=== PATIENT | female | born 1940 | race Caucasian/White ===

== ENCOUNTER 2022-09-10 04:18 | Day surgery (SDC) | payer MEDICARE, SELFPAY ==
[2022-09-02 14:08] VITALS: BMI 30.2
--- NOTE | 2022-09-09 16:16 | PM.HPGS ---
History of Present Illness History of Present Illness Consent: Risks, benefits, and alternatives have been discussed and questions answered. Patient agrees to proceed with procedure. Chief complaint: change in bowel habits Narrative: Cathryn Harris is a 82 year old female was referred for investigation of chronic diarrhea. She had seen her primary care physician who did check her for inflammatory bowel disease serology. Review of Systems Review of Systems: All systems reviewed & are unremarkable except as noted in HPI and below PMFSH Social History Social History Smoking status: Never smoker Substance use type: does not use Living arrangements: other Additional living arrangements comments: With Meds Home Medications and Allergies Home Medications Medication Instructions Recorded Confirmed Type carvedilol 3.125 mg tablet 3.125 mg PO BID 09/02/22 09/10/22 History clopidogrel 75 mg tablet 75 mg PO DAILY 09/02/22 09/10/22 History furosemide 40 mg tablet 40 mg PO DAILY 09/02/22 09/10/22 History insulin glargine 100 unit/mL (3 35 unit subcut HS 09/02/22 09/10/22 History mL) subcutaneous pen (Lantus Solostar U-100 Insulin) levothyroxine 75 mcg tablet 75 mcg PO DAILY 09/02/22 09/10/22 History (Synthroid) rosuvastatin 5 mg tablet 5 mg PO DAILY 09/02/22 09/10/22 History venlafaxine 150 mg 150 mg PO DAILY 09/02/22 09/10/22 History capsule,extended release 24 hr Allergies Allergy/AdvReac Type Severity Reaction Status Date / Time acetaminophen Allergy Other Verified 09/10/22 09:03 Exam Const: General: alert Orientation/consciousness: patient oriented x3 Resp: Auscultation: clear to auscultation bilaterally Cardio: Rhythm: regular rhythm GI: GI Palp: Yes Soft to palpation and No Tenderness to palpation present (GI) Neuro: General: patient oriented x3 Assessment and Plan Assessment and plan (1) Chronic diarrhea: Code(s): K52.9 - Noninfective gastroenteritis and colitis, unspecified Status: Acute Assessment and Plan: Colonoscopy with possible biopsy or polypectomy or cautery or injection of substances.
[2022-09-10 09:05] VITALS: BP 145/87; PULSE 113; RESP 17; TEMP 36.2; O2SAT 95; BMI 29.6
[2022-09-10 09:19] LABS: Glucose Point of Care 265 mg/dl (65-105)
[2022-09-10] MEDS: LACTATED RINGERS 1,000 ML 150 ML IV CONT (09:32)
--- NOTE | 2022-09-10 09:43 | WPDANESEPPF ---
Anes - Initial Pre Proc Eval Procedure: Operation Date: 09/10/22 10:30 Proposed Procedures p Colonoscopy - John Warren MD Date/Time: 09/10/22 09:43 Surgeon: John Warren MD Pre Op Diagnosis: change in bowel habits Patient Data Age: 82 Gender: F Height: 1.68 m Weight: 83.3 kg Last Vital Signs Temp 97.1 F L 09/10/22 09:05 Pulse 113 H 09/10/22 09:05 Resp 17 09/10/22 09:05 BP 145/87 H 09/10/22 09:05 Pulse Ox 95 09/10/22 09:05 O2 Del Method Room Air 09/10/22 09:05 Allergies Allergy/AdvReac Type Severity Reaction Status Date / Time acetaminophen Allergy Other Verified 09/10/22 09:03 Home Medications Medication Instructions Recorded Confirmed Type carvedilol 3.125 mg tablet 3.125 mg PO BID 09/02/22 09/10/22 History clopidogrel 75 mg tablet 75 mg PO DAILY 09/02/22 09/10/22 History furosemide 40 mg tablet 40 mg PO DAILY 09/02/22 09/10/22 History insulin glargine 100 unit/mL (3 35 unit subcut HS 09/02/22 09/10/22 History mL) subcutaneous pen (Lantus Solostar U-100 Insulin) levothyroxine 75 mcg tablet 75 mcg PO DAILY 09/02/22 09/10/22 History (Synthroid) rosuvastatin 5 mg tablet 5 mg PO DAILY 09/02/22 09/10/22 History venlafaxine 150 mg 150 mg PO DAILY 09/02/22 09/10/22 History capsule,extended release 24 hr Laboratory Tests 09/10/22 09:17 POC Capillary Glucose 265 H mg/dl (65-105) Patient hx anesthesia problems: none Family hx anesthesia problems: none Results Review: All pre-operative results and documents have been reviewed as part of the pre-operative evaluation. [facility] Social History Social History Smoking status: Never smoker Substance use type: does not use Living arrangements: other Additional living arrangements comments: With Anes - Eval Final PreProcedure Day of Procedure 09/10/22 09:43 Patient weight: normal Heart: regular rate and rhythm Lungs: clear to auscultation Airway: Mallampati scale Neurological: alert and oriented Last oral intake: >/= 8 hours ASA classification: III Emergent: no Anesthetic plan: proceed Anesthesia type and monitoring: general GIVS and standard monitoring Results Review: All pre-operative results and documents have been reviewed as part of the pre-operative evaluation. Informed Consent: The patient's anesthetic plan and its attendant risks and benefits were discussed with the patient/family/POA. Questions were solicited and answers provided to the satisfaction of the patient/family/POA.
[2022-09-10 10:26] VITALS: BP 135/75; PULSE 98; RESP 18; O2SAT 98
[2022-09-10 10:36] VITALS: BP 134/84; PULSE 99; RESP 20; O2SAT 97
[2022-09-10 10:46] VITALS: BP 147/84; PULSE 94; RESP 20; O2SAT 100
== END 2022-09-10 11:03 | disposition home or self-care (01) ==
PROVIDERS: PCP Internal Medicine; Visit Provider Internal Medicine Gastroenterology
PROC: 0DJD8ZZ Inspection of Lower Intestinal Tract, Via Natural or Artificial Opening Endoscopic (ICD-10-PCS; CPT 45378; principal; 2022-09-10 10:30)
DX: R19.7 Diarrhea, unspecified (principal); K62.1 Rectal polyp; R19.4 Change in bowel habit; Z79.4 Long term (current) use of insulin
CPT/HCPCS: 45385; 45380; 82948; 88305; J2704; J7120

== ENCOUNTER 2024-05-19 07:51 | Inpatient (IN) | payer MEDICARE, SELFPAY ==
[2024-05-19] VITALS (11 sets, daily range): BP systolic 98–129; BP diastolic 43–57; PULSE 70–88; RESP 11–18; TEMP 36.3; O2SAT 95–100
--- NOTE | 2024-05-19 08:14 | ECG_ITS ---
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
--- OUTSIDE RECORDS SUMMARY | 2024-05-19 08:24 | XMS_ITS | CONTINUITY OF CARE DOCUMENT ---
Author Name cora, cora Address Unknown Organization [facility] Address [address] [place] [address] Phone [phone] Care Team Providers Care Civil Preparedness Coordinator Name Role Phone Isha ANTHONY, Sy Unavailable CLEOPATRA ANTHONY, ERICKSON Unavailable ERICKSON JUAREZ MD Unavailable [phone] PROBLEMS Condition Status Date Provider Notes Dual chamber pacemaker - [employer] active Sy Vieira MD Other symptoms involving cardiovascular system completed - Sy Vieira MD Syncope and collapse active Sy patel MD Sick sinus syndrome active Sy stratton MD HTN Systolic active Sy Vieira MD Occlusion and stenosis of vertebral artery, 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 Sy Vieira MD Diabetes mellitus active Sy Vieira MD Hypercholesterolemia active Sy patel MD Carotid bruit active Sy Vieira MD Dizziness active Santino Yeon SOB active Joss Peoples Unintentional weight loss active Sy marinelli MD Chest pain active Devon Cobos Carotid arterial disease active Devon shaw Breast cancer active Devon Cobos ENCOUNTERS Date Type Provider Location Encounter Diag nosis - In-person encounter Office Visit Sy Vieira MD [facility] Breast cancer - In-person encounter Office Visit Sy Vieira MD [facility] Chest painCarotid arterial disease - In-person encounter Office Visit Sy Vieira MD [facility] - In-person encounter Office Visit Sy Vieira MD [facility] Unintentional weight loss - In-person encounter Office Visit Sy Vieira MD [facility] - In-person encounter Office Visit Sy Vieira MD [facility] - In-person encounter Office Visit Oswaldo Claros MD [facility] - In-person encounter Office Visit Sy Vieira MD [facility] SOB - In-person encounter Office Visit Sy Vieira MD [facility] - In-person encounter Office Visit Sy Vieira MD [facility] Dizziness - In-person encounter Office Visit Sy Vieira MD [facility] Carotid bruit - In-person encounter Office Visit Sy Vieira MD [facility] symptoms involving cardiovascular systemDiabetes mellitusHypercholesterolemia - In-person encounter Office Visit Sy Vieira MD [facility] - In-person encounter Office Visit Sy Vieira MD [facility] HTN SystolicOcclusion and stenosis of vertebral artery, without mention of cerebral infarction - In-person encounter Office Visit Sy Vieira MD [facility] Syncope and collapseSick sinus syndrome VITAL SIGNS Date Observation Value Provider Body Mass Index (Ratio) 29.41 kg/m2 Luís Vieira MD blood pressure, cuff size regular Ke antonioi Robertozenobiasimin blood pressure, diastolic 84 mm[Hg] Ke rri Emir blood pressure, systolic 132 mm[Hg] Candace lozoya Emir oxygen saturation, oximetry 97 % Tracy Emir pulse rate 92 /min Tracy Ernestina er weight E&M 185 [lb_av] Tracy Ernestina [facility] height E&M 66.5 [in_i] Tracy Raadpippaedilberto [facility] respiratory rate E&M 12 /min Crissy Yannick height E&M 66.5 [in_i] Crissy Lanier Body Mass Index (Ratio) 30.52 kg/m2 Luís Vieira MD blood pressure, diastolic 96 mm[Hg] Madhavi nkLoglelo blood pressure, systolic 140 mm[Hg] Dina lelo pulse rate 85 /min Deshawn blood pressure, cuff size regular Ortiz et blood pressure, diastolic 96 mm[Hg] Ortiz rret blood pressure, systolic 140 mm[Hg] Meng ret respiratory rate E&M 12 /min oxygen saturation, oximetry 98 % Deshawn weight E&M 192 [lb_av] Deshawn y height E&M 66.5 [in_i] Deshawn y Body Mass Index (Ratio) 30.01 kg/m2 Luís Vieira MD blood pressure, diastolic 94 mm[Hg] Madhavi nkLoglelo blood pressure, systolic 136 mm[Hg] Dina kLogic blood pressure, diastolic 73 mm[Hg] Waleska Ricardo blood pressure, systolic 136 mm[Hg] She shruthi Ricardo pulse rate 86 /min Val Ricardo oxygen saturation, oximetry 97 % Val Ricardo respiratory rate E&M 18 /min Val Ricardo blood pressure, cuff size regular Waleska Ricardo weight E&M 188.8 [lb_av] Val Ricardo height E&M 66.5 [in_i] Val Ricardo Body Mass Index (Ratio) 32.43 kg/m2 Devon Adrianapedrocolleen blood pressure, diastolic 59 mm[Hg] Ri gordon Barney blood pressure, systolic 134 mm[Hg] Modesto carolee Barney blood pressure, cuff size large Ri gordon Barney oxygen saturation, oximetry 98 % Trudy Barney respiratory rate E&M 16 /min Shira Barney pulse rate 81 /min Trudy Pepe son weight E&M 204 [lb_av] Trudy Pepe son height E&M 66.5 [in_i] Trudy medina Body Mass Index (Ratio) 33.07 kg/m2 Luís Vieira MD blood pressure, cuff size large Ke rri Robertouenekatlin blood pressure, diastolic 70 mm[Hg] Ke rri Gruenenfjuaner blood pressure, systolic 146 mm[Hg] Candace Field oxygen saturation, oximetry 96 % Tracy Emir respiratory rate E&M 16 /min Tracy boyle pulse rate 97 /min Tracy Ernestina tovar weight E&M 208 [lb_av] Tracy Raadneedilberto lder height E&M 66.5 [in_i] Tracy Carloskareem [facility] Body Mass Index (Ratio) 33.70 kg/m2 Barbara Claros MD blood pressure, cuff size regular Cy nthia Earl blood pressure, diastolic 85 mm[Hg] Cy nthia Earl blood pressure, systolic 141 mm[Hg] Shannan rubilyle Earl oxygen saturation, oximetry 92 % Xena Earl respiratory rate E&M 16 /min Xena Earl pulse rate 97 /min Xena Campbel l weight E&M 212 [lb_av] Xena Campbel l height E&M 66.5 [in_i] Xena Campbel l Body Mass Index (Ratio) 33.86 kg/m2 Blanka Peoples blood pressure, diastolic 80 mm[Hg] Ki lleen Rainey blood pressure, systolic 130 mm[Hg] Chantale thompson Rainey oxygen saturation, oximetry 98 % Jack Rainey respiratory rate E&M 16 /min Heri Rainey pulse rate 109 /min Heri Rainey weight E&M 213 [lb_av] Jack Rainey height E&M 66.5 [in_i] Jack Rainey Body Mass Index (Ratio) 34.66 kg/m2 Abhishek Lawrence blood pressure, cuff size regular Cy ntmarquez Rajat blood pressure, diastolic 74 mm[Hg] Cy nthia Earl blood pressure, systolic 130 mm[Hg] Shannan rubia Rajat oxygen saturation, oximetry 93 % Xena Earl respiratory rate E&M 16 /min Xena Earl pulse rate 110 /min Xena Campbel l weight E&M 218 [lb_av] Xena Campbel l height E&M 66.5 [in_i] Xena Almaraz l Body Mass Index (Ratio) 34.18 kg/m2 Abhishek kapoor Melinda blood pressure, diastolic 72 mm[Hg] Da agus Duran blood pressure, systolic 110 mm[Hg] Dac ia Duran oxygen saturation, oximetry 93 % Caitlin Duran respiratory rate E&M 16 /min Caitlin V oss pulse rate 74 /min Caitlin Duran weight E&M 215 [lb_av] Caitlin Duran height E&M 66.5 [in_i] Caitlin Duran Body Mass Index (Ratio) 34.43 kg/m2 Luís Vieira MD blood pressure, resting Yes Kitty Roberson blood pressure, diastolic 75 mm[Hg] Hortensia Roberson blood pressure, systolic 139 mm[Hg] Margaret Roberson oxygen saturation, oximetry 96 % Callie Roberson respiratory rate E&M 18 /min Jay Roberson pulse rate 83 /min Callie Carrizales nson weight E&M 216.6 [lb_av] Callie Huber enson height E&M 66.5 [in_i] Callie Carrizales nson blood pressure, diastolic 64 mm[Hg] Hortensia Huberenson blood pressure, systolic 136 mm[Hg] Margaret Roberson pulse rate 84 /min Callie Carrizales nson oxygen saturation, oximetry 96 % Callie Roberson respiratory rate E&M 16 /min StaceyIlsa Roberson Body Mass Index (Ratio) 33.83 kg/m2 Stacey Donaldson Roberson weight E&M 212.8 [lb_av] Callie Huber enson Body Mass Index (Ratio) 34.11 kg/m2 Idris Mccall blood pressure, diastolic 84 mm[Hg] Joshua Mccall blood pressure, systolic 148 mm[Hg] Debi Mccall pulse rate 94 /min Marlen Mccall oxygen saturation, oximetry 96 % Marlen Mccall respiratory rate E&M 20 /min Marlen Mccall weight E&M 214.6 [lb_av] Marlen Mccall Body Mass Index (Ratio) 33.54 kg/m2 Anea viji Josep blood pressure, diastolic 88 mm[Hg] An eatris Josep blood pressure, systolic 155 mm[Hg] Ane atris Josep pulse rate 78 /min Aneatramanda Josep oxygen saturation, oximetry 95 % Ileanaatramanda Josep respiratory rate E&M 18 /min Aneatri viral Josep weight E&M 211 [lb_av] Ileanaatramanda Josep Body Mass Index (Ratio) 34.02 kg/m2 Candice fatimah Lewis blood pressure, diastolic 76 mm[Hg] Honorio french Lewis blood pressure, systolic 149 mm[Hg] Tahir shay Lewis pulse rate 91 /min Carley Lewis oxygen saturation, oximetry 96 % Carley Lewis respiratory rate E&M 17 /min Carley Lewis weight E&M 214 [lb_av] Carley Debbie height E&M 66.5 [in_i] Carley Debbie ALLERGIES Allergy Name Onset Date Reaction Criticality Status ACETAMINOPHEN High Criticality activ e HISTORY OF MEDICATION USE Medication Status Instructions Dates Provider Indications Com ments rosuvastatin 5 mg tablet active TAKE 1 TABLET AT BEDTIME 3 Tatiana Rushing amoxicillin 500 mg tablet active 1 tablet by mouth three times a day 9 Raquel Pineda NP tumeric 500 mg active Take 1 once a day Chelsey Greco NP rosuvastatin 5 mg tablet completed Take 1 tablet by mouth at bedtime - 3 Tatiana Talley carvedilol 3.125 mg tablet active Take 1 tablet by mouth twice a day TAKE 1 TABLET TWICE A DAY 0 Doug Dykes RN lisinopril 20 mg tablet active Take 1 tablet by mouth once a day TAKE 1 TABLET DAILY 4 Alyce Oh carvedilol 3.125 mg tablet completed TAKE 1 TABLET TWICE A DAY 9 - 6 Chelsey Greco NP lisinopril 20 mg tablet completed TAKE 1 TABLET DAILY 9 - 4 Roe Hoff Accu-Chek SmartView Test Strip strip active as directed 8 Dejuan Buitrago LANTUS SOLUTION active 35 unit twice a day 4 Chelsey Greco NP HUMALOG MIX 50/50 SUSPENSION completed 10 unit once a day - 6 Chelsey Greco NP MULTIVITAMINS CAPS active 1 tablet once a day Callie Roberson carvedilol 6.25 mg tablet completed Take 1 tablet twice a day 2 - 9 Vadim Yen Vitamin D3 50 mcg (2,000 unit) tablet completed 1 tablet once a day - 6 Chelsey Greco NP biotin 1 mg tablet active 1 tablet once a day Vadim Yen furosemide 40 mg tablet active 1 tablet every other day 1 Devon Cobos Amaryl 2 mg tablet completed once a day - 6 Chelsey Greco NP clopidogrel 75 mg tablet active 1 tablet once a day 1 Vadim Yen levothyroxine 75 mcg tablet active 1 tablet once a day Vadim Yen venlafaxine 150 mg capsule,extended release 24hr active 1 capsule once a day Vadim Yen simvastatin 20 mg tablet completed 1 tablet every night - 8 Chelsey Greco NP lisinopril 20 mg tablet completed Take 1 tablet once a day 2 - 9 Dejuan Buitrago SOCIAL HISTORY Date Observation Value Provider drug use no Devon Cobos alcohol use no Devon Cobos smoking status Never smoker Devon Garzacolleen drug use no Devon Goldmedzai alcohol use no Devon Garzai smoking status Never smoker Devon Garzai social history reviewed E&M revi ewed - no changes required Raquel Arangoreri SALES SERVICE TECHNICIAN social history E&M S moking History: Rosalia ramires has never smoked. Raquel Arangoreri SALES SERVICE TECHNICIAN drug use no Raquel Arangoreri SALES SERVICE TECHNICIAN alcohol use no Raquel Arangoreri SALES SERVICE TECHNICIAN smoking status Never smoker Raquel Huizarr i SALES SERVICE TECHNICIAN smoking status Never smoker Val Haleigh smoking status Never smoker Trudy Joy su social history E&M S moking History: Rosalia ramires has never smoked. Vadim Yen social history reviewed E&M revi ewed - no changes required Vadim Yen smoking status Never smoker Tracy Shankarodilia simpson social history E&M S moking History: Rosalia ramires has never smoked. Dejuan Buitrago social history reviewed E&M revi ewed - no changes required Dejuan Buitrago smoking status Never smoker Xena wild social history reviewed E&M revi ewed - no changes required Joss Peoples smoking status Never smoker Jack Shawn govea social history reviewed E&M revi ewed - no changes required Santino Lawrence social history E&M S moking History: Rosalia ramires has never smoked. Santino Lawrence smoking status Never smoker Xena Rosangela wild number of grandchildren Sy Lawrence social history reviewed E&M revi ewed - no changes required Santino Lawrence social history E&M S moking History: Rosalia ramires has never smoked. Santino Lawrence smoking status Never smoker Caitlin Garzon social history reviewed E&M revi ewed - no changes required Deepti Wyatt smoking status Never smoker Callie Monique michelle social history E&M Smoking Histo ry: P keyla has never smoked. Sy Vieira MD social history reviewed E&M revi ewed - no changes required Sy Vieira MD smoking status Never smoker Callie Kayden martinez smoking status Never smoker Sandrita Blunt social history reviewed E&M revi ewed - no changes required Sandrita Ordonez social history reviewed E&M revi ewed - no changes required Sy Vieira MD pacemaker surgery, hx of yes Briana Vieira MD social history reviewed E&M revi ewed - no changes required Sy Vieira MD pacemaker surgery, hx of yes Briana Vieira MD smoking status Never smoker Carley Debbie FAMILY HISTORY Family Member Condition Father Family History of Di abetes: Mother Family History of Hy pertension: INSURANCE PROVIDERS Payer name Policy type / Coverage type [place] party ID [place] Medicare [id number] [facility] [id number] ADVANCE DIRECTIVES Name Date DISCUSSED - NO DECISION MADE TREATMENT PLAN Date Name Performer [id number],W,b ilateral bruit on both sided on exam present Raquel Pineda NP [id number],S, B P today: 140/96 P rior BP: 136/94 (08/01/2022) Her updated medication list for this problem includes: Carvedilol 3.125 Mg Tablet (Carvedilol) ..... Take 1 tablet by mouth twice a day take 1 tablet twice a day Lisinopril 20 Mg Tablet (Lisinopril) ..... Take 1 tablet by mouth once a day take 1 tablet daily Furosemide 40 Mg Tablet (Furosemide) ..... 1 tablet once a day Raquel Pineda NP [id number],C, M anaged per PCP H er updated medication list for this problem includes: Lisinopril 20 Mg Tablet (Lisinopril) ..... Take 1 tablet by mouth once a day take 1 tablet daily [facility] [id number],C, TRI 156, HDL 47, LDL 88, TC 166 (09/29/2022) per PCP H er updated medication list for this problem includes: Rosuvastatin 5 Mg Tablet (Rosuvastatin) ..... Take 1 tablet by mouth at bedtime [facility] [id number],C, L ast device check 10/27/22: Normal device function [facility] [id number],B, n o recurrence H er updated medication list for this problem includes: Carvedilol 3.125 Mg Tablet (Carvedilol) ..... Take 1 tablet by mouth twice a day take 1 tablet twice a day Lisinopril 20 Mg Tablet (Lisinopril) ..... Take 1 tablet by mouth once a day take 1 tablet daily Clopidogrel 75 Mg Tablet (Clopidogrel) ..... 1 tablet once a day [facility] [id number],B, S /P PPM. Normal device function H er updated medication list for this problem includes: Carvedilol 3.125 Mg Tablet (Carvedilol) ..... Take 1 tablet by mouth twice a day take 1 tablet twice a day Lisinopril 20 Mg Tablet (Lisinopril) ..... Take 1 tablet by mouth once a day take 1 tablet daily Clopidogrel 75 Mg Tablet (Clopidogrel) ..... 1 tablet once a day [facility] [id number],C,1 normal carotids Chelsey Greco SALES SERVICE TECHNICIAN [id number],C,see above Minoo Greco SALES SERVICE TECHNICIAN [id number],C, D C PPM implanted 10/27/2013. normal device function. Her updated medication list for this problem includes: Lisinopril 20 Mg Tablet (Lisinopril) ..... Take 1 tablet by mouth once a day take 1 tablet daily Carvedilol 3.125 Mg Tablet (Carvedilol) ..... Take 1 tablet by mouth twice a day take 1 tablet twice a day Clopidogrel 75 Mg Tablet (Clopidogrel) ..... 1 tablet once a day Chelsey Chamberslenore BEYER [id number],C, B P today: 134/59 P rior BP: 146/70 (11/30/2020) Her updated medication list for this problem includes: Lisinopril 20 Mg Tablet (Lisinopril) ..... Take 1 tablet by mouth once a day take 1 tablet daily Carvedilol 3.125 Mg Tablet (Carvedilol) ..... Take 1 tablet by mouth twice a day take 1 tablet twice a day Furosemide 40 Mg Tablet (Furosemide) ..... 1 tablet once a day Chelseyivan Chamberslenore BEYER [id number],C, T he following medications were removed from the medication list: Simvastatin 20 Mg Tablet (Simvastatin) ..... 1 tablet every night Her updated medication list for this problem includes: Rosuvastatin 5 Mg Tablet (Rosuvastatin) ..... Take 1 tablet by mouth at bedtime will obtain yearly lab results from Dr. Juarez's office Chelsey Fenvira BEYER [id number],C, C ONCLUSIONS: 1 . Mild plaque with less than 50% stenosis of the internal carotid arteries bilaterally. 2 . Vertebral flow is antegrade bilaterally. will recheck in 1 year Chelsey Fenvira BEYER [id number],C,m ild CAMACHO unchanged echo: 11/2020 E F 65%, moderate diastolic dysfunction, mild aortic sclerosis without stenosis, mild TR Her updated medication list for this problem includes: Lisinopril 20 Mg Tablet (Lisinopril) ..... Take 1 tablet by mouth once a day take 1 tablet daily Carvedilol 3.125 Mg Tablet (Carvedilol) ..... Take 1 tablet by mouth twice a day take 1 tablet twice a day Furosemide 40 Mg Tablet (Furosemide) ..... 1 tablet once a day Chelsey Greco SALES SERVICE TECHNICIAN [id number],S, D OE on walking long distances. unchanged. Her updated medication list for this problem includes: Furosemide 40 Mg Tablet (Furosemide) ..... 1 tablet once a day Lisinopril 20 Mg Tablet (Lisinopril) ..... Take 1 tablet once a day Carvedilol 6.25 Mg Tablet (Carvedilol) ..... Take 1 tablet twice a day Vadim Yen [id number],S, Tiffanie C PPM implanted 10/27/2013. normal device function. Her updated medication list for this problem includes: Clopidogrel 75 Mg Tablet (Clopidogrel) ..... 1 tablet once a day Lisinopril 20 Mg Tablet (Lisinopril) ..... Take 1 tablet once a day Carvedilol 6.25 Mg Tablet (Carvedilol) ..... Take 1 tablet twice a day Vadim Yen [id number],S C heck carotid US. [facility]adim [facility] [id number],S, B P today: 146/70 P rior BP: 141/85 (10/14/2019) Her updated medication list for this problem includes: Furosemide 40 Mg Tablet (Furosemide) ..... 1 tablet once a day Lisinopril 20 Mg Tablet (Lisinopril) ..... Take 1 tablet once a day Carvedilol 6.25 Mg Tablet (Carvedilol) ..... Take 1 tablet twice a day Vadim Yen Electrophysiology:Rishi rodriguez: (10/28/2013) Dual chamber [employer] scientific at [facility] by MARYANN hernandez function from recent remote check Sy Vieira MD Electrophysiology:Ex tensive review of the pertinent previous and curent labs , EKGs, cardiac tesing and imaging data was done by Dr. Vieira no CP currently Her updated medication list for this problem includes: Carvedilol 3.125 Mg Tablet (Carvedilol) ..... Take 1 tablet by mouth twice a day take 1 tablet twice a day Lisinopril 20 Mg Tablet (Lisinopril) ..... Take 1 tablet by mouth once a day take 1 tablet daily Clopidogrel 75 Mg Tablet (Clopidogrel) ..... 1 tablet once a day Sy Vieira MD Electrophysiology:no recurrence Her updated medication list for this problem includes: Carvedilol 3.125 Mg Tablet (Carvedilol) ..... Take 1 tablet by mouth twice a day take 1 tablet twice a day Lisinopril 20 Mg Tablet (Lisinopril) ..... Take 1 tablet by mouth once a day take 1 tablet daily Clopidogrel 75 Mg Tablet (Clopidogrel) ..... 1 tablet once a day Sy Vieira MD Electrophysiology:st able Her updated medication list for this problem includes: Furosemide 40 Mg Tablet (Furosemide) ..... 1 tablet every other day Carvedilol 3.125 Mg Tablet (Carvedilol) ..... Take 1 tablet by mouth twice a day take 1 tablet twice a day Lisinopril 20 Mg Tablet (Lisinopril) ..... Take 1 tablet by mouth once a day take 1 tablet daily Devon Cobos Electrophysiology Devon Cobos Electrophysiology Devontorin Cobos Electrophysiology: n o CP currently Her updated medication list for this problem includes: Carvedilol 3.125 Mg Tablet (Carvedilol) ..... Take 1 tablet by mouth twice a day take 1 tablet twice a day Lisinopril 20 Mg Tablet (Lisinopril) ..... Take 1 tablet by mouth once a day take 1 tablet daily Clopidogrel 75 Mg Tablet (Clopidogrel) ..... 1 tablet once a day Devon Cobos Electrophysiology: B P today: 132/84 P rior BP: 140/96 (11/14/2022) Her updated medication list for this problem includes: Furosemide 40 Mg Tablet (Furosemide) ..... 1 tablet every other day Carvedilol 3.125 Mg Tablet (Carvedilol) ..... Take 1 tablet by mouth twice a day take 1 tablet twice a day Lisinopril 20 Mg Tablet (Lisinopril) ..... Take 1 tablet by mouth once a day take 1 tablet daily [facility] Electrophysiology: H er updated medication list for this problem includes: Lisinopril 20 Mg Tablet (Lisinopril) ..... Take 1 tablet by mouth once a day take 1 tablet daily [facility] Electrophysiology:no recurrence Her updated medication list for this problem includes: Carvedilol 3.125 Mg Tablet (Carvedilol) ..... Take 1 tablet by mouth twice a day take 1 tablet twice a day Lisinopril 20 Mg Tablet (Lisinopril) ..... Take 1 tablet by mouth once a day take 1 tablet daily Clopidogrel 75 Mg Tablet (Clopidogrel) ..... 1 tablet once a day [facility] Electrophysiology:no rmal function from recent remote check [facility] Electrophysiology: O rders: C arotid Duplex Bilateral (CPT-10486) [facility] Electrophysiology: P rior BP: 140/96 (11/14/2022) Her updated medication list for this problem includes: Carvedilol 3.125 Mg Tablet (Carvedilol) ..... Take 1 tablet by mouth twice a day take 1 tablet twice a day Lisinopril 20 Mg Tablet (Lisinopril) ..... Take 1 tablet by mouth once a day take 1 tablet daily Furosemide 40 Mg Tablet (Furosemide) ..... 1 tablet once a day [facility] Electrophysiology:un clear culprit for atypical CP, will request ER records for review. will check echo. She has not had recurrence of her CP. O rders: C omplete Echo ([id number]) 0 4791 MOD 30-39min (CPT-62671) [facility] Electrophysiology: H er updated medication list for this problem includes: Lisinopril 20 Mg Tablet (Lisinopril) ..... Take 1 tablet by mouth once a day take 1 tablet daily [facility] Electrophysiology: H er updated medication list for this problem includes: Rosuvastatin 5 Mg Tablet (Rosuvastatin) ..... Take 1 tablet by mouth at bedtime Devontorin Cobos Electrophysiology [facility] Electrophysiology:ad vised her to stop lasix for the next two days, and take it every other day. Echo 12/2022 C ONCLUSIONS: 1 . . Abnormal septal motion consistent with pacemaker or ICD implant . Normal left ventricular systolic function. Normal left v entricular size. Mild concentric left ventricular hypertrophy. E/E': 9.7 Left ventricular ejection fraction is measured at 65 %. 2 . The right atrium is normal in size. Linear artifact in right atrium suggestive of catheter, pacer lead, or ICD lead. 3 . Moderate mitral annular calcification. There is non-specific thickening of the mitral valve leaflets. There is trace physiologic m itral valve regurgitation. 4 . The tricuspid valve is normal in appearance and function. There is mild tricuspid regurgitation. The IVC is not well v isualized. The RA pressure is estimated at 5.0 mmHg Estimated peak pulmonary artery systolic pressure is 28.0 mmHg [facility] Electrophysiology:no rmal function, no significant events Devontorin Cobos Electrophysiology:bi lateral bruit on both sided on exam present Sy Vieira MD Electrophysiology: B P today: 140/96 P rior BP: 136/94 (08/01/2022) Her updated medication list for this problem includes: Carvedilol 3.125 Mg Tablet (Carvedilol) ..... Take 1 tablet by mouth twice a day take 1 tablet twice a day Lisinopril 20 Mg Tablet (Lisinopril) ..... Take 1 tablet by mouth once a day take 1 tablet daily Furosemide 40 Mg Tablet (Furosemide) ..... 1 tablet once a day Sy Vieira MD Electrophysiology: M anaged per PCP H er updated medication list for this problem includes: Lisinopril 20 Mg Tablet (Lisinopril) ..... Take 1 tablet by mouth once a day take 1 tablet daily Sy Vieira MD Electrophysiology: TRI 156, HDL 47, LDL 88, TC 166 (09/29/2022) per PCP H er updated medication list for this problem includes: Rosuvastatin 5 Mg Tablet (Rosuvastatin) ..... Take 1 tablet by mouth at bedtime Sy Veiira MD Electrophysiology: L ast device check 10/27/22: Normal device function Sy Vieira MD Electrophysiology: n o recurrence H er updated medication list for this problem includes: Carvedilol 3.125 Mg Tablet (Carvedilol) ..... Take 1 tablet by mouth twice a day take 1 tablet twice a day Lisinopril 20 Mg Tablet (Lisinopril) ..... Take 1 tablet by mouth once a day take 1 tablet daily Clopidogrel 75 Mg Tablet (Clopidogrel) ..... 1 tablet once a day Sy Vieira MD Electrophysiology: S /P PPM. Normal device function H er updated medication list for this problem includes: Carvedilol 3.125 Mg Tablet (Carvedilol) ..... Take 1 tablet by mouth twice a day take 1 tablet twice a day Lisinopril 20 Mg Tablet (Lisinopril) ..... Take 1 tablet by mouth once a day take 1 tablet daily Clopidogrel 75 Mg Tablet (Clopidogrel) ..... 1 tablet once a day Sy Vieira MD Electrophysiology: normal carotids Chelsey Greco NP Electrophysiology:see above Leyda Greco NP Electrophysiology: D C PPM implanted 10/27/2013. normal device function. Her updated medication list for this problem includes: Lisinopril 20 Mg Tablet (Lisinopril) ..... Take 1 tablet by mouth once a day take 1 tablet daily Carvedilol 3.125 Mg Tablet (Carvedilol) ..... Take 1 tablet by mouth twice a day take 1 tablet twice a day Clopidogrel 75 Mg Tablet (Clopidogrel) ..... 1 tablet once a day Chelsey Greco NP Electrophysiology: B P today: 134/59 P rior BP: 146/70 (11/30/2020) Her updated medication list for this problem includes: Lisinopril 20 Mg Tablet (Lisinopril) ..... Take 1 tablet by mouth once a day take 1 tablet daily Carvedilol 3.125 Mg Tablet (Carvedilol) ..... Take 1 tablet by mouth twice a day take 1 tablet twice a day Furosemide 40 Mg Tablet (Furosemide) ..... 1 tablet once a day Chelsey Greco NP Electrophysiology: T he following medications were removed from the medication list: Simvastatin 20 Mg Tablet (Simvastatin) ..... 1 tablet every night Her updated medication list for this problem includes: Rosuvastatin 5 Mg Tablet (Rosuvastatin) ..... Take 1 tablet by mouth at bedtime will obtain yearly lab results from Dr. Juarez's office Chelsey Greco NP Electrophysiology: C ONCLUSIONS: 1 . Mild plaque with less than 50% stenosis of the internal carotid arteries bilaterally. 2 . Vertebral flow is antegrade bilaterally. will recheck in 1 year Chelsey Greco NP Electrophysiology:mi ld CAMACHO unchanged echo: 11/2020 E F 65%, moderate diastolic dysfunction, mild aortic sclerosis without stenosis, mild TR Her updated medication list for this problem includes: Lisinopril 20 Mg Tablet (Lisinopril) ..... Take 1 tablet by mouth once a day take 1 tablet daily Carvedilol 3.125 Mg Tablet (Carvedilol) ..... Take 1 tablet by mouth twice a day take 1 tablet twice a day Furosemide 40 Mg Tablet (Furosemide) ..... 1 tablet once a day Chelsey Greco NP Electrophysiology: D OE on walking long distances. unchanged. Her updated medication list for this problem includes: Furosemide 40 Mg Tablet (Furosemide) ..... 1 tablet once a day Lisinopril 20 Mg Tablet (Lisinopril) ..... Take 1 tablet once a day Carvedilol 6.25 Mg Tablet (Carvedilol) ..... Take 1 tablet twice a day Vadim Yen Electrophysiology: D C PPM implanted 10/27/2013. normal device function. Her updated medication list for this problem includes: Clopidogrel 75 Mg Tablet (Clopidogrel) ..... 1 tablet once a day Lisinopril 20 Mg Tablet (Lisinopril) ..... Take 1 tablet once a day Carvedilol 6.25 Mg Tablet (Carvedilol) ..... Take 1 tablet twice a day Vadim Yen Electrophysiology: C heck carotid US. Vadim Yen Electrophysiology: B P today: 146/70 P rior BP: 141/85 (10/14/2019) Her updated medication list for this problem includes: Furosemide 40 Mg Tablet (Furosemide) ..... 1 tablet once a day Lisinopril 20 Mg Tablet (Lisinopril) ..... Take 1 tablet once a day Carvedilol 6.25 Mg Tablet (Carvedilol) ..... Take 1 tablet twice a day Vadim Yen cards follow up - se en by Dr. CLAROS :CONCLUSIONS: 1 . Mild plaque with less than 50% stenosis of the internal carotid arteries bilaterally. 2 . Vertebral flow is antegrade bilaterally. [facility] follow up - se en by Dr. CLAROS : D OE on walking long distances. Reviewed PFTs. H er updated medication list for this problem includes: Carvedilol (ir) Tabs 3.125mg (Carvedilol) ..... Take 1 tablet twice a day Furosemide 40 Mg Oral Tablet (Furosemide) ..... 1 tab daily Lisinopril Tabs 20mg (Lisinopril) ..... Take 1 tablet daily [facility] cards follow up - se en by Dr. CLAROS : P CP following, last a1c is 7.5 per patient r efilled accucheck [facility] cards follow up - se en by Dr. CLAROS : o n statin Her updated medication list for this problem includes: Simvastatin 20 Mg Oral Tablet (Simvastatin) ..... 1 tab at bedtime Dejuan Buitrago cards follow up - se en by Dr. CLAROS : N one recently. Did have fall but denies syncope or dizziness Her updated medication list for this problem includes: Carvedilol (ir) Tabs 3.125mg (Carvedilol) ..... Take 1 tablet twice a day Clopidogrel Bisulfate 75 Mg Oral Tablet (Clopidogrel bisulfate) ..... 1 tab daily Lisinopril Tabs 20mg (Lisinopril) ..... Take 1 tablet daily Linettedanny Buitrago cards follow up - se en by Dr. CLAROS : D C PPM implanted 10/27/2013. normal device function. Her updated medication list for this problem includes: Carvedilol (ir) Tabs 3.125mg (Carvedilol) ..... Take 1 tablet twice a day Clopidogrel Bisulfate 75 Mg Oral Tablet (Clopidogrel bisulfate) ..... 1 tab daily Lisinopril Tabs 20mg (Lisinopril) ..... Take 1 tablet daily Dejuan Buitrago Electrophysiology: H er updated medication list for this problem includes: Coreg 3.125 Mg Oral Tablet (Carvedilol) ..... One tab. twice daily Clopidogrel Bisulfate 75 Mg Oral Tablet (Clopidogrel bisulfate) ..... 1 tab daily Lisinopril 20 Mg Oral Tablet (Lisinopril) ..... 1 tab daily Joss Peoples Electrophysiology: H er updated medication list for this problem includes: Coreg 3.125 Mg Oral Tablet (Carvedilol) ..... One tab. twice daily Clopidogrel Bisulfate 75 Mg Oral Tablet (Clopidogrel bisulfate) ..... 1 tab daily Lisinopril 20 Mg Oral Tablet (Lisinopril) ..... 1 tab daily Joss Peoples Electrophysiology: B P today: 130/80 P rior BP: 130/74 (10/30/2017) Her updated medication list for this problem includes: Coreg 3.125 Mg Oral Tablet (Carvedilol) ..... One tab. twice daily Furosemide 40 Mg Oral Tablet (Furosemide) ..... 1 tab daily Lisinopril 20 Mg Oral Tablet (Lisinopril) ..... 1 tab daily Joss Peoples Electrophysiology:normal device function Joss Peoples Electrophysiology fo llow up :BP today: 130/74 P rior BP: 110/72 (10/02/2017) Her updated medication list for this problem includes: Coreg 3.125 Mg Oral Tablet (Carvedilol) ..... One tab. twice daily Furosemide 40 Mg Oral Tablet (Furosemide) ..... 1 tab daily Lisinopril 20 Mg Oral Tablet (Lisinopril) ..... 1 tab daily Santino Lawrence Electrophysiology follow up Abhishek Lawrence Electrophysiology fo llow up :No recurrences. Her updated medication list for this problem includes: Coreg 3.125 Mg Oral Tablet (Carvedilol) ..... One tab. twice daily Clopidogrel Bisulfate 75 Mg Oral Tablet (Clopidogrel bisulfate) ..... 1 tab daily Lisinopril 20 Mg Oral Tablet (Lisinopril) ..... 1 tab daily Santino Lawrence Electrophysiology fo llow up :Orders: 9 9213 LTD. Complex (CPT-93672) Her updated medication list for this problem includes: Coreg 3.125 Mg Oral Tablet (Carvedilol) ..... One tab. twice daily Clopidogrel Bisulfate 75 Mg Oral Tablet (Clopidogrel bisulfate) ..... 1 tab daily Lisinopril 20 Mg Oral Tablet (Lisinopril) ..... 1 tab daily Santino Lawrence Electrophysiology fo llow up :Implanted 10/2013. N ormal function. Battery okay. Santino Lawrence Electrophysiology follow up Abhishek Lawrence Electrophysiology fo llow up:Orders: C omplete Echo (CPT-41817) C arotid Duplex Bilateral (CPT-31134) 9 9213 LTD. Complex (CPT-52882) Her updated medication list for this problem includes: Coreg 3.125 Mg Oral Tablet (Carvedilol) ..... One tab. twice daily Clopidogrel Bisulfate 75 Mg Oral Tablet (Clopidogrel bisulfate) ..... 1 tab daily Lisinopril 20 Mg Oral Tablet (Lisinopril) ..... 1 tab daily Santino Lawrence Electrophysiology fo llow up:BP today: 110/72 P rior BP: 139/75 (09/26/2016) Her updated medication list for this problem includes: Coreg 3.125 Mg Oral Tablet (Carvedilol) ..... One tab. twice daily Furosemide 40 Mg Oral Tablet (Furosemide) ..... 1 tab daily Lisinopril 20 Mg Oral Tablet (Lisinopril) ..... 1 tab daily Santino Lawrence Electrophysiology follow up:Norm al function. Santino Lawrence Electrophysiology:Wi ll check her AAA and Carotid US. H er updated medication list for this problem includes: Coreg 3.125 Mg Tabs (Carvedilol) ..... One tab. twice daily Furosemide 40 Mg Tabs (Furosemide) ..... 1 tab daily Lisinopril 20 Mg Tabs (Lisinopril) ..... 1 tab daily Deepti Wyatt Electrophysiology:Rishi rodriguez function is satisfactory. Recent device check reported 1 AT/AF episode noted less than one minute with a rate of 94 bpm. Deepti Wyatt Cardiology faxed 07/17 :Orders: Carotid Duplex Bilateral (CPT-88000) Sy Vieira MD Cardiology faxed 07/17 :Her updated medication list for this problem includes: Simvastatin 20 Mg Tabs (Simvastatin) ..... 1 tab at bedtime Sy Vieira MD Cardiology faxed 07/17 :Her updated medication list for this problem includes: Amaryl 4 Mg Tabs (Glimepiride) ..... 1 tab twice daily Lisinopril 20 Mg Tabs (Lisinopril) ..... 1 tab daily Sy Vieira MD Cardiology faxed 07/27/15:S/P pac emaker. Sy Vieira MD Cardiology faxed 07/27/15:S/P pac cleve. Sy Vieira MD Cardiology faxed 07/17 :BP today: 136/64 P rior BP: 148/84 (06/22/2014) Her updated medication list for this problem includes: Coreg 3.125 Mg Tabs (Carvedilol) ..... One tab. twice daily Furosemide 40 Mg Tabs (Furosemide) ..... 1 tab daily Lisinopril 20 Mg Tabs (Lisinopril) ..... 1 tab daily Sy Vieira MD Cardiology faxed 07/17 :Orders: Carotid Duplex Bilateral (CPT-58072) Sy Vieira MD F/U faxed 08/01/14 10 45: H er updated medication list for this problem includes: Furosemide 40 Mg Tabs (Furosemide) ..... 1 tab daily Clopidogrel Bisulfate 75 Mg Tabs (Clopidogrel bisulfate) ..... 1 tab daily Lisinopril 20 Mg Tabs (Lisinopril) ..... 1 tab daily Orders: C arotid Duplex Bilateral (CPT-41652) C omplete Echo (CPT-14045) A ortic Abdominal Ultrasound (CPT-47649) R enal Artery Duplex (CPT-46940) S chedule Followup (*) Sy Vieira MD F/U faxed 08/01/14 10 45: H er updated medication list for this problem includes: Clopidogrel Bisulfate 75 Mg Tabs (Clopidogrel bisulfate) ..... 1 tab daily Lisinopril 20 Mg Tabs (Lisinopril) ..... 1 tab daily Orders: C arotid Duplex Bilateral (CPT-52430) C omplete Echo (CPT-39058) A ortic Abdominal Ultrasound (CPT-01348) R enal Artery Duplex (CPT-63180) S chedule Followup (*) Sy Vieira MD F/U faxed 08/01/14 10 45: H er updated medication list for this problem includes: Clopidogrel Bisulfate 75 Mg Tabs (Clopidogrel bisulfate) ..... 1 tab daily Orders: C arotid Duplex Bilateral (CPT-98898) C omplete Echo (CPT-00658) A ortic Abdominal Ultrasound (CPT-67935) R enal Artery Duplex (CPT-46822) S chedule Followup (*) Sy Vieira MD F/U faxed 08/01/14 10 45: H er updated medication list for this problem includes: Furosemide 40 Mg Tabs (Furosemide) ..... 1 tab daily Lisinopril 20 Mg Tabs (Lisinopril) ..... 1 tab daily O rders: C arotid Duplex Bilateral (CPT-65975) C omplete Echo (CPT-24719) A ortic Abdominal Ultrasound (CPT-23999) R enal Artery Duplex (CPT-19410) S chedule Followup (*) Sy Vieira MD hos follow up Sy stratton MD hos follow up: H er updated medication list for this problem includes: Clopidogrel Bisulfate 75 Mg Tabs (Clopidogrel bisulfate) ..... 1 tab daily Sy Vieira MD hos follow up: H er updated medication list for this problem includes: Furosemide 40 Mg Tabs (Furosemide) ..... 1 tab daily Clopidogrel Bisulfate 75 Mg Tabs (Clopidogrel bisulfate) ..... 1 tab daily Lisinopril 20 Mg Tabs (Lisinopril) ..... 1 tab daily Orders: E KG (CPT-76904) S chedule Followup (*) C arotid Duplex Bilateral (CPT-63333) Sy Vieira MD hos follow up:Pacema ker: (10/28/2013) Dual chamber [employer] at [facility] by [facility] H er updated medication list for this problem includes: Clopidogrel Bisulfate 75 Mg Tabs (Clopidogrel bisulfate) ..... 1 tab daily Lisinopril 20 Mg Tabs (Lisinopril) ..... 1 tab daily Orders: E KG (CPT-62411) S chedule Followup (*) Sy Vieira MD hos follow up: H er updated medication list for this problem includes: Furosemide 40 Mg Tabs (Furosemide) ..... 1 tab daily Lisinopril 20 Mg Tabs (Lisinopril) ..... 1 tab daily Sy Vieira MD hfu,device check Sy patel MD hfu,device check:had pacemaker implantation 10/28/2013 at [facility] Her updated medication list for this problem includes: Clopidogrel Bisulfate 75 Mg Tabs (Clopidogrel bisulfate) ..... 1 tab daily Lisinopril 20 Mg Tabs (Lisinopril) ..... 1 tab daily Orders: S chedule Followup (*) Sy Vieira MD hfu,device check: H er updated medication list for this problem includes: Furosemide 40 Mg Tabs (Furosemide) ..... 1 tab daily Clopidogrel Bisulfate 75 Mg Tabs (Clopidogrel bisulfate) ..... 1 tab daily Lisinopril 20 Mg Tabs (Lisinopril) ..... 1 tab daily Orders: S chedule Followup (*) Sy Vieira MD Date Name MAGNESIUM TSH, free T4, total T3 HEMOGLOBIN A1c LIPID PANEL CBC (INCLUDES DIFF/P LT) PROBNP, N TERMINAL COMPREHENSIVE METABO LIC PANEL, W/EGFR Carotid Duplex Bilat eral Complete Echo Aorta Duplex Ultraso und Carotid Duplex Bilat eral Aorta Duplex Ultraso und Carotid Duplex Bilat eral Complete Echo Carotid Duplex Bilat eral Complete Echo DLCO - 07089 FRC - 22986 FVC - 07784 Aorta Duplex Ultraso und (AAA) Carotid Duplex Bilat eral Carotid Duplex Bilat eral Complete Echo Aorta Duplex Ultraso und (AAA) Carotid Duplex Bilat eral Complete Echo Carotid Duplex Bilat eral Renal Artery Duplex Aortic Abdominal Ult rasound Complete Echo Carotid Duplex Bilat eral Carotid Duplex Bilat eral HISTORY OF PROCEDURES Procedure Date Procedure Name Provider Procedure Notes S anoop Complex e/m visit ad d on Sy Vieira MD completed EKG Sy stratton MD completed Schedule Followup Sy curran MD 1 year completed EKG Sy stratton MD completed Schedule Followup Sy curran MD [address] Vieira completed EKG Sy stratton MD completed Schedule Followup Sy curran MD in 1 year completed EKG Sy stratton MD completed EKG Sy stratton MD completed FVC / MVV - 59876 Sy curran MD completed BLOOD COUNT HEMOGLOBIN Sy hussein MD completed FRC - 43799 Sy stratton MD completed SpO2 w/o 6min walk/titration Sy Vieira MD completed DLCO - 23295 Sy stratton MD completed ICM Interrogation, Remote (Prof) Sy Vieira MD INTERROGATION EVAL REMOTE </30 D CV MNTR SYS completed Pacemaker Interrogation, Remote (Tech) Sy Vieira MD INTERROGATION REMOTE </90 D BACTERIOLOGY RESEARCH ASSISTANT REVIEW completed Pacemaker Interrogation, Remote (Prof) Sy Vieira MD INTERROGATION EVAL REMOTE </90 D 1/2/CANTEEN ATTENDANT LEAD P completed FVC / MVV - 75009 Sy curran MD completed BLOOD COUNT HEMOGLOBIN Sy hussein MD completed FRC - 20491 Sy stratton MD completed SpO2 w/o 6min walk/titration Sy Vieira MD completed DLCO - 56900 Sy stratton MD completed EKG Sy Villalpando s MD completed ICM Interrogation, Remote (Prof) Saulius Kalvaitis MD INTERROGATION EVAL REMOTE </30 D CV MNTR SYS completed ICM Interrogation, Remote (Tech) Saulius Kalvaitis MD INTERROGATION EVAL REMOTE </30 D TECH REVIEW completed ICM Interrogation, Remote (Prof) Saulius Kalvaitis MD INTERROGATION EVAL REMOTE </30 D CV MNTR SYS completed ICM Interrogation, Remote (Tech) Saulius Kalvaitis MD INTERROGATION EVAL REMOTE </30 D TECH REVIEW completed ICM Interrogation, Remote (Prof) Saulius Kalvaitis MD INTERROGATION EVAL REMOTE </30 D CV MNTR SYS completed Pacemaker Interrogation, Remote (Tech) Saulius Kalvaitis MD INTERROGATION REMOTE </90 D BACTERIOLOGY RESEARCH ASSISTANT REVIEW completed Pacemaker Interrogation, Remote (Prof) Saulius Kalvaitis MD INTERROGATION EVAL REMOTE </90 D 1/2/CANTEEN ATTENDANT LEAD P completed ICM Interrogation, Remote (Prof) Saulius Kalvaitis MD INTERROGATION EVAL REMOTE </30 D CV MNTR SYS completed ICM Interrogation, Remote (Tech) Saulius Kalvaitis MD INTERROGATION EVAL REMOTE </30 D TECH REVIEW completed ICM Interrogation, Remote (Prof) Saulius Kalvaitis MD INTERROGATION EVAL REMOTE </30 D CV MNTR SYS completed ICM Interrogation, Remote (Tech) Saulius Kalvaitis MD INTERROGATION EVAL REMOTE </30 D TECH REVIEW completed ICM Interrogation, Remote (Prof) Saulius Kalvaitis MD INTERROGATION EVAL REMOTE </30 D CV MNTR SYS completed Pacemaker Interrogation, Remote (Tech) Saulius Kalvaitis MD INTERROGATION REMOTE </90 D BACTERIOLOGY RESEARCH ASSISTANT REVIEW completed Pacemaker Interrogation, Remote (Prof) Saulius Kalvaitis MD INTERROGATION EVAL REMOTE </90 D 1/2/CANTEEN ATTENDANT LEAD P completed ICM Interrogation, Remote (Prof) Saulius Kalvaitis MD INTERROGATION EVAL REMOTE </30 D CV MNTR SYS completed ICM Interrogation, Remote (Tech) Saulius Royervaitis MD INTERROGATION EVAL REMOTE </30 D TECH REVIEW completed ICM Interrogation, Remote (Prof) Saulius Kalvaitis MD INTERROGATION EVAL REMOTE </30 D CV MNTR SYS completed ICM Interrogation, Remote (Tech) Saulius Royervaitis MD INTERROGATION EVAL REMOTE </30 D TECH REVIEW completed ICM Interrogation, Remote (Prof) Saulius Kalvaitis MD INTERROGATION EVAL REMOTE </30 D CV MNTR SYS completed Pacemaker Interrogation, Remote (Tech) Saulius Kalvaitis MD INTERROGATION REMOTE </90 D BACTERIOLOGY RESEARCH ASSISTANT REVIEW completed Pacemaker Interrogation, Remote (Prof) Saulius Kalvaitis MD INTERROGATION EVAL REMOTE </90 D 1/2/CANTEEN ATTENDANT LEAD P completed ICM Interrogation, Remote (Prof) Saulius Kalvaitis MD INTERROGATION EVAL REMOTE </30 D CV MNTR SYS completed ICM Interrogation, Remote (Tech) Saulius Royervaitis MD INTERROGATION EVAL REMOTE </30 D TECH REVIEW completed EKG Sy stratton MD completed Schedule Followup Sy curran MD in 1 yr completed EKG ulius Kwasi stratton MD completed ICM Interrogation, Remote (Prof) Saulius Royervaitis MD INTERROGATION EVAL REMOTE </30 D CV MNTR SYS completed ICM Interrogation, Remote (Tech) Saulius Royervaitis MD INTERROGATION EVAL REMOTE </30 D TECH REVIEW completed ICM Interrogation, Remote (Prof) Saulius Kalvaitis MD INTERROGATION EVAL REMOTE </30 D CV MNTR SYS completed Pacemaker Interrogation, Remote (Tech) Saulius Royervaitis MD INTERROGATION REMOTE </90 D BACTERIOLOGY RESEARCH ASSISTANT REVIEW completed Pacemaker Interrogation, Remote (Prof) Saulius Razaitis MD INTERROGATION EVAL REMOTE </90 D 1/2/CANTEEN ATTENDANT LEAD P completed ICM Interrogation, Remote (Prof) Saulius Kalvaitis MD INTERROGATION EVAL REMOTE </30 D CV MNTR SYS completed ICM Interrogation, Remote (Tech) Saulius Kalvaitis MD INTERROGATION EVAL REMOTE </30 D TECH REVIEW completed ICM Interrogation, Remote (Prof) Saulius Kalvaitis MD INTERROGATION EVAL REMOTE </30 D CV MNTR SYS completed ICM Interrogation, Remote (Tech) Saulius Kalvaitis MD INTERROGATION EVAL REMOTE </30 D TECH REVIEW completed ICM Interrogation, Remote (Prof) Saulius Kalvaitis MD INTERROGATION EVAL REMOTE </30 D CV MNTR SYS completed Pacemaker Interrogation, Remote (Tech) Saulius Kalvaitis MD INTERROGATION REMOTE </90 D BACTERIOLOGY RESEARCH ASSISTANT REVIEW completed Pacemaker Interrogation, Remote (Prof) Saulius Kalvaitis MD INTERROGATION EVAL REMOTE </90 D 1/2/CANTEEN ATTENDANT LEAD P completed ICM Interrogation, Remote (Prof) Saulius Kalvaitis MD INTERROGATION EVAL REMOTE </30 D CV MNTR SYS completed ICM Interrogation, Remote (Tech) Saulius Kalvaitis MD INTERROGATION EVAL REMOTE </30 D TECH REVIEW completed ICM Interrogation, Remote (Prof) Saulius Kalvaitis MD INTERROGATION EVAL REMOTE </30 D CV MNTR SYS completed ICM Interrogation, Remote (Tech) Saulius Kalvaitis MD INTERROGATION EVAL REMOTE </30 D TECH REVIEW completed ICM Interrogation, Remote (Prof) Saulius Kalvaitis MD INTERROGATION EVAL REMOTE </30 D CV MNTR SYS completed Pacemaker Interrogation, Remote (Tech) Saulius Kalvaitis MD INTERROGATION REMOTE </90 D BACTERIOLOGY RESEARCH ASSISTANT REVIEW completed Pacemaker Interrogation, Remote (Prof) Saulius Kalvaitis MD INTERROGATION EVAL REMOTE </90 D 1/2/CANTEEN ATTENDANT LEAD P completed ICM Interrogation, Remote (Prof) Saulius Kalvaitis MD INTERROGATION EVAL REMOTE </30 D CV MNTR SYS completed ICM Interrogation, Remote (Tech) Saulius Razaitis MD INTERROGATION EVAL REMOTE </30 D TECH REVIEW completed ICM Interrogation, Remote (Prof) Saulius Kalvaitis MD INTERROGATION EVAL REMOTE </30 D CV MNTR SYS completed ICM Interrogation, Remote (Tech) Saulius Razaitis MD INTERROGATION EVAL REMOTE </30 D TECH REVIEW completed ICM Interrogation, Remote (Prof) Saulius Kalvaitis MD INTERROGATION EVAL REMOTE </30 D CV MNTR SYS completed Pacemaker Interrogation, Remote (Tech) Saulius Razaitis MD INTERROGATION REMOTE </90 D BACTERIOLOGY RESEARCH ASSISTANT REVIEW completed Pacemaker Interrogation, Remote (Prof) Saulius Vieira MD INTERROGATION EVAL REMOTE </90 D 1/2/CANTEEN ATTENDANT LEAD P completed EKG Sy stratton MD completed SNOMED-CT: [id number] Current Medications Documented Sy Vieira MD completed ICM Interrogation, Remote (Prof) Sy Vieira MD INTERROGATION EVAL REMOTE </30 D CV MNTR SYS completed ICM Interrogation, Remote (Tech) ulius Isha ANTHONY INTERROGATION EVAL REMOTE </30 D TECH REVIEW completed ICM Interrogation, Remote (Prof) ulius Vieira MD INTERROGATION EVAL REMOTE </30 D CV MNTR SYS completed ICM Interrogation, Remote (Tech) Saulius Personitis MD INTERROGATION EVAL REMOTE </30 D TECH REVIEW completed ICM Interrogation, Remote (Prof) Saulius Razaitis MD INTERROGATION EVAL REMOTE </30 D CV MNTR SYS completed Pacemaker Interrogation, Remote (Tech) Saulius Razaitis MD INTERROGATION REMOTE </90 D BACTERIOLOGY RESEARCH ASSISTANT REVIEW completed Pacemaker Interrogation, Remote (Prof) Saulius Personitis MD INTERROGATION EVAL REMOTE </90 D 1/2/CANTEEN ATTENDANT LEAD P completed ICM Interrogation, Remote (Prof) Saulius Kalvaitis MD INTERROGATION EVAL REMOTE </30 D CV MNTR SYS completed ICM Interrogation, Remote (Tech) Saulius Kalvaitis MD INTERROGATION EVAL REMOTE </30 D TECH REVIEW completed ICM Interrogation, Remote (Prof) Saulius Kalvaitis MD INTERROGATION EVAL REMOTE </30 D CV MNTR SYS completed ICM Interrogation, Remote (Tech) Saulius Kalvaitis MD INTERROGATION EVAL REMOTE </30 D TECH REVIEW completed ICM Interrogation, Remote (Prof) Saulius Kalvaitis MD INTERROGATION EVAL REMOTE </30 D CV MNTR SYS completed Pacemaker Interrogation, Remote (Tech) Saulius Kalvaitis MD INTERROGATION REMOTE </90 D BACTERIOLOGY RESEARCH ASSISTANT REVIEW completed Pacemaker Interrogation, Remote (Prof) Saulius Kalvaitis MD INTERROGATION EVAL REMOTE </90 D 1/2/CANTEEN ATTENDANT LEAD P completed ICM Interrogation, Remote (Prof) Saulius Kalvaitis MD INTERROGATION EVAL REMOTE </30 D CV MNTR SYS completed ICM Interrogation, Remote (Tech) Saulius Kalvaitis MD INTERROGATION EVAL REMOTE </30 D TECH REVIEW completed ICM Interrogation, Remote (Prof) Saulius Kalvaitis MD INTERROGATION EVAL REMOTE </30 D CV MNTR SYS completed ICM Interrogation, Remote (Tech) Saulius Kalvaitis MD INTERROGATION EVAL REMOTE </30 D TECH REVIEW completed ICM Interrogation, Remote (Prof) Saulius Kalvaitis MD INTERROGATION EVAL REMOTE </30 D CV MNTR SYS completed ICM Interrogation, Remote (Tech) Saulius Kalvaitis MD INTERROGATION EVAL REMOTE </30 D TECH REVIEW completed Pacemaker Interrogation, Remote (Tech) Saulius Kalvaitis MD INTERROGATION REMOTE </90 D BACTERIOLOGY RESEARCH ASSISTANT REVIEW completed Pacemaker Interrogation, Remote (Prof) Saulius Kalvaitis MD INTERROGATION EVAL REMOTE </90 D 1/2/CANTEEN ATTENDANT LEAD P completed ICM Interrogation, Remote (Prof) Saulius Isha MD INTERROGATION EVAL REMOTE </30 D CV MNTR SYS completed ICM Interrogation, Remote (Tech) Saulius Personitis INTERROGATION EVAL REMOTE </30 D TECH REVIEW completed ICM Interrogation, Remote (Prof) Saulius Personitis MD INTERROGATION EVAL REMOTE </30 D CV MNTR SYS completed ICM Interrogation, Remote (Tech) Saulius Royervaitis MD INTERROGATION EVAL REMOTE </30 D TECH REVIEW completed ICM Interrogation, Remote (Prof) Saulius Isha ANTHONY INTERROGATION EVAL REMOTE </30 D CV MNTR SYS completed AICD Interrogation, Remote (Tech) ulius Isha ANTHONY INTERROGATION REMOTE </90 D BACTERIOLOGY RESEARCH ASSISTANT REVIEW completed AICD Interrogation, Remote (Prof) Sarashmi Vieira MD INTERROGATION EVAL REMOTE </90 D 1/2/> LD CVDFB completed Schedule Followup Sy curran MD 1 year completed SNOMED-CT: [id number] Physical Exam, Performed: Pulse Exam of Foot Sy Vieira MD completed EKG Sy stratton MD completed SNOMED-CT: [id number] Current Medications Documented Sy Vieira MD completed ICM Interrogation, Remote (Prof) Sy Vieira MD INTERROGATION EVAL REMOTE </30 D CV MNTR SYS completed ICM Interrogation, Remote (Tech) Sy Vieira MD INTERROGATION EVAL REMOTE </30 D TECH REVIEW completed ICM Interrogation, Remote (Prof) Saulius Isha ANTHONY INTERROGATION EVAL REMOTE </30 D CV MNTR SYS completed ICM Interrogation, Remote (Tech) Sy Vieira MD INTERROGATION EVAL REMOTE </30 D TECH REVIEW completed ICM Interrogation, Remote (Prof) Saulius Kalvaitis MD INTERROGATION EVAL REMOTE </30 D CV MNTR SYS completed Pacemaker Interrogation, Remote (Tech) Saulius Razaitis MD INTERROGATION REMOTE </90 D BACTERIOLOGY RESEARCH ASSISTANT REVIEW completed Pacemaker Interrogation, Remote (Prof) Saulius Kalvaitis MD INTERROGATION EVAL REMOTE </90 D 1/2/CANTEEN ATTENDANT LEAD P completed ICM Interrogation, Remote (Prof) Saulius Royervaitis MD INTERROGATION EVAL REMOTE </30 D CV MNTR SYS completed ICM Interrogation, Remote (Tech) Saulius Razaitis MD INTERROGATION EVAL REMOTE </30 D TECH REVIEW completed ICM Interrogation, Remote (Prof) Saulius Razaitis MD INTERROGATION EVAL REMOTE </30 D CV MNTR SYS completed Pacemaker Interrogation, Remote (Tech) Saulius Royervaitis MD INTERROGATION REMOTE </90 D BACTERIOLOGY RESEARCH ASSISTANT REVIEW completed Pacemaker Interrogation, Remote (Prof) Saulius Razaitis MD INTERROGATION EVAL REMOTE </90 D 1/2/CANTEEN ATTENDANT LEAD P completed ICM Interrogation, Remote (Prof) Saulius Razaitis MD INTERROGATION EVAL REMOTE </30 D CV MNTR SYS completed ICM Interrogation, Remote (Tech) Saulius Royervaitis MD INTERROGATION EVAL REMOTE </30 D TECH REVIEW completed ICM Interrogation, Remote (Prof) Saulius Razaitis MD INTERROGATION EVAL REMOTE </30 D CV MNTR SYS completed ICM Interrogation, Remote (Tech) Saulius Royervaitis MD INTERROGATION EVAL REMOTE </30 D TECH REVIEW completed ICM Interrogation, Remote (Prof) Saulius Kalvaitis MD INTERROGATION EVAL REMOTE </30 D CV MNTR SYS completed Pacemaker Interrogation, Remote (Tech) Saulius Kalvaitis MD INTERROGATION REMOTE </90 D BACTERIOLOGY RESEARCH ASSISTANT REVIEW completed Pacemaker Interrogation, Remote (Prof) Saulius Royervaitis MD INTERROGATION EVAL REMOTE </90 D 1/2/CANTEEN ATTENDANT LEAD P completed ICM Interrogation, Remote (Prof) Saulius Royervaitis MD INTERROGATION EVAL REMOTE </30 D CV MNTR SYS completed ICM Interrogation, Remote (Tech) Saulius Vieira MD INTERROGATION EVAL REMOTE </30 D TECH REVIEW completed ICM Interrogation, Remote (Prof) Saulius Isha MD INTERROGATION EVAL REMOTE </30 D CV MNTR SYS completed ICM Interrogation, Remote (Tech) Saulius Vieira MD INTERROGATION EVAL REMOTE </30 D TECH REVIEW completed Schedule Followup Sy curran MD completed EKG ulius Kwasi stratton MD completed ICM Interrogation, Remote (Prof) Saulius Isha ANTHONY INTERROGATION EVAL REMOTE </30 D CV MNTR SYS completed Pacemaker Interrogation, Remote (Tech) Saulius Isha ANTHONY INTERROGATION REMOTE </90 D BACTERIOLOGY RESEARCH ASSISTANT REVIEW completed Pacemaker Interrogation, Remote (Prof) Saulius Vieira MD INTERROGATION EVAL REMOTE </90 D 1/2/CANTEEN ATTENDANT LEAD P completed ICM Interrogation, Remote (Prof) Saulius Isha ANTHONY INTERROGATION EVAL REMOTE </30 D CV MNTR SYS completed ICM Interrogation, Remote (Tech) Saulius Vieira MD INTERROGATION EVAL REMOTE </30 D TECH REVIEW completed ICM Interrogation, Remote (Prof) Saulius Isha ANTHONY INTERROGATION EVAL REMOTE </30 D CV MNTR SYS completed ICM Interrogation, Remote (Tech) Saulius Personitis MD INTERROGATION EVAL REMOTE </30 D TECH REVIEW completed ICM Interrogation, Remote (Prof) Saulius Isha MD INTERROGATION EVAL REMOTE </30 D CV MNTR SYS completed Pacemaker Interrogation, Remote (Tech) Saulius Razaitis MD INTERROGATION REMOTE </90 D BACTERIOLOGY RESEARCH ASSISTANT REVIEW completed Pacemaker Interrogation, Remote (Prof) Saulius Vieira MD INTERROGATION EVAL REMOTE </90 D 1/2/CANTEEN ATTENDANT LEAD P completed ICM Interrogation, Remote (Prof) Sy Vieira MD INTERROGATION EVAL REMOTE </30 D CV MNTR SYS completed ICM Interrogation, Remote (Tech) Sy Vieira MD INTERROGATION EVAL REMOTE </30 D TECH REVIEW completed ICM Interrogation, Remote (Prof) Sy Vieira MD INTERROGATION EVAL REMOTE </30 D CV MNTR SYS completed ICM Interrogation, Remote (Tech) Sy Vieira MD INTERROGATION EVAL REMOTE </30 D TECH REVIEW completed Schedule Followup Sy curran MD completed EKG Sy stratton MD completed Schedule Followup Sy curran MD fu in 1 month completed EKG Sy stratton MD completed
--- OUTSIDE RECORDS SUMMARY | 2024-05-19 08:24 | XMS_ITS | Clinical Summary ---
Author Organization [facility] Address [address] [place] [id number] Care Team Providers Care Library Media Assistant Name Role Phone Unavailable Primary Care Provider Unavailabl e Social History Tobacco Use Types Packs/Day Years Used Date Smoking Tobacco: Never Assessed Comments Unknown Sex and Gender Information Value Date Recorded Sex Assigned at Not on file Legal Sex Female 7:41 PM CDT Gender Identity Not on file Sexual Orientation Not on file Plan of Treatment Health Maintenance Due Date Last Done Comments DTaP, Tdap and Td Vaccines ( 1 - Tdap) 1960 Zoster Vaccines (1 of 2) 04/27/1991 Dexa Scan (General) 2006 Pneumococcal Vaccine: 65+ Ye ars (1 of 1 - PCV) 2006 RSV Immunization or 60+ Years (1 - 1-dose 75+ series) 2016 COVID-19 Vaccine (2023-2 5 season) 2023 Influenza Adult (#1) 2023 Meningococcal B Vaccine Aged Out No l onger eligible based on patient's age to complete this topic Meningococcal Vaccine Aged Out No ap edi eligible based on patient's age to complete this topic RSV Immunizations Under 20 Months Aged Out No longer eligible based on patient's age to complete this topic
--- OUTSIDE RECORDS SUMMARY | 2024-05-19 08:24 | XMS_ITS | Clinical Summary ---
Author Organization [facility] Address [address] [place] [address] Care Team Providers Care Devops Name Role Phone José Juarez MD Primary Care Provider [phone] Source Comments [facility],non-owned Affiliates and Associated Physician Practices is amultiple site organization consisting of ambulatory clinics and hospital sitesin [place], [place], [place] and [place]. This disclosure is being madepursuant to the Care Everywhere program and may not contain all information available regarding this patient. 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 Overview (05/18/2017): Resolved per NSG F/U PRN Social History Tobacco Use Types Packs/Day Years Used Date Smoking Tobacco: Never Smokeless Tobacco: Never Alcohol Use Standard Drinks/Week Comments No 0 (1 standard drink = 0.6 oz pur e alcohol) Sex and Gender Information Value Date Recorded Sex Assigned at Not on file Gender Identity Not on file Sexual Orientation Not on file Plan of Treatment Health Maintenance Due Date Last Done Comments BONE DENSITY TESTING 1941 MEDICARE AWV 12 MONTHS 1941 DTAP/TDAP/TD VACCINES (1 - Tdap) 1960 PNEUMOCOCCAL VACCINE 50+ (1 of 1 - PCV) 04/27/1991 ZOSTER VACCINE (1 of 2) 04/27/1991 Respiratory Syncytial Virus (RSV) Vaccine Pt: or over 60 yrs (1 - 1-dose 75+ series) 2016 COVID-19 VACCINE ( - 2023-2 5 season) 2023 INFLUENZA VACCINE (#1) 2023 DEPRESSION SCREENING 02/17/2024 HEPATITIS B VACCINE Aged Out No longe r eligible based on patient's age to complete this topic HIB VACCINE Aged Out No longer eligi ble based on patient's age to complete this topic HPV VACCINE Aged Out No longer eligi ble based on patient's age to complete this topic MENINGOCOCCAL (Group B) VACC INE SHARED DECISION-MAKING Aged Out No longer eligibl e based on patient's age to complete this topic MENINGOCOCCAL GROUPS A/C/Y/W VACCINE Aged Out No longer eligible b ased on patient's age to complete this topic Care Teams Devops Relationship Specialty Start Date End Date José Juarez MD [address] [place] [address] [address] [place] [address] PCP - General 10/03/11
--- OUTSIDE RECORDS SUMMARY | 2024-05-19 08:24 | XMS_ITS | Encounter Summary ---
Author Organization [facility] Address [address] [place] [address] Care Team Providers Care Gear Inspector Name Role Phone José Juarez MD Primary Care Provider Reason for Visit * Diagnostic Imaging (Routine) - Pending Review Specialty Diagnoses / Procedures Referred By Ashley galvan Referred To Contact Procedures Breast Imaging Screening Outside Reference Transcribed Order, Provider Referral ID Status Reason Start Date Expiration Date V isits Requested Visits Authorized [id number] Pending Review 01/08/2024 02/06/2025 1 1 Encounter Details Date Type Department Care Team (Late st Contact Info) Description 11/09/2017 Hospital Encounter [facility] [address] [place] [id number] Social History Tobacco Use Types Packs/Day Years Used Date Smoking Tobacco: Never Smokeless Tobacco: Never Alcohol Use Standard Drinks/Week Comments No 0 (1 standard drink = 0.6 oz pur e alcohol) AUDIT-C Answer Date Recorded Q1: How often do you have a drink containing alcohol? Never 03/03/2024 Q2: How many drinks containi ng alcohol do you have on a typical day when you are drinking? Patient does not drink Q3: How often do you have si x or more drinks on one occasion? Never 03/03/2024 PHQ-2 Answer Date Recorded PHQ-2 Total Score (If total score is 3 or more points, staff should administer the PHQ-9) 0 07/04/2021 Personal Safety Answer Date Recorded Have you ever been in or are you currently in a harmful physical or emotional relationship or is someone making you feel afraid or unsafe? Denies 03/29/2024 Comments Unknown Sex and Gender Information Value Date Recorded Sex Assigned at Not on file Legal Sex Female 12:21 AM JAR CAPPER Gender Identity Not on file Sexual Orientation Not on file documented as of this encounter Functional Status * Audit-C Score Answer Date of Assessment Author 0 03/03/2024 3:15 PM Gallo Godoy RN * Question Answer Date of Assessment Author Q1: How often do you have a drink containing alcohol? Never 03/03/2024 3:15 PM Samantha Godoy R N Q2: How many drinks containing alcohol do you have on a typical day when you are drinking? Patient does not drink 03/03/2024 3:15 PM Samantha Godoy RN Q3: How often do you have six or more drinks on one occasion? Never 03/03/2024 3:15 PM Samantha Godoy R N documented as of this encounter Plan of Treatment Not on file documented as of this encounter Procedures Procedure Name Priority Date/Time Associated Diagnosis Comments BREAST IMAGING MG SCREENING OUTSIDE REFERENCE Routine 11/09/2017 12:00 AM CDT documented in this encounter Results * Breast Imaging Screening Outside Reference (11/09/2017 12:00 AM CDT) Impressions [id number] - 01/08/2024 3:58 PM JAR CAPPER These images are for Reference purposes only and have not been reviewed by [facility]. There will be no report generated by a [facility] Radiologist. Narrative [email or web address] - 01/08/2024 3:58 PM JAR CAPPER EXAMINATION: Images For Reference Purposes Only us Provider Transcribed Order IMG MAMMO PROCEDURES Final Result [email or web address] documented in this encounter Visit Diagnoses Not on filedocumented in this encounter Care Teams Gear Inspector Relationship Specialty Start Date End Date José Juarez MD PCP - General 05/16/16 documented as of this encounter
--- OUTSIDE RECORDS SUMMARY | 2024-05-19 08:24 | XMS_ITS | Data Portability ---
Author Organization [place] [facility], Main Office Address [address] [place] [address] Care Team Providers Care Corporate Wellness Coordinator Name Role Phone ERICKSON JUAREZ Primary Care Provider [phone] ERICKSON JUAREZ Referring Provider Assessment Encounter Date Assessment Date Assessment LastModified by Organization Details LastModified Time 12/17/2023 12/17/2023 right breast mass. 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 Options discussed with patient. Mastectomy versus lumpectomy and sentinel node biopsy. Risks and benefits, pros and cons of mastectomy versus lumpectomy discussed. Family will discuss and call us if they decide to have surgery performed our institution. [email or web address] Not available 12/17/2023 13:08:10 02/24/2024 02/24/2024 83-year-old female presents for follow-up of her left hip. She had a hip fracture and IM nailing on 01/21/2024. Her postop course was complicated by medical issues including COVID where she was basically bed-bound for 4 weeks. She has been transferred to a fdc facility and been working with physical therapy. She still has pain when trying to move with PT. She currently rates pain at 7/10. She has been taking oxycodone and tramadol. She is with a wheelchair. She has significant atrophy of the left quad. She has some discomfort with hip range of motion, weakness in hip flexion abduction adduction compared to the contralateral side. X-rays of the hip reviewed, demonstrating hardware in place. She has had varus collapse and cut-out of the lag screw of the femoral head. We reviewed her imaging findings. Her hardware cut out is the likely cause of her pain with movement and therapy. She has had significant medical comorbidities, and would be a poor candidate for another surgery, especially if it involves removal of hardware and placement of additional implants. We discussed the options would be to consider a total hip arthroplasty, or continued conservative management and see how she does. They agree that she a poor candidate for surgery and want to try conservative observation 1st. We will give her a refill for oxycodone and tramadol. Follow up in 4 weeks for recheck. She and her family are in agreement with the plan. Not available 02/24/2024 17:51:39 03/21/2024 03/21/2024 83-year-old female presents for follow up of her left hip. She has a history of a hip fracture and IM nail on 01/21/2024. Her postop course was complicated by extensive hospital stay for medical issues, and she is currently in assisted living facility. She had a fall last week when trying to go to the bathroom as well. She has cut out of the lag screw of the femoral head, reports she has been limited in her mobility, significant pain in the hip with trying to ambulate. she presents in a wheelchair. Incisions are well healed. She has limited mobility of the hip and pain with range of motion. She has significant muscle atrophy. X-rays of the hip were reviewed, demonstrating cut out of the screw, with some erosion of the acetabulum we have reviewed her imaging and status with her and her family members. We discussed that is given the cut-out of the screw out of the bone and erosion into the acetabulum, the treatment I would recommend would be removal of hardware with total hip arthroplasty. Because this is a more complex situation that likely requires a long stem implant, I would recommend a referral to a joint specialist. Her daughter who was present is working on finding somebody that can go to. She can call when she is going to somebody with the contact information and we are happy to send over all of her records. She may follow up with us as needed afterwards Not available 03/21/2024 12:36:35 04/06/2024 04/06/2024 This note is dictated and transcribed by [employer]. Beekeeper variances may occur. Despite proofreading, typographical errors may occur. Occasional wrong-word or 'cazho-y-azgu' substitutions may have occurred due to the inherent limitations of voice recording. Read the chart carefully and recognize, using context, where substitutions have occurred. [email or web address] Not available 04/06/2024 16:52:08 Plan of Treatment Reminders Order Date Submit Date Provider Last Modified By Organization Details Last Modified Time Details Appointments Establish ed Patient 15 2024 03:00P Hasmukh Dugan DPM Not available Not available Not available Lab HbA1c (hemoglob in A1c), blood 2024 025 [email or web address] [facility] [place] [facility], [address] [place], [address], 05/04/2024 10:05:38 microalbu min, urine 2024 025 [facility], [address] [place], [address], 05/04/2024 10:05:39 CBC w/ auto diff 2024 025 [email or web address] [facility], [address] [place], [address], 05/04/2024 10:05:38 CMP, serum or plasma 2024 025 [email or web address] [facility], [address] [place], [address], 05/04/2024 10:05:38 lipid panel, serum 2024 025 [facility], [address] [place], [address], 05/04/2024 10:05:38 TSH, serum or plasma 2024 025 [email or web address] [facility], [address] [place], [address], 05/04/2024 10:05:38 T4, free, serum 2024 025 [email or web address] [facility], [address] [place], [address], 05/04/2024 10:05:38 Referral vascular surgeon referral - please call Landy (daughter in law) to schedule appointme nt. 2024 025 [email or web address] [facility], [address], [place], [address], 05/09/2024 15:52:35 orthopedi c surgeon referral - Please contact pt to schedule apt. Thanks 2024 025 PAXTON Whitaker, [address] [facility] [address] [facility], [place], [address], 05/10/2024 20:54:42 Procedures None recorded. Surgeries None recorded. Imaging US, duplex, arterial, lower extremity 2024 025 [facility] (Outpatient Orders), [address] [facility], [place], [address], 04/12/2024 15:58:47 XR, femur, 2 or more view 2024 025 [facility], [address] [facility], [place], [address], 03/21/2024 14:37:57 XR, femur 2024 025 [email or web address] [facility], [address], [place], [address], 02/25/2024 23:54:52 Medication Orders tramadol 50 mg tablet 2024 025 [email or web address] [id number], [address] , [place], [address], 05/10/2024 17:48:38 oxycodone 5 mg tablet 2024 025 [email or web address] [id number], [address], [place], [address], 04/27/2024 17:26:10 Patient TargetsNo targets recorded. Patient Instructions Encounter Date Encounter Id Patient Instructions Last Modified By Organization Details Last Modified Time 04/06/2024 [id number] (ADOLFO) ankle brachial index* [email or web address] Not available 04/06/2024 17:46:25 04/27/2024 [id number] Follow-up hypertension, hyperlipidemia, type 2 diabetes, malignant tumor of the breast. Check blood work in the form of the hemoglobin A1c, CBC, CMP, and urine microalbumin. Continue on current Rx follow-up in three months Follow Up: 3 Months Approximate Date: 07/26/2024 Portions of record are template driven. When necessary additional context will be provided. Additionally some portions have been created with voice recognition software. Occasional wrong-word or [id number] substitutions may have occurred due to the inherent limitations of voice recognition software. Read the chart carefully and recognize, using context, where substitutions may have occurred. Created: Erickson Juarez M.D. 04.27.2024 04:40 PM [email or web address] Not available 04/27/2024 17:41:02 Reason for Referral Orthopedic Surgeon Referral for Fracture of femur L hip Please contact pt to schedule apt. Thanks Referring Physician: Benito Irving, Orthopedic Surgery, Encounter Date: 03/21/2024 Vascular Surgeon Referral fo r Peripheral vascular disease please call Landy (daughter in law) to schedule appointment. [phone] Referring Physician: Vadim Dugan, Podiatric Surgery, Encounter Date: 04/06/2024 Results Created Date Observation Date Name Description Value Unit Range Abnormal Flag Note LastModifiedBy Organization Detail LastModifiedTime 12/10/19 24 12/16/2023 PATHO LOGY SERVI CE pathserv SEE COMMEN T See separ ate patho logy repor t. Not Available [facility] ([facility]) [address] [place], [address], 12/16/2023 19:15:51 11/17/19 24 11/17/2023 scree shana cedillo t thompson, bilat [facility] [address] [facility] [place] [address] [phone] Patien t Name: AVERY HARRIS Access ion #: [id number] Sex: F : 1940 3 Dictat ed By: Shruthi Marrero Attend ing Physic javon: LENORA JUAREZ CE Orderi ng Physic javon: LENORA JUAREZ CE Exam Date: 2023 13:41 PM Exam Name: MG SCRN BREAST THOMPSON BILAT Admitt ing Diagno sis(es ): PROCED URE: SCREEN ING MAMMOG SHERLYN WITH TOMOSY NTHESI S REASON FOR EXAM: SCREEN ING MAMMOG SHERLYN COMPAR LEONEL: MG SCRN BREAST THOMPSON BILAT 3D on DOS: 2, SCREEN ING BREAST THOMPSON, BILAT 3D on DOS: 8, DIGITA L MAMM, BILAT SCREEN ING 2D on DOS: 7, DIGITA L MAMM, BILAT SCREEN ING 2D on DOS: 6 TECHNI QUE: Bilate ral CC and MLO views obtain ed. Images were obtain ed using a Digita l Tomosy nthesi s Unit. Standa rd 2D and 3D Tomosy nthesi s images were review ed. FINDIN GS: BREAST COMPOS ITION: B - There are scatte red areas of fibrog landul ar densit y. In the right breast , there is a spicul ated mass in the right breast at 3 o'cloc k ear nose throat surgeon ior depth. In the left breast , no asymme trical parenc hymal patter n, oneil ectura l distor tion, pleomo rphic microc alcifi cation s or masses . IMPRES NALLELY: Spicul ated mass in the right breast at 3 o'cloc k ear nose throat surgeon ior depth requir es additi onal imagin g evalua tion. RECOMM ENDATI ON: Recomm end STAT right breast diagno stic mammog sherlyn (right spot compre ssion CC, right spot compre ssion MLO, right ML) and right breast ultras ound. ASSESS MENT: Page 1 [facility] [address] [place] [address] [phone] Patien t Name: AVERY HARRIS Access ion #: [id number] Sex: F : 1940 3 Dictat ed By: Shruthi Marrero Attend ing Physic javon: CLEOPATRA SHAFER Physic javon: LENORA JUAREZ Exam Date: 2023 13:41 PM Exam Name: MG SCRN BREAST THOMPSON BILAT Admitt ing Diagno sis(es ): BIRADS : 0 - Incomp lete - Need additi onal imagin g evalua tion Electr onical ly Signed by: Shruthi Marrero at 2023 14:45: 32 PM Page [address] (Imaging) [address] [place], [address], 11/17/2023 16:44:59 11/17/19 24 11/17/2023 DEXA, axial skele ton [facility] [address] [place] [address] Patien t Name: AVERY HARRIS Access ion #: [id number] Sex: F : 1940 3 Dictat ed By: Shruthi Marrero Attend ing Physic javon: LENORA JUAREZ Orderi ng Physic javon: LENORA JUAREZ Exam Date: 2023 14:10 PM Exam Name: XR DEXA-H IPS PELVIS SPINE Admitt ing Diagno sis(es ): INDICA TION: 83 years old, Female ; OSTEOP OROSIS . Postme nopaus al. DEXA SCAN: BONE DENSIT Y REPORT : AP SPINE (L1-L4 ) : T Score: -1.6 LEFT HIP TOTAL : T Score: -2.0 RT HIP TOTAL : T Score: -2.5 TOTAL BILAT HIP AVG: T Score: -2.2 10 YEAR FRACTU RE RISK* Not provid ed. IMPRES NALLELY: 1. Osteop enia of the lumbar spine. 2. Osteop orosis of the right hip. 3. Osteop enia of the left hip. ------ ------ ------ ------ ------ ------ ------ ------ ----- *FRAX versio n 3.08. Fractu re probab ility calcul ated for an untrea li patien t. Fractu re probab ility may be lower if the patien t has receiv ed treatm ent. T-scor e: compar leonel by naveed pfeiffer deviat ion (SD) to a young adult popula tion, Page 1 [facility] [address] [place] [address] Patien t Name: AVERY HARRIS Access ion #: [id number] Sex: F : 1940 3 Dictat ed By: Shruthi Marrero Attend ing Physic javon: [facility] Physic javon: LENORA JUAREZ Exam Date: 2023 14:10 PM Exam Name: XR DEXA-H IPS PELVIS SPINE Admitt ing Diagno sis(es ): matche d for sex and ethnic ity (used for postme nopaus al women and men >50 years) and classi fied by WHO criter ia. -1.0: normal <-1.0 to >-2.5: osteop enia -2.5: osteop orosis -2.5 plus fragil ity fractu re: severe osteop orosis Z-scor e: compar ed by SD to an age, sex, and ethnic ity popula tion (used for premen opausa l women, men <50 years, and childr en instea d of T-scor e WHO criter ia 4) <-2.0: below expect ed range/ low bone densit y for age, and a cause should be sought Electr onical ly Signed by: Shruthi Marrero at 2023 14:59: 08 PM Page 2 [email or web address] [facility] (Imaging) [address] [place], [address], 11/17/2023 16:45:23 11/18/19 24 11/18/2023 US, brelainey t, limit ed [facility] [address] [place] [address] Aman galvan Name: AVERY HARRIS Access ion #: [id number] Sex: F : 1940 4 Dictat ed By: Shruthi Marrero Attend ing Physic javon: LENORA JUAREZ CE Orderi ng Physic javon: LENORA JUAREZ CE Exam Date: 2023 11:30 AM Exam Name: US BREAST LIMITE D RT Admitt ing Diagno sis(es ): PROCED URE: US BREAST LIMITE D RT REASON FOR EXAM: Abnorm al findin g COMPAR LEONEL: MG SCRN BREAST THOMPSON BILAT on DOS: 4, MG SCRN BREAST THOMPSON BILAT 3D on DOS: 2, SCREEN ING BREAST THOMPSON, BILAT 3D on DOS: 8, DIGITA L MAMM, BILAT SCREEN ING 2D on DOS: 7, DIGITA L MAMM, BILAT SCREEN ING 2D on DOS: 6 TECHNI QUE:ML , spot compre ssion cranio caudal and modifi ed mediol ateral obliqu e views of the RIGHT breast are obtain ed utiliz ing digita l mammog raphic images obtain ed using a 2D mammog raphic system . Target ed right breast ultras ound was perfor med. FINDIN GS: BREAST COMPOS ITION: B - There are scatte red areas of fibrog landul ar densit y. Spot compre ssion views demons trate a spicul ated mass in the right in her breast . Target ed ultras ound images of the breast demons trate a irregu lar hypoec hoic mass in the right breast at 1 o'cloc k locate d 7 cm from the nipple measur ing 2.7 x 2.3 x 1.4 cm. There are benign -appea ring lymph nodes in the axilla . IMPRES NALLELY: Irregu lar hypoec hoic mass in the right breast at 1 o'cloc k is highly sugges tive of malign jennie. RECOMM ENDATI ON: Recomm end ultras ound guided biopsy . Page 1 [facility] [address] [place] [address] [phone] Patien t Name: AVERY HARRIS Access ion #: [id number] Sex: F : 1940 4 Dictat ed By: Shruthi Marrero Attend ing Physic javon: CLEOPATRA SHAFERi ng Physic javon: LENORA JUAREZ CE Exam Date: 2023 11:30 AM Exam Name: US BREAST LIMITE D RT Admitt ing Diagno sis(es ): ASSESS MENT: BIRADS : 5 - Highly Sugges tive of Malign jennie Electr onical ly Signed by: Shruthi Marrero at 2023 13:52: 08 PM Page [address] (Imaging) [address] [place], [place], [facility], 11/18/2023 16:57:57 11/18/19 24 11/18/2023 MAMMO , diagn ostic , digit al, unila teral , w/ CAD [facility] [address] [place] [address] [phone] Patien t Name: AVERY HARRIS Access ion #: [id number] Sex: F : 1940 4 Dictat ed By: Shruthi Marrero Attend ing Physic javon: LENORA JUAREZ Orderi ng Physic javon: LENORA JUAREZ Exam Date: 2023 11:18 AM Exam Name: MG MAMMO DIGITA L UNILAT RT Admitt ing Diagno sis(es ): PROCED URE: MG MAMMO DIGITA L UNILAT RT, US BREAST LIMITE D RT REASON FOR EXAM: Abnorm al findin g COMPAR LEONEL: MG SCRN BREAST THOMPSON BILAT on DOS: 4, MG SCRN BREAST THOMPSON BILAT 3D on DOS: 2, SCREEN ING BREAST THOMPSON, BILAT 3D on DOS: 8, DIGITA L MAMM, BILAT SCREEN ING 2D on DOS: 7, DIGITA L MAMM, BILAT SCREEN ING 2D on DOS: 6 TECHNI QUE:ML , spot compre ssion cranio caudal and modifi ed mediol ateral obliqu e views of the RIGHT breast are obtain ed utiliz ing digita l mammog raphic images obtain ed using a 2D mammog raphic system . Target ed right breast ultras ound was perfor med. FINDIN GS: BREAST COMPOS ITION: B - There are scatte red areas of fibrog landul ar densit y. Spot compre ssion views demons trate a spicul ated mass in the right in her breast . Target ed ultras ound images of the breast demons trate a irregu lar hypoec hoic mass in the right breast at 1 o'cloc k locate d 7 cm from the nipple measur ing 2.7 x 2.3 x 1.4 cm. There are benign -appea ring lymph nodes in the axilla . IMPRES NALLELY: Irregu lar hypoec hoic mass in the right breast at 1 o'cloc k is highly sugges tive of malign jennie. RECOMM ENDATI ON: Recomm end ultras ound guided biopsy . Page 1 [facility] [address] [place] [address] Patien t Name: AVERY HARRIS Access ion #: [id number] Sex: F : 1940 4 Dictat ed By: Shruthi Marrero Attend ing Physic javon: CLEOPATRA SHAFER Physic javon: LENORA JUAREZ Exam Date: 2023 11:18 AM Exam Name: MG MAMMO DIGITA L UNILAT RT Admitt ing Diagno sis(es ): ASSESS MENT: BIRADS : 5 - Highly Sugges tive of Malign jennie Electr onical ly Signed by: Shruthi Marrero at 2023 13:51: 52 PM Page [address] (Imaging) [address] [place], [address], 11/18/2023 16:58:16 11/18/19 24 11/18/2023 US, mamadou t, limit ed [facility] [address] [place] [address] Aman galvan Name: AVERY HARRIS ion #: [id number] Sex: F : 1940 4 Dictat ed By: Shruthi Marrero Attend ing Physic javon: LENORA JUAREZ CE Orderi ng Physic javon: LENORA JUAREZ CE Exam Date: 2023 11:30 AM Exam Name: US BREAST LIMITE D RT Admitt ing Diagno sis(es ): PROCED URE: US BREAST LIMITE D RT REASON FOR EXAM: Abnorm al findin g COMPAR LEONEL: MG SCRN BREAST THOMPSON BILAT on DOS: 4, MG SCRN BREAST THOMPSON BILAT 3D on DOS: 2, SCREEN ING BREAST THOMPSON, BILAT 3D on DOS: 8, DIGITA L MAMM, BILAT SCREEN ING 2D on DOS: 7, DIGITA L MAMM, BILAT SCREEN ING 2D on DOS: 6 TECHNI QUE:ML , spot compre ssion cranio caudal and modifi ed mediol ateral obliqu e views of the RIGHT breast are obtain ed utiliz ing digita l mammog raphic images obtain ed using a 2D mammog raphic system . Target ed right breast ultras ound was perfor med. FINDIN GS: BREAST COMPOS ITION: B - There are scatte red areas of fibrog landul ar densit y. Spot compre ssion views demons trate a spicul ated mass in the right in her breast . Target ed ultras ound images of the breast demons trate a irregu lar hypoec hoic mass in the right breast at 1 o'cloc k locate d 7 cm from the nipple measur ing 2.7 x 2.3 x 1.4 cm. There are benign -appea ring lymph nodes in the axilla . IMPRES NALLELY: Irregu lar hypoec hoic mass in the right breast at 1 o'cloc k is highly sugges tive of malign jennie. RECOMM ENDATI ON: Recomm end ultras ound guided biopsy . Page 1 [facility] [address] [place] [address] Patijocelyne t Name: AVERY HARRIS ion #: [id number] Sex: F : 1940 4 Dictat ed By: Shruthi Marrero Attend ing Physic javon: CLEOPATRA SHAFERi Physic javon: LENORA JUAREZ Exam Date: 2023 11:30 AM Exam Name: US BREAST LIMITE D RT Admitt ing Diagno sis(es ): ASSESS MENT: BIRADS : 5 - Highly Sugges tive of Malign jennie Electr onical ly Signed by: Shruthi Marrero at 2023 13:52: 08 PM Page [email or web address] [place] [address] (Imaging) [address] [place], [address], 11/18/2023 16:58:27 01/21/20 24 01/21/2024 XR, chest No observ ation record ed. [address] [place], [address], 01/21/2024 08:15:26 01/21/20 24 01/21/2024 XR, hip + pelvi s, unila teral , 2 or 3 view No observ ation record ed. [address] [place], [address], 01/21/2024 08:16:00 01/21/20 24 01/21/2024 XR, femur , 2 or more view No observ ation record ed. [address] [place], [address], 01/21/2024 10:25:57 01/21/20 24 01/21/2024 CT, hip, w/o contr ast No observ ation record ed. [address] [place], [address], 01/21/2024 10:26:19 01/21/20 24 01/21/2024 XR, femur , 2 or more view No observ ation record ed. [address] [place], [address], 01/22/2024 08:08:37 01/24/20 24 01/24/2024 CT, head + brain , w/o contr ast No observ ation record ed. [address] [place], [address], 01/25/2024 12:14:26 01/25/20 24 01/25/2024 XR, chest No observ ation record ed. [address] [place], [address], 01/25/2024 15:15:45 02/01/20 24 02/01/2024 US, bladd er No observ ation record ed. [address] [place], [address], 02/01/2024 14:18:56 02/23/19 25 XR, femur No observ ation record ed. [email or web address] [facility] [address] [facility] [address], [place], [address], 02/24/2024 15:22:14 03/19/19 25 03/18/2024 XR, hip + pelvi s, unila teral , 2 or 3 view No observ ation record ed. [email or web address] Not Available 2024 15:24:34 03/21/19 25 XR, femur , 2 or more view No observ ation record ed. [address] [address] [place], [address], 03/21/2024 11:45:01 04/29/19 25 04/28/2024 (ADOLFO) ankle brach ial index * No observ ation record ed. [email or web address] [facility] (Outpatient Orders) [address] [place], [address], 04/28/2024 18:18:01 04/29/19 25 04/28/2024 US, duple x, arter ial, lower extre mity No observ ation record ed. [email or web address] [facility] (Outpatient Orders) [address] [place], [address], 04/28/2024 18:18:01 Result Notes None recorded. Problems Name Problem SNOMED Code Status Onset Date Resolution Date Notes Provider Name and Address Organization Details Recorded Time Otitis media 88093722 Active 2022 Not Available [facility] 3 09:54:12 Obese class I 85808785108 4107 Active 2022 Not Available [facility] 3 09:54:12 Abdominal pain 39592515 Active 2022 Not Available [facility] 3 09:54:11 Altered bowel function 27527059 Active 2022 Not Available [facility] 3 09:54:12 Unsteady when walking 31004568 Active 2022 Not Available [facility] 3 09:54:11 Disorder of shoulder 050563185 Active Not Available [facility] 3 09:54:11 Plantar fasciitis of right foot 00300826125 625104 Completed 202002/22/2021 Not Available [facility] 3 03:06:12 Hyperchol esterolem ia 22219297 Active Not Available [facility] 3 09:54:11 Localized , primary osteoarth ritis of the pelvic region and thigh 982675621 Active Not Available [facility] 3 09:54:11 Pneumonia 737877089 Active 2019 Not Available [facility] 3 09:54:11 Headache 76481032 Active 2019 Not Available [facility] 3 09:54:11 Shoulder joint pain 031528166 Active Not Available [facility] 3 09:54:11 Closed Colles' fracture 235739859 Active Not Available [facility] 3 09:54:11 Skin problem 630288728 Active 2019 Not Available [facility] 3 09:54:11 Postartif icial menopausa l syndrome 35971028 Active Not Available [facility] 3 09:54:11 Depressiv e disorder 29305953 Active 2019 Not Available [facility] 3 09:54:11 Arthritis 8998646 Active 2019 Not Available [facility] 3 09:54:11 Hypertens johanna disorder 59679966 Completed 201901/21/2021 Not Available [facility] 3 03:06:13 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 Not Available [facility] 3 09:54:11 Osteoarth ritis 000344215 Active Not Available [facility] 3 09:54:11 Tinea cruris 695490109 Active 2021 Not Available [facility] 3 09:54:11 Onychomyc osis of toenails 013827290 Completed 201902/22/2021 Not Available [facility] 3 03:06:13 Dizziness 857103935 Active 2019 Not Available [facility] 3 09:54:11 Hypothyro idism 30660375 Active Not Available [facility] 3 09:54:11 Type 2 diabetes mellitus 06489291 Active Not Available [facility] 3 09:54:12 Onychogry phosis 44187895 Completed 201902/22/2021 Not Available [facility] 3 03:06:13 Hyperlipi demia 46261055 Completed BERNARDO Jackson [facility] 3 15:20:53 Essential hypertens ion 74463022 Active Not Available [facility] 3 09:54:12 Allergic rhinitis 62936672 Active Not Available [facility] 3 09:54:12 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 Not Available [facility] 3 09:54:12 Fracture of humerus 59591943 Active Not Available [facility] 3 09:54:12 Diabetes mellitus 92989641 Active 2021 Not Available [facility] 3 09:54:12 Diabetes mellitus 30212192 Completed 201901/21/2021 Not Available [facility] 3 03:06:14 Closed fracture of surgical neck of humerus 25639754 Active Not Available [facility] 3 09:54:12 Sleep apnea 77130832 Active Not Available [facility] 3 09:54:12 Dystrophi a unguium 28718993 Active 2020 Not Available [facility] 3 09:54:12 Neuropath y 446394012 Active 2022 Not Available [facility] 3 09:54:11 Type 2 diabetes mellitus without complicat ion 992199444 Active 2022 Not Available [facility] 3 09:54:11 Hyperlipi demia 17684745 Active 2022 Not Available [facility] 3 09:54:12 Serum creatinin e above reference range 554574585 Active 2023 Erickson Juarez MD [address], [address] , [facility] 4 15:25:46 Senile osteoporo sis 94223706 Active 2023 Samantha Shah null, [place] [facility] 4 15:38:49 Mammograp hy abnormal 160645147 Active 2023 Georgiana Cat CMA null, [place] [facility] 4 17:03:24 Mass of right breast 89430239508 510748 Active 2023 Georgiana Cat CMA null, [place] [facility] 4 15:32:32 Infiltrat ing duct carcinoma of breast 392020840 Active 2023 Cordell fajardo MD [address], [address], [place], [address] , [facility] 4 14:46:42 Fracture of femur 08279982 Active 2024 Roxy Salas null, [place] [facility] 5 15:21:50 Pain of left hip joint 30590790315 9100 Active 2024 Georgiana Cat CMA null, [place] [facility] [place] [facility] 5 16:40:13 Diarrhea 81456537 Active 2024 Georgiana Cat CMA null, [place] [facility] 5 17:30:35 Periphera l vascular disease 895345974 Active 2024 Vadim Dugan DPM [address], [address], [place], [address] , [facility] 5 16:52:12 Contusion of toe 38416692 Active 2024 Vadim Dugan DPM [address], [address], [place], [address] , [facility] 5 16:53:03 Malignant tumor of breast 356477883 Active 2024 Erickson Juarez MD [address], [address], [place], [address] , [facility] 5 17:36:23 Malignant tumor of breast 954352982 Active 2024 Erickson Juarez MD [address], [address], [place], [address] , [facility] 5 17:40:39 Edema of lower extremity 666256807 Active 2024 Georgiana Cat CMA null, [place] [facility] [place] [facility] 5 12:59:23 Confusion al state 421900623 Active 2024 PAULA Bradford, [facility] [employer] 5 16:16:39 Notes:allergies, neck proble ms, ear problems, head trauma or injury, use of blood thinners Some problems listed in Documents: #[id number], #[id number] could not be added to this patient's chart. Please review these documents and add these problems to the patient's chart manually as needed. Problem Notes None recorded. Procedures Surgical History Date Name Laterality Status Provider Name and Address Organization Details Recorded Time 5 Nail Debridement completed Vadim Dugan DPM [address], [address], [place], [address], [facility] [employer] 04/06/2024 17:11:02 4 Blank Procedure Note completed Cordell blair MD [address], [address], [place], [address], [facility] [employer] 12/10/2023 12:59:38 4 Nail Debridement completed Vadim Dugan DPM [address], [address], [place], [address], [employer] 11/11/2023 12:35:09 4 Medicare Wellness CPT Code, subsequent completed Gabriella Mooney RN [facility] [employer] 10/14/2023 15:09:09 4 Nail Debridement completed Vadim Dugan DPM [address], [address], [place], [address], [facility] [employer] 08/13/2023 14:51:23 4 Nail Debridement completed Vadim Dugan DPM [address], [address], [place], [address], [employer] [facility] [employer] 04/22/2023 09:38:32 3 Nail Debridement completed Vadim Dugan DPM [address], [address], [place], [address], [facility] [employer] 12/23/2022 17:24:04 3 Nail Debridement completed Vadim Dugan DPM [address] [facility], [address], [place], [address], [place] [facility] [employer] [facility] 09/23/2022 17:02:11 3 Nail Debridement completed Vadim Dugan DPM [address] [facility], [address], [place], [address], [place] [facility] [employer] [facility] 06/19/2022 15:22:45 3 Medicare Wellness CPT Code, subsequent completed Gabriella Mooney RN [facility] [employer] [facility] 06/02/2022 14:37:23 Imaging Results Imaging Date Name Status LastModified by Organ [facility] Details LastModified Time 11/17/2023 screening breast thompson, bilat completed [address] (Imaging) [address] [place], [address], 11/17/2023 16:44:59 11/17/2023 DEXA, axial skeleton completed [address] (Imaging) [address] [place], [address], 11/17/2023 16:45:23 11/18/2023 US, breast, limited completed [address] (Imaging) [address] [place], [address], 11/18/2023 16:57:57 11/18/2023 MAMMO, diagnostic, digital, unilateral, w/ CAD completed [address] (Imaging) [address] [place], [address], 11/18/2023 16:58:16 11/18/2023 US, breast, limited completed [address] (Imaging) [address] [place], [address], 11/18/2023 16:58:27 01/21/2024 XR, chest completed [address] [place], [address], 01/21/2024 08:15:26 01/21/2024 XR, hip + pelvis, unilateral, 2 or 3 view completed [address] [place], [address], 01/21/2024 08:16:00 01/21/2024 XR, femur, 2 or more view completed [address] [place], [address], 01/21/2024 10:25:57 01/21/2024 CT, hip, w/o contrast completed [address] [place], [address], 01/21/2024 10:26:19 01/21/2024 XR, femur, 2 or more view completed [address] [place], [address], 01/22/2024 08:08:37 01/24/2024 CT, head + brain, w/o contrast completed [address] [place], [address], 01/25/2024 12:14:26 01/25/2024 XR, chest completed [address] [place], [address], 01/25/2024 15:15:45 02/01/2024 US, bladder completed [email or web address] [facility] [address] [place], [address], 02/01/2024 14:18:56 02/24/2024 XR, femur completed [email or web address] [facility] [place] [address], [place], [address], 02/24/2024 15:22:14 03/18/2024 XR, hip + pelvis, unilateral, 2 or 3 view completed [email or web address] Information not available 03/19/2024 15:24:34 03/21/2024 XR, femur, 2 or more view completed [email or web address] [facility] [place] [address], [place], [address], 03/21/2024 11:45:01 04/28/2024 (ADOLFO) ankle brachial index* completed [email or web address] [facility] (Outpatient Orders) [address] [place], [address], 04/28/2024 18:18:01 04/28/2024 US, duplex, arterial, lower extremity completed [email or web address] [facility] (Outpatient Orders) [address] [place], [address], 04/28/2024 18:18:01 Procedure Notes None recorded. Medical Equipment None Reported. Allergies Allergen ID Allergen Name Allergen Category Reaction Reaction Severity Criticality Documentation Date Start Date Code Code System Note Provider Name and Address Organization Details Recorded Time 5413 Tylenol medicatio n Not available Not available Not available 04/16/202281657 3 RxNorm inter rupts heart rhyth m Not Available [facility] 3 03:12:36 5414 Pravachol medicatio n other Not available Not available 04/16/202233323 3 RxNorm depre ssion Not Available [facility] 3 03:12:36 5415 Glucophag e medicatio n other Not available Not available 04/16/2022 30800 7 RxNorm loss of taste Not Available [facility] 3 03:12:36 5416 acetamino phen medicatio n Not available Not available Not available 04/16/2022 161 RxNorm Not Available [facility] 3 03:12:36 Medications Name Sig Start Date Stop Date Status Note LastModified by Organization Details LastModified Time penicillin V potassium 250 mg tablet TAKE 1 TABLET BY MOUTH EVERY SIX HOURS UNTIL GONE 04/06 completed Not Available Not Available Not Available amoxicillin 500 mg capsule TAKE 1 CAPSULE BY MOUTH EVERY 8 HOURS 06/02 completed Not Available Not Available Not Available furosemide 40 mg tablet TAKE 1 TABLET DAILY FOR BLOOD PRESSURE AND SWELLING 2024 active Not Available Not Available Not Avai lable metolazone 2.5 mg tablet TAKE ONE TABLET BY MOUTH ONE TIME DAILY FOR LOWER EXTREMITY EDEMA 2024 active Not Available Not Available Not Avai lable hydrocodone 7.5 mg-ibuprofe n 200 mg tablet TAKE ONE TABLET EVERY 4 HOURS WITH FOOD OR MILK NEEDED FOR PAIN 03/17 completed Not Available Not Available Not Available venlafaxine ER 75 mg capsule,ext ended release 24 hr Take 1 capsule every day by oral route. active Not Available Not Available No t Available citalopram 40 mg tablet Take 1 tablet every day by oral route. active Not Available Not Available No t Available atorvastati n 10 mg tablet Take 1 tablet every day by oral route. active Not Available Not Available No t Available aspirin 325 mg tablet Take 1 tablet every day by oral route. 09/30 completed Not Available Not Available Not Available ofloxacin 0.3 % eye drops 09/30 completed Not Available Not Available Not Available lisinopril 20 mg tablet Take 1 tablet every day by oral route. 2024 active Not Available Not Available Not Avai lable venlafaxine ER 150 mg capsule,ext ended release 24 hr TAKE 1 CAPSULE DAILY 2024 active Not Available Not Available Not Avai lable Flonase 50 mcg/actuati on nasal spray,suspe nsion Inhale 1 spray every day by intranasa l route. 2012 active Not Available Not Available Not Avai lable clopidogrel 75 mg tablet TAKE 1 TABLET DAILY active Not Available Not Available No t Available tramadol 50 mg tablet Take 1 tablet every 6-8 hours by oral route as needed. 2024 active Not Available Not Available Not Avai lable amoxicillin 500 mg tablet 04/20 completed Not Available Not Available Not Available carvedilol 3.125 mg tablet Take 1 tablet twice a day by oral route. 2024 active Not Available Not Available Not Avai lable glimepiride 1 mg tablet 06/02 completed Not Available Not Available Not Available levothyroxi ne 75 mcg tablet TAKE 1 TABLET DAILY FOR THYROID 04/07 completed Not Available Not Available Not Available prednisolon e acetate 1 % eye drops,suspe nsion 09/30 completed Not Available Not Available Not Available Imodium A-D 2 mg tablet take one tablet with breakfast and one tablet with dinner 04/27 completed Not Available Not Available Not Available Humalog U-100 Insulin 100 unit/mL subcutaneou s solution Inject 10 units every day by subcutane ous route. 09/24 completed Not Available Not Available Not Available levothyroxi ne 50 mcg tablet Take 1 tablet every day by oral route. active Not Available Not Available No t Available simvastatin 20 mg tablet TAKE 1 TABLET DAILY AT BEDTIME FOR CHOLESTER OL 05/20 completed Not Available Not Available Not Available biotin 10,000 mcg capsule Take 1 capsule every day by oral route. 2021 active Not Available Not Available Not Avai lable insulin syringe U-100 with needle 0.3 mL 29 gauge x 1/2 to inject novolog 10 units daily 04/20 completed Not Available Not Available Not Available clotrimazol e-betametha sone 1 %-0.05 % topical cream 06/02 completed Not Available Not Available Not Available glimepiride 4 mg tablet TAKE 1 TABLET TWICE A DAY FOR TYPE 2 DIABETES MELLITUS 09/30 completed Not Available Not Available Not Available Amaryl 2 mg tablet Take 1 tablet every day by oral route. 01/26 completed Not Available Not Available Not Available amoxicillin 250 mg capsule 09/23 completed Not Available Not Available Not Available methylpredn isolone 4 mg tablets in a dose pack active Not Available Not Available Not Available ketoconazol e 2 % topical cream APPLY TO THE AFFECTED AREA(S) both great toenails BY TOPICAL ROUTE ONCE DAILY 04/20 completed Not Available Not Available Not Available oxycodone 5 mg tablet Take 1 tablet every 6 hours by oral route. 04/27 completed Not Available Not Available Not Available Bactrim DS 800 mg-160 mg tablet Take 1 tablet every 12 hours by oral route for 10 days. 01/21 completed Not Available Not Available Not Available Vitamin D3 25 mcg (1,000 unit) capsule Take 1 capsule every day by oral route. 07/05 completed Not Available Not Available Not Available rosuvastati n 5 mg tablet Take 1 tablet every day by oral route. 2024 active Not Available Not Available Not Avai lable Multivitami n 50 Plus tablet Take 1 tablet every day by oral route. 2021 active Not Available Not Available Not Avai lable nitrofurant oin monohydrate /macrocryst als 100 mg capsule TAKE 1 CAPSULE BY MOUTH EVERY 12 HOURS FOR 10 DAYS 04/20 completed Not Available Not Available Not Available BD Ultra-Fine Mini Pen Needle 31 gauge x 3/16 INJECT LANTUS TWICE A DAY AND HUMALOG ONCE DAILY (TOTAL OF THREE TIMES A DAY) active Not Available Not Available No t Available multivitami n DAILY 07/05 completed Not Available Not Available Not Available peg 3350-electr olytes 236 gram-22.74 gram-6.74 gram-5.86 gram solution active Not Available Not Available Not Available Lantus Solostar U-100 Insulin 100 unit/mL (3 mL) subcutaneou s pen Inject 50 units every day by subcutane ous route at bedtime. 2024 active Not Available Not Available Not Avai lable Humalog KwikPen (U-100) Insulin 100 unit/mL subcutaneou s sliding scale-adm inister 6 units if blood sugar reading before dinner is over 180 2024 active Not Available Not Available Not Avai lable Os-Chito 500 + D3 500 mg-15 mcg (600 unit) tablet Take 1 tablet twice a day by oral route. 2021 active Not Available Not Available Not Avai lable TRUEplus Insulin 0.3 mL 31 gauge x 5/16 syringe USE TO INJECT NOVOLOG DAILY active Not Available Not Available No t Available Ilevro 0.3 % eye drops,suspe nsion 05/27 completed Not Available Not Available Not Available True Metrix Glucose Test Strip USE TO TEST BLOOD SUGAR TWICE A DAY DX E11.9 active Not Available Not Available No t Available Humalog KwikPen U-200 Insulin 200 unit/mL (3 mL) subcutaneou s Inject 10 units every day by subcutane ous route. 12/29 completed Not Available Not Available Not Available Accu-Chek Fastclix Lancet Drum USE 4 TIMES DAILY DIRECTED 07/05 completed Not Available Not Available Not Available FreeStyle [place] [address] [place] active Not Available Not Available Not Available Adult Multivitami n Gummies 120 mcg chewable tablet Take 1 tablet every day by oral route. active Not Available Not Available No t Available Vitals Date Recorded Body height Body mass index (BMI) Body weight Body temperature Respiratory rate Heart rate Oxygen saturation Oxygen saturation in Arterial blood by Pulse oximetry Systolic blood pressure Diastolic blood pressure Provider Name and Address Organization Details Last Updated DateTime 4 165.1 cm 30.1 kg/m2 80835.2 2 g 98.6 [degF] 14 /min 76 /min 98 % 98 % 124 mm[Hg] 72 mm[Hg] Chelsey Singletary MA [employer] 4 12:19:40 Date Recorded Body height Body mass index (BMI) Body weight Provider Name and Address Organization Details Last Updated DateTime 02/24/2024 165.1 cm 29.6 kg/m2 28798.44 g Roxy Salas [facility] [employer] 02/24/2024 15:10:43 Date Recorded Body height Provider Name an d Address Organization Details Last Updated DateTime 03/21/2024 165.1 cm LORETTA Joseph [employer] 03/21/2024 11:40:17 Date Recorded Body height Body temperature Oxygen saturation Oxygen saturation in Arterial blood by Pulse oximetry Respiratory rate Heart rate Systolic blood pressure Diastolic blood pressure Provider Name and Address Organization Details Last Updated DateTime 5 165.1 cm 97.8 [degF] 97 % 97 % 15 /min 98 /min 142 mm[Hg] 71 mm[Hg] Cate Valente [facility] [employer] 5 16:38:23 Date Recorded Body height Body mass index (BMI) Body weight Heart rate Body temperature Oxygen saturation Oxygen saturation in Arterial blood by Pulse oximetry Systolic blood pressure Diastolic blood pressure Provider Name and Address Organization Details Last Updated DateTime 5 165.1 cm 28 kg/m2 30934.5 2 g 77 /min 97 [degF] 98 % 98 % 132 mm[Hg] 74 mm[Hg] Marixa Ray [facility] [employer] 5 17:25:35 Social History Question Answer Notes LastModified by Organizat ion Details LastModified Time Tobacco Smoking Status Never Smoker Not Available [facility] 04/16/2022 03:01:12 Do You Have An Advance Directive? No [id number] Information not available 04/16/2022 What Is Your Level Of Alcohol Consumption? None MIGRATION.[id number] 7612 Information not available 04/16/2022 Are You Blind Or Do You Have Difficulty Seeing? No MIGRATION.[id number] 2601 Information not available 04/16/2022 Are You Deaf Or Do You Have Serious Difficulty Hearing? Yes MIGRATION.[id number] 0433 Information not available 04/16/2022 What Type Of Diet Are You Following? REGULAR MIGRATION.583906 9149 Information not available 04/16/2022 Have There Been Any Changes To Your Family Or Social Situation? No MIGRATION.961197 3338 Information not available 04/16/2022 What Is The Fluoride Status Of Your Home? Unknown Information not available 06/02/2022 Are There Any Guns Present In Your Home? Yes MIGRATION.[id number] 1723 Information not available 04/16/2022 Do You Use Insect Repellent Routinely? Yes MIGRATION.[id number] 6188 Information not available 04/16/2022 Where Do You Live? [place] MIGRATION.[id number] 1379 Information not available 04/16/2022 Guns Present In The Home? Yes [email or web address] Information not available 06/02/2022 Are You Able To Care For Yourself? No [email or web address] Information not available 06/02/2022 Are You Blind Or Do Yo Have Difficulty Seeing? No [email or web address] Information not available 06/02/2022 Are You Deaf Or Do You Have Serious Difficulty Hearing? Yes [email or web address] Information not available 06/02/2022 Live Alone Of With Others? With Others [email or web address] Information not available 06/02/2022 Do You Have A Medical Power Of Innersole Maker? No MIGRATION.[id number] 6957 Information not available 04/16/2022 What Was The Date Of Your Most Recent Tobacco Screening? 10/14/2023 [email or web address] Information not available 10/14/2023 Do You Have Any Pets? No MIGRATION.433226 7649 Information not available 04/16/2022 What Is Your Relationship Status? MIGRATION.287229 3791 Information not available 04/16/2022 Do You Use Your Seat Belt Or Car Seat Routinely? Yes MIGRATION.387337 2513 Information not available 04/16/2022 Do You Have Smoke And Carbon Monoxide Detectors In Your Home? Yes MIGRATION.107447 8696 Information not available 04/16/2022 Are You Passively Exposed To Smoke? No MIGRATION.042879 3747 Information not available 04/16/2022 Are There Any Smokers In Your House? No MIGRATION.519461 2772 Information not available 04/16/2022 Do You Use Sunscreen Routinely? Yes MIGRATION.492983 9820 Information not available 04/16/2022 Have You Recently Traveled Abroad? No MIGRATION.074810 0323 Information not available 04/16/2022 Do You Have Any Dietary Restrictions? No MIGRATION.681313 7989 Information not available 04/16/2022 Do You Or Have You Ever Used Any Other Forms Of Tobacco Or Nicotine? No MIGRATION.858837 9837 Information not available 04/16/2022 Sex: Unknown Functional Status Question Answer Note LastModified by Organizat ion Details LastModified Time Do you have difficulty walking or climbing stairs? Yes MIGRATION.602592 2307 Information not available 04/16/2022 Do you have transportation difficulties? No MIGRATION.394426 4580 Information not available 04/16/2022 Are you able to walk? YESASSIST uses walker [email or web address] Information not available 10/14/2023 Do you have difficulty doing errands alone? Yes MIGRATION.404124 2070 Information not available 04/16/2022 Are you able to care for yourself? No MIGRATION.107583 1710 Information not available 04/16/2022 Do you have difficulty dressing or bathing? No MIGRATION.446319 9460 Information not available 04/16/2022 What is your exercise level? None MIGRATION.854052 0776 Information not available 04/16/2022 Mental Status Question Answer Note LastModified by Organizat ion Details LastModified Time Do you have difficulty concentrating, remembering or making decisions? No MIGRATION.[id number] 6 Information not available 04/16/2022 Family History Nothing Reported Notes:Mother 71 yea rs old Father 69 years old 1 Brothers 0 Living Mother Hx: HTN Father Hx: DM, Alcoholism Brother Hx: Cirrhosis (1) Medical History Condition Response NERVE DISEASE N BLINDNESS N RHEUMATIC FEVER N KIDNEY STONES N BLADDER PROBLEMS N MRSA N OTHER # 1 N POLIO N LUNG DISEASE/DISORDER N RADIATION / CHEMOTHERAPY N COPD N Other # 2 N BLOOD DISEASES N SURGERY N EAR OR HEARING PROBLEMS N MUMPS N BOWEL PROBLEMS N DEPRESSION (INCLUDING POST ) Y STROKE/TIA Y ULCERS N BENIGN PROSTATIC HYPERPLASIA N MEASLES N MYOCARDIAL INFARCTION N OBESITY N GERD/NAUSEA N ANEURYSM N URINARY/BLADDER/KIDNEY PROBLEMS N CORONARY ARTERY DISEASE (CAD) N ADDICTION CONCERNS N ENDOMETRIOSIS N Impotence N USE OF BLOOD THINNERS Y SKIN PROBLEMS N GASTROINTESTINAL DISORDER N PERIPHERAL VASCULAR DISEASE N MUSCLE,JOINT OR BONE PROBLEMS Y GASTROINTESTINAL BLEEDING N BLOOD CLOTS N ASTHMA N CATARACTS N ERECTILE DYSFUNCTION N VARICOSITIES N GI PROBLEMS N Low Testosterone N INFERTILITY N AIDS/HIV N CHEMOTHERAPY / RADIATION N LIVER DISEASE N MALE HYPOGONADISM N HYPERTENSION Y Deficiency N ANXIETY DISORDER N BLOOD TRANSFUSION N ANEMIA/BLOOD DISORDER N CHRONIC EAR INFECTIONS N BRONCHITIS N TUBERCULOSIS N GLAUCOMA N FOOT PROBLEM N DIVERTICULITIS N SLEEP APNEA Y CHICKENPOX N INFECTIOUS DISEASE N HEART ARRHYTHMIA N PROSTATE N INSOMNIA N HIGH CHOLESTEROL / HYPERLIPIDEMIA Y HYPERTHYROIDISM N EYE PROBLEMS N NEUROLOGICAL PROBLEMS N EDEMA N CHRONIC PAIN SYNDROME N HYPOTHYROIDISM Y CAROTID BLOCKAGE N CONSTIPATION N BACK / NECK PROBLEMS N HAVE YOU BEEN HOSPITALIZED OR SEEN IN [facility] IN THE PAST YEAR ? N ATHEROSCLEROSIS N BREAST PROBLEMS N DIALYSIS N ECZEMA N OSTEOPOROSIS Y ARTHRITIS Y NO SIGNIFICANT PAST MEDICAL HISTORY N APPENDICITIS N DIABETES, TYPE Y BAD TEETH N ENT N HEARTBURN / REFLUX N AUTISM SPECTRUM DISORDER (ASD) N HEPATITIS / LIVER DISEASE N GOUT N SLEEP DISORDER N ALZHEIMER'S DISEASE N Brain Problems N HERPES N DEMENTIA N HEADACHES/MIGRAINES N SEIZURES/EPILEPSY N VASCULAR DISEASE N PACEMAKER Y Blood Disorder N DIZZINESS N HEART DISEASE/HEART PROBLEMS N KIDNEY DISEASE Y MULTIPLE SCLEROSIS N CARDIAC ARRHYTHMIA N CANCER: SPECIFY Y ATRIAL FIBRILLATION N Gall Stones N PULMONARY EMBOLISM N AUTOIMMUNE DISEASE N Gynecological HistoryNo gynecological history recorded. Obstetrics History GPAL:G 0 P 0 0 0 0 Immunizations Vaccine Type Date Status Note Provider Nam e and Address Organization Details Recorded Time COVID-19 Non-US Vaccine, Product Unknown 1 completed Not Available [facility] 07/24/2022 18:27:31 COVID-19 Non-US Vaccine, Product Unknown 1 completed Not Available [facility] 07/24/2022 18:27:31 Pneumococcal conjugate PCV 13 5 completed Not Available [facility] 07/24/2022 18:27:31 Pneumococcal conjugate PCV 13 5 completed Not Available [facility] 07/24/2022 18:27:31 Influenza, split virus, trivalent, preservative 4 completed Not Available [facility] 07/24/2022 18:27:31 Influenza, split virus, trivalent, preservative 3 completed Not Available [facility] 07/24/2022 18:27:31 pneumococcal polysaccharide PPV23 7 completed Not Available [facility] 07/24/2022 18:27:31 Influenza, high-dose, quadrivalent, PF 1 completed Not Available [facility] 07/24/2022 18:27:31 Influenza, high-dose, quadrivalent, PF 2 completed Not Available [facility] 07/24/2022 18:27:31 Influenza, high-dose, quadrivalent, PF 0 completed Not Available [facility] 07/24/2022 18:27:31 Influenza, high-dose, trivalent, PF 8 completed Not Available [facility] 07/24/2022 18:27:31 Influenza, high-dose, trivalent, PF 7 completed Not Available [facility] 07/24/2022 18:27:31 Influenza, split virus, quadrivalent, preservative 5 completed Not Available [facility] 07/24/2022 18:27:31 Influenza, split virus, quadrivalent, PF 6 completed Not Available [facility] 07/24/2022 18:27:31 Influenza, high-dose, quadrivalent, PF 3 completed BERNARDO Henson Rich [facility] 12/30/2022 15:34:03 Past Encounters Encounter ID Performer Location Encounter Start Date Encounter Closed Date Diagnosis/Indication Diagnosis SNOMED-CT Code Diagnosis ICD10 Code Diagnosis Note [id number] [facility] Pod[facility] [place] [address] [facility], [facility] 4 [place] [address] 05/24/2020 00:00:00 05/24/2020 15:47:45 [id number] [facility] [address], [facility] 24 [place] [address] 05/28/2020 00:00:00 05/28/2020 14:43:48 [id number] [facility] [place] [address], [place] [address] [place] [address] 08/23/2020 00:00:00 09/03/2020 08:47:22 [id number] [facility] [address], [facility] 24 [place] [address] 09/24/2020 00:00:00 09/24/2020 15:14:00 [id number] [facility] [place] [address], [address] [address] 11/22/2020 00:00:00 12/14/2020 16:08:55 [id number] [facility] Internal [facility] [address] [address] 01/21/2021 00:00:00 01/21/2021 16:00:31 [id number] [facility] [place] [address], [address] [address] 02/21/2021 00:00:00 02/22/2021 11:33:07 [id number] [facility] [address], [address] [address] 05/20/2021 00:00:00 05/20/2021 15:38:15 [id number] [facility] [place] [address], [facility] 4 [place] [address] 07/11/2021 00:00:00 07/11/2021 15:18:13 [id number] [facility] Internal Med [facility] 24 [address], [address] [address] 09/23/2021 00:00:00 09/23/2021 12:15:27 [id number] [facility] [place] [address], [address] [address] 10/03/2021 00:00:00 10/03/2021 14:50:24 [id number] [facility] Internal Med [facility] [address] [address] 01/27/2022 00:00:00 01/27/2022 12:06:19 [id number] [facility] [place] [address] [facility], [facility] 4 [place] [address] 02/20/2022 00:00:00 02/23/2022 21:39:09 [id number] Erickson Juarez MD [facility] Internal Med [facility] [address] [address] 06/02/2022 14:25:33 06/02/2022 15:04:14 Adult health examination 709977720 Z00.00 Screening for disorder 289055085 Z13.9 Essential hypertension 25212857 I10 Hypercholesterolemia 136 62440 E78.00 Hypothyroidism 15641007 E03.9 Type 2 amy betes mellitus 71620484 E11.9 Obese class I 2915752018 47615 E66.9 [id number] Vadim Dugan DPM [facility] [address], [facility] 4 [place] [address] 06/19/2022 15:03:48 06/19/2022 15:41:08 Diabetes mellitus 88537444 E11.9 Continue medication s per PCPCheck feet dailyFollo w-up in 3 months Dystrophia unguium 31822 009 L60.3 Nails 1 through 10 were debrided with sharp mechanical debridemen t without incident. Nails were debrided and greater than 50% length and thickness where needed. [id number] Erickson Juarez MD [facility] [address] [address] 07/21/2022 16:15:48 07/21/2022 16:44:30 Essential hypertension 71592530 I10 Hypercholesterolemia 136 52359 E78.00 Hypothyroidism 83441392 E03.9 Type 2 amy betes mellitus 26694939 E11.9 Abdominal pain 38483983 R10.9 [id number] Erickson Juarez MD [facility] [address] [address] 08/06/2022 16:00:08 08/06/2022 16:46:55 Diabetes mellitus 42478953 E11.9 Essential hypertension 69890637 I10 Hypercholesterolemia 136 58123 E78.00 Hypothyroidism 56205895 E03.9 Altered toni wel function 33805401 R19.4 [id number] Vadim Dugan DPM [facility] Podiatry [address], [place] [address] 09/23/2022 15:53:08 09/23/2022 17:09:22 Diabetes mellitus 92278576 E11.9 Continue medication s per PCPCheck feet dailyFollo w-up in 3 months Dystrophia unguium 12350 009 L60.3 Nails 1 through 10 were debrided with sharp mechanical debridemen t without incident. Nails were debrided and greater than 50% length and thickness where needed. 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 Check blood work in the form of CBC, CMP, lipid, thyroid, hemoglobin A1c and microalbum in. Continue on current medication s follow-up four months [id number] Vadim Dugan DPM [facility] [address], [place] [address] 12/23/2022 15:53:57 12/23/2022 17:25:09 Diabetes mellitus 89931868 E11.9 Continue medication s per PCPCheck feet dailyFollo w-up in 3 months Dystrophia unguium 63017 009 L60.3 Nails 1 through 10 were debrided with sharp mechanical debridemen t without incident. Nails were debrided and greater than 50% length and thickness where needed. [id number] Erickson Juarez MD [facility] Internal Med [facility] [address] [address] 02/04/2023 14:38:16 02/04/2023 15:13:24 Essential hypertension 17928811 I10 Follow-up type 2 diabetes -hyperlipi demia-hypo thyroidism -basilar artery syndrome -neuropath y -essential hypertensi on all stable. Check blood work in the form of CBC, CMP, lipid, thyroid, hemoglobin A1c and microalbum in. Continue on current medication s follow-up four months Hypercholesterolemia 136 52651 E78.00 Mild neuro cognitive disorder 047109296 G31.84 Type 2 amy betes mellitus 49791175 E11.9 Obese class I 8766477185 08062 E66.9 [id number] Vadim Dugan DPM [facility] Podiatry [address], [place] [address] 04/21/2023 15:51:30 04/22/2023 09:55:05 Diabetes mellitus 95970860 E11.9 Continue medication s per PCPCheck feet dailyFollo w-up in 3 months Dystrophia unguium 20173 009 L60.3 Nails 1 through 10 were debrided with sharp mechanical debridemen t without incident. Nails were debrided and greater than 50% length and thickness where needed. [id number] Erickson Juarez MD [facility] Internal Med [facility] [address] [address] 06/10/2023 14:31:48 06/10/2023 15:33:38 Essential hypertension 39654010 I10 Hypercholesterolemia 136 82753 E78.00 Hypothyroidism 40362769 E03.9 Type 2 amy betes mellitus without complication 519971336 E11.9 [id number] Vadim Dugan DPM [facility] Podiatry [address], [address] [address] 07/21/2023 16:17:21 08/13/2023 15:16:16 Diabetes mellitus 65993881 E11.9 Continue medication s per PCPCheck feet dailyFollo w-up in 3 months Dystrophia unguium 54319 009 L60.3 Nails 1 through 10 were debrided with sharp mechanical debridemen t without incident. Nails were debrided and greater than 50% length and thickness where needed. [id number] Erickson Juarez MD [facility] Internal Med [facility] [address] [facility], [address] [address] 10/14/2023 14:41:10 10/14/2023 15:30:38 Adult health examination 578577363 Z00.00 Screening for disorder 991122539 Z13.9 Essential hypertension 63081142 I10 Hypercholesterolemia 136 10331 E78.00 Type 2 amy betes mellitus without complication 992367404 E11.9 Hypothyroidism 47431181 E03.9 Serum crea tinine above reference range 623383116 R79.89 [id number] Vadim Dugan DPM [facility] Podiatry [place] [address] [facility], [facility] 4 [place] [address] 10/22/2023 15:30:26 11/11/2023 15:07:43 Diabetes mellitus 07475276 E11.9 Continue medication s per PCPCheck feet dailyFollo w-up in 3 months Dystrophia unguium 92483 009 L60.3 Nails 1 through 10 were debrided with sharp mechanical debridemen t without incident. Nails were debrided and greater than 50% length and thickness where needed. Unsteady when walking 22 880054 R26.89 Continue use of walker [id number] Cordell fajardo MD [facility] General Surgery [address] [facility], [address] [address] 12/10/2023 12:10:42 12/10/2023 13:02:27 Mass of right breast 8799050500 [id number] N63.10 [id number] Cordell fajardo MD [facility] General Surgery [address] [facility], [address] [address] 12/17/2023 12:08:15 12/17/2023 13:09:18 Mass of right breast 2743896330 7440638 N63.10 Infiltrati ng duct carcinoma of breast 480039817 C50.919 Right Breast [id number] Benito Irving MD [facility] [address] [place] [address] 02/24/2024 14:46:53 02/24/2024 16:14:13 Postoperative visit 416998636 Z48.89 Fracture of femur 830402 00 S72.042D [id number] Benito Irving MD [facility] [address] [place] [address] 03/21/2024 10:49:59 03/21/2024 12:29:50 Fracture of femur 43047916 S72.042D [id number] Vadim Dugan DPM [facility] [address] [place] [address] 04/06/2024 16:06:05 04/06/2024 17:35:24 Peripheral vascular disease 827936035 I73.9 Dystrophia unguium 77492 009 L60.3 Nails 1 through 10 were debrided with sharp mechanical debridemen t without incident. Nails were debrided and greater than 50% length and thickness where needed. Contusion of toe 0562870 0 S90.122A left great toe [id number] Erickson Juarez MD [facility] Internal Med [place] [address] [facility] 24 [place] [address] 04/27/2024 17:12:08 04/27/2024 18:08:33 Essential hypertension 37996189 I10 Hypercholesterolemia 136 29193 E78.00 Type 2 amy betes mellitus without complication 544439492 E11.9 Malignant tumor of breast 245189777 C50.011 Health Concerns Section Related Observation LastModified by Organization Detai ls LastModified Time None Recorded Concern Status LastModified by Organization Details LastModified Time None Recorded Advance Directives Directive N: Payers Encounter Date Sequence Insurance Name Policy Number Policy Gan Covered Member ID Gan Member ID Guarantor Name 12/17/2023 1 [place] Avery Harris [id number] Avery Harris 12/17/2023 2 [place] [id number] Avery R Poiter [id number] Avery R Poiter 02/24/2024 1 [place] Avery R Poiter [id number] Avery R Poiter 02/24/2024 2 [place] [id number] Avery R Poiter [id number] Avery R Poiter 03/21/2024 1 [place] Avery R Poiter [id number] Avery R Poiter 03/21/2024 2 [place] [id number] Avery R Poiter [id number] Avery R Poiter 04/06/2024 1 [place] Avery R Poiter [id number] Avery R Poiter 04/06/2024 2 [place] [id number] Avery R Poiter [id number] Avery R Poiter 04/27/2024 1 [place] Avery R Poiter [id number] Avery R Poiter 04/27/2024 2 [place] [id number] Avery R Poiter [id number] Avery R Poiter Notes Date Note Type Note Provider Name and Address Organization Details Recorded Time 12/17/2023 text/html no complaints Cordell Mathesw MD [address] [place] [address], [address], [address], [facility] 12/17/2023 14:46:58 04/06/2024 text/html . Patient is an 83-year-old female diabetic she returns for routine diabetic foot care. Patient presents with her and her daughter. Patient presents in wheelchair. Patient had recently injured her left hip to which she underwent a repair for her hip and sustained a 2nd fall which caused more injury to the hip joint. Patient has some bruising to the left distal great toe she also states that she has discomfort in her legs secondary to cramping and has cool toes. Patient has dependent rubor of her toes. Patient denies any recent wounds. Vadim Dugan, JETT [address] [facility], [address], [place], [address], [place] [facility] 04/06/2024 17:15:34 04/27/2024 text/html Patient Name: Waleska Chacko CabreracharissaDate Of Service: Thursday ( 04.27.2024 ): 1940 Age: 84 There has been approximately a 13 lb weight loss since 10/14/2023. This represents approximately a 7.2% change in weight. Weight change attributable to lifestyle changes. Vital Signs:Blood Pressure: Sitting Rt. Arm 132/74Pulse: Sitting 77 /min and RegularRespiratory Rate: 16Height 65 in or 1.7 mWeight 168 lb or 76.2 kgBMI 28.0Temperature: 97 F or 36.1 CPulse Oximetry: 98 % at rest on no oxygen Chief Complaint: Addressed in HPI Problems or conditions discussed in the HPI were the only ones reviewed during the encounter.Only social and family history addressed in the HPI were reviewed during this encounter. Attendant(s): NoneConstitutional and Systemic Symptoms:none Medication Reconciliation: from medication list. Mmmbdrjxmcs73/08/2023: CT scan of the abdomen pelvis without contrast shows postoperative changes from cholecystectomy, pacemaker possible appendectomy. Coronary artery disease with extensive atherosclerotic vascular disease in the aorta. 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 Colonoscopy demonstrated a small flat 7 mm polyp in the rectum . 12-26-2022: echocardiogram shows an ejection fraction 65%. Moderate mitral valve calcification with trace physiological mitral valve regurgitation. There is mild tricuspid regurgitation noted. Peak pulmonary artery pressure measured at approximately 28 mmHg.12/26/2022: Carotid Dopplers showed less than 50% stenosis of the internal carotid arteries bilaterally. Antegrade flow is noted in both vertebral arteries. Some increase in pressures noted in these areas suggestive possible stenosis History of Present Illness #1. Essential Hypertension: Stage: Stage I Interval Neurological Complaints no headaches, dizziness, weakness, visual changes, ataxia, aphasia and apraxia. No shortness of breath, orthopnea or cardiovascular symptoms. No other symptoms related to end organ damage. Pressure has been under excellent control. Currently normal. No other end organ symptoms or findings. Therapy reviewed regarding management of hypertension and includes salt restriction and Coreg and Lisinopril. #2. Type II Hypercholesterolaemia: Currently taking medication and tolerating well. No interval complaints of any muscle pain or arthralgia. No significant liver changes with medications. Last lipid panel: fair control. Therapy reviewed regarding treatment of cholesterol management and include diet and Rosuvastatin. #3. Type II Diabetes: Has had no polyuria polyphagia or polydipsia. Has had no hypoglycemic like responses. No new history of any numbness, tingling, weakness or visual problems. No nausea, anorexia or other constitutional symptoms. There has been no foot problems or non healing lesions. The last HAIC was none done recently. CGM: No. Average blood sugars 116-125 mg%. Checking sugars : not at all. Medication Types Include: Insulin Secondary complications include none. Macro-vascular complications include none. Therapy reviewed regarding diabetic management and include Humalog and Lantus Solostar Pen Compliance: good Renal Protection: LINDA inhibitors Lipid management: statins Urinary microalbumin: A1 . Ophthalmological: has seen eye doctor within the last year. Control: Recent blood testing #4. Hx of Ca of the right breast(s). Sub classification: see oncology records. Metastasis: None Current Medications: none.. Active Medication ListLasix 40 MG (TABLET - ORAL) One Every Day For Bp & SwellingSynthroid 50 UG TABLET One Daily For ThyroidLisinopril 20 MG (TABLET - ORAL) One Daily For Blood PressureLantus Solostar Pen 40 UNITS DailyEffexor Xr 150 MG (CAPSULE, EXTENDED RELEASE - ORAL) One DailyPlavix 75 MG (TABLET - ORAL) One DailyMultivitamin Gummie DailyBiotin 57212 UNITS DailyCoreg 3.125 MG (TABLET - ORAL) 1 Tablets Twice A DayRosuvastatin 5 MG (TABLET - ORAL) One DailyHumalog 100 IU/ML INJECTION, SOLUTION Slidinig ScaleOs-chito D Soft Chew Twice A Day Adverse Drug Reactions ReviewedGlucophage Loss Of TastePravachol Depression Vaccination and Immunization( ) 2006- PNEUMOVAX(X) 2022-12 INFLUENZA(X) 2014-02 PREVNAR 13 GC PREVNAR 20 Needed(X) 2020- COVID PFIZER Surgical Oxgxfqi3859-54 Rt. Partial Vaqgwskckl7053-47 Uonqecesz3309-29 Rt. Foot Bpucufp6376-35 Rt. Foot Nbtxqgx8907-66 Lt. Hand Surgery Preventative Testing( ) 04/01/2024 Albumin 3.3 G/DL( ) 11/18/2023 Mammogram Diagnostic( ) 11/17/2023 DEXA Scan 11/16/2025( ) 06/10/2023 HAIC 7.8 % H( ) 02/12/2023 Optometry( ) 09/29/2022 Micro Albumin 8.7 MG/L N( ) 09/10/2022 Colonoscopy Social HistoryDoes not smoke cigarettes. 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 Family HistoryMother 71 years oldFather 69 years old1 Brothers 0 LivingMother Hx: HTNFather Hx: DM, AlcoholismBrother Hx: Cirrhosis (1) TEST RESULT RANGE UNITSCBC/COMPLETE BLD COUNT W/DIFF Date: 04/01/2024WHITE BLOOD CELLS 6.5 4.2-10.8 X10'3/ULHEMOGLOBIN 10.0 12.0-15.6 G/DLHEMATOCRIT 32.0 35.7-45.7 %PLATELETS 196 150-400 X10'3/ULCOMPREHENSIVE METABOLIC PANEL Date: 04/01/2024SODIUM 138 137-145 MMOL/LPOTASSIUM 3.2 3.5-5.1 MMOL/LGLUCOSE 137 70-99 MG/DLBUN 15 8-19 MG/DLCREATININE 1.00 0.66-1.25 MG/DLGFR 53ALANINE AMINOTRANSFERASE 19 0-35 U/LALKALINE PHOSPHATASE 112 38-126 U/LASPARTATE AMINOTRANSFERASE 25 15-37 U/LBILIRUBIN, TOTAL 0.60 0.20-1.30 MG/DLHEMOGLOBIN A1C Date: 06/10/2023 Erickson Juarez MD [address], [facility] [address], [place], [address], [place] [facility] [employer] [facility] 04/27/2024 17:44:55 OBGyn Episode No OBEpisode recorded.
--- OUTSIDE RECORDS SUMMARY | 2024-05-19 08:24 | XMS_ITS | Encounter Summary ---
Author Organization [facility] Healthcare Address [address] [place] [address] Care Team Providers Care High Lift Driver Name Role Phone José Juarez MD Primary Care Provider Reason for Visit * Diagnostic Imaging (Routine) - Pending Review Specialty Diagnoses / Procedures Referred By Ashley galvan Referred To Contact Procedures Breast Imaging Screening Outside Reference Transcribed Order, Provider Referral ID Status Reason Start Date Expiration Date V isits Requested Visits Authorized [id number] Pending Review 01/08/2024 02/06/2025 1 1 Encounter Details Date Type Department Care Team (Late st Contact Info) Description 08/25/2016 Hospital Encounter [facility] [address] [place] [id number] Social History Tobacco Use Types Packs/Day Years [...] on file 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 There will be no report generated by a [facility] Radiologist. Narrative [facility] - 01/08/2024 3:58 PM SENIOR HUMAN RESOURCES REPRESENTATIVE EXAMINATION: Images For Reference Purposes Only us Provider Transcribed Order IMG MAMMO PROCEDURES Final Result [facility] documented in this encounter Visit Diagnoses Not on filedocumented in this encounter Care Teams High Lift Driver Relationship Specialty Start Date End Date José Juarez MD PCP - General 05/16/16 documented as of this encounter
--- OUTSIDE RECORDS SUMMARY | 2024-05-19 08:24 | XMS_ITS | Encounter Summary ---
Author Organization [facility] Address [address] [place] [address] Phone Care Team Providers Care Conveyor Loader Name Role Phone José Juarez MD Primary Care Provider Reason for Visit * Consultation (Routine) - Authorized Specialty Diagnoses / Procedures Referred By Ashley galvan Referred To Contact Oncology Diagnoses Malignant neoplasm of upper-inner quadrant of right breast in female, estrogen receptor positive (HCC) 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, right (HCC) Malignant neoplasm of female breast, unspecified estrogen receptor status, unspecified laterality, unspecified site of breast (HCC) Aft, Rosalie Sanon MD PhD [address] [place] [address] Phone: tel: fax: [facility] [address], [address] [place] [address] Phone: tel: fax: Referral ID Status Reason Start Date Expiration Date Visits Requested Visits Authorized [id number] Authorized Specialty Services Required 04/15/2024 05/15/2025 99 99 Encounter Details Date Type Department Care Team (Late st Contact Info) Description 05/18/2024 1:00 PM CDT Office Visit [facility] [address] [place] [address] Roni Cat MD [address] [place] [address] Malignant neoplasm of upper-inner quadrant of right breast in female, estrogen receptor positive (HCC); 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, right (HCC); Malignant neoplasm of female breast, unspecified estrogen receptor status, unspecified laterality, unspecified site of breast (HCC) Social History Tobacco Use Types Packs/Day Years [...] on file 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 Gender Identity Not on file Sexual Orientation Not on file documented as of this encounter Last Filed Vital Signs Vital Sign Reading Time Taken Comments Blood Pressure 93/61 05/18/2024 1:14 PM CDT Pulse 70 05/18/2024 1:14 PM CDT Temperature 36.4 C (97.6 F) 05/18/2024 1:14 PM CDT Respiratory Rate 18 05/18/2024 1:14 PM CDT Oxygen Saturation 98% 05/18/2024 1:14 PM CDT Inhaled Oxygen Concentration - - Weight 74.8 kg (165 lb) 05/18/2024 1:14 PM CDT Height 165.1 cm (5' 5 ) 05/18/2024 1:14 PM CDT Body Mass Index 27.46 05/18/2024 1:14 PM CDT documented in this encounter Plan of Treatment Scheduled Orders Name Type Priority Associated Diagnoses Orde r Schedule Comprehensive metabolic panel Lab Routine Malignant neoplasm of upper-inner quadrant of right breast in female, estrogen receptor positive (HCC) Expected: 08/17/2024, Expires: 05/18/2025 CBC with auto differential Lab Routine Malignant neoplasm of upper-inner quadrant of right breast in female, estrogen receptor positive (HCC) Expected: 08/17/2024, Expires: 05/18/2025 documented as of this encounter Visit Diagnoses Diagnosis Malignant neoplasm of upper-inner quadrant of right breast in female, estrogen receptor positive (HCC) 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, right (HCC) Malignant neoplasm of female breast, unspecified estrogen receptor status, unspecified laterality, unspecified site of breast (HCC) documented in this encounter Orders Outpatient Referral Count Last Ordered Date Fir st Ordered Date AMB REFERRAL TO ONCOLOGY 1 05/18/2024 Appointment Requests Count Last Ordered Date Fi rst Ordered Date [facility]IC APPOINTMENT REQUEST 2 025 [facility] LAB APPOINTMENT 1 05/18/2024 documented in this encounter Care Teams Conveyor Loader Relationship Specialty Start Date End Date José Juarez MD PCP - General 05/16/16 documented as of this encounter
--- OUTSIDE RECORDS SUMMARY | 2024-05-19 08:24 | XMS_ITS | Encounter Summary ---
Author Organization [facility] Address [address] [place] [address] Care Team Providers Care Law Reporter Name Role Phone José Juarez MD Primary Care Provider Reason for Visit * Diagnostic Imaging (Routine) - Pending Review Specialty Diagnoses / Procedures Referred By Ashley galvan Referred To Contact Procedures Breast Imaging Screening Outside Reference Transcribed Order, Provider Referral ID Status Reason Start Date Expiration Date V isits Requested Visits Authorized [id number] Pending Review 01/08/2024 02/06/2025 1 1 Encounter Details Date Type Department Care Team (Late st Contact Info) Description 06/13/2015 Hospital Encounter [facility] [address] [place] [id number] Social History Tobacco Use Types Packs/Day Years [...] on file 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 There will be no report generated by a [facility] Radiologist. Narrative [facility]_M[facility] - 01/08/2024 3:58 PM DINNER COOK EXAMINATION: Images For Reference Purposes Only us Provider Transcribed Order IMG MAMMO PROCEDURES Final Result [facility] documented in this encounter Visit Diagnoses Not on filedocumented in this encounter Care Teams Law Reporter Relationship Specialty Start Date End Date José Juarez MD PCP - General 11/29/13 05/15/16 documented as of this encounter
--- OUTSIDE RECORDS SUMMARY | 2024-05-19 08:24 | XMS_ITS | Encounter Summary ---
Author Organization [facility] Address [address] [place] [address] Phone Care Team Providers Care Mushroom Cultivator Name Role Phone José Juarez MD Primary Care Provider Encounter Details Date Type Department Care Team (Late st Contact Info) Description 05/03/2024 Results Follow-Up [facility] [address] [place] [address] Patrica Durham CMA Social History Tobacco Use Types Packs/Day Years [...] on file Legal Sex Female 12:21 AM SYSTEMS 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
--- OUTSIDE RECORDS SUMMARY | 2024-05-19 08:24 | XMS_ITS | Continuity of Care Document ---
Author Organization [facility] Address [address] [place] [address] [place] [address] Phone Care Team Providers Care Elementary Supervisor Name Role Phone Dedrick Angulo DO Unavailable Unavailable Advance Directives Directive Yes / No Effective Date File Name No Information Encounters Encounter Description Practice Location Reason(s) For Visit Diagnoses Date Provider Providers Copied on Encounter [facility], [address] [place], [place], [id number], [place] tel:[phone] [facility] No Information Adele Burks. [address], [place], [address], [place]. tel:[phone] Family History Family Member Type Diagnosis Age At Onset No Information Payers Payer name Insurance type Covered green party ID Authoriza tion(s) No Information Social History Type Description Quantity Date Captured Comments Sex Female Smoking Status No Information Chief Complaint And Reason For Visit No Information Reason For Referral Reason For Referral No Information History Of Present Illness Encounter Date Complaint History Of Prese nt Illness No Information Functional Status Date Functional Assessmen t No Information Instructions Date Instruction Additional Infor mation No Information Assessments Type Assessment Date No Information Patient Care Teams Name Effective Dates (start - stop) Status Members No Information
--- OUTSIDE RECORDS SUMMARY | 2024-05-19 08:25 | XMS_ITS | Clinical Summary ---
Author Organization [facility] Address [address] [place] [address] Care Team Providers Care Rvda Master Certified Rv Technician Name Role Phone José Juarez MD Primary Care Provider Allergies Active Allergy Reactions Criticality Noted Date Comments Acetaminophen Palpitations,Other (See comments) Low 09/28/2011 Liraglutide Unknown Metformin Unknown Low 07/27/2018 Pravastatin Unknown Low 07/27/2018 Medications clopidogrel (PLAVIX) 75 mg tablet take 1 tablet by oral route every day 0 0 08/16/19 14 Active furosemide (LASIX) 40 mg tablet take 1 tablet by oral route every day 0 0 08/16/19 14 Active lisinopril (PRINIVIL,ZESTRIL) 20 mg tablet take 1 tablet by oral route every day 0 0 05/03/19 15 Active biotin 10,000 mcg tablet,disintegrati ng take 1 a day 0 0 03/13/19 16 Active carvedilol (COREG) 3.125 mg tablet take 1 tablet by oral route 2 times every day with food 0 0 08/21/19 16 Active venlafaxine XR (EFFEXOR-XR) 150 mg 24 hr capsule take 1 capsule by oral route every day 0 0 08/21/19 16 Active MULTIVITAMIN/IRON/F OLIC ACID (CENTRUM WOMEN ORAL) Take by mouth Acti ve lancets (ACCU-CHEK MULTICLIX LANCET) [facility] [place] Check blood sugar four times a day or as directed 1 each 08/21/19 18 Active BD ULTRA-FINE MINI PEN NEEDLE 31 gauge x 3/16 needle Use to inject insulin 5 times a day 450 each 11/09/19 19 Active Accu-Chek SmartView Test Strip stripIndications:Ty pe 2 diabetes mellitus with hyperglycemia, with long-term current use of insulin (HCC) TEST TWICE A DAY 200 each 1 08/11/19 20 Active rosuvastatin (CRESTOR) 5 mg tablet Take 1 tablet (5 mg total) by mouth daily 90 tablet 3 01/03/20 22 Active insulin glargine (LANTUS) 100 unit/mL (3 mL) pen for injection Inject 35 Units under the skin daily 15 mL 6 06/04/19 23 Active insulin lispro (HumaLOG) 100 unit/mL pen for injection Inject 6 Units under the skin daily before dinner 15 mL 3 11/05/19 23 Active flash glucose sensor (FreeStyle Sj 2 Sensor) kitIndications:Type 2 diabetes mellitus with hyperglycemia, with long-term current use of insulin (HCC) 1 each every 14 (fourteen) days 6 kit 3 07/23/19 24 Active traMADoL (ULTRAM) 50 mg tabletIndications:P ain Take 1 tablet (50 mg total) by mouth every 6 (six) hours as needed for pain 0 02/15/20 24 Active magnesium hydroxide (MILK OF MAGNESIA) suspension 400 mg/5 mLIndications:const ipation Take 30 mL by mouth daily as needed (constipation ) Active oxyCODONE (ROXICODONE) 5 mg immediate release tabletIndications:P ain Take 1 tablet (5 mg total) by mouth every 6 (six) hours as needed for pain for pain 5 tablet 03/29/19 25 Active loperamide (Imodium A-D) 2 mg tablet take one tablet with breakfast and one tablet with dinner 03/22/19 25 Active metOLazone (ZAROXOLYN) 2.5 mg tablet 05/04/19 25 Active levothyroxine (SYNTHROID) 50 mcg tablet 04/19/19 25 Active pedi multivit no.17 w-fluoride (Multi-Vitamin With Fluoride) 0.25 mg tablet,chewable 04/17/19 25 Active levothyroxine (SYNTHROID, LEVOTHROID) 75 mcg tablet take 1 tablet by oral route every day 0 0 08/16/19 14 025 Discontin ued(Patie nt Reported) calcium carbonate-vitamin D3 1,250 mg (500 mg elemental)-600 unit tablet every 12 hours 025 Discontin ued(Patie nt Reported) aspirin 81 mg enteric coated tabletIndications:C erebral Thromboembolism Prevention,TIA 01/2024 Take 1 tablet (81 mg total) 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 025 Discontin ued(Patie nt Reported) Active Problems Problem Noted Date Diagnosed Date Allergic rhinitis 05/09/2024 Basilar artery syndrome 05/09/2024 Closed Colles' fracture 05/09/2024 Closed fracture of surgical neck of humerus 04/17 Fracture of humerus 05/09/2024 Postartificial menopausal syndrome 05/09/2024 Primary localized osteoarthritis of pelvic regio n and thigh 05/09/2024 Sleep apnea 05/09/2024 Edema of lower extremity 05/03/2024 Contusion of toe 04/05/2024 Breast cancer in female 03/29/2024 Diarrhea 03/21/2024 Pain of left hip joint 03/16/2024 Fracture of femur 02/23/2024 Malignant neoplasm of upper- inner quadrant of right breast in female, estrogen receptor positive 01/11/2024 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, right 01/11/2024 Infiltrating ductal carcinoma of breast 12/17/19 Mass of right breast 12/03/2023 Other abnormal and inconclus johanna findings on diagnostic imaging of breast 11/17/2023 High serum creatinine 10/14/2023 Senile osteoporosis 10/14/2023 Carotid arterial disease 10/02/2023 Neuropathy 09/29/2022 Type 2 diabetes mellitus without complication Altered bowel function 08/06/2022 Unsteady gait when walking 08/06/2022 Unintentional weight loss 08/01/2022 Abdominal pain 07/21/2022 Class 1 obesity 06/02/2022 Otitis media 04/24/2022 Hypothyroidism 01/02/2022 Assessment & Plan (03/09/2024 3:18 PM AIR BOX TESTER): Chronic problem. Clinically & biochemically euthyroid. Currently taking levothyroxine 75mcg daily. Assessment & Plan (10/28/2023 1:34 PM CDT): Chronic problem. Clinically & biochemically euthyroid. Currently taking levothyroxine 75mcg daily. Assessment & Plan (07/07/2023 11:16 AM CDT): Chronic problem. Clinically & biochemically euthyroid. Currently taking levothyroxine 75mcg daily. Will update labs today. Does not mychart. Verified phone #/address to contact re: results. Assessment & Plan (06/03/2022 3:55 PM CDT): Chronic, well controlled Continue with Levothyroxine, 75 mcg daily Assessment & Plan (01/02/2022 2:38 PM AIR BOX TESTER): Will check TFT Adjust dose of LT4 if indicated Dystrophia unguium 09/03/2020 Plantar fasciitis of right foot 02/22/2020 Mild neurocognitive disorder 01/29/2020 Memory loss 08/11/2019 Assessment & Plan (08/11/2019 2:04 PM CDT): Patient very upset about it Will have her see neurologist, Dr Jamison Onychomycosis of toenail 08/09/2019 Arthritis 07/28/2019 Depressive disorder 07/28/2019 Headache 07/28/2019 Pneumonia 07/28/2019 Skin problem 07/28/2019 Shortness of breath 10/01/2018 Dizziness 10/02/2017 Hyperlipidemia associated with type 2 diabetes m ellitus 08/20/2017 Assessment & Plan (03/09/2024 3:15 PM AIR BOX TESTER): Chronic problem. Currently taking rosuvastatin 5mg. Last lipid panel: 07/07/23 LDL=78, BW=507. Assessment & Plan (10/28/2023 1:33 PM CDT): Chronic problem. Currently taking rosuvastatin 5mg. Last lipid panel: 07/07/23 LDL=78, EY=167. Assessment & Plan (07/07/2023 11:16 AM CDT): Chronic problem. Currently taking rosuvastatin 5mg. Last lipid panel: 06/18/21 LDL=75, UO=588. Will update labs today. Does not mychart. Verified phone #/address to contact re: results. Assessment & Plan (11/04/2022 4:20 PM CDT): Chronic, well-controlled Continue statin therapy with atorvastatin Assessment & Plan (01/02/2022 2:37 PM AIR BOX TESTER): Chronic, well controlled Low fat Low cholesterol diet Exercise Continue statin therapy Assessment & Plan (07/04/2021 1:42 PM CDT): Chronic, well controlled Low fat Low cholesterol diet Exercise Continue statin therapy Assessment & Plan (01/24/2021 4:18 PM AIR BOX TESTER): Lipids checked today LDL and non HDL cholesterol at goal Continue with simvastatin 20 mg daily Assessment & Plan (2020 3:12 PM AIR BOX TESTER): Goal of treatment , LDL cholesterol less than 100 ( less than 70 in patients with history of heart attacks and / or strokes ) NonHDL cholesterol ( total cholesterol minus HDL cholesterol ) goal less than 130 ( less than 100 in patients with history of heart attacks and / or strokes ) Low cholesterol, low fat diet was discussed and advised. Daily exercise On statin therapy with Simvastatin Assessment & Plan (12/13/2019 3:49 PM CDT): Goal of treatment , LDL cholesterol less than 100 ( less than 70 in patients with history of heart attacks and / or strokes ) NonHDL cholesterol ( total cholesterol minus HDL cholesterol ) goal less than 130 ( less than 100 in patients with history of heart attacks and / or strokes ) Low cholesterol, low fat diet was discussed and advised. Daily exercise On statin therapy Check lipid profile Assessment & Plan (04/05/2019 2:52 PM AIR BOX TESTER): Goal of treatment , LDL cholesterol less than 100 ( less than 70 in patients with history of heart attacks and / or strokes ) NonHDL cholesterol ( total cholesterol minus HDL cholesterol ) goal less than 130 ( less than 100 in patients with history of heart attacks and / or strokes ) Low cholesterol, low fat diet was discussed and advised. Daily exercise On statin therapy Assessment & Plan (11/23/2018 2:30 PM CDT): Goal of treatment , LDL cholesterol less than 100 ( less than 70 in patients with history of heart attacks and / or strokes ) NonHDL cholesterol ( total cholesterol minus HDL cholesterol ) goal less than 130 ( less than 100 in patients with history of heart attacks and / or strokes ) Low cholesterol, low fat diet was discussed and advised. Daily exercise On statin therapy Check lipid profle Assessment & Plan (07/27/2018 12:08 PM CDT): Goal of treatment , LDL cholesterol less than 100 ( less than 70 in patients with history of heart attacks and / or strokes ) NonHDL cholesterol ( total cholesterol minus HDL cholesterol ) goal less than 130 ( less than 100 in patients with history of heart attacks and / or strokes ) Low cholesterol, low fat diet was discussed and advised. Daily exercise On statin therapy Assessment & Plan (04/06/2018 11:27 AM AIR BOX TESTER): Goal of treatment , LDL cholesterol less than 100 ( less than 70 in patients with history of heart attacks and / or strokes ) NonHDL cholesterol ( total cholesterol minus HDL cholesterol ) goal less than 130 ( less than 100 in patients with history of heart attacks and / or strokes ) Low cholesterol, low fat diet was discussed and advised. Daily exercise On statin therapy Assessment & Plan (12/25/2017 1:08 PM AIR BOX TESTER): At goal on current medications. Assessment & Plan (08/20/2017 1:35 PM CDT): Goal of treatment , LDL cholesterol less than 100 ( less than 70 in patients with history of heart attacks and / or strokes ) NonHDL cholesterol ( total cholesterol minus HDL cholesterol ) goal less than 130 ( less than 100 in patients with history of heart attacks and / or strokes ) Low cholesterol, low fat diet was discussed and advised. Daily exercise On statin therapy Type 2 diabetes mellitus wit h hyperglycemia, with long-term current use of insulin 09/09/2016 Assessment & Plan (03/09/2024 3:12 PM AIR BOX TESTER): Chronic problem. A1c improved from 7.2% 10/28/23 to now 5.9%. Current medications: Lantus 40 units at bedtime Humalog 6 units with dinner if blood sugar over 180 DM eye exam 01/2023 [facility]. Second request letter sent to get copy of report UTD on labs. Discussed with Avery Mcfarland: Strive for regular exercise (30min most days) and diet (get at least 4-5 servings of fruit and veggies daily, avoid processed foods, increase lean protein intake and decrease carb portions as well as fruit juices, regular soda & desserts). Watch carbs and simple sugars. Check the blood sugar: Freestyle sj. Check the feet daily for skin breakdown and infection. Assessment & Plan (10/28/2023 1:57 PM CDT): Chronic problem. A1c improved from 8.2% 07/07/23 to now 7.2%. Due to the lows overnight--decrease Lantus from 45 to now 40 units. Current medications: Lantus 40 units at bedtime Humalog 6 units with dinner if blood sugar over 180 DM eye exam 01/2023 [facility]. Second request letter sent to get copy of report UTD on labs. Discussed with Avery Mcfarland: Strive for regular exercise (30min most days) and diet (get at least 4-5 servings of fruit and veggies daily, avoid processed foods, increase lean protein intake and decrease carb portions as well as fruit juices, regular soda & desserts). Watch carbs and simple sugars. Check the blood sugar: Freestyle sj. Check the feet daily for skin breakdown and infection. Assessment & Plan (07/07/2023 11:50 AM CDT): Chronic problem. A1c pauline from 7.8% 10/2022 to now 8.2%. Will increase lantus from 40 units to 45 units qhs. Current medications: Lantus 45 units at bedtime Humalog 6 units with dinner if blood sugar over 180 DM eye exam 01/2023 [facility] [place]. Will send letter to get copy of report Will update labs today. Does not mychart. Verified phone #/address to contact re: results. Discussed with Avery Mcfarland: Strive for regular exercise (30min most days) and diet (get at least 4-5 servings of fruit and veggies daily, avoid processed foods, increase lean protein intake and decrease carb portions as well as fruit juices, regular soda & desserts). Watch carbs and simple sugars. Check the blood sugar: Freestyle sj. Check the feet daily for skin breakdown and infection. Assessment & Plan (11/04/2022 4:19 PM CDT): Hba1c was Lab Results Component Value Date HGBA1C 7.8 11/04/2022 today, indicating suboptimal DM control with risk of hypoglycemia Goal Hba1c and blood glucose explained Diet and exercise were advised Prevention and treatment of hyypoglcyemia were discussed with the patient Blood glucose monitoring : start CGM with FSL 2 Pt to wear the FSL 2 and will let me know if she wants to keep it or not Adjustment to medications: Check your sugars when getting up and before dinner. Lower Lantus to 40 units once a day, at bedtime. Before dinner, , for sugars over 180, take 6 units of Humalog. Assessment & Plan (06/03/2022 3:55 PM CDT): Hba1c was Lab Results Component Value Date HGBA1C 6.8 06/03/2022 today, indicating adequate DM control Goal Hba1c and blood glucose explained Diet and exercise were advised Prevention and treatment of hyypoglcyemia were discussed with the patient Blood glucose monitoring : 1 x day Adjustment to medications: Lower Lantus, 35 units hs Stop Humalog ( pt has actually not been taking it ) Assessment & Plan (01/02/2022 2:33 PM AIR BOX TESTER): Lower Lantus to 35 units Take Humalog, 10 units before main meal. Risk of hypoglycemia was discussed Assessment & Plan (07/04/2021 1:44 PM CDT): Hba1c was Lab Results Component Value Date HGBA1C 6.7 07/04/2021 today, indicating adequate DM control with hypoglycemia Goal Hba1c and blood glucose explained Diet and exercise were advised Prevention and treatment of hyypoglcyemia were discussed with the patient Blood glucose monitoring : bid Adjustment to medications: Lower Lantus to 35 units. Assessment & Plan (01/24/2021 4:17 PM AIR BOX TESTER): Hba1c was Lab Results Component Value Date HGBA1C 6.7 01/24/2021 today, indicating adequate DM control with some hypoglycemia Goal Hba1c and blood glucose explained Diet and exercise , discussed Prevention and treatment of hyypoglcyemia discussed. Blood glucose monitoring : 1 to twice a day Adjustment to medications: Lower Lantus to 28 units Assessment & Plan (08/28/2020 3:34 PM CDT): Hba1c was Lab Results Component Value Date HGBA1C 7.0 08/28/2020 today, indicating adequate DM control with hypoglycemia Goal blood sugars in the 120-150 range , with Hb1c under 7.0 % was explained 1800 calorie, consistent carb diet recommended. No more than 30-45 grams of carbs per meal recommended, as well as avoiding high concentrated sweet drinks . 25-45 min daily exercise, combining both aerobic and resistance exercise recommended. The need to monitor blood glucose before meals and bedtime was discussed. Prevention and treatment of hyypoglcyemia discussed. Lantus dose adjusted: Take Lantus, 35 units when getting up, and 25 units before going to bed, Stay on Humalog, 10 units before dinner. Assessment & Plan (2020 3:11 PM AIR BOX TESTER): Hba1c was Lab Results Component Value Date HGBA1C 6.9 2020 today, indicating adequate DM control Goal blood sugars in the 120-150 range , with Hb1c under 7.0 % was explained 1800 calorie, consistent carb diet recommended. No more than 30-45 grams of carbs per meal recommended, as well as avoiding high concentrated sweet drinks . 25-45 min daily exercise, combining both aerobic and resistance exercise recommended. The need to monitor blood glucose before meals and bedtime was discussed. Prevention and treatment of hyypoglcyemia discussed. Continue current insulin regimen Assessment & Plan (12/13/2019 3:48 PM CDT): Check hba1c Lower Lantus, 35 units bid Diet and some stretching exercises were discussed Assessment & Plan (08/11/2019 1:59 PM CDT): Hba1c was Lab Results Component Value Date HGBA1C 7.6 04/05/2019 today, indicating sub-optimal DM control 1800 calorie, consistent carb diet recommended. No more than 30-45 grams of carbs per meal recommended, as well as avoiding high concentrated sweet drinks . 25-45 min daily exercise, combining both aerobic and resistance exercise recommended. The need to monitor blood glucose before meals and bedtime was discussed. Prevention and treatment of hyypoglcyemia discussed. Insulin dose: Continue current dose of Lantus Assessment & Plan (04/05/2019 2:51 PM AIR BOX TESTER): Hba1c was Lab Results Component Value Date HGBA1C 7.6 04/05/2019 today, indicating ... DM control 1800 calorie, consistent carb diet recommended. No more than 30-45 grams of carbs per meal recommended, as well as avoiding high concentrated sweet drinks . 25-45 min daily exercise, combining both aerobic and resistance exercise recommended. The need to monitor blood glucose before meals and bedtime was discussed. Prevention and treatment of hyypoglcyemia discussed. Insulin dose: Lantus 40 units am 30 units pm Humalog 10 units with dinner Assessment & Plan (11/23/2018 2:30 PM CDT): Hba1c was Lab Results Component Value Date HGBA1C 7.5 11/23/2018 today, indicating ... DM control 1800 calorie, consistent carb diet recommended. No more than 30-45 grams of carbs per meal recommended, as well as avoiding high concentrated sweet drinks . 25-45 min daily exercise, combining both aerobic and resistance exercise recommended. The need to monitor blood glucose before meals and bedtime was discussed. Prevention and treatment of hyypoglcyemia discussed. Insulin dose: Lower Lantus 35 units twice a day Assessment & Plan (07/27/2018 12:08 PM CDT): Hba1c was Lab Results Component Value Date HGBA1C 7.1 07/27/2018 today, indicating 150 DM control 1800 calorie, consistent carb diet recommended 25-45 min daily exercise, combining both aerobic and resistance exercise recommended. The need to monitor blood glucose before meals and bedtime was discussed. Dose of basal and prandial insulin adjusted as follows: Continue Lantus and Humalog Stop glimepiride. Prevention and treatment of hyypoglcyemia discussed. Assessment & Plan (04/06/2018 11:26 AM AIR BOX TESTER): Hba1c was Lab Results Component Value Date HGBA1C 7.6 04/06/2018 today, indicating ... DM control 1800 calorie, consistent carb diet recommended 25-45 min daily exercise, combining both aerobic and resistance exercise recommended. The need to monitor blood glucose before meals and bedtime was discussed. Prevention and treatment of hyypoglcyemia discussed. Lower Glimepiride, 1 mg daily Assessment & Plan (12/25/2017 1:07 PM AIR BOX TESTER): A1c 7.3. Reduce Lantus to 38 bid. BG goals reviewed. Discussed lifestyle issues including medication, meal and bedtime. Strategies to achieve consistent daily schedule discussed. This would help improve BG, diet compliance. No more than 45 grams of carb per meal. Assessment & Plan (08/20/2017 1:31 PM CDT): Your Hba1c today was: Lab Results Component Value Date HGBA1C 7.7 08/20/2017 meaning a 3 month average sugar of : 170 Your goal hba1c is under 8.0 Your goal sugars are in the 120-160 range Daily aerobic ( walking, riding a bike, swimming ) and resistance exercises ( light weight lifting, resistance band stretching ) for at least 30 minutes is recommended If you can not walk, chair exercises is very acceptable. As little as 15-20 minutes exercise , in one or two sessions a day, is still very helpful and will help to improve your diabetes control . Eat small portion meals, no more than 1800 calories Diet Try to eat not more than than 2-3 servings of carbs ( starches ) wiith your meals. Avoid soft drinks, including regular sodas , fruit juices and sweetened tea. Drink water instead. Eat plenty of green and leafy vegetables, including salads. Take your medications regularly,including your insulin injections. Monitor your sugar levels with finger sticks regularly and keep a log sheet or book. Bring your sugar meter and /or a log book or log sheet to every office visit. Assessment & Plan (04/09/2017 2:50 PM AIR BOX TESTER): Hba1c was 7.2 today, indicating DM Adequate control 1800 calorie, consistent carb diet recommended 30 min daily aerobic and resistance exercise recommended Prevention and treatment of hyypoglcyemia discussed. Blood glucose monitoring with fingers sticks 1-2 x day . Assessment & Plan (01/06/2017 2:48 PM AIR BOX TESTER): Hba1c was 6.8 today, indicating adequate DM control 1800 calorie, consistent carb diet recommended 30 min daily exercise, combining both aerobic and resistance exercise is strongly recommended and needed as part of diabetes management plan. The need to monitor blood glucose before meals and bedtime was discussed. Take prandial insulin before meals based on carb intake and blood glucose readings. Prevention and treatment of hyypoglcyemia discussed. Lantus, not more than 30 u twice a day Assessment & Plan (09/09/2016 2:49 PM CDT): Hba1c was 6.5 today, indicating adequate DM control 1800 calorie, consistent carb diet recommended 30 min daily aerobic and resistance exercise recommended Foot care discused. Prevention and treatment of hyypoglcyemia discussed. Lower Lantus to 30 u twice a day Hypertension associated with diabetes 09/09/2016 Assessment & Plan (03/09/2024 3:18 PM AIR BOX TESTER): Chronic problem. Controlled on current carvedilol 3.125mg bid, lisinopril 20mg, lasix 40mg daily Assessment & Plan (10/28/2023 1:33 PM CDT): Chronic problem. Controlled on current carvedilol 3.125mg bid, lisinopril 20mg, lasix 40mg daily Assessment & Plan (07/07/2023 11:17 AM CDT): Chronic problem. Controlled on current carvedilol 3.125mg bid, lisinopril 20mg, lasix 40mg daily Will update labs today. Does not mychart. Verified phone #/address to contact re: results. Assessment & Plan (11/04/2022 4:20 PM CDT): Chronic, well-controlled Continue current regimen including carvedilol Assessment & Plan (06/03/2022 3:56 PM CDT): Chronic, well controlled Continue current meds Assessment & Plan (07/04/2021 1:44 PM CDT): Chronic, well controlled Continue current meds Assessment & Plan (2020 3:11 PM AIR BOX TESTER): Goal blood pressure is less than 140/85 Low salt diet was discussed andd recommended The importance of daily aerobic exercise was also emphasized. Continue current meds, including LINDA-I or ARB, e.g. Lisinopril Assessment & Plan (12/13/2019 3:48 PM CDT): Goal blood pressure is less than 140/85 Low salt diet was discussed andd recommended The importance of daily aerobic exercise was also emphasized. Continue current meds, including LINDA-I or ARB, e.g. Lisinopril Assessment & Plan (04/05/2019 2:52 PM AIR BOX TESTER): Goal blood pressure is less than 140/85 Low salt diet recommended Daily aerobic exercise Continue current meds, including LINDA-I or ARB with Lisinopril Assessment & Plan (11/23/2018 2:30 PM CDT): Goal blood pressure is less than 140/85 Low salt diet recommended Daily aerobic exercise Continue current meds, including LINDA-I or ARB Check microalbumin Assessment & Plan (07/27/2018 12:08 PM CDT): Goal blood pressure is less than 140/85 Low salt diet recommended Daily aerobic exercise Continue current meds, including LINDA-I or ARB Assessment & Plan (04/06/2018 11:27 AM AIR BOX TESTER): Goal blood pressure is less than 140/85 Low salt diet recommended Daily aerobic exercise Continue current meds, including LINDA-I or ARB Assessment & Plan (12/25/2017 1:07 PM AIR BOX TESTER): Controlled on current medications. Assessment & Plan (08/20/2017 1:35 PM CDT): Goal blood pressure is less than 140/85 Low salt diet recommended Daily aerobic exercise Continue current meds, including LINDA-I or ARB Assessment & Plan (04/09/2017 2:49 PM AIR BOX TESTER): Goal blood pressure is less than 140/85 Low salt diet recommended Daily aerobic exercise Continue current meds, including LINDA-I or ARB Assessment & Plan (01/06/2017 2:36 PM AIR BOX TESTER): Goal blood pressure is less than 140/85 Low salt diet recommended Daily aerobic exercise Continue current meds, including LINDA-I or ARB Assessment & Plan (09/09/2016 2:38 PM CDT): Goal blood pressure is less than 140/85 Low salt diet recommended Daily aerobic exercise Continue current meds, including LINDA-I or ARB Mixed hyperlipidemia 09/09/2016 Overview (09/09/2016): Goal of treatment , LDL cholesterol less than 100 ( less than 70 in patients with history of heart attacks and / or strokes ) NonHDL cholesterol goal less than 130 / 100 Lipids at goal. Continue statin therapy Low cholesterol diet, exercise advised. Assessment & Plan (04/09/2017 2:49 PM AIR BOX TESTER): Goal of treatment , LDL cholesterol less than 100 ( less than 70 in patients with history of heart attacks and / or strokes ) NonHDL cholesterol ( total cholesterol minus HDL cholesterol ) goal less than 130 ( less than 100 in patients with history of heart attacks and / or strokes ) Low cholesterol, low fat diet was discussed and advised. Daily exercise On statin therapy Assessment & Plan (01/06/2017 2:36 PM AIR BOX TESTER): Goal of treatment , LDL cholesterol less than 100 ( less than 70 in patients with history of heart attacks and / or strokes ) NonHDL cholesterol goal less than 130 ( less than 100 in patients with history of heart attacks and / or strokes ) Continue statin therapy Assessment & Plan (09/09/2016 2:39 PM CDT): Goal of treatment , LDL cholesterol less than 100 ( less than 70 in patients with history of heart attacks and / or strokes ) NonHDL cholesterol goal less than 130 / 100 Lipids at goal. Continue statin therapy Low cholesterol diet, exercise advised. 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 Floor [address] [place] [address] Roni Cat MD Malignant neoplasm of upper-inner quadrant of right breast in female, estrogen receptor positive (HCC); 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, right (HCC); Malignant neoplasm of female breast, unspecified estrogen receptor status, unspecified laterality, unspecified site of breast (HCC) 05/09/2024 8:50 AM CDT Office Visit [facility] Orthopaedic Surgery [facility] Medical Office Building [address] [place] [phone] Tr Whitaker MD Left hip pain (Primary Dx); Displaced fracture of base of neck of left femur, subsequent encounter for closed fracture with routine healing 05/09/2024 8:20 AM CDT - 05/09/2024 11:59 PM CDT Hospital Encounter [facility] Rad[facility] [address] [place] [address] [address] [place] [phone] Left hip pain Discharge Disposition: Discharge to home or self care 05/06/2024 Orders Only [facility] Scanning, Provider 05/03/2024 Results Follow-Up [facility] Surgery [address] [place] [address] 8 [place] [phone] Patrica Durham, PAULA 05/03/2024 Telephone [facility] Medical Group Diabetes and Endocrinology [address] [place] [phone] Cate Espitia NP [employer] Order 04/28/2024 Documentation [facility] Oncology [address] [place] [address] [address] [place] [phone] Che Morillo, PAULA 04/22/2024 Telephone [facility] Advanced Medicine Radiation Oncology [address] [place] [address] [place] [address] Hannah Alcazar MD PhD 04/19/2024 Orders Only [facility] Oncology [address] [place] [address] 8 [place] [phone] Roni Cat MD Malignant neoplasm of female breast, unspecified estrogen receptor status, unspecified laterality, unspecified site of breast (HCC) (Primary Dx) 04/15/2024 Orders Only [facility] Surgery [address] [place] [address] 8 [place] [phone] Rosalie Bui MD PhD Malignant neoplasm of upper-inner quadrant of right breast in female, estrogen receptor positive (HCC) (Primary Dx); 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, right (HCC); Malignant neoplasm of female breast, unspecified estrogen receptor status, unspecified laterality, unspecified site of breast (HCC) 04/11/2024 4:15 PM AIR BOX TESTER Office Visit [facility] Surgery [address] [place] [phone] Rosalie Bui MD PhD 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, right (HCC) (Primary Dx) 03/29/2024 3:00 PM AIR BOX TESTER - 03/29/2024 5:00 PM AIR BOX TESTER Surgery [facility] [address] [place] [phone] AftRosalie MD PhD EXCISION MASS - BREAST 03/29/2024 2:33 PM AIR BOX TESTER Anesthesia Event [facility] ([facility]) [address] [place] [address] Gisela Garcia MD Horton, Cheryl Renee Hill, NP 03/29/2024 9:09 AM AIR BOX TESTER - 03/29/2024 11:59 PM AIR BOX TESTER Hospital Encounter [facility] ([facility]) [address] [place] [address] Aft, Rosalie Sanon MD PhD Encounter for other preprocedural examination Discharge Disposition: Discharge to home or self care 03/29/2024 6:45 AM AIR BOX TESTER - 03/29/2024 11:59 PM AIR BOX TESTER Hospital Encounter [facility] Advanced Medicine Breast [facility] ([facility]) [address] [place] [address] Encounter for other preprocedural examination Discharge Disposition: Discharge to home or self care 03/29/2024 6:08 AM AIR BOX TESTER - 03/29/2024 11:59 PM AIR BOX TESTER Hospital Encounter [facility] Radiology [facility] ([facility]) [address] [place] [address] Encounter for other preprocedural examination Discharge Disposition: Discharge to home or self care 03/29/2024 6:07 AM AIR BOX TESTER - 03/30/2024 1:59 PM AIR BOX TESTER Hospital Encounter [facility] [address] [place] [address] Ramya, Rosalie Sanon MD PhD Encounter for other preprocedural examination (Primary Dx); Diagnosis unknown; Malignant neoplasm of upper-inner quadrant of right breast in female, estrogen receptor positive (HCC) Discharge Disposition: Discharge to [facility] 03/25/2024 Telephone [facility] Surgery [facility] Floor [address] [place] [address] Tadeo Talbert 03/21/2024 Telephone [facility] Medical Group Diabetes and Endocrinology [address] [place] [phone] Cate Espitia, COPIER AND PRINTER FIELD TECHNICIAN Med Management 03/09/2024 2:30 PM AIR BOX TESTER Office Visit [facility] Medical Group Diabetes and Endocrinology [address] [place] [phone] Cate Espitia NP Type 2 diabetes mellitus with hyperglycemia, with long-term current use of insulin (HCC) (Primary Dx); Hypertension associated with diabetes (HCC); Hyperlipidemia associated with type 2 diabetes mellitus (HCC); Acquired hypothyroidism 03/08/2024 Telephone [facility] Surgery [address] [place] [phone] Aft, Rosalie Sanon MD PhD 02/29/2024 Telephone [facility] Surgery [address] [place] [phone] Aft, Rosalie Sanon MD PhD 02/26/2024 Telephone [facility] Surgery [address] [place] [phone] Aft, Rosalie Sanon MD PhD Scheduling Appointments from Last 3 Months Immunizations Immunization Administration Dates Next Due Influenza, Quadrivalent, Hig h Dose, Preservative Free, Intrr 12/30/2022,01/27/2022,12/10/2020,01/03 Influenza, Quadrivalent, Spl it, Intramuscular 12/25/2014 Influenza, Quadrivalent, Spl it, Preservative Free, Intramuscular 01/18/2016 Influenza, Trivalent, High D ose, Split, Preservative Free, Intramuscular 01/11/2018,12/30/2016 Influenza, Trivalent, IM (MDV) 01/18/2014,2012 Pfizer SARS-CoV-2 Monovalent Vaccination (12+ Yrs) PURPLE 06/06/2020,05/17/2020 Pneumococcal Conjugate PCV 13 03/01/2014, 015 Pneumococcal Polysaccharide PPV23 12/17/2006 Surgical History Surgery Date Site/Laterality Comments CARDIAC PACEMAKER PLACEMENT 02/16/2018 - 02/15/[address] Vieira. GALLBLADDER SURGERY ROTATOR CUFF REPAIR 02/17/1988 - 02/15/1989 Right OTHER SURGICAL HISTORY Left left heel OTHER SURGICAL HISTORY Left ganglion left wrist HIP SURGERY 01/17/2024 - 02/16/2024 Left fracture; place moisés and screws Medical History Medical History Date Comments Hx Other Medical hyerlipidemia; Comments: [facility] 08/15/2013 - Diabetes mellitus (HCC) Diabetes mellitus; Comments: [facility] 08/15/2013 - Hx Other Medical diabetic neurop athy; Comments: [facility] 08/15/2013 - Hx Other Medical fractured neck; Comments: [facility] 08/15/2013 - Hx Other Medical ganglion; Comme nts: [facility] 08/15/2013 - Hx Other Medical heel spur; Comm ents: [facility] 08/15/2013 - Hx Other Medical gallbladder; Co mments: [facility] 08/15/2013 - Hx Other Medical R rotator cuff; Comments: [facility] 08/15/2013 - Hx Other Medical shingels; Comme nts: [facility] 08/15/2013 - Hx Other Medical Not Claustropho bic; Comments: [facility] 11/29/2013 - Headache Thyroid disease Arthritis Heart disease pacemaker Family History Medical History Relation Name Comments Diabetes Father Diabetes mellit us; Hypertension Mother Hypertension; Relation Name Status Comments Father Mother Social History Tobacco Use Types Packs/Day Years [...] on file Legal Sex Female 12:21 AM AIR BOX TESTER Gender Identity Not on file Sexual Orientation Not on file Obstetrics History Last Filed Vital Signs Vital Sign Reading [...] Mass Index 27.46 05/18/2024 1:14 PM CDT Plan of Treatment Health Maintenance Due Date Last Done Comments DTaP/Tdap/Td Vaccine (1 - Tdap) 1951 Hepatitis B Screening 04/27/1959 Zoster Vaccine (1 of 2) 04/27/1991 Well Visit 65+ 2006 Depression Screening 07/04/2022 07/04/2021, 08/28/2020, 2020, Additional history exists Covid-19 Vaccine (3 2023-2 5 season) 2023 06/06/2020, 05/17/2020 Albumin Creatinine Ratio, Urine 07/06/2024 07/07/2023, 12/14/2019, 11/23/2018, Additional history exists Foot Exam 07/06/2024 07/07/2023, 04/16, 04/05/2019, Additional history exists Lipid Panel 07/06/2024 07/07/2023, 05/0 04/2021, 01/24/2021, Additional history exists eGFR 07/06/2024 07/07/2023, 12/14/2019 Hemoglobin A1C 09/06/2024 03/09/2024, 10/17, 07/07/2023, Additional history exists Influenza Vaccine (Season Ended) 2024 12/30/2022, 01/27/2022, 12/10/2020, Additional history exists Dilated Eye Exam 02/12/2025 02/12/2023, 09/2019, 08/02/2018, Additional history exists Fall Risk Assessment 03/30/2025 03/30/2024 Osteoporosis Screening-Bone Density Scan 11/16/2025 11/17/2023 Pneumococcal vaccine 65+ Completed 015, 02/16/2014, 12/17/2006 Medical Devices Implanted Type Area Corporate Legal Manager Device Identifier Shelf Expiration Date Model / Serial / Lot Pacemaker Implanted:Qty: 1 Pacemaker Left: Chest Genius Marker Tissue Needle Delivery Spiral Capped Seed Radiopaque Programming Intern Stainless Steel Low Nickel [employer] [id number] - [id number] Implanted:Qty: 1 on 03/29/2024 at [facility] Genius [id number] / / Procedures Procedure Name Priority Date/Time Associated Diagnosis Comments XR HIP LEFT W PELVIS 2 OR 3 VIEWS Schedule Routine, Read Routine (OP Routine) 05/09/2024 8:36 AM CDT Left hip pain SCAN - PATHOLOGY 05/06/2024 9:18 AM CDT POCT GLUCOSE DEVICE Routine 03/30/2024 8:45 AM AIR BOX TESTER POCT GLUCOSE DEVICE Routine 03/29/2024 9:17 PM AIR BOX TESTER POCT GLUCOSE DEVICE Routine 03/29/2024 4:46 PM AIR BOX TESTER XR TRANSFER OF OUTSIDE FILMS Routine 03/29/2024 3:25 PM AIR BOX TESTER Diagnosis unknown XR TRANSFER OF OUTSIDE FILMS Routine 03/29/2024 3:22 PM AIR BOX TESTER Diagnosis unknown SURGICAL PATHOLOGY Routine 03/29/2024 3:18 PM AIR BOX TESTER Malignant neoplasm of upper-inner quadrant of right breast in female, estrogen receptor positive (HCC) XR TRANSFER OF OUTSIDE FILMS Routine 03/29/2024 3:11 PM AIR BOX TESTER Diagnosis unknown MT AN PROCEDURE PLACEHOLDER Routine 03/29/2024 3:02 PM AIR BOX TESTER MT AN ELECTIVE SUPRAGLOTTIC AIRWAY Routine 03/29/2024 3:02 PM AIR BOX TESTER RADIOLOGIC EXAMINATION OF SURGICAL SPECIMEN Schedule Routine, Read Routine (OP Routine) 03/29/2024 3:01 PM AIR BOX TESTER Encounter for other preprocedural examination REMOVAL MAG SEED 03/29/2024 2:38 PM AIR BOX TESTER Malignant neoplasm of upper-inner quadrant of right breast in female, estrogen receptor positive (HCC) Case Notes 2/ - Case in depot for reschedule. NB1/24 - Per Patrica case in depot for reschedule. NB Special Needs [employer] MAGNETIC SEED LOCALIZATION EXCISIONAL BIOPSY 03/29/2024 2:38 PM AIR BOX TESTER Malignant neoplasm of upper-inner quadrant of right breast in female, estrogen receptor positive (HCC) Case Notes 2/4 - Case in depot for reschedule. NB1/24 - Per Patrica case in depot for reschedule. NB Special Needs [employer] BIOPSY SENTINEL LYMPH NODE WITH LYMPHOSCINTIGRAPHY 03/29/2024 2:38 PM AIR BOX TESTER Malignant neoplasm of upper-inner quadrant of right breast in female, estrogen receptor positive (HCC) Case Notes 2/ - Case in depot for reschedule. NB1/24 - Per Patrica case in depot for reschedule. NB Special Needs [employer] EXCISION MASS - BREAST 2:38 PM AIR BOX TESTER Malignant neoplasm of upper-inner quadrant of right breast in female, estrogen receptor positive (HCC) Case Notes 2/ - Case in depot for reschedule. NB1/24 - Per Patrica case in depot for reschedule. NB Special Needs [employer] MT AN PROCEDURE PLACEHOLDER Routine 03/29/2024 2:27 PM AIR BOX TESTER MT AN PROCEDURE PLACEHOLDER Routine 03/29/2024 2:25 PM AIR BOX TESTER POCT GLUCOSE DEVICE Routine 03/29/2024 2:21 PM AIR BOX TESTER XR TRANSFER OF OUTSIDE FILMS Routine 03/29/2024 2:00 PM AIR BOX TESTER POCT GLUCOSE DEVICE Routine 03/29/2024 11:50 AM AIR BOX TESTER JOHN POST CLIP PLACEMENT RIGHT IP Routine 03/29/2024 11:32 AM AIR BOX TESTER Encounter for other preprocedural examination US GUIDED MAGSEED LOCALIZATION RIGHT Schedule Routine, Read Routine (OP Routine) 03/29/2024 11:09 AM AIR BOX TESTER Encounter for other preprocedural examination NM LYMPHOSCINTIGRAPHY (BREAST) RIGHT Schedule Routine, Read Routine (OP Routine) 03/29/2024 10:36 AM AIR BOX TESTER Encounter for other preprocedural examination POCT GLUCOSE Routine 03/09/2024 2:39 PM AIR BOX TESTER Type 2 diabetes mellitus with hyperglycemia, with long-term current use of insulin (HCC) POCT HEMOGLOBIN A1C Routine 03/09/2024 2:39 PM AIR BOX TESTER Type 2 diabetes mellitus with hyperglycemia, with long-term current use of insulin (HCC) EGFR Routine 07/07/2023 11:54 AM CDT Type 2 diabetes mellitus with hyperglycemia, with long-term current use of insulin (HCC) Hypertension associated with diabetes (HCC) LIPID PANEL Routine 07/07/2023 11:54 AM CDT Hyperlipidemia associated with type 2 diabetes mellitus (HCC) ALBUMIN CREATININE RATIO, URINE Routine 07/07/2023 11:54 AM CDT Type 2 diabetes mellitus with hyperglycemia, with long-term current use of insulin (HCC) HM DIABETES EYE EXAM Routine 02/12/2023 8:11 AM AIR BOX TESTER from Last 3 Months or Most Recently Relevant to Health Maintenance Results * XR Hip Left 2 or 3 Views W Pelvis (05/09/2024 8:36 AM CDT) Anatomical Region Laterality Modality Lower Extremities, Hip, Pelvis Left C omputed Radiography 05/09/2024 8:38 AM CDT Impressions 05/09/2024 8:38 AM CDT 1. Unchanged nailed left femoral neck fracture with varus impaction and cut out of the screw with moderate to severe osteoarthritis and remodeling of the acetabulum Electronically signed by: Samy Rao MD Narrative 05/09/2024 8:38 AM CDT EXAMINATION: XR HIP LEFT 2 OR 3 VIEWS W PELVIS HISTORY: Fracture. FINDINGS: Comparison to 325. There is an unchanged instrumented left femoral neck fracture transfixed by antegrade femoral nail with single hip screw. There is unchanged unchanged varus impaction of the fracture with superior cut out of the screw and remodeling of the acetabulum and moderate to severe osteoarthritis. Moderate right hip osteoarthritis. No acute fracture. Procedure Note Samy Rao MD - 05/09/2024 EXAMINATION: XR HIP LEFT 2 OR 3 VIEWS W PELVIS HISTORY: Fracture. FINDINGS: Comparison to 325. There is an unchanged instrumented left femoral neck fracture transfixed by antegrade femoral nail with single hip screw. There is unchanged unchanged varus impaction of the fracture with superior cut out of the screw and remodeling of the acetabulum and moderate to severe osteoarthritis. Moderate right hip osteoarthritis. No acute fracture. IMPRESSION: 1. Unchanged nailed left femoral neck fracture with varus impaction and cut out of the screw with moderate to severe osteoarthritis and remodeling of the acetabulum Electronically signed by: Samy Rao MD Tr Whitaker MD IMG XR PROCEDURES Final Resul t * SCAN - PATHOLOGY (05/06/2024 9:18 AM CDT) Provider Scanning Final Result * POCT glucose (03/30/2024 8:45 AM AIR BOX TESTER) Glucose, POC 143 70 - 199 mg/dL Blood 03/30/2024 8:45 AM AIR BOX TESTER 03/30/2024 8:45 AM AIR BOX TESTER us Rosalie Bui MD PhD LAB POCT ORDERABLES - NALLELY CE Final Result [facility] Department of Laboratories [place], [place] [phone] * (ABNORMAL) POCT glucose (03/29/2024 9:17 PM AIR BOX TESTER) Glucose, POC 202(H) 70 - 199 mg/dL Blood 03/29/2024 9:17 PM AIR BOX TESTER 03/29/2024 9:17 PM AIR BOX TESTER Rosalie Bui MD PhD LAB POCT ORDERABLES - NALLELY CE Final Result Performing Organization Address [facility] Co de Phone Number [facility] Department [place] [address] * POCT glucose (03/29/2024 4:46 PM AIR BOX TESTER) Glucose, POC 105 70 - 199 mg/dL Blood 03/29/2024 4:46 PM AIR BOX TESTER 03/29/2024 4:46 PM AIR BOX TESTER Rosalie Bui MD PhD LAB POCT ORDERABLES - NALLELY CE Final Result Performing Organization Address [facility] de Phone Number [facility] [place] [address] * XR Outside Reference (03/29/2024 3:25 PM AIR BOX TESTER) Impressions RAD_PACS[facility] - 03/29/2024 3:25 PM AIR BOX TESTER These images are for Reference purposes only and have not been reviewed by [facility] Radiology. There will be no report generated by a [facility] Radiologist. Narrative RAD_PACS[facility] - 03/29/2024 3:25 PM AIR BOX TESTER EXAMINATION: Images For Reference Purposes Only Tr Whitaker MD IMG XR PROCEDURES Final Resul t Performing Organization Address [facility] Co de Phone Number [email or web address] * XR Outside Reference (03/29/2024 3:22 PM AIR BOX TESTER) Impressions [facility] - 03/29/2024 3:22 PM AIR BOX TESTER These images are for Reference purposes only and have not been reviewed by [facility] Radiology. There will be no report generated by a [facility] Radiologist. Narrative RAD_PACS[facility] - 03/29/2024 3:22 PM AIR BOX TESTER EXAMINATION: Images For Reference Purposes Only us Tr Whitaker MD IMG XR PROCEDURES Final Resul t [email or web address] * Surgical pathology (03/29/2024 3:18 PM AIR BOX TESTER) Tissue specimen (specimen) (Lymph node, sentinel breast) 03/29/2024 3:09 PM AIR BOX TESTER Tissue specimen (specimen) (Breast, excisional biopsy/ partial mastectomy) 03/29/2024 3:18 PM AIR BOX TESTER Narrative PATHOLOGY [facility] - 04/05/2024 10:55 AM AIR BOX TESTER EPIC results best viewed via link to PDF [facility] [place] [address] Note to Patients: This report may contain a detailed description of human tissue sent by a health care provider to the laboratory for pathologic evaluation. The content of this report is essential for diagnosis and may provide important critical findings. This information may be unfamiliar to patients to review without a medical professional present. It is advised that the patient review this report in the presence of a health care provider who can answer questions and explain the details. SURGICAL PATHOLOGY REPORT FINAL WITH ADDENDUM Patient Name: AVERY MCFARLAND Gender: F : 1940 (Age: 83) Address: [address] [place], [place] [id number] Hospital #: [id number] Taken:03/29/2024 Received:03/29/2024 Reported: 04/05/2024 Patient Type: [facility] OP In Bed Service: Surgery Location: [place] [address] Physician(s): Cyndi Dubois M.D. Lawrence Harmon, M.D. Andrew Tyler Davis, M.D. Diagnosis: A. Lymph node, right axillary sentinel, excision: - No evidence of malignancy in two lymph nodes (0/2) B. 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 Grisel Laboy M.D. Report Electronically Reviewed and Signed Out By Grisel Laboy M.D. 04/05/2024 10:55:00 Microscopic Description and Comment: Skeletal muscle is present at the deep/posterior aspect and is uninvolved by invasive carcinoma. Janes Hendrickson M.D. History: The patient is a 83-year-old female with malignant neoplasm of breast. Operative procedure: Right partial mastectomy and seed localization. Specimen(s) Received: A: Right axillary sentinel lymph nodes B: Breast, excisional biopsy/ partial mastectomy Gross Description: Received in two formalin jars labeled with the patient's identifiers. A. Labeled right axillary sentinel lymph nodes is a single fragment of lobular yellow adipose tissue (3.9 x 1.7 x 1.0 cm). Dissection and palpation reveals a two putative soft charles-pink lymph nodes (0.9- 1.9 cm). The lymph nodes are submitted entirely in cassette A1. Jar 1 B. Labeled right breast cancer, short stitch superior, long stitch lateral -Collected: 03/29/2024 on 1518 -Received: 03/29/2024 on 153 -Placed in formalin: 03/29/2024 on 1537 -Cold ischemic time: 19 minutes -Formalin Fixation time: 29.5 hours -Specimen dimensions: Medial to Lateral: 5.6 cm Superior to Inferior: 6.8 cm Anterior to Posterior: 2.9 cm -Weight: 55.6g -Orientation: Short stitch superior, long stitch lateral - Margins inked: Superior: Blue Inferior: Green Anterior: Yellow Posterior: Black -Sectioned: Medial to lateral -Number of slices: 11 -Gross findings: There is a charles-white spiculated fibrotic lesion in the specimen, spanning from slice 3 to slice 11. The tumor measures 3.8 x 1.5x 4.6 cm. A Mag seed is identified on slice 7. Superior: 0.5 cm Inferior: Less than 0.1 cm, slice 11 And slice 10 Anterior: 0.3 cm, slice 5 Posterior: 0.2 cm, slice 5 -Specimen radiographed: No -Diagram: Yes Summary of sections: B1 Radially sectioned medial margin B2-B3 Radially sectioned the lateral margin B4-B5 Slice 2, bisected and entirely submitted B6-B7 Slice 3, bisected and entirely submitted B8-B10 Slice 4, trisected and entirely submitted B11 Slice 5, tumor in relation to closest posterior margin and anterior margin B12-B14 Slice 6, trisected and entirely submitted B15 Slice 7, biopsy site B16 Slice 9, inferior section of the tumor B17-B18 Slice 10, bisected, and entirely submitted inferior section Jar: 2 bao203/30/2024 11:08 Gross Resident:Janes Hendrickson M.D. PA(s): SANDRA Muniz ([facility])CM CANCER CASE SUMMARY FOR INVASIVE CARCINOMA OF THE BREAST Procedure: Excision (less than total mastectomy) Lymph node sampling: Fabens lymph node(s) Specimen laterality: Right Tumor site invasive carcinoma: Upper inner quadrant Histologic type of invasive carcinoma: Invasive ductal carcinoma (no special type or not otherwise specified) Tumor size: Greatest dimension: 38mm Histologic grade (Rapelje Histologic Score): Tubular differentiation: Score 3 Nuclear pleomorphism: Score 3 Mitotic rate: Score 3 Overall grade: Grade 3: scores of 8 or 9 Tumor focality: Single focus of invasive carcinoma Ductal carcinoma in situ (DCIS): DCIS is present Blocks with DCIS: 4 Blocks examined: 18 Architectural patterns: Comedo Architectural patterns: Solid Nuclear grade: Grade 3 (high) Necrosis: Present, central (expansive c omedo necrosis) Extent of tumor: Not applicable (skin, nipple, and skeletal muscle are absent or are uninvolved) Skeletal muscle is free of carcionoma Margins for invasive carcinoma: Margins negative for invasive carcinoma Distance from closest margin: 2 mm Margin: Posterior Margins for DCIS: Margins uninvolved by DCIS Distance from closest margin: 3.5 mm Margin: anterior Lymph nodes: Total number of lymph nodes examined (sentinel and nonsentinel): 2 Exact number: 2 Lymph node involvement: Regional lymph nodes present All lymph nodes are negative Fabens node evaluation: H&E, multiple levels Response to presurgical therapy: No known presurgical therapy Lymphovascular Invasion: Present Focal (LVI in one block only) Pathologic Stage Classification (pTNM, AJCC 8th Edition): Primary tumor (invasive carcinoma) (pT): pT2: Tumor >20 mm but <=50 mm in greatest dimension Regional Lymph Nodes (pN): Modifier: (sn): Only sentinel node(s) evaluated. Lymph nodes (pN): pN0: No regional lymph node metastasis identified Distant metastasis (pM): Not applicable The pathologic stage assigned here should be regarded as provisional, and may change after integration of clinical data not provided with this report. CAP VERSION: InvasiveBreast 4.10 By this signature, I attest that the above diagnosis is based upon my personal examination of the slides(and/or other material). Addenda/Procedures Addendum Ordered:2024Status:Signed OutAddendum Complete:2024y:Jose Sosa M.D.Addendum Signed Out:04/27/2024 Addendum Comment A request for Molecular Archived Tissue Testing was received, which is to be performed on tissue from the attached case. The report, slides and blocks for the case were retrieved from archives. The pathologist whose signature appears below reviewed the original pathology report, examined H&E slides, and selected the blocks appropriate to the specifications of the ordered molecular analysis. Materials were forwarded to [facility] where the Oncotype Dx test will be performed. An addendum report will be issued when the results of this molecular test are available. By this signature, I attest that the above diagnosis is based upon my personal examination of the slides(and/or other material indicated in the diagnosis). Jose Sosa M.D.Report Electronically Reviewed and Signed Out By Jose Sosa M.D. 04/27/2024 22:25:41 Addendum Ordered:05/06/2024Status:Signed OutAddendum Complete:05/06/2024y:[facility]io C [facility] Signed Out:05/06/2024 Addendum Diagnosis A digital scan of the original reference lab report will begin on page two of this addendum. This testing was ordered at the request of Dr. Roni Cat. Block B9 was selected, and sent for the testing referenced below. By this signature, I attest that the above diagnosis is based upon my personal examination of the slides(and/or other material indicated in the diagnosis). Julio C Funez MDReport Electronically Reviewed and Signed Out By Julio C Funez MD 05/06/2024 15:47:26 The Oncotype Dx Invasive Breast Cancer Assay test was performed by [facility], [address], [place] [address]. The performance characteristics of some immunohistochemical stains, fluorescence in-situ hybridization tests and immunophenotyping by flow cytometry cited in this report (if any) were determined by the Surgical Pathology and Flow Cytometry Departments at [facility] as part of an ongoing quality assurance monitor final program and in compliance with federally mandated regulations drawn from the Clinical Laboratory Improvement Act of 1988 (CLIA '88). Some of these tests rely on the use of analyte specific reagents and are subject to specific labeling requirements by the US Food and Drug Administration. Such diagnostic tests may only be performed in a facility that is certified by the Department of Health and Human Services as a high complexity laboratory under CLIA '88. The FDA has determined that such clearance or approval is not necessary. This test is used for clinical purposes. It should not be regarded as investigational or for research. Nevertheless, federal rules concerning the medical use of analyte specific reagents require that the following disclaimer be attached to the report: This test was developed and its performance characteristics determined by the Surgical Pathology and Flow Cytometry Departments of [facility]. It has not been cleared or approved by the U. S. Food and Drug Administration. IMAGES AND SCANNED DOCUMENTS, IF INCLUDED, ONLY VIEWABLE IN PDF VERSION OF REPORT us Rosalie Bui MD PhD LAB PATHOLOGY ORDERABLES F inal Result PATHOLOGY [facility] 3rd Floor [place], [place] [phone] * XR Outside Reference (03/29/2024 3:11 PM AIR BOX TESTER) Impressions [facility] - 03/29/2024 3:11 PM AIR BOX TESTER These images are for Reference purposes only and have not been reviewed by [facility] Radiology. There will be no report generated by a [facility] Radiologist. Narrative [facility] - 03/29/2024 3:11 PM AIR BOX TESTER EXAMINATION: Images For Reference Purposes Only us Tr Whitaker MD IMG XR PROCEDURES Final Resul t [facility] * MT AN ELECTIVE SUPRAGLOTTIC AIRWAY, MT AN PROCEDURE PLACEHOLDER (03/29/2024 3:02 PM AIR BOX TESTER) Narrative Brenda Bethea CRNA - 03/29/2024 3:02 PM AIR BOX TESTER Brenda Bethea CRNA 03/29/2024 3:02 PM Airway Patient location: OR Urgency: elective Difficult airway: no Staff: Placed by: FILTER FILLER: Brenda Bethea CRNA Airway prep: Patient position: sniffing Mask difficulty assessment: 1 - vent by mask Sedation level during airway: GA Final airway details: Final airway type: supraglottic airway Final supraglottic airway: IGel SGA size: 4 Number of attempts: 1 Ottoniel Bhatia MD ANESTHESIA ORDERABLES Final Result * Radiologic Examination of Surgical Specimen (03/29/2024 3:01 PM AIR BOX TESTER) Anatomical Region Laterality Modality Breast N/A Mammography 03/29/2024 3:29 PM AIR BOX TESTER Impressions 03/29/2024 3:31 PM AIR BOX TESTER FINDINGS/IMPRESSION: A RIGHT breast surgical specimen was received from the operating room and was imaged using digital radiography. The lesion of interest is included within the surgical specimen, which includes a spiculated mass and magnetic seed. Questionable spiculation near the periphery of the specimen at the region of C4. These findings were communicated to the surgeon by Dr. Julian Hardin 3:25 PM 03/29/2024. Dictated by: Michael Russell MD The radiology attending physician has personally reviewed this study, and had reviewed and/or edited this written report and agrees with it. Electronically signed by: Balwinder Pleitez MD Narrative 03/29/2024 3:31 PM AIR BOX TESTER EXAMINATION: RADIOLOGIC EXAMINATION OF RIGHT SURGICAL SPECIMEN HISTORY: 83-year-old with right breast invasive ductal carcinoma Procedure Note Balwinder Pleitez MD - 03/29/2024 EXAMINATION: RADIOLOGIC EXAMINATION OF RIGHT SURGICAL SPECIMEN HISTORY: 83-year-old with right breast invasive ductal carcinoma IMPRESSION: FINDINGS/IMPRESSION: A RIGHT breast surgical specimen was received from the operating room and was imaged using digital radiography. The lesion of interest is included within the surgical specimen, which includes a spiculated mass and magnetic seed. Questionable spiculation near the periphery of the specimen at the region of C4. These findings were communicated to the surgeon by Dr. Julian Hardin 3:25 PM 03/29/2024. Dictated by: Michael Russell MD The radiology attending physician has personally reviewed this study, and had reviewed and/or edited this written report and agrees with it. Electronically signed by: Balwinder Pleitez MD Rosalie Bui MD PhD IMG MAMMO PROCEDURES Final Result * MT AN PROCEDURE PLACEHOLDER (03/29/2024 2:27 PM AIR BOX TESTER) Narrative Melecio Sarkar MD - 03/29/2024 2:27 PM AIR BOX TESTER Patti Anaya MD 03/29/2024 2:28 PM Peripheral Block Patient location during procedure: pre-op holding End time: 03/29/2024 2:17 PM Reason for block: post-op pain management per surgeon request Ultrasound image in chart or stored: yes Block type: single shot Laterality: right Block type: PECS I Staff: Supervising provider: Melecio Sarkar MD Placed by: Resident: Patti Anaya MD Procedure prep: Preprocedure checklist: patient identified, procedure contraindications assessed, site marked, procedure consent, surgical consent, IV checked, risks, benefits and alternatives discussed, monitors and equipment checked and timeout performed Patient position: supine Procedure performed while patient: sedate with meaningful contact Monitoring: ECG, oximetry and blood pressure Supplemental O2: nasal cannula Prep solution: chlorhexidine/alcohol PPE: provider hat/mask, sterile gloves and sterile probe cover and gel Peripheral nerve block: Technique: ultrasound guided Needle type: insulated, short-bevel and echogenic Needle gauge: 22 G Needle length: 50 mm Injection assessment: injection made incrementally with constant monitoring, negative aspiration for heme, no paresthesias noted, normal resistance to injection and see flowsheet for medication details Assessment: Block success: full evaluation pending Events: patient tolerated procedure well with no complications Patti Anaya MD ANESTHESIA ORDERABLES Final Result * MT AN PROCEDURE PLACEHOLDER (03/29/2024 2:25 PM AIR BOX TESTER) Narrative Melecio Sarkar MD - 03/29/2024 2:25 PM AIR BOX TESTER Melecio Sarkar MD 03/29/2024 3:44 PM Peripheral Block Patient location during procedure: pre-op holding End time: 03/29/2024 2:17 PM Reason for block: post-op pain management per surgeon request Ultrasound image in chart or stored: yes Block type: single shot Laterality: right Block type: PECS II Staff: Supervising provider: Melecio Sarkar MD Placed by: Resident: Patti Anaya MD Procedure prep: Preprocedure checklist: patient identified, procedure contraindications assessed, site marked, procedure consent, surgical consent, IV checked, risks, benefits and alternatives discussed, monitors and equipment checked and timeout performed Patient position: supine Procedure performed while patient: sedate with meaningful contact Monitoring: ECG, oximetry and blood pressure Supplemental O2: nasal cannula Prep solution: chlorhexidine/alcohol PPE: provider hat/mask, sterile gloves and sterile probe cover and gel Peripheral nerve block: Technique: ultrasound guided Needle type: insulated, short-bevel and echogenic Needle gauge: 22 G Needle length: 50 mm Injection assessment: injection made incrementally with constant monitoring, negative aspiration for heme, no paresthesias noted, normal resistance to injection and see flowsheet for medication details Assessment: Block success: full evaluation pending Events: patient tolerated procedure well with no complications Patti Anaya MD ANESTHESIA ORDERABLES Final Result * POCT glucose (03/29/2024 2:21 PM AIR BOX TESTER) [facility] Signature Glucose, POC 109 70 - 199 mg/dL Blood 03/29/2024 2:21 PM AIR BOX TESTER 03/29/2024 2:21 PM AIR BOX TESTER us Rosalie Bui MD PhD LAB POCT ORDERABLES - NALLELY CE Final Result Performing Organization Address [facility] de Phone Number [facility] Department [place] [address] * XR Outside Reference (03/29/2024 2:00 PM AIR BOX TESTER) Impressions [facility] - 03/29/2024 2:00 PM AIR BOX TESTER These images are for Reference purposes only and have not been reviewed by [facility]iology. There will be no report generated by a [facility] Radiologist. Narrative [facility] - 03/29/2024 2:00 PM AIR BOX TESTER EXAMINATION: Images For Reference Purposes Only us Tr Whitaker MD IMG XR PROCEDURES Final Resul t Performing Organization Address [facility] de Phone Number [facility] * POCT glucose (03/29/2024 11:50 AM AIR BOX TESTER) Glucose, POC 116 70 - 199 mg/dL Blood 03/29/2024 11:5 0 AM AIR BOX TESTER 03/29/2024 11:50 AM AIR BOX TESTER us Rosalie Bui MD PhD LAB POCT ORDERABLES - NALLELY CE Final Result Performing Organization Address [facility] de Phone Number [facility] Department [place] [address] * John Post Clip Placement Right (03/29/2024 11:32 AM AIR BOX TESTER) Anatomical Region Laterality Modality Breast Right Mammography 03/29/2024 1:36 PM AIR BOX TESTER Impressions 03/29/2024 2:24 PM AIR BOX TESTER Successful ultrasound-guided magnetic seed localization of the area of interest within the RIGHT breast. Dictated by: Michael Russell MD The radiology attending physician has personally reviewed this study, and had reviewed and/or edited this written report and agrees with it. Electronically signed by: Balwinder Pleitez MD Narrative 03/29/2024 2:24 PM AIR BOX TESTER EXAMINATION: RIGHT BREAST MAGSEED LOCALIZATION UTILIZING ULTRASOUND GUIDANCE; RIGHT FULL FIELD DIGITAL MAMMOGRAM WITH DIGITAL BREAST TOMOSYNTHESIS HISTORY: 83-year-old woman with right breast invasive ductal carcinoma undergoing breast conservation therapy. BREAST PARENCHYMAL COMPOSITION: There are scattered areas of fibroglandular density. PROCEDURE AND FINDINGS: The procedure was discussed with the patient and informed consent was obtained. After sterile preparation of the skin, 1% lidocaine and 2% lidocaine with epinephrine were utilized for local anesthesia. A Magseed deployment needle was used to place a magnetic localization seed into the area of interest at the 1 o'clock position 7 cm from the nipple from an inferolateral approach utilizing sonographic guidance. There was no evidence of significant immediate complication. A two-view RIGHT digital mammogram with digital breast tomosynthesis was performed post procedure demonstrates the magnetic seed in expected position within the spiculated mass in the inner upper right breast. The attending radiologist, Dr. Balwinder Pleitez MD, was present throughout the entire procedure. Dr. Michael Russell MD (diagnostic associate professor of radiology) also participated in this examination. Procedure Note Balwinder Pleitez MD - 03/29/2024 EXAMINATION: RIGHT BREAST MAGSEED LOCALIZATION UTILIZING ULTRASOUND GUIDANCE; RIGHT FULL FIELD DIGITAL MAMMOGRAM WITH DIGITAL BREAST TOMOSYNTHESIS HISTORY: 83-year-old woman with right breast invasive ductal carcinoma undergoing breast conservation therapy. BREAST PARENCHYMAL COMPOSITION: There are scattered areas of fibroglandular density. PROCEDURE AND FINDINGS: The procedure was discussed with the patient and informed consent was obtained. After sterile preparation of the skin, 1% lidocaine and 2% lidocaine with epinephrine were utilized for local anesthesia. A Magseed deployment needle was used to place a magnetic localization seed into the area of interest at the 1 o'clock position 7 cm from the nipple from an inferolateral approach utilizing sonographic guidance. There was no evidence of significant immediate complication. A two-view RIGHT digital mammogram with digital breast tomosynthesis was performed post procedure demonstrates the magnetic seed in expected position within the spiculated mass in the inner upper right breast. The attending radiologist, Dr. Balwinder Pleitez MD, was present throughout the entire procedure. Dr. Michael Russell MD (diagnostic associate professor of radiology) also participated in this examination. IMPRESSION: Successful ultrasound-guided magnetic seed localization of the area of interest within the RIGHT breast. Dictated by: Michael Russell MD The radiology attending physician has personally reviewed this study, and had reviewed and/or edited this written report and agrees with it. Electronically signed by: Balwinder Pleitez MD Rosalie Bui MD PhD IMG MAMMO PROCEDURES Final Result * US Guided Magseed Localization Right (03/29/2024 11:09 AM AIR BOX TESTER) Anatomical Region Laterality Modality Breast Right Ultrasound 03/29/2024 1:36 PM AIR BOX TESTER Impressions 03/29/2024 2:24 PM AIR BOX TESTER Successful ultrasound-guided magnetic seed localization of the area of interest within the RIGHT breast. Dictated by: Michael Russell MD The radiology attending physician has personally reviewed this study, and had reviewed and/or edited this written report and agrees with it. Electronically signed by: Balwinder Pleitez MD Narrative 03/29/2024 2:24 PM AIR BOX TESTER EXAMINATION: RIGHT BREAST MAGSEED LOCALIZATION UTILIZING ULTRASOUND GUIDANCE; RIGHT FULL FIELD DIGITAL MAMMOGRAM WITH DIGITAL BREAST TOMOSYNTHESIS HISTORY: 83-year-old woman with right breast invasive ductal carcinoma undergoing breast conservation therapy. BREAST PARENCHYMAL COMPOSITION: There are scattered areas of fibroglandular density. PROCEDURE AND FINDINGS: The procedure was discussed with the patient and informed consent was obtained. After sterile preparation of the skin, 1% lidocaine and 2% lidocaine with epinephrine were utilized for local anesthesia. A Magseed deployment needle was used to place a magnetic localization seed into the area of interest at the 1 o'clock position 7 cm from the nipple from an inferolateral approach utilizing sonographic guidance. There was no evidence of significant immediate complication. A two-view RIGHT digital mammogram with digital breast tomosynthesis was performed post procedure demonstrates the magnetic seed in expected position within the spiculated mass in the inner upper right breast. The attending radiologist, Dr. Balwinder Pleitez MD, was present throughout the entire procedure. Dr. Michael Russell MD (diagnostic associate professor of radiology) also participated in this examination. Procedure Note Balwinder Pleitez MD - 03/29/2024 EXAMINATION: RIGHT BREAST MAGSEED LOCALIZATION UTILIZING ULTRASOUND GUIDANCE; RIGHT FULL FIELD DIGITAL MAMMOGRAM WITH DIGITAL BREAST TOMOSYNTHESIS HISTORY: 83-year-old woman with right breast invasive ductal carcinoma undergoing breast conservation therapy. BREAST PARENCHYMAL COMPOSITION: There are scattered areas of fibroglandular density. PROCEDURE AND FINDINGS: The procedure was discussed with the patient and informed consent was obtained. After sterile preparation of the skin, 1% lidocaine and 2% lidocaine with epinephrine were utilized for local anesthesia. A Magseed deployment needle was used to place a magnetic localization seed into the area of interest at the 1 o'clock position 7 cm from the nipple from an inferolateral approach utilizing sonographic guidance. There was no evidence of significant immediate complication. A two-view RIGHT digital mammogram with digital breast tomosynthesis was performed post procedure demonstrates the magnetic seed in expected position within the spiculated mass in the inner upper right breast. The attending radiologist, Dr. Balwinder Pleitez MD, was present throughout the entire procedure. Dr. Michael Russell MD (diagnostic associate professor of radiology) also participated in this examination. IMPRESSION: Successful ultrasound-guided magnetic seed localization of the area of interest within the RIGHT breast. Dictated by: Michael Russell MD The radiology attending physician has personally reviewed this study, and had reviewed and/or edited this written report and agrees with it. Electronically signed by: Balwinder Pleitez MD Rosalie Bui MD PhD IMG MAMMO PROCEDURES Final Result * NM Lymphoscintigraphy (Breast) Right (03/29/2024 10:36 AM AIR BOX TESTER) Anatomical Region Laterality Modality Breast Nuclear Medicine 03/29/2024 11:3 2 AM AIR BOX TESTER Impressions 03/29/2024 12:38 PM AIR BOX TESTER No sentinel lymph node identified after initial or delayed images. The patient will undergo subsequent intraoperative removal of nodes with gamma probe guidance Dictated by: Navid Bills MD The radiology attending physician has personally reviewed this study, and had reviewed and/or edited this written report and agrees with it. Electronically signed by: Urbano Glass M.D. Narrative 03/29/2024 12:38 PM AIR BOX TESTER EXAMINATION: BREAST LYMPHOSCINTIGRAPHY DATE OF STUDY: 03/29/2024 RADIOPHARMACEUTICAL: 458 microcuries Tc-99m Tilmanocept intradermally HISTORY: 83-year-old woman with newly diagnosed right sided breast cancer who is undergoing presurgical sentinel lymph node localization. TECHNIQUE: The tracer was injected intradermally in the periareolar region of the right breast at the 1 o'clock position. FINDINGS: Images were obtained beginning at 10 minutes after injection in the anterior and right lateral projections with additional delayed images obtained at 30 minutes. No akira uptake was seen on initial images or on additional delayed images. Procedure Note Urbano Glass MD - 03/29/2024 EXAMINATION: BREAST LYMPHOSCINTIGRAPHY DATE OF STUDY: 03/29/2024 RADIOPHARMACEUTICAL: 458 microcuries Tc-99m Tilmanocept intradermally HISTORY: 83-year-old woman with newly diagnosed right sided breast cancer who is undergoing presurgical sentinel lymph node localization. TECHNIQUE: The tracer was injected intradermally in the periareolar region of the right breast at the 1 o'clock position. FINDINGS: Images were obtained beginning at 10 minutes after injection in the anterior and right lateral projections with additional delayed images obtained at 30 minutes. No akira uptake was seen on initial images or on additional delayed images. IMPRESSION: No sentinel lymph node identified after initial or delayed images. The patient will undergo subsequent intraoperative removal of nodes with gamma probe guidance Dictated by: Navid Bills MD The radiology attending physician has personally reviewed this study, and had reviewed and/or edited this written report and agrees with it. Electronically signed by: Urbano Glass M.D. us Rosalie Bui MD PhD IMG NM PROCEDURES Final Re sult * POCT hemoglobin A1c (03/09/2024 2:39 PM AIR BOX TESTER) Hemoglobin A1C, POC 5.9 4.0 - 5.6 % Blood 03/09/2024 2:39 PM AIR BOX TESTER us Cate Espitia [employer] AND PRINTER FIELD TECHNICIAN POINT OF CARE TEST ORDERA BLES Final Result * (ABNORMAL) POCT glucose (03/09/2024 2:39 PM AIR BOX TESTER) Glucose Blood, POC 218 mg/dL Blood 03/09/2024 2:39 PM AIR BOX TESTER us Cateerick Espitia [employer] AND PRINTER FIELD TECHNICIAN POINT OF CARE TEST ORDERA BLES Final Result * (ABNORMAL) eGFR (07/07/2023 11:54 AM CDT) eGFR 39(L) >=60 mL/min/1. 73 m2 Comment: Interpretive Data Reference Interval Normal >/= 90 mL/min/1.73m2 Mildly decreased* 60 - 89 mL/min/1.73m2 Mildly to moderately decreased 45 - 59 mL/min/1.73m2 Moderately to severely decreased 30 - 44 mL/min/1.73m2 Severely decreased 15 - 29 mL/min/1.73m2 Kidney Failure < 15 mL/min/1.73m2 *Relative to young adult level Estimated glomerular filtration rate is determined by the 2020 CKD-EPI equation recommended by the National Kid[employer] (A Unifying Approach to GFR Estimation: Recommendations of the NKF-ASK Task Force on Reassessing the Inclusion of Race in Diagnosing Kidney Disease, JASN 2020). The CKD-EPI equation should not be used for patients with unstable renal function and has not been validated in children and those over 70. Current interpretive data was last reviewed 2020. Blood 07/07/2023 11:5 4 AM CDT 07/07/2023 8:09 PM CDT us Cate Espitia COPIER AND PRINTER FIELD TECHNICIAN LAB BLOOD ORDERABLES Va l Result [facility] RE[facility] [id number] Department [place] [address] * Albumin Creatinine Ratio, Urine (07/07/2023 11:54 AM CDT) Albumin Ur 31.7 mg/L Comment: Interpretive Data No reference range established. Current interpretive data was last revised 2018. Creatinine Ur 113.2 mg/dL [facility] Comment: Interpretive Data No reference range established. Current interpretive data was last revised 2018. Albumin Creatinine Ratio, Ur 28 1 - 29 mg/g [facility] Urine 07/07/2023 11:5 4 AM CDT 07/07/2023 7:02 PM CDT us Cate Espitia [employer] FIELD TECHNICIAN LAB URINE ORDERABLES Va l Result [facility] [id number] [address] Department [place] [address] * (ABNORMAL) Lipid panel (07/07/2023 11:54 AM CDT) Cholesterol 162 30 - 199 mg/dL Comment: Interpretive Data Ages < or = 19 years Acceptable: <170 mg/dL Borderline high: 170-199 mg/dL High: >or= 200 mg/dL Ages > or = 20 years Desirable: <200 mg/dL Borderline high: 200-239 mg/dL High: >or= 240 mg/dL Literature References: 1. Expert Panel on Integrated Guidelines for Cardiovascular Health and Risk Reduction in Children and Adolescents. Pediatrics 2011;128:S213 2. NCEP Expert Panel. Circulation 2004;110:227 Current Interpretive Data was last revised on 2017. Triglycerides 181(H) <=149 mg/dL [facility] Comment: Interpretive Data Ages < or = 9 years Acceptable: <75 mg/dL Borderline high: 75-99 mg/dL High: >or= 100 mg/dL Ages 10 to 20 years Acceptable: <90 mg/dL Borderline high: 90-129 mg/dL High: >or= 130 mg/dL Ages > or = 20 years Desirable: <150 mg/dL Borderline high: 150-199 mg/dL High: 200-499 mg/dL Very high: >or= 499 mg/dL Literature References: 1. Expert Panel on Integrated Guidelines for Cardiovascular Health and Risk Reduction in Children and Adolescents. Pediatrics 2011;128:S213 2. NCEP Expert Panel. Circulation 2004;110:227 Current Interpretive Data was last revised on 2017. HDL 48 >=40 mg/dL [facility] REYES Comment: Interpretive Data Ages < or = 19 years Acceptable: >45 mg/dL Borderline low: 40-45 mg/dL Low: <40 mg/dL Ages > or = 20 years Desirable: >or= 60 mg/dL Low: <40 mg/dL Literature References: 1. Expert Panel on Integrated Guidelines for Cardiovascular Health and Risk Reduction in Children and Adolescents. Pediatrics 2011;128:S213 2. NCEP Expert Panel. Circulation 2004;110:227 Current Interpretive Data was last revised on 2017. LDL, calculated 78 <=129 mg/dL [facility] REYES Comment: Interpretive Data Ages < or = 19 years Acceptable: <110 mg/dL Borderline high: 110-129 mg/dL High: >or= 130 mg/dL Ages > or = 20 years Optimal: <100 mg/dL Near optimal: 100-129 mg/dL Borderline high: 130-159 mg/dL High: >160 mg/dL Literature References: 1. Expert Panel on Integrated Guidelines for Cardiovascular Health and Risk Reduction in Children and Adolescents. Pediatrics 2011;128:S213 2. NCEP Expert Panel. Circulation 2004;110:227 Current Interpretive Data was last revised on 2017. Non-HDL Cholesterol 114 mg/dL [facility] RE[facility] Comment: Interpretive Data Ages < or = 19 years Acceptable: <120 mg/dL Borderline high: 120-144 mg/dL High: >145 mg/dL Ages > or = 20 years When triglycerides are >200 mg/dL, Non-HDL cholesterol is a secondary target of therapy with treatment goals that are 30 mg/dL greater than the LDL cholesterol target. Literature References: 1. Expert Panel on Integrated Guidelines for Cardiovascular Health and Risk Reduction in Children and Adolescents. Pediatrics 2011;128:S213 2. NCEP Expert Panel. Circulation 2004;110:227 Current Interpretive Data was last revised on 2017. 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) us Historical Provider HEALTH MAINTENANCE Edited Result - Final from Last 3 Months or Most Recently Relevant to Health Maintenance Insurance MEDICARE MEDICARE [facility] MEDICARE SUPPLEMENT MEDICARE [facility] MEDICARE SUPPLEMENT Advance Directives For more information, please contact: [phone] * Full Code (Latest Code Status on File) Date Activated Date Inactivated Comments 03/29/2024 8:49 PM 03/30/2024 5:59 PM Care Teams Rvda Master Certified Rv Technician Relationship Specialty Start Date End Date José Juarez MD PCP - General 05/16/16
--- OUTSIDE RECORDS SUMMARY | 2024-05-19 08:25 | XMS_ITS | Referral Summary ---
Author Organization [facility] Address [address] [place] [address] Care Team Providers Care Diabetes Specialist Name Role Phone José Juarez MD Primary Care Provider Encounters Date Type Department Care Team Description 05/18/2024 1:00 PM CDT Office Visit [facility] Oncology [facility] ([place], [place]) Floor [address] [place] [address] Roni Cat MD Malignant neoplasm of upper-inner quadrant of right breast in female, estrogen receptor positive (HCC); 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, right (HCC); Malignant neoplasm of female breast, unspecified estrogen receptor status, unspecified laterality, unspecified site of breast (HCC) 05/09/2024 8:20 AM CDT - 05/09/2024 11:59 PM CDT Hospital Encounter [facility] [address] [place] [address] [address] [place] [address] Left hip pain Discharge Disposition: Discharge to home or self care 05/09/2024 8:50 AM CDT Office Visit [facility] Orthopaedic Surgery [address] [place] [address] Medical Office Building 4 [address] [place] [address] Tr Whitaker MD Left hip pain (Primary Dx); Displaced fracture of base of neck of left femur, subsequent encounter for closed fracture with routine healing 05/06/2024 Orders Only [facility] ONCOLOGY Scanning, Provider 05/03/2024 Results Follow-Up [facility] Surgery [address] [place] [address] 8 [place] [phone] Patrica Durham CMA 05/03/[address] [facility] Medical Group Diabetes and Endocrinology [address] [place] [phone] Cate Espitia, KAYLEEN Gustafson Order 04/28/2024 Documentation [facility] Oncology [address] [place] [address] 6 [place] [phone] Che Morillo, PAULA 04/22/2024 Telephone [facility] Advanced Medicine Radiation Oncology [address] [place] [address] [place] [address] Hannah Alcazar MD PhD 04/19/2024 Orders Only [facility] Oncology [address] [place] [address] 8 [place] [phone] Roni Cat MD Malignant neoplasm of female breast, unspecified estrogen receptor status, unspecified laterality, unspecified site of breast (HCC) (Primary Dx) 04/15/2024 Orders Only [facility] Surgery [address] [place] [phone] Rosalie Bui MD PhD Malignant neoplasm of upper-inner quadrant of right breast in female, estrogen receptor positive (HCC) (Primary Dx); 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, right (HCC); Malignant neoplasm of female breast, unspecified estrogen receptor status, unspecified laterality, unspecified site of breast (HCC) 04/11/2024 4:15 PM REIMBURSEMENT MANAGER Office Visit [facility] Surgery [address] [place] [phone] Rosalie Bui MD PhD 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, right (HCC) (Primary Dx) 03/29/2024 6:07 AM REIMBURSEMENT MANAGER - 03/30/2024 1:59 PM REIMBURSEMENT MANAGER Hospital Encounter [facility] 1 [place] [address] AftRosalie MD PhD Encounter for other preprocedural examination (Primary Dx); Diagnosis unknown; Malignant neoplasm of upper-inner quadrant of right breast in female, estrogen receptor positive (HCC) Discharge Disposition: Discharge to [facility] 03/29/2024 6:45 AM REIMBURSEMENT MANAGER - 03/29/2024 11:59 PM REIMBURSEMENT MANAGER Hospital Encounter [facility] ([facility]) [address] [place] [phone] Encounter for other preprocedural examination Discharge Disposition: Discharge to home or self care 03/29/2024 6:08 AM REIMBURSEMENT MANAGER - 03/29/2024 11:59 PM REIMBURSEMENT MANAGER Hospital Encounter [facility] Rad[facility] ([facility]) [address] [place] [phone] Encounter for other preprocedural examination Discharge Disposition: Discharge to home or self care 03/29/2024 9:09 AM REIMBURSEMENT MANAGER - 03/29/2024 11:59 PM REIMBURSEMENT MANAGER Hospital Encounter [facility] Breast [facility] ([facility]) [address] [place] [phone] [place], Rosalie Sanon MD PhD Encounter for other preprocedural examination Discharge Disposition: Discharge to home or self care 03/29/2024 3:00 PM REIMBURSEMENT MANAGER - 03/29/2024 5:00 PM REIMBURSEMENT MANAGER Surgery [facility] Operating [facility] ([facility]) [address] [place] [phone] Rosalie Bui MD PhD EXCISION MASS - BREAST 03/29/2024 2:33 PM REIMBURSEMENT MANAGER Anesthesia Event [facility] Operating [facility] ([facility]) [address] [place] [phone] Gisela Garcia MD Horton, Cheryl Renee Hill, NP 03/25/2024 Telephone [facility] Surgery [facility] [address] [place] [phone] Tdaeo Talbert 03/21/[address] [facility] Medical Group Diabetes and Endocrinology [address] [place] [phone] Cate Espitia NP Med Management 03/09/2024 2:30 PM REIMBURSEMENT MANAGER Office Visit [facility] Medical Group Diabetes and Endocrinology [address] [place] [phone] Cate Espitia NP Type 2 diabetes mellitus with hyperglycemia, with long-term current use of insulin (HCC) (Primary Dx); Hypertension associated with diabetes (HCC); Hyperlipidemia associated with type 2 diabetes mellitus (HCC); Acquired hypothyroidism 03/08/2024 Telephone [facility] Surgery [address] [place] [phone] Aft, Rosalie Sanon MD PhD 02/29/2024 Telephone [facility] Surgery [address] [place] [phone] Ramya, Rosalie Sanon MD PhD 02/26/2024 Telephone [facility] Surgery [address] [place] [phone] Ramya, Rosalie Sanon MD PhD Scheduling Appointments from Last 3 Months Allergies Active Allergy Reactions Criticality Noted Date [...] mouth Acti ve lancets (ACCU-CHEK MULTICLIX LANCET) [facility] Check blood sugar four times a day or as directed 1 each 08/21/19 18 Active BD ULTRA-FINE MINI PEN NEEDLE 31 gauge x 3/16 needle Use to inject insulin 5 times a day 450 each 1 11/09/19 19 Active Accu-Chek SmartView Test Strip [...] 1 tablet (81 mg total) by mouth clinical business manager before breakfast 025 Discontin ued(Patie nt Reported) [...] 01/02/2022 Assessment & Plan (03/09/2024 3:18 PM REIMBURSEMENT MANAGER): Chronic problem. Clinically & biochemically euthyroid. Currently [...] daily Assessment & Plan (01/02/2022 2:38 PM REIMBURSEMENT MANAGER): Will check TFT Adjust dose of LT4 [...] Hyperlipidemia associated with type 2 diabetes m aziza 08/20/2017 Assessment & Plan (03/09/2024 3:15 PM REIMBURSEMENT MANAGER): Chronic problem. Currently taking rosuvastatin 5mg. Last lipid panel: 07/07/23 LDL=78, BX=553. Assessment & Plan (10/28/2023 1:33 PM CDT): Chronic problem. Currently taking rosuvastatin 5mg. Last lipid panel: 07/07/23 LDL=78, IJ=372. Assessment & Plan (07/07/2023 11:16 AM CDT): Chronic problem. Currently taking rosuvastatin 5mg. Last lipid panel: 06/18/21 LDL=75, FH=570. Will update labs today. Does not mychart. Verified phone #/address to contact re: results. Assessment & Plan (11/04/2022 4:20 PM CDT): Chronic, well-controlled Continue statin therapy with atorvastatin Assessment & Plan (01/02/2022 2:37 PM REIMBURSEMENT MANAGER): Chronic, well controlled Low fat Low cholesterol diet Exercise Continue statin therapy Assessment & Plan (07/04/2021 1:42 PM CDT): Chronic, well controlled Low fat Low cholesterol diet Exercise Continue statin therapy Assessment & Plan (01/24/2021 4:18 PM REIMBURSEMENT MANAGER): Lipids checked today LDL and non HDL cholesterol at goal Continue with simvastatin 20 mg daily Assessment & Plan (2020 3:12 PM REIMBURSEMENT MANAGER): Goal of treatment , LDL cholesterol less [...] profile Assessment & Plan (04/05/2019 2:52 PM REIMBURSEMENT MANAGER): Goal of treatment , LDL cholesterol less [...] therapy Assessment & Plan (04/06/2018 11:27 AM REIMBURSEMENT MANAGER): Goal of treatment , LDL cholesterol less [...] therapy Assessment & Plan (12/25/2017 1:08 PM REIMBURSEMENT MANAGER): At goal on current medications. Assessment & [...] 09/09/2016 Assessment & Plan (03/09/2024 3:12 PM REIMBURSEMENT MANAGER): Chronic problem. A1c improved from 7.2% 10/28/23 to now 5.9%. Current medications: Lantus 40 units at bedtime Humalog 6 units with dinner if blood sugar over 180 DM eye exam 01/2023 [facility] [place]. Second request letter sent to get copy [...] sugar over 180 DM eye exam 01/2023 [facility] in [place]. Second request letter sent to get copy [...] sugar over 180 DM eye exam 01/2023 [facility] [place]. Will send letter to get copy of [...] ) Assessment & Plan (01/02/2022 2:33 PM REIMBURSEMENT MANAGER): Lower Lantus to 35 units Take Humalog, [...] units. Assessment & Plan (01/24/2021 4:17 PM REIMBURSEMENT MANAGER): Hba1c was Lab Results Component Value Date [...] dinner. Assessment & Plan (2020 3:11 PM REIMBURSEMENT MANAGER): Hba1c was Lab Results Component Value Date [...] Lantus Assessment & Plan (04/05/2019 2:51 PM REIMBURSEMENT MANAGER): Hba1c was Lab Results Component Value Date [...] discussed. Assessment & Plan (04/06/2018 11:26 AM REIMBURSEMENT MANAGER): Hba1c was Lab Results Component Value Date HGBA1C 7.6 04/06/2018 today, indicating ... DM control 1800 calorie, consistent carb diet recommended 25-45 min daily exercise, combining both aerobic and resistance exercise recommended. The need to monitor blood glucose before meals and bedtime was discussed. Prevention and treatment of hyypoglcyemia discussed. Lower Glimepiride, 1 mg daily Assessment & Plan (12/25/2017 1:07 PM REIMBURSEMENT MANAGER): A1c 7.3. Reduce Lantus to 38 bid. [...] visit. Assessment & Plan (04/09/2017 2:50 PM REIMBURSEMENT MANAGER): Hba1c was 7.2 today, indicating DM Adequate control 1800 calorie, consistent carb diet recommended 30 min daily aerobic and resistance exercise recommended Prevention and treatment of hyypoglcyemia discussed. Blood glucose monitoring with fingers sticks 1-2 x day . Assessment & Plan (01/06/2017 2:48 PM REIMBURSEMENT MANAGER): Hba1c was 6.8 today, indicating adequate DM [...] 09/09/2016 Assessment & Plan (03/09/2024 3:18 PM REIMBURSEMENT MANAGER): Chronic problem. Controlled on current carvedilol 3.125mg [...] meds Assessment & Plan (2020 3:11 PM REIMBURSEMENT MANAGER): Goal blood pressure is less than 140/85 [...] Lisinopril Assessment & Plan (04/05/2019 2:52 PM REIMBURSEMENT MANAGER): Goal blood pressure is less than 140/85 [...] ARB Assessment & Plan (04/06/2018 11:27 AM REIMBURSEMENT MANAGER): Goal blood pressure is less than 140/85 Low salt diet recommended Daily aerobic exercise Continue current meds, including LINDA-I or ARB Assessment & Plan (12/25/2017 1:07 PM REIMBURSEMENT MANAGER): Controlled on current medications. Assessment & Plan (08/20/2017 1:35 PM CDT): Goal blood pressure is less than 140/85 Low salt diet recommended Daily aerobic exercise Continue current meds, including LINDA-I or ARB Assessment & Plan (04/09/2017 2:49 PM REIMBURSEMENT MANAGER): Goal blood pressure is less than 140/85 Low salt diet recommended Daily aerobic exercise Continue current meds, including LINDA-I or ARB Assessment & Plan (01/06/2017 2:36 PM REIMBURSEMENT MANAGER): Goal blood pressure is less than 140/85 [...] advised. Assessment & Plan (04/09/2017 2:49 PM REIMBURSEMENT MANAGER): Goal of treatment , LDL cholesterol less [...] therapy Assessment & Plan (01/06/2017 2:36 PM REIMBURSEMENT MANAGER): Goal of treatment , LDL cholesterol less [...] fracture of second cervical vicky tebra 09/28/2011 Immunizations Immunization Administration Dates Next Due Influenza, Quadrivalent, Hig h Dose, Preservative Free, Intrr 12/30/2022,01/27/2022,12/10/2020,01/03 Influenza, Quadrivalent, Spl it, Intramuscular 12/25/2014 Influenza, Quadrivalent, Spl it, Preservative Free, Intramuscular 01/18/2016 Influenza, Trivalent, High D ose, Split, Preservative Free, Intramuscular 01/11/2018,12/30/2016 Influenza, Trivalent, IM (MDV) 01/18/2014,2012 Pfizer SARS-CoV-2 Monovalent Vaccination (12+ Yrs) PURPLE 06/06/2020,05/17/2020 Pneumococcal Conjugate PCV 13 03/01/2014, 015 Pneumococcal Polysaccharide PPV23 12/17/2006 Social History Tobacco Use Types Packs/Day Years [...] on file Legal Sex Female 12:21 AM REIMBURSEMENT MANAGER Gender Identity Not on file Sexual Orientation Not on file Last Filed Vital Signs Vital Sign Reading [...] 05/18/2024 1:14 PM CDT Plan of Treatment Not on file Medical Devices Implanted Type Area Flow Machine Operator Device Identifier Shelf Expiration Date Model / Serial / Lot Pacemaker Implanted:Qty: 1 Pacemaker Left: Chest [place] Marker Tissue Needle Delivery Spiral Capped Seed Radiopaque [employer] Stainless Steel Low Nickel [employer] [id number] - [id number] Implanted:Qty: 1 on 03/29/2024 at [facility] [place] [id number] 1 / / Procedures Procedure Name Priority Date/Time Associated Diagnosis Comments XR HIP LEFT W PELVIS 2 OR 3 VIEWS Schedule Routine, Read Routine (OP Routine) 05/09/2024 8:36 AM CDT Left hip pain SCAN - PATHOLOGY 05/06/2024 9:18 AM CDT POCT GLUCOSE DEVICE Routine 03/30/2024 8:45 AM REIMBURSEMENT MANAGER POCT GLUCOSE DEVICE Routine 03/29/2024 9:17 PM REIMBURSEMENT MANAGER POCT GLUCOSE DEVICE Routine 03/29/2024 4:46 PM REIMBURSEMENT MANAGER XR TRANSFER OF OUTSIDE FILMS Routine 03/29/2024 3:25 PM REIMBURSEMENT MANAGER Diagnosis unknown XR TRANSFER OF OUTSIDE FILMS Routine 03/29/2024 3:22 PM REIMBURSEMENT MANAGER Diagnosis unknown SURGICAL PATHOLOGY Routine 03/29/2024 3:18 PM REIMBURSEMENT MANAGER Malignant neoplasm of upper-inner quadrant of right breast in female, estrogen receptor positive (HCC) XR TRANSFER OF OUTSIDE FILMS Routine 03/29/2024 3:11 PM REIMBURSEMENT MANAGER Diagnosis unknown HI AN PROCEDURE PLACEHOLDER Routine 03/29/2024 3:02 PM REIMBURSEMENT MANAGER HI AN ELECTIVE SUPRAGLOTTIC AIRWAY Routine 03/29/2024 3:02 PM REIMBURSEMENT MANAGER RADIOLOGIC EXAMINATION OF SURGICAL SPECIMEN Schedule Routine, Read Routine (OP Routine) 03/29/2024 3:01 PM REIMBURSEMENT MANAGER Encounter for other preprocedural examination REMOVAL MAG SEED 03/29/2024 2:38 PM REIMBURSEMENT MANAGER Malignant neoplasm of upper-inner quadrant of right breast in female, estrogen receptor positive (HCC) Case Notes 2/4 - Case in depot for reschedule. NB03/11 - Per Patrica case in depot for reschedule. NB Special Needs [employer] MAGNETIC SEED LOCALIZATION EXCISIONAL BIOPSY 03/29/2024 2:38 PM REIMBURSEMENT MANAGER Malignant neoplasm of upper-inner quadrant of right breast in female, estrogen receptor positive (HCC) Case Notes 2/4 - Case in depot for reschedule. NB03/11 - Per Patrica case in depot for reschedule. NB Special Needs [employer] BIOPSY SENTINEL LYMPH NODE WITH LYMPHOSCINTIGRAPHY 03/29/2024 2:38 PM REIMBURSEMENT MANAGER Malignant neoplasm of upper-inner quadrant of right breast in female, estrogen receptor positive (HCC) Case Notes 2/4 - Case in depot for reschedule. NB1/24 - Per Patrica case in depot for reschedule. NB Special Needs [employer] EXCISION MASS - BREAST 2:38 PM REIMBURSEMENT MANAGER Malignant neoplasm of upper-inner quadrant of right breast in female, estrogen receptor positive (HCC) Case Notes 2/4 - Case in depot for reschedule. NB24 - Per Patrica case in depot for reschedule. NB Special Needs [employer] HI AN PROCEDURE PLACEHOLDER Routine 03/29/2024 2:27 PM REIMBURSEMENT MANAGER HI AN PROCEDURE PLACEHOLDER Routine 03/29/2024 2:25 PM REIMBURSEMENT MANAGER POCT GLUCOSE DEVICE Routine 03/29/2024 2:21 PM REIMBURSEMENT MANAGER XR TRANSFER OF OUTSIDE FILMS Routine 03/29/2024 2:00 PM REIMBURSEMENT MANAGER POCT GLUCOSE DEVICE Routine 03/29/2024 11:50 AM REIMBURSEMENT MANAGER JOHN POST CLIP PLACEMENT RIGHT IP Routine 03/29/2024 11:32 AM REIMBURSEMENT MANAGER Encounter for other preprocedural examination US GUIDED MAGSEED LOCALIZATION RIGHT Schedule Routine, Read Routine (OP Routine) 03/29/2024 11:09 AM REIMBURSEMENT MANAGER Encounter for other preprocedural examination NM LYMPHOSCINTIGRAPHY (BREAST) RIGHT Schedule Routine, Read Routine (OP Routine) 03/29/2024 10:36 AM REIMBURSEMENT MANAGER Encounter for other preprocedural examination POCT GLUCOSE Routine 03/09/2024 2:39 PM REIMBURSEMENT MANAGER Type 2 diabetes mellitus with hyperglycemia, with long-term current use of insulin (HCC) POCT HEMOGLOBIN A1C Routine 03/09/2024 2:39 PM REIMBURSEMENT MANAGER Type 2 diabetes mellitus with hyperglycemia, with [...] DIABETES EYE EXAM Routine 02/12/2023 8:11 AM REIMBURSEMENT MANAGER from Last 3 Months or Most Recently [...] Result * POCT glucose (03/30/2024 8:45 AM REIMBURSEMENT MANAGER) Glucose, POC 143 70 - 199 mg/dL Blood 03/30/2024 8:45 AM REIMBURSEMENT MANAGER 03/30/2024 8:45 AM REIMBURSEMENT MANAGER Rosalie Bui MD PhD LAB POCT ORDERABLES - NALLELY CE Final Result Performing Organization Address [facility] de Phone Number [facility] [place] [address] * (ABNORMAL) POCT glucose (03/29/2024 9:17 PM REIMBURSEMENT MANAGER) Glucose, POC 202(H) 70 - 199 mg/dL Blood 03/29/2024 9:17 PM REIMBURSEMENT MANAGER 03/29/2024 9:17 PM REIMBURSEMENT MANAGER Result [facility] Rosalie Bui MD PhD LAB POCT ORDERABLES - NALLELY CE Final Result Performing Organization Address [facility] de Phone Number [facility] [place] [address] * POCT glucose (03/29/2024 4:46 PM REIMBURSEMENT MANAGER) Glucose, POC 105 70 - 199 mg/dL Blood 03/29/2024 4:46 PM REIMBURSEMENT MANAGER 03/29/2024 4:46 PM REIMBURSEMENT MANAGER Rosalie Bui MD PhD LAB POCT ORDERABLES - NALLELY CE Final Result Performing Organization Address [facility] de Phone Number [facility] Department [place] [address] * XR Outside Reference (03/29/2024 3:25 PM REIMBURSEMENT MANAGER) Impressions RAD_PACS_[facility] - 03/29/2024 3:25 PM REIMBURSEMENT MANAGER These images are for Reference purposes only and have not been reviewed by [facility] Radiology. There will be no report generated by a [facility] Radiologist. Narrative RAD_PACS[facility] - 03/29/2024 3:25 PM REIMBURSEMENT MANAGER EXAMINATION: Images For Reference Purposes Only us Tr Whitaker MD IMG XR PROCEDURES Final Resul t Performing Organization Address [facility] de Phone Number [email or web address] * XR Outside Reference (03/29/2024 3:22 PM REIMBURSEMENT MANAGER) Impressions [facility] - 03/29/2024 3:22 PM REIMBURSEMENT MANAGER These images are for Reference purposes only and have not been reviewed by [facility] Radiology. There will be no report generated by a [facility] Radiologist. Narrative [facility]_PACS[facility] - 03/29/2024 3:22 PM REIMBURSEMENT MANAGER EXAMINATION: Images For Reference Purposes Only us Tr Whitaker MD IMG XR PROCEDURES Final Resul t Performing Organization Address [facility] de Phone Number [email or web address] * Surgical pathology (03/29/2024 3:18 PM REIMBURSEMENT MANAGER) Tissue specimen (specimen) (Lymph node, sentinel breast) 03/29/2024 3:09 PM REIMBURSEMENT MANAGER Tissue specimen (specimen) (Breast, excisional biopsy/ partial mastectomy) 03/29/2024 3:18 PM REIMBURSEMENT MANAGER Narrative PATHOLOGY [facility] - 04/05/2024 10:55 AM REIMBURSEMENT MANAGER EPIC results best viewed via link to PDF [facility] [place] [address] Note to Patients: This report may contain [...] Gender: F : 1940 (Age: 83) Address: [address] [place] [phone] Hospital #: [id number] Taken:03/29/2024 Received:03/29/2024 Reported: 04/05/2024 Patient Type: [facility] OP In Bed Service: Surgery Location: [place] [address] Physician(s): Cyndi Dubois M.D. Lawrence Harmon, M.D. Andrew Tyler Davis, M.D. Diagnosis: A. Lymph node, right axillary sentinel, excision: - No evidence of malignancy in two lymph nodes (0/2) B. 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 PA(s): SANDRA Muniz ([facility])CM CANCER CASE SUMMARY FOR INVASIVE CARCINOMA OF THE BREAST Procedure: Excision (less than total mastectomy) Lymph node sampling: [place] lymph node(s) Specimen laterality: Right Tumor site invasive carcinoma: Upper inner quadrant Histologic type of invasive carcinoma: Invasive ductal carcinoma (no special type or not otherwise specified) Tumor size: Greatest dimension: 38mm Histologic grade ([place] Histologic Score): Tubular differentiation: Score 3 Nuclear [...] nodes present All lymph nodes are negative [place] node evaluation: H&E, multiple levels Response to [...] ordered molecular analysis. Materials were forwarded to [employer] where the Oncotype Dx test will be [...] 22:25:41 Addendum Ordered:05/06/2024Status:Signed OutAddendum Complete:05/06/2024y:Julio C Funez MDAddendum Signed Out:05/06/2024 Addendum Diagnosis A digital scan [...] Breast Cancer Assay test was performed by [address], [place] [address]. The performance characteristics of some immunohistochemical stains, fluorescence in-situ hybridization tests and immunophenotyping by flow cytometry cited in this report (if any) were determined by the Surgical Pathology and Flow Cytometry Departments at [facility] as part of an ongoing quality intern program and in compliance with federally mandated [...] Flow Cytometry Departments of [facility]. It has not been cleared or approved by the U. S. Food and Drug Administration. IMAGES AND SCANNED DOCUMENTS, IF INCLUDED, ONLY VIEWABLE IN PDF VERSION OF REPORT Rosalie Bui MD PhD LAB PATHOLOGY ORDERABLES F inal Result Performing Organization Address [place]/[facility] Co de Phone Number PATHOLOGY [facility] 3rd Floor [place], [place] [phone] * XR Outside Reference (03/29/2024 3:11 PM REIMBURSEMENT MANAGER) Impressions RAD_PACS_[facility] - 03/29/2024 3:11 PM REIMBURSEMENT MANAGER These images are for Reference purposes only and have not been reviewed by [facility] Radiology. There will be no report generated by a [facility] [facility] Radiologist. Narrative [facility] - 03/29/2024 3:11 PM REIMBURSEMENT MANAGER EXAMINATION: Images For Reference Purposes Only us Tr Whitaker MD IMG XR PROCEDURES Final Resul t Performing Organization Address [facility] Co de Phone Number [facility] * HI AN ELECTIVE SUPRAGLOTTIC AIRWAY, HI AN PROCEDURE PLACEHOLDER (03/29/2024 3:02 PM REIMBURSEMENT MANAGER) Narrative Brenda Bethea CRNA - 03/29/2024 3:02 PM REIMBURSEMENT MANAGER Brenda Bethea CRNA 03/29/2024 3:02 PM Airway Patient location: OR Urgency: elective Difficult airway: no Staff: Placed by: EMPLOYEE RELATIONS DIRECTOR: Brenda Bethea CRNA Airway prep: Patient position: sniffing Mask difficulty assessment: 1 - vent by mask Sedation level during airway: GA Final airway details: Final airway type: supraglottic airway Final supraglottic airway: IGel SGA size: 4 Number of attempts: 1 Ottoniel Bhatia MD ANESTHESIA ORDERABLES Final Result * Radiologic Examination of Surgical Specimen (03/29/2024 3:01 PM REIMBURSEMENT MANAGER) Anatomical Region Laterality Modality Breast N/A Mammography 03/29/2024 3:29 PM REIMBURSEMENT MANAGER Impressions 03/29/2024 3:31 PM REIMBURSEMENT MANAGER FINDINGS/IMPRESSION: A RIGHT breast surgical specimen was received from the operating room and was imaged using digital radiography. The lesion of interest is included within the surgical specimen, which includes a spiculated mass and magnetic seed. Questionable spiculation near the periphery of the specimen at the region of C4. These findings were communicated to the surgeon by Dr. Julian Beauchamp 3:25 PM 03/29/2024. Dictated by: Michael Russell MD The radiology attending physician has personally reviewed this study, and had reviewed and/or edited this written report and agrees with it. Electronically signed by: Balwinder Pleitez MD Narrative 03/29/2024 3:31 PM REIMBURSEMENT MANAGER EXAMINATION: RADIOLOGIC EXAMINATION OF RIGHT SURGICAL SPECIMEN [...] communicated to the surgeon by Dr. Julian Beauchamp 3:25 PM 03/29/2024. Dictated by: Michael Russell MD The radiology attending physician has personally reviewed this study, and had reviewed and/or edited this written report and agrees with it. Electronically signed by: Balwinder Pleitez MD us Rosalie Bui MD PhD IMG MAMMO PROCEDURES Final Result * HI AN PROCEDURE PLACEHOLDER (03/29/2024 2:27 PM REIMBURSEMENT MANAGER) Melecio Chiu MD - 03/29/2024 2:27 PM REIMBURSEMENT MANAGER Patti Anaya MD 03/29/2024 2:28 PM Peripheral [...] patient tolerated procedure well with no complications us Patti Anaya MD ANESTHESIA ORDERABLES Final Result * HI AN PROCEDURE PLACEHOLDER (03/29/2024 2:25 PM REIMBURSEMENT MANAGER) Melecio Chiu MD - 03/29/2024 2:25 PM REIMBURSEMENT MANAGER Melecio Sarkar MD 03/29/2024 3:44 PM Peripheral [...] Result * POCT glucose (03/29/2024 2:21 PM REIMBURSEMENT MANAGER) Glucose, POC 109 70 - 199 mg/dL Blood 03/29/2024 2:21 PM REIMBURSEMENT MANAGER 03/29/2024 2:21 PM REIMBURSEMENT MANAGER Rosalie Bui MD PhD LAB POCT ORDERABLES - NALLELY CE Final Result Performing Organization Address City/State/[facility] Co de Phone Number [facility] Department [place] [address] * XR Outside Reference (03/29/2024 2:00 PM REIMBURSEMENT MANAGER) Impressions [facility] - 03/29/2024 2:00 PM REIMBURSEMENT MANAGER These images are for Reference purposes only and have not been reviewed by [facility] Radiology. There will be no report generated by a [facility] Radiologist. Narrative [facility] - 03/29/2024 2:00 PM REIMBURSEMENT MANAGER EXAMINATION: Images For Reference Purposes Only us Tr Whitaker MD IMG XR PROCEDURES Final Resul t [facility] * POCT glucose (03/29/2024 11:50 AM REIMBURSEMENT MANAGER) Glucose, POC 116 70 - 199 mg/dL Blood 03/29/2024 11:5 0 AM REIMBURSEMENT MANAGER 03/29/2024 11:50 AM REIMBURSEMENT MANAGER us Rosalie Bui MD PhD LAB POCT ORDERABLES - NALLELY CE Final Result [facility] Department [place] [address] * John Post Clip Placement Right (03/29/2024 11:32 AM REIMBURSEMENT MANAGER) Anatomical Region Laterality Modality Breast Right Mammography 03/29/2024 1:36 PM REIMBURSEMENT MANAGER Impressions 03/29/2024 2:24 PM REIMBURSEMENT MANAGER Successful ultrasound-guided magnetic seed localization of the area of interest within the RIGHT breast. Dictated by: Michael Russell MD The radiology attending physician has personally reviewed this study, and had reviewed and/or edited this written report and agrees with it. Electronically signed by: Balwinder Pleitez MD Narrative 03/29/2024 2:24 PM REIMBURSEMENT MANAGER EXAMINATION: RIGHT BREAST MAGSEED LOCALIZATION UTILIZING ULTRASOUND [...] entire procedure. Dr. Michael Russell MD (diagnostic vice president network development) also participated in this examination. Procedure Note [...] entire procedure. Dr. Michael Russell MD (diagnostic vice president network development) also participated in this examination. IMPRESSION: Successful ultrasound-guided magnetic seed localization of the area of interest within the RIGHT breast. Dictated by: Michael Russell MD The radiology attending physician has personally reviewed this study, and had reviewed and/or edited this written report and agrees with it. Electronically signed by: Balwinder Pleitez MD us Rosalie Bui MD PhD IMG MAMMO PROCEDURES Final Result * US Guided Magseed Localization Right (03/29/2024 11:09 AM REIMBURSEMENT MANAGER) Anatomical Region Laterality Modality Breast Right Ultrasound 03/29/2024 1:36 PM REIMBURSEMENT MANAGER Impressions 03/29/2024 2:24 PM REIMBURSEMENT MANAGER Successful ultrasound-guided magnetic seed localization of the area of interest within the RIGHT breast. Dictated by: Michael Russell MD The radiology attending physician has personally reviewed this study, and had reviewed and/or edited this written report and agrees with it. Electronically signed by: Balwinder Pleitez MD Narrative 03/29/2024 2:24 PM REIMBURSEMENT MANAGER EXAMINATION: RIGHT BREAST MAGSEED LOCALIZATION UTILIZING ULTRASOUND [...] entire procedure. Dr. Michael Russell MD (diagnostic vice president network development) also participated in this examination. Procedure Note [...] entire procedure. Dr. Michael Russell MD (diagnostic vice president network development) also participated in this examination. IMPRESSION: Successful ultrasound-guided magnetic seed localization of the area of interest within the RIGHT breast. Dictated by: Michael Russell MD The radiology attending physician has personally reviewed this study, and had reviewed and/or edited this written report and agrees with it. Electronically signed by: Balwinder Pleitez MD us Rosalie Bui MD PhD IMG MAMMO PROCEDURES Final Result * NM Lymphoscintigraphy (Breast) Right (03/29/2024 10:36 AM REIMBURSEMENT MANAGER) Anatomical Region Laterality Modality Breast Nuclear Medicine 03/29/2024 11:3 2 AM REIMBURSEMENT MANAGER Impressions 03/29/2024 12:38 PM REIMBURSEMENT MANAGER No sentinel lymph node identified after initial or delayed images. The patient will undergo subsequent intraoperative removal of nodes with gamma probe guidance Dictated by: Navid Bills MD The radiology attending physician has personally reviewed this study, and had reviewed and/or edited this written report and agrees with it. Electronically signed by: Urbano Glass M.D. Narrative 03/29/2024 12:38 PM REIMBURSEMENT MANAGER EXAMINATION: BREAST LYMPHOSCINTIGRAPHY DATE OF STUDY: 03/29/2024 [...] * POCT hemoglobin A1c (03/09/2024 2:39 PM REIMBURSEMENT MANAGER) Pathologist [facility] Hemoglobin A1C, POC 5.9 4.0 - 5.6 % Blood 03/09/2024 2:39 PM REIMBURSEMENT MANAGER us Cate Espitia NP POINT OF CARE TEST ORDERA BLES Final Result * (ABNORMAL) POCT glucose (03/09/2024 2:39 PM REIMBURSEMENT MANAGER) [facility] Glucose Blood, POC 218 mg/dL Blood 03/09/2024 2:39 PM REIMBURSEMENT MANAGER us Cate Espitia NP POINT OF CARE TEST ORDERA BLES Final Result * (ABNORMAL) eGFR (07/07/2023 11:54 AM CDT) [facility] eGFR 39(L) >=60 mL/min/1. 73 m2 Comment: [...] 07/07/2023 8:09 PM CDT us Cate Espitia FREIGHT REPRESENTATIVE LAB BLOOD ORDERABLES Va l Result Performing Organization Address [facility] Co de Phone Number [facility] [id number] [place] [address] * Albumin Creatinine Ratio, Urine (07/07/2023 11:54 AM CDT) Albumin Ur 31.7 mg/L Comment: Interpretive Data No reference range established. Current interpretive data was last revised 2018. Creatinine Ur 113.2 mg/dL [facility] Comment: Interpretive Data No reference range established. Current interpretive data was last revised 2018. Albumin Creatinine Ratio, Ur 28 1 - 29 mg/g [facility] Urine 07/07/2023 11:5 4 AM CDT 07/07/2023 7:02 PM CDT us Cate Espitia FREIGHT REPRESENTATIVE LAB URINE ORDERABLES Va l Result Performing Organization Address [facility] Co de Phone Number [facility] [address] [place] [address] * (ABNORMAL) Lipid panel (07/07/2023 11:54 AM [...] on 2017. Triglycerides 181(H) <=149 mg/dL [facility] REYES Comment: Interpretive Data Ages [...] 4 AM CDT 07/07/2023 7:02 PM CDT Cate Espitia NP LAB BLOOD ORDERABLES [facility] [place] Result [facility] [id number] [place] [address] * DIABETES EYE EXAM (02/12/2023 8:11 AM REIMBURSEMENT MANAGER) us Historical Provider HEALTH MAINTENANCE Edited Result - Final from Last 3 Months or Most Recently Relevant to Health Maintenance Insurance MEDICARE Member Subscriber Plan / Payer ( fective 2006-Present) Name:AVERY MCFARLAND R Member ID:[id number] Relation to Subscriber:Self Name:Avery Mcfarland Subscriber ID:[id number] Payer ID:[id number] Group ID:Not on file Type:MEDICARE TRADITIONAL Address: [place] [id number] BLUE CROSS MEDICARE SUPPLEMENT MEDICARE [facility] MEDICARE SUPPLEMENT Advance Directives For more information, please contact: [phone] * Full Code (Latest Code Status on File) Date Activated Date Inactivated Comments 03/29/2024 8:49 PM 03/30/2024 5:59 PM Care Teams Diabetes Specialist Relationship Specialty Start Date End Date José Juarez MD PCP - General 05/16/16
[2024-05-19 08:31] LABS: Basophils Percent Auto 0.5 % (0.2-1.2); Eosinophils Absolute Auto 0.2 K/mm3 (0-0.3); Eosinophils Percent Auto 3.8 % (0-4.4); Hematocrit 30.2 % (37.0-47.0); Hemoglobin 9.6 g/dL (12.0-15.0); Immature Granulocyte Absolute 0.03 K/mm3 (0.00-0.031); Immature Granulocyte Percent A 0.5 % (0-0.5); Lymphocytes Absolute Auto 1.23 K/mm3 (0.9-3.2); Lymphocytes Percent Auto 19.4 % (18.3-44.2); Mean Corpuscular HGB Conc 31.8 g/dl (32-36); Mean Corpuscular Hemoglobin 25.4 pg (26-34); Mean Corpuscular Volume 79.9 fl (80-100); Mean Platelet Volume 10.6 fl (7.4-10.4); Monocytes Absolute Auto 0.6 K/mm3 (0.1-0.6); Monocytes Percent Auto 9.8 % (2.6-8.5); Neutrophils Absolute Auto 4.2 K/mm3 (1.3-6.7); Platelet Count Result 210 k/mm3 (150-375); Red Blood Count 3.78 M/mm3 (4.2-5.4); Red Cell Distribution Width 15.7 % (11.5-14.5); White Blood Count 6.3 K/mm3 (4.5-10.0)
[2024-05-19 08:50] LABS: Partial Thromboplastin Time 27.6 Seconds (22.3-36.8); Prothrombin Time 13.4 Seconds (11.1-14.7)
[2024-05-19 08:51] LABS: Alanine Aminotransferase 13 U/L (6-35); Albumin Level 3.5 g/dL (3.5-5.1); Alkaline Phosphatase 63 U/L (38-126); Anion Gap 8 mmol/L (4-12); Aspartate Amino Transferase 30 U/L (14-36); Bilirubin,Total 0.5 mg/dL (0.2-1.3); Blood Urea Nitrogen 71 mg/dL (7-17); Calcium 8.9 mg/dL (8.4-10.2); Carbon Dioxide 34 mmol/L (22-30); Chloride 89 mmol/L (98-107); Estimated CRCL calculation 14 ml/min; Estimated Glomerular Filt Rate 15; Glucose 103 mg/dL (65-110); Potassium 2.8 mmol/L (3.4-5.0); Sodium 131 mmol/L (137-145)
[2024-05-19] MEDS: SODIUM CHLORIDE 0.9% IV 1,000 ML 999 ML IV CONT (09:03)
[2024-05-19] MEDS: POTASSIUM CHLORIDE 20 MEQ PACKET (FOR LIQUID) 40 MEQ PO (09:03)
--- NOTE | 2024-05-19 09:06 | ED.GENADULT ---
HPI - General Adult General Chief complaint: GI Bleed Stated complaint: rectal bleeding Time Seen by Provider: 05/19/24 08:12 History of Present Illness HPI narrative: 84-year-old female presents to the emergency department for evaluation for blood per rectum this morning. Patient does have history of hemorrhoids and does complain of some rectal pain. Patient denies any associated abdominal pain. Patient does take Plavix. Related Data Home Medications ?Medication ?Instructions ?Recorded ?Confirmed ?Last Taken ?Type carvedilol 3.125 mg tablet 3.125 mg PO BID 09/02/22 05/19/24 Unknown History clopidogrel 75 mg tablet 75 mg PO DAILY 09/02/22 05/19/24 09/04/22 History furosemide 40 mg tablet 40 mg PO DAILY 09/02/22 05/19/24 Unknown History insulin glargine 100 unit/mL (3 40 unit subcut HS 09/02/22 05/19/24 Unknown History mL) subcutaneous pen (Lantus Solostar U-100 Insulin) levothyroxine 75 mcg tablet 50 mcg PO DAILY 09/02/22 05/19/24 Unknown History (Synthroid) rosuvastatin 5 mg tablet 5 mg PO DAILY 09/02/22 05/19/24 Unknown History venlafaxine 150 mg 150 mg PO DAILY 09/02/22 05/19/24 Unknown History capsule,extended release 24 hr aspirin 81 mg tablet,delayed 81 mg PO DAILY 05/19/24 05/19/24 Unknown History release (Adult Aspirin Regimen) atorvastatin 10 mg tablet 10 mg PO QPM 05/19/24 05/19/24 Unknown History biotin 10 mg tablet 5 mg PO DAILY 05/19/24 05/19/24 Unknown History insulin lispro 100 unit/mL 6 unit subcut .COMPLEX 05/19/24 05/19/24 Unknown History subcutaneous pen (Humalog KwikPen (U-100) Insulin) lisinopril 20 mg tablet 20 mg PO DAILY 05/19/24 05/19/24 Unknown History loperamide 2 mg capsule 2 mg PO BID 05/19/24 05/19/24 Unknown History magnesium hydroxide 400 mg/5 mL 5 ml PO DAILY PRN constipation 05/19/24 05/19/24 Unknown History oral suspension (Dulcolax (magnesium hydroxide)) metolazone 2.5 mg tablet 2.5 mg PO DAILY 05/19/24 05/19/24 Unknown History multivitamin-ferrous 1 tablet PO DAILY 05/19/24 05/19/24 Unknown History fumarate-folic acid 18 mg-400 mcg tablet (A Thru Z Advanced Formula) oxycodone 5 mg tablet 5 mg PO Q6H PRN pain 05/19/24 05/19/24 Unknown History tramadol 50 mg tablet 50 mg PO Q6H PRN pain 05/19/24 05/19/24 Unknown History Allergies Allergy/AdvReac Type Severity Reaction Status Date / Time liraglutide Allergy Unknown Unknown Verified 05/19/24 15:08 metformin Allergy Unknown Unknown Verified 05/19/24 15:08 acetaminophen AdvReac Palpitation Verified 05/19/24 15:08 s Review of Systems Review of Systems: All systems reviewed & are unremarkable except as noted in HPI and below PMFSH Past Medical History Medical History (Updated 05/19/24 @ 15:01 by Radha Adams APRN) Breast cancer, right History of postoperative nausea and vomiting slow recovery Depression Anxiety Hypothyroidism Diabetes Hemorrhoids Pacemaker Chronic diarrhea HTN (hypertension) Surgical History Surgical History History of lumpectomy of right breast History of bilateral cataract extraction History of shoulder surgery History of cholecystectomy Social History Social History Smoking status: Never smoker Alcohol intake: never Substance use: never Substance use type: does not use Do You Feel Safe in your Home?: Yes Lack of Transportation: No Lack of Food: Never True Current Housing: I Have Housing Concerned About Future Housing: No Difficulty Paying Gas/Electric Bills: No Difficulty Paying for Meds: No Currently Unemployed: No Education: High School Diploma/GED Difficulty w/ Childcare or Family Care: No Living arrangements: other Additional living arrangements comments: With Spiritual care concerns: No Exam Narrative: APPEARANCE: Well appearing, no pain, no distress, well-nourished. HEAD: normocephalic, atraumatic. EYES: PERRLA/EOMI, conjunctivae clear. NOSE: Normal no drainage EARS:TMS clear with good light reflex. THROAT: Pharynx clear, no exudate. NECK: Supple. No adenopathy, no masses. RESPIRATORY: Airway patent, respirations nonlabored. Clear to auscultation bilaterally, no rales, rhonchi, wheezing. CARDIOVASCULAR: Regular rate and rhythm without murmurs rubs or gallops. ABDOMINAL: Soft, nontender, nondistended, normal bowel sounds MUSCULOSKELETAL: Moves all extremities. Strength/ROM intact, No edema, No calf tenderness. NEURO: Alert. Cranial nerves II through XII intact. Good gait. Good coordination SKIN: Warm, dry. Normal Color Rectal exam: Some red blood on the digital exam, no clots or active hemorrhage Course Vital Signs Vital signs: Vital Signs Temperature 97.4 F L 05/19/24 08:00 Pulse Rate 81 05/19/24 08:00 Respiratory Rate 11 L 05/19/24 08:00 Blood Pressure 99/53 L 05/19/24 08:00 Pulse Oximetry 100 05/19/24 08:00 Oxygen Delivery Room Air 05/19/24 08:00 Temperature 97.3 F L 05/19/24 13:07 Pulse Rate 81 05/19/24 16:04 Respiratory Rate 18 05/19/24 13:07 Blood Pressure 100/52 L 05/19/24 13:07 Pulse Oximetry 99 05/19/24 15:29 Oxygen Delivery Room Air 05/19/24 15:29 Medical Decision Making [facility] Narrative Medical decision making narrative: 84-year-old female presents to the emergency department for evaluation for blood per rectum. Patient is currently afebrile with no leukocytosis hemoglobin of 9.6. Patient's hemoglobin is unknown since we do not have any baseline labs. INR is 1.0. Patient's potassium was 2.8 and this was replaced with both p.o. and IV potassium. Patient's creatinine is 2.9 for with no known baseline. Patient was treated with a L of IV fluids Per outside medical records creatinine is typically 1.4 and patient's hemoglobin is 11. Patient will be admitted for gross blood per rectum, hypokalemia and acute kidney injury. GI was consulted. Differential Diagnosis Differential Diagnosis: ABDIRASHID, dehydration, anemia, bleeding external hemorrhoid, internal hemorrhoid, diverticulosis Vital Signs Vital Signs: Vital Signs Temperature 97.4 F L 05/19/24 08:00 Pulse Rate 81 05/19/24 08:00 Respiratory Rate 11 L 05/19/24 08:00 Blood Pressure 99/53 L 05/19/24 08:00 Pulse Oximetry 100 05/19/24 08:00 Oxygen Delivery Room Air 05/19/24 08:00 Temperature 97.3 F L 05/19/24 13:07 Pulse Rate 81 05/19/24 16:04 Respiratory Rate 18 05/19/24 13:07 Blood Pressure 100/52 L 05/19/24 13:07 Pulse Oximetry 99 05/19/24 15:29 Oxygen Delivery Room Air 05/19/24 15:29 Lab Data Lab results reviewed: Yes I reviewed the patient's lab results. 05/19/24 13:59 05/19/24 08:20 Labs: Lab Results 05/19/24 Range/Units 08:20 WBC 6.3 (4.5-10.0) K/mm3 RBC 3.78 L (4.2-5.4) M/mm3 Hgb 9.6 L (12.0-15.0) g/dL Hct 30.2 L (37.0-47.0) % MCV 79.9 L (80-100) fl MCH 25.4 L (26-34) pg MCHC 31.8 L (32-36) g/dl RDW 15.7 H (11.5-14.5) % Plt Count 210 (150-375) k/mm3 MPV 10.6 H (7.4-10.4) fl Immature Gran % (Auto) 0.5 (0-0.5) % Neut % (Auto) 66.0 (45.5-73.1) % Lymph % (Auto) 19.4 (18.3-44.2) % Bourbon % (Auto) 9.8 H (2.6-8.5) % Eos % (Auto) 3.8 (0-4.4) % Baso % (Auto) 0.5 (0.2-1.2) % Lymph # (Auto) 1.23 (0.9-3.2) K/mm3 Bourbon # (Auto) 0.6 (0.1-0.6) K/mm3 Eos # (Auto) 0.2 (0-0.3) K/mm3 Baso # (Auto) 0.0 (0.0-0.1) K/mm3 Abs Immat Gran (auto) 0.03 (0.00-0.031) K/mm3 Absolute Neuts (auto) 4.2 (1.3-6.7) K/mm3 Absolute Nucleated RBC 0.000 (0.0-0.012) K/mm3 Nucleated RBC % 0.0 (0.0-0.2) % PT 13.4 (11.1-14.7) Seconds INR 1.0 APTT 27.6 (22.3-36.8) Seconds Sodium 131 L (137-145) mmol/L Potassium 2.8 L* (3.4-5.0) mmol/L Chloride 89 L (98-107) mmol/L Carbon Dioxide 34 H (22-30) mmol/L Anion Gap 8 (4-12) mmol/L BUN 71 H (7-17) mg/dL Creatinine 2.94 H (0.7-1.0) mg/dL Estim Creat Clear Calc 14 ml/min Estimated GFR 15 L (59 - ) Glucose 103 (65-110) mg/dL Calcium 8.9 (8.4-10.2) mg/dL Magnesium 2.0 (1.6-2.3) mg/dL Total Bilirubin 0.5 (0.2-1.3) mg/dL AST 30 (14-36) U/L ALT 13 (6-35) U/L Alkaline Phosphatase 63 (38-126) U/L Total Protein 7.0 (6.3-8.2) g/dL Albumin 3.5 (3.5-5.1) g/dL Blood Type AB Positive Antibody Screen Negative Discharge Plan Discharge Clinical Impression: Acute kidney injury, BRBPR (bright red blood per rectum), Acute hypokalemia Patient Disposition: Still a Patient Condition: Serious
--- NOTE | 2024-05-19 09:10 | PC.NURSE ---
Spoke with Sharon at [facility] - requested any old labs that were drawn recently and please fax to [facility]
[2024-05-19] MEDS: KCL 20 MEQ/SW 100 ML 100 ML 50 MEQ IVPB (09:31)
[2024-05-19] MEDS: SODIUM CHLORIDE 0.9% IV 1,000 ML 125 ML IV CONT ×2 (11:39→20:10)
--- NOTE | 2024-05-19 12:30 | ADMGEN ---
This patient, Cathryn Harris, was admitted to Medical Room 348-01. Patient/family oriented to hospital policies and general routines including ID bracelet, bed and alarms, visiting hours, pain management, procedures, bathroom and other care routines, personal items, smoking policy, room service/diet, and visiting hours. Information on how to activate the Rapid Response Team has been discussed. Patient/Family are encouraged to report perceived risks to care and to ask questions if they do not understand what they are told or what they should do.
--- NOTE | 2024-05-19 13:35 | PM.IMHP ---
H&P: HPI History of Present Illness Date/Time: 05/19/24 13:35 Chief Complaint: Rectal Bleeding Narrative: 84 y/o F with PMH of hypothyroidism, HLD, diabetes, hypertension, pacemaker, breast cancer IDC (right lumpectomy, in process of discussing chemo and radiation), and hemorrhoids presents here with rectal bleeding. The patient presents here from [facility] via EMS for further evaluation of rectal bleeding. HPI obtained through chart review, patient interview, and the patient's [id number]. She has had bleeding hemorrhoids since early March. She started using tucks pad and Preparation H, more so utilized the tucks pads. Last night, she began having a moderate amount of bright red blood per rectum. Her helped her to get cleaned up but she did not report the finding at that time. Facility staff then noted multiple saturated bloody washcloths this morning in her trash in the patient's room prompting them to call EMS. The patient is currently complaining of mild rectal pain. She had significant lower abdominal pain earlier this week, fatigue, and decreased appetite. She denies fever, chills, body aches. [id number] also reports they have noticed she has lost weight - 03/29 186 lbs and 04/27 168 lbs. Denies night sweats. She is on Plavix, no other anti-platelet or anticoagulation. Patient has a history of chronic diarrhea that has varied in severity. Within the last year she has had to increase her once daily Imodium to twice daily. Initial VS at presentation: 97.4? F, HR 81, R 11, 99/53, and 100% on RA. ED workup showed: No leukocytosis, hemoglobin 9.6, normal coags, sodium 131, potassium 2.8, creatinine 2.94 and GFR 15 (no previous available for comparison). Review of Systems Review of Systems: All systems reviewed & are unremarkable except as noted in HPI and below [facility] Past Medical History Medical History (Updated 05/19/24 @ 15:01 by Radha Adams APRN) Breast cancer, right History of postoperative nausea and vomiting slow recovery Depression Anxiety Hypothyroidism Diabetes Hemorrhoids Pacemaker Chronic diarrhea HTN (hypertension) Surgical History Surgical History History of lumpectomy of right breast History of bilateral cataract extraction History of shoulder surgery History of cholecystectomy Social History Social History Smoking status: Never smoker Alcohol intake: never Substance use: never Substance use type: does not use Do You Feel Safe in your Home?: Yes Lack of Transportation: No Lack of Food: Never True Current Housing: I Have Housing Concerned About Future Housing: No Difficulty Paying Gas/Electric Bills: No Difficulty Paying for Meds: No Currently Unemployed: No Education: High School Diploma/GED Difficulty w/ Childcare or Family Care: No Living arrangements: other Additional living arrangements comments: With Spiritual care concerns: No Meds Home Medications and Allergies Home Medications ?Medication ?Instructions ?Recorded ?Confirmed ?Type carvedilol 3.125 mg tablet 3.125 mg PO BID 09/02/22 02/29/24 History clopidogrel 75 mg tablet 75 mg PO DAILY 09/02/22 02/29/24 History furosemide 40 mg tablet 40 mg PO DAILY 09/02/22 02/29/24 History insulin glargine 100 unit/mL (3 35 unit subcut HS 09/02/22 02/29/24 History mL) subcutaneous pen (Lantus Solostar U-100 Insulin) levothyroxine 75 mcg tablet 75 mcg PO DAILY 09/02/22 02/29/24 History (Synthroid) rosuvastatin 5 mg tablet 5 mg PO DAILY 09/02/22 02/29/24 History venlafaxine 150 mg 150 mg PO DAILY 09/02/22 02/29/24 History capsule,extended release 24 hr Allergies Allergy/AdvReac Type Severity Reaction Status Date / Time acetaminophen Allergy Other Verified 05/19/24 09:47 Vital Signs Vital Signs - 24 hr 05/19/24 08:00 05/19/24 08:16 05/19/24 09:01 Temperature 97.4 F L Pulse Rate 81 79 71 Respiratory Rate 11 L 13 14 Blood Pressure 99/53 L 98/57 L 101/49 L Pulse Oximetry 100 95 100 Oxygen Delivery Room Air 05/19/24 09:16 05/19/24 11:39 05/19/24 13:07 Temperature 97.3 F L Pulse Rate 70 72 88 Respiratory Rate 12 18 18 Blood Pressure 108/54 L 101/52 L 100/52 L Pulse Oximetry 100 100 99 Oxygen Delivery Exam Const: General: comfortable and no acute distress Other: , female, elderly, nontoxic appearance HENMT: Face/Nose/Sinus: Normal nares present Mouth: Yes moist mucous membranes Eyes: General: appearance normal, both eyes and all related structures Sclera: sclerae normal Pupils: Equal, round and reactive pupils present EOM: EOMs intact bilaterally Resp: Effort & Inspection: normal respiratory effort Auscultation: clear to auscultation bilaterally Cardio: Rate: regular rate Rhythm: regular rhythm Other: S1-S2 present without murmur, rub, ectopy GI: Other: Abdomen soft, nondistended, nontender. Normoactive bowel sounds in the lower quadrants and left upper quadrant. More hyperactive in the right upper quadrant. Skin: General skin exam: normal color and no rashes or lesions noted Wounds: no wounds Neuro: Speech: normal speech Motor exam (neuro): 5/5 motor strength present throughout Sensory Exam: normal sensation Other: A&O x3, poor situation recall. Extrem: General: normal to inspection Psych: Mental Status: mental status grossly normal Affect: normal affect Other: Fair insight and judgment, pleasant H&P: Results Labs Labs: Short CBC 05/19/24 Range/Units 08:20 WBC 6.3 (4.5-10.0) K/mm3 Hgb 9.6 L (12.0-15.0) g/dL Hct 30.2 L (37.0-47.0) % Plt Count 210 (150-375) k/mm3 BMP 05/19/24 08:20 Sodium 131 L Potassium 2.8 L* Chloride 89 L Carbon Dioxide 34 H BUN 71 H Creatinine 2.94 H Glucose 103 Calcium 8.9 Liver Function 05/19/24 Range/Units 08:20 Total Bilirubin 0.5 (0.2-1.3) mg/dL AST 30 (14-36) U/L ALT 13 (6-35) U/L Alkaline Phosphatase 63 (38-126) U/L Albumin 3.5 (3.5-5.1) g/dL Assessment and Plan Assessment and plan (1) BRBPR (bright red blood per rectum): Code(s): K62.5 - Hemorrhage of anus and rectum Status: Acute Assessment and Plan: - Hgb 9.6, hgb 12.7 on 06/10/23 - on Plavix common no additional anti-platelet/anticoagulation - no current indication for CT of the abdomen/pelvis, no current abdominal pain or infectious symptoms - GI consulted, awaiting recs - trend H&H, transfuse if <7 - colonoscopy, previous (09/10/2022): Single 7 mm flat polyp in the rectum, multiple biopsies taken to rule out microscopic colitis. Pathology negative for diagnostic abnormality. - monitor hemodynamic stability and telemetry (2) Acute kidney injury: Code(s): N17.9 - Acute kidney failure, unspecified Status: Acute Assessment and Plan: - hx of CKD stage 3 - 2.94, BUN 71, GFR 15. previously 1.32 on 10/14/23. 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 use: with [facility] use Diabetes mellitus complication status: without complication Qualified Code(s): E11.9 - Type 2 diabetes mellitus without complications; Z79.4 - halfway (current) use of insulin Code(s): E11.9 - Type 2 diabetes mellitus without complications Status: Chronic Assessment and Plan: - hypoglycemia protocol - POC blood glucose q.6, currently NPO - continue home medication(s) as appropriate - correct regimen ordered - moderate dose q.6 until no longer NPO - A1C ordered, none on file (5) HTN (hypertension): Qualifiers: Hypertension type: primary hypertension Qualified Code(s): I10 - Essential (primary) hypertension Code(s): I10 - Essential (primary) hypertension Status: Chronic Assessment and Plan: - chronic, currently 100/52. Arrived to the ED soft, 99/53. - hold home medications until BP improved - monitor Plan Diet: NPO GI Prophylaxis: Pantoprazole DVT Prophylaxis: SCDs Lines: Peripheral Code Status: Full code Quality VTE Prophylaxis VTE prophylaxis: mechanical ordered Hospitalist MIPS Advance Care Plan I have confirmed that the patient's Advanced Care Plan is present, code status is documented, or surrogate decision maker is listed in patient medical record.: Yes Medication Reconciliation I have utilized all available resources to obtain, update and review the patients current medications (includes all prescriptions, OTC, herbals, cannabis, and nutritional supplements).: Yes
[2024-05-19 14:21] LABS: Hematocrit 31.5 % (37.0-47.0); Hemoglobin 9.6 g/dL (12.0-15.0)
[2024-05-19 14:31] LABS: Creatine Kinase 61 U/L (30-135)
[2024-05-19 17:12] LABS: Glucose Point of Care 71 mg/dl (65-105)
[2024-05-19 18:38] LABS: Hematocrit 29.2 % (37.0-47.0); Hemoglobin 9.2 g/dL (12.0-15.0)
--- NOTE | 2024-05-19 18:40 | PC.NURSE ---
On 05/19/24, the student, Ayana Sinha, provided care and completed [facility] documentation on this patient. I have reviewed the student's documentation and agree with the findings.
[2024-05-19 19:30] LABS: Total Protein Urine Random 13 mg/dL; Urea Random Urine 183 MG/DL
[2024-05-19 19:32] LABS: Add Urine Microscopic? YES; Appearance Urine Cloudy (Clear); Bacteria Urine 3+ /hpf; Bilirubin Urine Negative (Negative); Blood Urine Negative (Negative); Color Urine Yellow (Yellow); Glucose Urine UA Negative (Negative); Ketones Urine Negative (Negative); Leukocyte Esterase Ur 3+ LEU/UL (Negative); Nitrate Urine Negative (Negative); Non Pathogenic Casts 0-2; Protein Urine Negative (Negative); RBC Urine 0-2 /hpf (0-2); Sodium Urine Random 67 meq/L; Specific Grav Ur 1.006 (1.001-1.035); Squamous Epithelial Cell Urine Moderate /hpf (Few); Urobilinogen Urine 0.2 mg/dL (<2.0); pH Urine 6.5 (5.0-9.0)
--- NOTE | 2024-05-19 20:03 | PC.NURSE ---
Patient requesting pain medications for left hip pain rated at a 7 at this time. Call out to physician to reconcile home medications. Await call back.
--- NOTE | 2024-05-19 20:23 | P.CONGI_ITS ---
Assessment and Plan Assessment and plan (1) BRBPR (bright red blood per rectum): Code(s): K62.5 - Hemorrhage of anus and rectum Status: Acute Assessment and Plan: The patient's reported pattern of rectal bleeding aligns with the physical examination findings of hemorrhoids. Although she has documented diverticulosis, the nature of her bleeding is not typical of a diverticular hemorrhage, which usually presents as a more severe and potentially hemodynamically significant event. Therefore, a surgical evaluation is warranted to determine the most appropriate treatment options for her hemorrhoidal bleeding, which is not minor given her drop in hemoglobin, pain and constant bleeding. Plan - Surgical consultation (question: conservative treatment vs. intervention) GI Consult Note Consult date/time: 05/19/24 20:23 HPI: Cathryn Harris is an 84-year-old female with a history of a pacemaker, stage 3 chronic kidney disease, breast cancer, diabetes, and hypothyroidism, who is currently taking clopidogrel. She was admitted today for recurrent rectal bleeding. Her medical history includes known hemorrhoids, and a colonoscopy in August 2022 revealed internal hemorrhoids and a small, flat rectal polyp. She denies hematochezia or passing ness blood per rectum, but reports almost daily fresh blood on the toilet paper and significant rectal discomfort. Her hemoglobin was 12.7 g/dL one year ago and is 9.6 g/dL today. She denies unintentional weight loss or abdominal pain. Review of Systems 2 Review of Systems: All systems reviewed & are unremarkable except as noted in HPI and below [facility] Past Medical History Medical History (Updated 05/19/24 @ 15:01 by Radha Adams APRN) Breast cancer, right History of postoperative nausea and vomiting slow recovery Depression Anxiety Hypothyroidism Diabetes Hemorrhoids Pacemaker Chronic diarrhea HTN (hypertension) Surgical History Surgical History History of lumpectomy of right breast History of bilateral cataract extraction History of shoulder surgery History of cholecystectomy Social History Social History Smoking status: Never smoker Alcohol intake: never Substance use: never Substance use type: does not use Do You Feel Safe in your Home?: Yes Lack of Transportation: No Lack of Food: Never True Current Housing: I Have Housing Concerned About Future Housing: No Difficulty Paying Gas/Electric Bills: No Difficulty Paying for Meds: No Currently Unemployed: No Education: High School Diploma/GED Difficulty w/ Childcare or Family Care: No Living arrangements: other Additional living arrangements comments: With Spiritual care concerns: No Meds Home Medications and Allergies Home Medications ?Medication ?Instructions ?Recorded ?Confirmed ?Type carvedilol 3.125 mg tablet 3.125 mg PO BID 09/02/22 05/19/24 History clopidogrel 75 mg tablet 75 mg PO DAILY 09/02/22 05/19/24 History furosemide 40 mg tablet 40 mg PO DAILY 09/02/22 05/19/24 History insulin glargine 100 unit/mL (3 40 unit subcut HS 09/02/22 05/19/24 History mL) subcutaneous pen (Lantus Solostar U-100 Insulin) levothyroxine 75 mcg tablet 50 mcg PO DAILY 09/02/22 05/19/24 History (Synthroid) rosuvastatin 5 mg tablet 5 mg PO DAILY 09/02/22 05/19/24 History venlafaxine 150 mg 150 mg PO DAILY 09/02/22 05/19/24 History capsule,extended release 24 hr aspirin 81 mg tablet,delayed 81 mg PO DAILY 05/19/24 05/19/24 History release (Adult Aspirin Regimen) atorvastatin 10 mg tablet 10 mg PO QPM 05/19/24 05/19/24 History biotin 10 mg tablet 5 mg PO DAILY 05/19/24 05/19/24 History insulin lispro 100 unit/mL 6 unit subcut .COMPLEX 05/19/24 05/19/24 History subcutaneous pen (Humalog KwikPen (U-100) Insulin) lisinopril 20 mg tablet 20 mg PO DAILY 05/19/24 05/19/24 History loperamide 2 mg capsule 2 mg PO BID 05/19/24 05/19/24 History magnesium hydroxide 400 mg/5 mL 5 ml PO DAILY PRN constipation 05/19/24 05/19/24 History oral suspension (Dulcolax (magnesium hydroxide)) metolazone 2.5 mg tablet 2.5 mg PO DAILY 05/19/24 05/19/24 History multivitamin-ferrous 1 tablet PO DAILY 05/19/24 05/19/24 History fumarate-folic acid 18 mg-400 mcg tablet (A Thru Z Advanced Formula) oxycodone 5 mg tablet 5 mg PO Q6H PRN pain 05/19/24 05/19/24 History tramadol 50 mg tablet 50 mg PO Q6H PRN pain 05/19/24 05/19/24 History Allergies Allergy/AdvReac Type Severity Reaction Status Date / Time liraglutide Allergy Unknown Unknown Verified 05/19/24 15:08 metformin Allergy Unknown Unknown Verified 05/19/24 15:08 acetaminophen AdvReac Palpitation Verified 05/19/24 15:08 s Vital Signs Vital Signs - 24 hr 05/19/24 08:00 05/19/24 08:16 05/19/24 09:01 Temperature 97.4 F L Pulse Rate 81 79 71 Respiratory Rate 11 L 13 14 Blood Pressure 99/53 L 98/57 L 101/49 L Pulse Oximetry 100 95 100 Oxygen Delivery Room Air 05/19/24 09:16 05/19/24 11:39 05/19/24 12:30 Temperature Pulse Rate 70 72 Respiratory Rate 12 18 Blood Pressure 108/54 L 101/52 L Pulse Oximetry 100 100 Oxygen Delivery Room Air 05/19/24 13:07 05/19/24 15:29 05/19/24 16:04 Temperature 97.3 F L Pulse Rate 88 81 Respiratory Rate 18 Blood Pressure 100/52 L Pulse Oximetry 99 99 Oxygen Delivery Room Air Exam 2 Narrative: Rectal: Visible mildly prolapsed internal hemorrhoids, painful to touch. Rectal vault with small amount of brown stools tinged with bright red blood. No masses. Results Labs 05/19/24 18:31 05/19/24 08:20 Labs: Short CBC 05/19/24 05/19/24 05/19/24 Range/Units 08:20 13:59 18:31 WBC 6.3 (4.5-10.0) K/mm3 Hgb 9.6 L 9.6 L 9.2 L (12.0-15.0) g/dL Hct 30.2 L 31.5 L 29.2 L (37.0-47.0) % Plt Count 210 (150-375) k/mm3 BMP 05/19/24 08:20 Sodium 131 L Potassium 2.8 L* Chloride 89 L Carbon Dioxide 34 H BUN 71 H Creatinine 2.94 H Glucose 103 Calcium 8.9 Cardiac Enzymes 04/03/25 Range/Units 13:59 Total Creatine Kinase 61 (30-135) U/L Liver Function 05/19/24 Range/Units 08:20 Total Bilirubin 0.5 (0.2-1.3) mg/dL AST 30 (14-36) U/L ALT 13 (6-35) U/L Alkaline Phosphatase 63 (38-126) U/L Albumin 3.5 (3.5-5.1) g/dL Urine 05/19/24 Range/Units 18:42 Urine Color Yellow (Yellow) Urine Appearance Cloudy H (Clear) Urine pH 6.5 (5.0-9.0) Ur Specific [place] 1.006 (1.001-1.035) Urine Protein Negative (Negative) mg/dL Urine Glucose (UA) Negative (Negative) mg/dL
[2024-05-19] MEDS: INSULIN GLARGINE (*BKC) 100 UNITS/ML 40 UNITS SUB-Q (21:29)
[2024-05-19] MEDS: oxyCODONE HCL (*CRX) 5 MG TAB IR PO (21:29)
[2024-05-19] MEDS: ATORVASTATIN 10 MG TABLET PO (21:31)
[2024-05-19] MEDS: carvediloL 3.125 MG TABLET PO (21:31)
[2024-05-19 21:33] LABS: Creatinine Urine 28.4 mg/dL; Total Protein Urine Random 14 mg/dL; Ur Ttl Prot Creatinine Ratio 0.49 mg/mg (0-0.20)
[2024-05-19 21:59] LABS: Hematocrit 28.1 % (37.0-47.0); Hemoglobin 8.8 g/dL (12.0-15.0)
[2024-05-19 22:19] LABS: Anion Gap 6 mmol/L (4-12); Blood Urea Nitrogen 57 mg/dL (7-17); Calcium 8.3 mg/dL (8.4-10.2); Carbon Dioxide 30 mmol/L (22-30); Chloride 99 mmol/L (98-107); Estimated CRCL calculation 17 ml/min; Estimated Glomerular Filt Rate 19; Glucose 63 mg/dL (65-110); Potassium 2.9 mmol/L (3.4-5.0); Sodium 135 mmol/L (137-145)
[2024-05-20] VITALS (10 sets, daily range): BP systolic 94–128; BP diastolic 49–74; PULSE 69–82; RESP 16–18; TEMP 35.7–36.3; O2SAT 95–100; BMI 28.3
[2024-05-20] MEDS: POTASSIUM CHLORIDE 20 MEQ ER TABLET 40 MEQ PO ×2 (00:13→09:44)
[2024-05-20] MEDS: POTASSIUM CHLORIDE INJ 40 MEQ in SODIUM CHLORIDE 0.9% IV 500 ML 130 MEQ IVPB (00:13)
[2024-05-20] MEDS: traMADol HCL (*CRX) 50 MG TABLET PO (00:26)
--- NOTE | 2024-05-20 01:46 | PC.NURSE ---
2020 notified second provider on duty regarding situation. He was able to contact attending physician. Patients needs addressed.
[2024-05-20 02:17] LABS: Basophils Percent Auto 0.8 % (0.2-1.2); Eosinophils Absolute Auto 0.2 K/mm3 (0-0.3); Hematocrit 27.1 % (37.0-47.0); Hemoglobin 8.3 g/dL (12.0-15.0); Immature Granulocyte Absolute 0.02 K/mm3 (0.00-0.031); Immature Granulocyte Percent A 0.4 % (0-0.5); Lymphocytes Absolute Auto 1.21 K/mm3 (0.9-3.2); Mean Corpuscular HGB Conc 30.6 g/dl (32-36); Mean Corpuscular Hemoglobin 25.3 pg (26-34); Mean Corpuscular Volume 82.6 fl (80-100); Monocytes Absolute Auto 0.5 K/mm3 (0.1-0.6); Monocytes Percent Auto 10.2 % (2.6-8.5); Neutrophils Absolute Auto 3.3 K/mm3 (1.3-6.7); Neutrophils Percent Auto 62.6 % (45.5-73.1); Platelet Count Result 157 k/mm3 (150-375); Red Blood Count 3.28 M/mm3 (4.2-5.4); Red Cell Distribution Width 15.8 % (11.5-14.5); White Blood Count 5.3 K/mm3 (4.5-10.0)
[2024-05-20 02:33] LABS: Anion Gap 9 mmol/L (4-12); Blood Urea Nitrogen 51 mg/dL (7-17); Carbon Dioxide 27 mmol/L (22-30); Chloride 99 mmol/L (98-107); Estimated CRCL calculation 18 ml/min; Estimated Glomerular Filt Rate 20; Glucose 157 mg/dL (65-110); Potassium 3.4 mmol/L (3.4-5.0); Sodium 135 mmol/L (137-145)
[2024-05-20 04:07] LABS: Glucose Point of Care 67 mg/dl (65-105)
[2024-05-20] MEDS: SODIUM CHLORIDE 0.9% IV 1,000 ML 125 ML IV CONT ×2 (06:19→17:13)
[2024-05-20] MEDS: LEVOTHYROXINE SODIUM 50 MCG TABLET PO (06:19)
[2024-05-20 07:48] LABS: Glucose Point of Care 93 mg/dl (65-105)
[2024-05-20] MEDS: MULTIVITAMINS /C LUTEIN (CENTRUM SILVER) TABLET *BKC 1 TAB PO (08:36)
[2024-05-20] MEDS: FUROSEMIDE 40 MG TABLET PO (08:36)
[2024-05-20] MEDS: VENLAFAXINE HCL XR 75 MG CAP.ER.24H 150 MG PO (08:36)
[2024-05-20] MEDS: metOLazone 2.5 MG TABLET PO (08:36)
[2024-05-20] MEDS: lisinopriL 20 MG TABLET PO (08:37)
[2024-05-20] MEDS: PANTOPRAZOLE SODIUM IV 40 MG VIAL IV PUSH (08:37)
[2024-05-20 09:13] LABS: Iron 48 ug/dL (37-170)
[2024-05-20 09:23] LABS: Percent Iron Saturation 20 % (20-50)
[2024-05-20] MEDS: carvediloL 3.125 MG TABLET PO (09:44)
[2024-05-20] MEDS: ASPIRIN 81 MG ENTERIC TABLET PO (09:45)
[2024-05-20] MEDS: oxyCODONE HCL (*CRX) 5 MG TAB IR PO (09:50)
[2024-05-20 11:57] LABS: Glucose Point of Care 101 mg/dl (65-105)
--- NOTE | 2024-05-20 14:16 | PM.IMPN ---
Progress Note: A&P Assessment and Plan (1) BRBPR (bright red blood per rectum): Code(s): K62.5 - Hemorrhage of anus and rectum Status: Acute Assessment and Plan: - Hgb 9.6, hgb 12.7 on 06/10/23 - on Plavix common no additional anti-platelet/anticoagulation - no current indication for CT of the abdomen/pelvis, no current abdominal pain or infectious symptoms - GI evaluated and recommended gen surgery eval Surgery consulted (2) Acute kidney injury: Code(s): N17.9 - Acute kidney failure, unspecified Status: Acute Assessment and Plan: - hx of CKD stage 3 - 2.94, BUN 71, GFR 15. previously 1.32 on 10/14/23. cr 2.31 today continue IVF monitor (3) Acute hypokalemia: Code(s): E87.6 - Hypokalemia Status: Acute Assessment and Plan: - K 2.8 replaced monitor (4) Diabetes: Qualifiers: Diabetes mellitus type: type 2 Diabetes mellitus long-term insulin use: with long-term use Diabetes mellitus complication status: without complication Qualified Code(s): E11.9 - Type 2 diabetes mellitus without complications; Z79.4 - alf (current) use of insulin Code(s): E11.9 - Type 2 diabetes mellitus without complications Status: Chronic Assessment and Plan: - hypoglycemia protocol - POC blood glucose q.6, currently NPO - continue home medication(s) as appropriate - correct regimen ordered - moderate dose q.6 until no longer NPO - A1C ordered, none on file (5) HTN (hypertension): Qualifiers: Hypertension type: primary hypertension Qualified Code(s): I10 - Essential (primary) hypertension Code(s): I10 - Essential (primary) hypertension Status: Chronic Assessment and Plan: - chronic, currently 100/52. Arrived to the ED soft, 99/53. - hold home medications until BP improved - monitor Plan Diet: NPO GI Prophylaxis: Pantoprazole DVT Prophylaxis: SCDs Lines: Peripheral Code Status: Full code Subjective Date/time seen: 05/20/24 14:16 Interval history: Comfortable at bedside Review of Systems Review of Systems: All systems reviewed & are unremarkable except as noted in HPI and below Exam Const: General: comfortable and no acute distress Other: , female, elderly, nontoxic appearance HENMT: Face/Nose/Sinus: Normal nares present Mouth: Yes moist mucous membranes Eyes: General: appearance normal, both eyes and all related structures Sclera: sclerae normal Pupils: Equal, round and reactive pupils present EOM: EOMs intact bilaterally Resp: Effort & Inspection: normal respiratory effort Auscultation: clear to auscultation bilaterally Cardio: Rate: regular rate Rhythm: regular rhythm Other: S1-S2 present without murmur, rub, ectopy GI: Other: Abdomen soft, nondistended, nontender. Normoactive bowel sounds in the lower quadrants and left upper quadrant. More hyperactive in the right upper quadrant. Skin: General skin exam: normal color and no rashes or lesions noted Wounds: no wounds Neuro: Cranial nerves: Yes Equal, round and reactive pupils present Speech: normal speech Motor exam (neuro): 5/5 motor strength present throughout Sensory Exam: normal sensation Other: A&O x3, poor situation recall. Extrem: General: normal to inspection Psych: Mental Status: mental status grossly normal Affect: normal affect Other: Fair insight and judgment, pleasant Objective Data Vital Signs Vital Signs: Vital Signs - 24 hr 05/19/24 15:29 05/19/24 16:04 05/19/24 20:00 Temperature Pulse Rate 81 Respiratory Rate Blood Pressure Pulse Oximetry 99 Oxygen Delivery Room Air Room Air 05/19/24 20:00 05/19/24 21:31 05/19/24 22:00 Temperature 97.3 F L Pulse Rate 71 84 82 Respiratory Rate 18 Blood Pressure 129/43 L Pulse Oximetry 96 Oxygen Delivery 05/20/24 00:00 05/20/24 04:00 05/20/24 06:00 Temperature 97.4 F L Pulse Rate 78 78 69 Respiratory Rate 18 Blood Pressure 115/49 L Pulse Oximetry 96 Oxygen Delivery 05/20/24 08:04 05/20/24 08:45 05/20/24 09:44 Temperature Pulse Rate 80 82 Respiratory Rate Blood Pressure Pulse Oximetry Oxygen Delivery Room Air 05/20/24 12:05 05/20/24 13:58 Temperature 96.2 F L Pulse Rate 70 72 Respiratory Rate 16 Blood Pressure 94/60 L Pulse Oximetry 100 Oxygen Delivery Intake/Output Intake/Output: Intake & Output 05/17/24 05/18/24 05/19/24 05/20/24 23:59 23:59 23:59 23:59 Intake Total 2150 2342.4 Output Total 300 950 Balance 1850 1392.4 Meds/Results Medications: Active Medications Generic Name Dose Route Start Last Admin Trade Name Freq PRN Reason Stop Dose Admin Aspirin 81 mg 05/20/24 09:00 05/20/24 09:45 Aspirin 81 Mg Enteric Tablet PO 81 mg DAILY LANA Administration Atorvastatin Calcium 10 mg 05/19/24 21:15 05/19/24 21:31 Atorvastatin 10 Mg Tablet PO 10 mg QPM LANA Administration Carvedilol 3.125 mg 05/19/24 21:05 05/20/24 09:44 Carvedilol 3.125 Mg Tablet PO 3.125 mg Q12HR LANA Administration Clopidogrel Bisulfate 75 mg 05/20/24 09:00 05/20/24 09:45 Clopidogrel Bisulfate 75 Mg Tablet PO Not Given DAILY [facility] Dextrose 12.5 gm 05/19/24 15:00 Dextrose 50% 25 Gm/50 Ml Syringe IV PUSH PRN PRN Hypoglycemia Protocol Furosemide 40 mg 05/20/24 09:00 05/20/24 08:36 Furosemide 40 Mg Tablet PO 40 mg DAILY LANA Administration Glucagon 1 mg 05/19/24 15:00 Glucagon For Inj 1 Mg Vial IM PRN PRN Hypoglycemia Protocol Glucose 15 gm 05/19/24 15:00 Glucose Oral Gel 15 Gm Of Glucse In 37.5 Gm Tube PO PRN PRN Hypoglycemia Protocol Sodium Chloride 1,000 mls @ 125 mls/hr 05/19/24 11:20 05/20/24 06:19 Normal Saline Iv IV CONT 125 mls/hr .Q8H LANA Administration Dextrose 1,000 mls @ 100 mls/hr 05/19/24 15:00 Dextrose 5% 1,000 Ml IVPB PRN PRN Hypoglycemia Protocol Ceftriaxone Sodium 1 gm in 50 mls @ 100 mls/hr 05/19/24 21:00 05/19/24 22:22 Rocephin 1 Gm/Ns 50 Ml IVPB Infused Q24H [facility] Infusion Insulin Aspart 6 units 05/20/24 17:00 Insulin Aspart (*Bkc) 100 Units/Ml SUB-Q DAILY@1700 [facility] Insulin Aspart 3 - 6 units 05/20/24 08:00 05/20/24 12:36 Insulin Aspart (*Bkc) 100 Units/Ml SUB-Q Not Given TIDWM [facility] Protocol Insulin Glargine 40 units 05/19/24 21:00 05/19/24 21:29 Insulin Glargine (*Bkc) 100 Units/Ml SUB-Q 40 units HS [facility] Administration Levothyroxine Sodium 50 mcg 05/20/24 06:30 05/20/24 06:19 Levothyroxine Sodium 50 Mcg Tablet PO 50 mcg DAILY@0630 LANA Administration Lisinopril 20 mg 05/20/24 09:00 05/20/24 08:37 Lisinopril 20 Mg Tablet PO 20 mg DAILY LANA Administration Loperamide HCl 2 mg 05/19/24 14:26 Loperamide Hcl 2 Mg Capsule PO PRN PRN Diarrhea Magnesium Hydroxide 5 ml 05/19/24 20:51 Magnesium Hydroxide Susp 30 Ml Udc PO DAILY PRN constipation Metolazone 2.5 mg 05/20/24 09:00 05/20/24 08:36 Metolazone 2.5 Mg Tablet PO 2.5 mg DAILY LANA Administration Multivitamins/Minerals 1 tab 05/20/24 09:00 05/20/24 08:36 Multivitamins /C Lutein (Centrum Silver) Tablet *Bkc PO 1 tab DAILY LANA Administration Oxycodone HCl 5 mg 05/19/24 20:51 05/20/24 09:50 Oxycodone Hcl (*Crx) 5 Mg Tab Ir PO 5 mg Q6H PRN Administration PAIN RATED 7-10 Pantoprazole Sodium 40 mg 05/20/24 09:00 05/20/24 08:37 Pantoprazole Sodium Iv 40 Mg Vial IV PUSH 40 mg QAM [facility] Administration Tramadol HCl 50 mg 05/19/24 20:51 05/20/24 00:26 Tramadol Hcl (*Crx) 50 Mg Tablet PO 50 mg Q6H PRN Administration PAIN RATED 4-6 Venlafaxine HCl 150 mg 05/20/24 09:00 05/20/24 08:36 Venlafaxine Hcl Xr 75 Mg Cap.Er.24h PO 150 mg DAILY LANA Administration Labs Labs: Laboratory Results - last 24 hr 05/19/24 05/19/24 05/19/24 08:20 13:59 16:45 WBC RBC Hgb 9.6 L Hct 31.5 L MCV MCH MCHC RDW Plt Count MPV Immature Gran % (Auto) Neut % (Auto) Lymph % (Auto) [place] % (Auto) Eos % (Auto) Baso % (Auto) Lymph # (Auto) [place] # (Auto) Eos # (Auto) Baso # (Auto) Abs Immat Gran (auto) Absolute Neuts (auto) Absolute Nucleated RBC Nucleated RBC % Sodium Potassium Chloride Carbon Dioxide Anion Gap BUN Creatinine Estim Creat Clear Calc Estimated GFR Glucose POC Capillary Glucose 71 Calcium Magnesium 2.0 Iron TIBC % Saturation Ferritin Total Creatine Kinase 61 Urine Color Urine Appearance Urine pH Ur Specific [place] Urine Protein Urine Glucose (UA) Urine Ketones Ur Blood (Man) Urine Nitrate Urine Bilirubin Urine Urobilinogen Leukocyte Esterase Rfl Urine RBC Urine WBC Ur Squamous Epith Cells Urine Bacteria Urine Casts U Random Total Protein Ur Random Sodium Ur Random Urea Urine Creatinine Protein/Creat Ratio 2 05/19/24 05/19/24 05/19/24 18:31 18:42 18:42 WBC RBC Hgb 9.2 L Hct 29.2 L MCV MCH MCHC RDW Plt Count MPV Immature Gran % (Auto) Neut % (Auto) Lymph % (Auto) [place] % (Auto) Eos % (Auto) Baso % (Auto) Lymph # (Auto) [place] # (Auto) Eos # (Auto) Baso # (Auto) Abs Immat Gran (auto) Absolute Neuts (auto) Absolute Nucleated RBC Nucleated RBC % Sodium Potassium Chloride Carbon Dioxide Anion Gap BUN Creatinine Estim Creat Clear Calc Estimated GFR Glucose POC Capillary Glucose Calcium Magnesium Iron TIBC % Saturation Ferritin Total Creatine Kinase Urine Color Yellow Urine Appearance Cloudy H Urine pH 6.5 Ur Specific [place] 1.006 Urine Protein Negative Urine Glucose (UA) Negative Urine Ketones Negative Ur Blood (Man) Negative Urine Nitrate Negative Urine Bilirubin Negative Urine Urobilinogen 0.2 Leukocyte Esterase Rfl 3+ H Urine RBC 0-2 Urine WBC 11-20 H Ur Squamous Epith Cells Moderate Urine Bacteria 3+ H Urine Casts 0-2 U Random Total Protein 13 14 Ur Random Sodium 67 Ur Random Urea 183 Urine Creatinine 28.4 Protein/Creat Ratio 2 0.49 H 05/19/24 05/19/24 05/20/24 21:43 21:51 02:12 WBC 5.3 RBC 3.28 L Hgb 8.8 L Cancelled Hct 28.1 L MCV MCH MCHC RDW Plt Count MPV Immature Gran % (Auto) Neut % (Auto) Lymph % (Auto) [place] % (Auto) Eos % (Auto) Baso % (Auto) Lymph # (Auto) [place] # (Auto) Eos # (Auto) Baso # (Auto) Abs Immat Gran (auto) Absolute Neuts (auto) Absolute Nucleated RBC Nucleated RBC % Sodium 135 L Potassium 2.9 L Chloride 99 Carbon Dioxide 30 Anion Gap 6 BUN 57 H D Creatinine 2.41 H Estim Creat Clear Calc 17 Estimated GFR 19 L Glucose 63 L POC Capillary Glucose 67 Calcium 8.3 L Magnesium Iron TIBC % Saturation Ferritin Total Creatine Kinase Urine Color Urine Appearance Urine pH Ur Specific [place] Urine Protein Urine Glucose (UA) Urine Ketones Ur Blood (Man) Urine Nitrate Urine Bilirubin Urine Urobilinogen Leukocyte Esterase Rfl Urine RBC Urine WBC Ur Squamous Epith Cells Urine Bacteria Urine Casts U Random Total Protein Ur Random Sodium Ur Random Urea Urine Creatinine Protein/Creat Ratio 2 05/20/24 05/20/24 05/20/24 02:12 02:12 07:45 WBC RBC Hgb 8.3 L Hct Cancelled 27.1 L MCV 82.6 MCH 25.3 L MCHC 30.6 L RDW 15.8 H Plt Count 157 MPV 10.0 Immature Gran % (Auto) 0.4 Neut % (Auto) 62.6 Lymph % (Auto) 23.0 [place] % (Auto) 10.2 H Eos % (Auto) 3.0 Baso % (Auto) 0.8 Lymph # (Auto) 1.21 [place] # (Auto) 0.5 Eos # (Auto) 0.2 Baso # (Auto) 0.0 Abs Immat Gran (auto) 0.02 Absolute Neuts (auto) 3.3 Absolute Nucleated RBC 0.000 Nucleated RBC % 0.0 Sodium 135 L Potassium 3.4 Chloride 99 Carbon Dioxide 27 Anion Gap 9 BUN 51 H Creatinine 2.31 H Estim Creat Clear Calc 18 Estimated GFR 20 L Glucose 157 H POC Capillary Glucose 93 Calcium 8.0 L Magnesium Iron 48 TIBC 246 L % Saturation 20 Ferritin 40.70 Total Creatine Kinase Urine Color Urine Appearance Urine pH Ur Specific [place] Urine Protein Urine Glucose (UA) Urine Ketones Ur Blood (Man) Urine Nitrate Urine Bilirubin Urine Urobilinogen Leukocyte Esterase Rfl Urine RBC Urine WBC Ur Squamous Epith Cells Urine Bacteria Urine Casts U Random Total Protein Ur Random Sodium Ur Random Urea Urine Creatinine Protein/Creat Ratio 2 05/20/24 11:40 WBC RBC Hgb Hct MCV MCH MCHC RDW Plt Count MPV Immature Gran % (Auto) Neut % (Auto) Lymph % (Auto) [place] % (Auto) Eos % (Auto) Baso % (Auto) Lymph # (Auto) [place] # (Auto) Eos # (Auto) Baso # (Auto) Abs Immat Gran (auto) Absolute Neuts (auto) Absolute Nucleated RBC Nucleated RBC % Sodium Potassium Chloride Carbon Dioxide Anion Gap BUN Creatinine Estim Creat Clear Calc Estimated GFR Glucose POC Capillary Glucose 101 Calcium Magnesium Iron TIBC % Saturation Ferritin Total Creatine Kinase Urine Color Urine Appearance Urine pH Ur Specific [place] Urine Protein Urine Glucose (UA) Urine Ketones Ur Blood (Man) Urine Nitrate Urine Bilirubin Urine Urobilinogen Leukocyte Esterase Rfl Urine RBC Urine WBC Ur Squamous Epith Cells Urine Bacteria Urine Casts U Random Total Protein Ur Random Sodium Ur Random Urea Urine Creatinine Protein/Creat Ratio 2 Quality VTE Prophylaxis VTE prophylaxis: mechanical ordered
[2024-05-20 15:09] LABS: Hemoglobin 8.2 g/dL (12.0-15.0)
[2024-05-20 16:25] LABS: Glucose Point of Care 149 mg/dl (65-105)
--- NOTE | 2024-05-20 16:32 | P.CONS_ITS ---
Assessment and Plan Assessment and plan (1) BRBPR (bright red blood per rectum): Code(s): K62.5 - Hemorrhage of anus and rectum Status: Acute Assessment and Plan: Source of bleeding very well could be her internal hemorrhoid seen on colonoscopy recently. There are no thrombosed or prolapsing hemorrhoid seen at this time. Surgical management could entail simple banding of internal hemorrhoids verses a transanal hemorrhoidal dearterialization procedure ( THD). This is not need to be done emergently during this hospitalization. I think if she continues to have bleeding hemorrhoids then an interval surgical procedure for hemorrhoids can be done as an outpatient. We will continue to follow for now. (2) Anemia due to GI blood loss: Code(s): D50.0 - Iron deficiency anemia secondary to blood loss (chronic) Status: Acute Assessment and Plan: Hemoglobin was 8.2 today. That is a 4g drop to prior to being admitted to the hospital. No active bleeding right now but her lower GI bleeding could very well be due to internal hemorrhoids. Recommend transfusion as needed which will be managed by the hospitalist service. Plavix has been held for now. [facility] Data of Consult Date/Time: 05/20/24 16:32 Requesting Physician: Jony Toussaint MD Primary Care Provider: José Juarez, Consult Narrative Reason for consult: Lower GI bleeding likely secondary to the hemorrhoids Narrative: Cathryn Harris is a 84 year old female who lives in assisted living was brought to the emergency room with lower GI bleeding and blood per rectum. She had a drop of her hemoglobin to 9.4 from over 12 which was a 3g drop. She was not hemodynamically unstable. Bleeding did stop. She had a colonoscopy within the last year showing the internal hemorrhoids. She has a history of chronic diarrhea. Does use Imodium [id number]. Sometimes has pain with her hemorrhoids which she has had for many years. Has not had any prior hemorrhoid surgery in the past. She was seen by GI who recommends surgical evaluation for possible surgical intervention for bleeding hemorrhoids. She is on Plavix for antiplatelet therapy although it is not entirely clear at this time why she is on the Plavix. Patient could not tell me why she is on the Plavix. She does have a pacemaker in place. Denied to me having had a myocardial infarction or cardiac stents placed. Review of Systems 2 Review of Systems: The remainder of the review of systems to include constitutional, HEENT, cardiovascular, respiratory, GI, , integumentary, musculoskeletal, endocrine, immunologic, hematologic, psychiatric, and neurologic are all negative except for which is mentioned above in the HPI. [facility] Past Medical History Medical History Breast cancer, right History of postoperative nausea and vomiting slow recovery Depression Anxiety Hypothyroidism Diabetes Hemorrhoids Pacemaker Chronic diarrhea HTN (hypertension) Surgical History Surgical History History of lumpectomy of right breast History of bilateral cataract extraction History of shoulder surgery History of cholecystectomy Social History Social History Smoking status: Never smoker Alcohol intake: never Substance use: never Substance use type: does not use Do You Feel Safe in your Home?: Yes Lack of Transportation: No Lack of Food: Never True Current Housing: I Have Housing Concerned About Future Housing: No Difficulty Paying Gas/Electric Bills: No Difficulty Paying for Meds: No Currently Unemployed: No Education: High School Diploma/GED Difficulty w/ Childcare or Family Care: No Living arrangements: other Additional living arrangements comments: With Spiritual care concerns: No Meds Home Medications and Allergies Home Medications ?Medication ?Instructions ?Recorded ?Confirmed ?Type carvedilol 3.125 mg tablet 3.125 mg PO BID 09/02/22 05/19/24 History clopidogrel 75 mg tablet 75 mg PO DAILY 09/02/22 05/19/24 History furosemide 40 mg tablet 40 mg PO DAILY 09/02/22 05/19/24 History insulin glargine 100 unit/mL (3 40 unit subcut HS 09/02/22 05/19/24 History mL) subcutaneous pen (Lantus Solostar U-100 Insulin) levothyroxine 75 mcg tablet 50 mcg PO DAILY 09/02/22 05/19/24 History (Synthroid) rosuvastatin 5 mg tablet 5 mg PO DAILY 09/02/22 05/19/24 History venlafaxine 150 mg 150 mg PO DAILY 09/02/22 05/19/24 History capsule,extended release 24 hr aspirin 81 mg tablet,delayed 81 mg PO DAILY 05/19/24 05/19/24 History release (Adult Aspirin Regimen) atorvastatin 10 mg tablet 10 mg PO QPM 05/19/24 05/19/24 History biotin 10 mg tablet 5 mg PO DAILY 05/19/24 05/19/24 History insulin lispro 100 unit/mL 6 unit subcut .COMPLEX 05/19/24 05/19/24 History subcutaneous pen (Humalog KwikPen (U-100) Insulin) lisinopril 20 mg tablet 20 mg PO DAILY 05/19/24 05/19/24 History loperamide 2 mg capsule 2 mg PO BID 05/19/24 05/19/24 History magnesium hydroxide 400 mg/5 mL 5 ml PO DAILY PRN constipation 05/19/24 05/19/24 History oral suspension (Dulcolax (magnesium hydroxide)) metolazone 2.5 mg tablet 2.5 mg PO DAILY 05/19/24 05/19/24 History multivitamin-ferrous 1 tablet PO DAILY 05/19/24 05/19/24 History fumarate-folic acid 18 mg-400 mcg tablet (A Thru Z Advanced Formula) oxycodone 5 mg tablet 5 mg PO Q6H PRN pain 05/19/24 05/19/24 History tramadol 50 mg tablet 50 mg PO Q6H PRN pain 05/19/24 05/19/24 History Allergies Allergy/AdvReac Type Severity Reaction Status Date / Time liraglutide Allergy Unknown Unknown Verified 05/19/24 15:08 metformin Allergy Unknown Unknown Verified 05/19/24 15:08 acetaminophen AdvReac Palpitation Verified 05/19/24 15:08 s Vital Signs Vital Signs - 24 hr 05/19/24 20:00 05/19/24 20:00 05/19/24 21:31 Temperature Pulse Rate 71 84 Respiratory Rate Blood Pressure Pulse Oximetry Oxygen Delivery Room Air 05/19/24 22:00 05/20/24 00:00 05/20/24 04:00 Temperature 36.3 C L Pulse Rate 82 78 78 Respiratory Rate 18 Blood Pressure 129/43 L Pulse Oximetry 96 Oxygen Delivery 05/20/24 06:00 05/20/24 08:04 05/20/24 08:45 Temperature 36.3 C L Pulse Rate 69 80 Respiratory Rate 18 Blood Pressure 115/49 L Pulse Oximetry 96 Oxygen Delivery Room Air 05/20/24 09:44 05/20/24 12:05 05/20/24 13:58 Temperature 35.7 C L Pulse Rate 82 70 72 Respiratory Rate 16 Blood Pressure 94/60 L Pulse Oximetry 100 Oxygen Delivery Exam 2 Const: General: comfortable and no acute distress HENMT: Ears: TM's normal bilaterally Face/Nose/Sinus: Normal nares present Mouth: Yes moist mucous membranes Eyes: General: appearance normal, both eyes and all related structures S clera: sclerae normal Pupils: Equal, round and reactive pupils present E OM: EOMs intact bilaterally Neck: Neck: supple and no JVD Resp: Effort & Inspection: normal respiratory effort Auscultation: clear to auscultation bilaterally Cardio: Rate: regular rate Rhythm: regular rhythm GI: GI Palp: Yes Soft to palpation, No Firmness to palpation present (GI), No Tenderness to palpation present (GI), No Guarding due to palpation present (GI) and No Hernia present Other: Rectal exam reveals normal sphincter tone. She has minor external component to her hemorrhoids. There is suggestion of some protrusion of prolapsing internal hemorrhoids which are nonthrombosed. Currently there is no active bleeding. Skin: General skin exam: normal color and no rashes or lesions noted Neuro: General: gait normal Speech: normal speech Motor exam (neuro): 5 /5 motor strength present throughout Sensory Exam: normal sensation Extrem: General: normal to inspection Psych: Mental Status: mental status grossly normal Affect: normal affect Results Labs 05/20/24 15:03 05/20/24 02:12 Labs: Short CBC 05/19/24 05/19/24 05/20/24 Range/Units 18:31 21:51 02:12 WBC 5.3 (4.5-10.0) K/mm3 Hgb 9.2 L 8.8 L Cancelled (12.0-15.0) g/dL Hct 29.2 L 28.1 L (37.0-47.0) % Plt Count (150-375) k/mm3 05/20/24 05/20/24 05/20/24 Range/Units 02:12 02:12 15:03 WBC (4.5-10.0) K/mm3 Hgb 8.3 L 8.2 L (12.0-15.0) g/dL Hct Cancelled 27.1 L 27.0 L (37.0-47.0) % Plt Count 157 (150-375) k/mm3 BMP 05/19/24 05/20/24 21:51 02:12 Sodium 135 L 135 L Potassium 2.9 L 3.4 Chloride 99 99 Carbon Dioxide 30 27 BUN 57 H D 51 H Creatinine 2.41 H 2.31 H Glucose 63 L 157 H Calcium 8.3 L 8.0 L Urine 05/19/24 Range/Units 18:42 Urine Color Yellow (Yellow) Urine Appearance Cloudy H (Clear) Urine pH 6.5 (5.0-9.0) Ur Specific [place] 1.006 (1.001-1.035) Urine Protein Negative (Negative) mg/dL Urine Glucose (UA) Negative (Negative) mg/dL
[2024-05-20] MEDS: ATORVASTATIN 10 MG TABLET PO (17:12)
[2024-05-20] MEDS: INSULIN GLARGINE (*BKC) 100 UNITS/ML 40 UNITS SUB-Q (21:00)
[2024-05-20 21:27] LABS: Glucose Point of Care 145 mg/dl (65-105)
[2024-05-21] VITALS (10 sets, daily range): BP systolic 115–129; BP diastolic 57–66; PULSE 59–84; RESP 16–18; TEMP 36.1–37; O2SAT 97–100
[2024-05-21] MEDS: SODIUM CHLORIDE 0.9% IV 1,000 ML 125 ML IV CONT (01:32)
[2024-05-21] MEDS: oxyCODONE HCL (*CRX) 5 MG TAB IR PO (01:57)
[2024-05-21 05:31] LABS: Basophils Percent Auto 0.6 % (0.2-1.2); Eosinophils Absolute Auto 0.2 K/mm3 (0-0.3); Hematocrit 26.9 % (37.0-47.0); Hemoglobin 8.4 g/dL (12.0-15.0); Immature Granulocyte Absolute 0.01 K/mm3 (0.00-0.031); Immature Granulocyte Percent A 0.2 % (0-0.5); Lymphocytes Absolute Auto 1.46 K/mm3 (0.9-3.2); Lymphocytes Percent Auto 27.6 % (18.3-44.2); Mean Corpuscular HGB Conc 31.2 g/dl (32-36); Mean Corpuscular Hemoglobin 25.6 pg (26-34); Mean Platelet Volume 10.1 fl (7.4-10.4); Monocytes Absolute Auto 0.5 K/mm3 (0.1-0.6); Monocytes Percent Auto 9.8 % (2.6-8.5); Neutrophils Absolute Auto 3.1 K/mm3 (1.3-6.7); Neutrophils Percent Auto 57.8 % (45.5-73.1); Platelet Count Result 162 k/mm3 (150-375); Red Blood Count 3.28 M/mm3 (4.2-5.4); White Blood Count 5.3 K/mm3 (4.5-10.0)
[2024-05-21 05:49] LABS: Alanine Aminotransferase 12 U/L (6-35); Alkaline Phosphatase 64 U/L (38-126); Anion Gap 8 mmol/L (4-12); Aspartate Amino Transferase 22 U/L (14-36); Bilirubin,Total < 0.1 mg/dL (0.2-1.3); Blood Urea Nitrogen 35 mg/dL (7-17); Calcium 8.4 mg/dL (8.4-10.2); Carbon Dioxide 26 mmol/L (22-30); Chloride 106 mmol/L (98-107); Estimated CRCL calculation 24 ml/min; Estimated Glomerular Filt Rate 28; Glucose 56 mg/dL (65-110); Magnesium 1.7 mg/dL (1.6-2.3); Potassium 3.5 mmol/L (3.4-5.0); Sodium 140 mmol/L (137-145)
[2024-05-21] MEDS: LEVOTHYROXINE SODIUM 50 MCG TABLET PO (05:55)
[2024-05-21] MEDS: DEXTROSE 50% 25 GM/50 ML SYRINGE IV PUSH (05:56)
[2024-05-21 06:40] LABS: Glucose Point of Care 160 mg/dl (65-105)
[2024-05-21 08:03] LABS: Glucose Point of Care 104 mg/dl (65-105)
[2024-05-21] MEDS: PANTOPRAZOLE SODIUM IV 40 MG VIAL IV PUSH (09:23)
[2024-05-21] MEDS: ASPIRIN 81 MG ENTERIC TABLET PO (09:23)
[2024-05-21] MEDS: VENLAFAXINE HCL XR 75 MG CAP.ER.24H 150 MG PO (09:23)
[2024-05-21] MEDS: MULTIVITAMINS /C LUTEIN (CENTRUM SILVER) TABLET *BKC 1 TAB PO (09:23)
[2024-05-21] MEDS: CLOPIDOGREL BISULFATE 75 MG TABLET PO (09:24)
[2024-05-21] MEDS: traMADol HCL (*CRX) 50 MG TABLET PO ×2 (09:35→16:57)
--- NOTE | 2024-05-21 10:11 | PM.IMPN ---
Progress Note: A&P Assessment and Plan (1) BRBPR (bright red blood per rectum): Code(s): K62.5 - Hemorrhage of anus and rectum Status: Acute Assessment and Plan: - Hgb 9.6, hgb 12.7 on 06/10/23 - on Plavix common no additional anti-platelet/anticoagulation - no current indication for CT of the abdomen/pelvis, no current abdominal pain or infectious symptoms - GI evaluated and recommended gen surgery eval Surgery consulted (2) Acute kidney injury: Code(s): N17.9 - Acute kidney failure, unspecified Status: Acute Assessment and Plan: - hx of CKD stage 3 - 2.94, BUN 71, GFR 15. previously 1.32 on 10/14/23. cr 1.74 today continue IVF monitor (3) Acute hypokalemia: Code(s): E87.6 - Hypokalemia Status: Acute Assessment and Plan: - K 2.8 replaced monitor (4) Diabetes: Qualifiers: Diabetes mellitus type: type 2 Diabetes mellitus long-term insulin use: with long-term use Diabetes mellitus complication status: without complication Qualified Code(s): E11.9 - Type 2 diabetes mellitus without complications; Z79.4 - MCFP (current) use of insulin Code(s): E11.9 - Type 2 diabetes mellitus without complications Status: Chronic Assessment and Plan: - hypoglycemia protocol - POC blood glucose q.6, currently NPO - continue home medication(s) as appropriate - correct regimen ordered - moderate dose q.6 until no longer NPO - A1C ordered, none on file (5) HTN (hypertension): Qualifiers: Hypertension type: primary hypertension Qualified Code(s): I10 - Essential (primary) hypertension Code(s): I10 - Essential (primary) hypertension Status: Chronic Assessment and Plan: - chronic, currently 100/52. Arrived to the ED soft, 99/53. - hold home medications until BP improved - monitor Plan Hypoglycemia BG 56 this morning reduced Lantus to 20units Diet: diabetic diet GI Prophylaxis: Pantoprazole DVT Prophylaxis: SCDs Lines: Peripheral Code Status: Full code Subjective Date/time seen: 05/21/24 10:11 Interval history: Patient resting comfortably at bedside Was hypoglycemic this morning Review of Systems Review of Systems: All systems reviewed & are unremarkable except as noted in HPI and below Exam Const: General: comfortable and no acute distress Other: , female, elderly, nontoxic appearance HENMT: Face/Nose/Sinus: Normal nares present Mouth: Yes moist mucous membranes Eyes: General: appearance normal, both eyes and all related structures Sclera: sclerae normal Pupils: Equal, round and reactive pupils present EOM: EOMs intact bilaterally Resp: Effort & Inspection: normal respiratory effort Auscultation: clear to auscultation bilaterally Cardio: Rate: regular rate Rhythm: regular rhythm Other: S1-S2 present without murmur, rub, ectopy GI: Other: Abdomen soft, nondistended, nontender. Normoactive bowel sounds in the lower quadrants and left upper quadrant. More hyperactive in the right upper quadrant. Skin: General skin exam: normal color and no rashes or lesions noted Wounds: no wounds Neuro: Cranial nerves: Yes Equal, round and reactive pupils present Speech: normal speech Motor exam (neuro): 5/5 motor strength present throughout Sensory Exam: normal sensation Other: A&O x3, poor situation recall. Extrem: General: normal to inspection Psych: Mental Status: mental status grossly normal Affect: normal affect Other: Fair insight and judgment, pleasant Objective Data Vital Signs Vital Signs: Vital Signs - 24 hr 05/20/24 12:05 05/20/24 13:58 05/20/24 16:04 Temperature 96.2 F L Pulse Rate 70 72 81 Respiratory Rate 16 Blood Pressure 94/60 L Pulse Oximetry 100 Oxygen Delivery 05/20/24 20:00 05/20/24 21:14 05/20/24 22:04 Temperature 97.2 F L Pulse Rate 70 82 Respiratory Rate 16 Blood Pressure 128/74 Pulse Oximetry 95 Oxygen Delivery Room Air 05/21/24 00:00 05/21/24 04:46 05/21/24 06:00 Temperature 97.0 F L Pulse Rate 77 73 78 Respiratory Rate 18 Blood Pressure 120/66 Pulse Oximetry 97 Oxygen Delivery Intake/Output Intake/Output: Intake & Output 05/18/24 05/19/24 05/20/24 05/21/24 23:59 23:59 23:59 23:59 Intake Total 2150 3392.4 2030 Output Total 300 1750 1600 Balance 1850 1642.4 430 Meds/Results Medications: Active Medications Generic Name Dose Route Start Last Admin Trade Name Freq PRN Reason Stop Dose Admin Aspirin 81 mg 05/20/24 09:00 05/21/24 09:23 Aspirin 81 Mg Enteric Tablet PO 81 mg DAILY [facility]NA Administration Atorvastatin Calcium 10 mg 05/19/24 21:15 05/20/24 17:12 Atorvastatin 10 Mg Tablet PO 10 mg QPM LANA Administration Carvedilol 3.125 mg 05/19/24 21:05 05/20/24 09:44 Carvedilol 3.125 Mg Tablet PO 3.125 mg Q12HR LANA Administration Clopidogrel Bisulfate 75 mg 05/20/24 09:00 05/21/24 09:24 Clopidogrel Bisulfate 75 Mg Tablet PO 75 mg DAILY [facility] Administration Dextrose 12.5 gm 05/19/24 15:00 05/21/24 05:56 Dextrose 50% 25 Gm/50 Ml Syringe IV PUSH 12.5 gm PRN PRN Administration Hypoglycemia Protocol Furosemide 40 mg 05/20/24 09:00 05/20/24 08:36 Furosemide 40 Mg Tablet PO 40 mg DAILY [facility] Administration Glucagon 1 mg 05/19/24 15:00 Glucagon For Inj 1 Mg Vial IM PRN PRN Hypoglycemia Protocol Glucose 15 gm 05/19/24 15:00 Glucose Oral Gel 15 Gm Of Glucse In 37.5 Gm Tube PO PRN PRN Hypoglycemia Protocol Dextrose 1,000 mls @ 100 mls/hr 05/19/24 15:00 Dextrose 5% 1,000 Ml IVPB PRN PRN Hypoglycemia Protocol Ceftriaxone Sodium 1 gm in 50 mls @ 100 mls/hr 05/19/24 21:00 05/20/24 21:35 Rocephin 1 Gm/Ns 50 Ml IVPB Infused Q24H [facility] Infusion Insulin Aspart 6 units 05/20/24 17:00 05/20/24 17:13 Insulin Aspart (*Bkc) 100 Units/Ml SUB-Q Not Given DAILY@1700 [facility] Insulin Aspart 3 - 6 units 05/20/24 08:00 05/21/24 08:54 Insulin Aspart (*Bkc) 100 Units/Ml SUB-Q Not Given TIDWM [facility] Protocol Insulin Glargine 20 units 05/21/24 21:00 Insulin Glargine (*Bkc) 100 Units/Ml SUB-Q HS [facility] Levothyroxine Sodium 50 mcg 05/20/24 06:30 05/21/24 05:55 Levothyroxine Sodium 50 Mcg Tablet PO 50 mcg DAILY@0630 [facility] Administration Lisinopril 20 mg 05/20/24 09:00 05/20/24 08:37 Lisinopril 20 Mg Tablet PO 20 mg DAILY [facility] Administration Loperamide HCl 2 mg 05/19/24 14:26 Loperamide Hcl 2 Mg Capsule PO PRN PRN Diarrhea Magnesium Hydroxide 5 ml 05/19/24 20:51 Magnesium Hydroxide Susp 30 Ml Udc PO DAILY PRN constipation Metolazone 2.5 mg 05/20/24 09:00 05/20/24 08:36 Metolazone 2.5 Mg Tablet PO 2.5 mg DAILY [facility] Administration Multivitamins/Minerals 1 tab 05/20/24 09:00 05/21/24 09:23 Multivitamins /C Lutein (Centrum Silver) Tablet *Bkc PO 1 tab DAILY [facility] Administration Oxycodone HCl 5 mg 05/19/24 20:51 05/21/24 01:57 Oxycodone Hcl (*Crx) 5 Mg Tab Ir PO 5 mg Q6H PRN Administration PAIN RATED 7-10 Pantoprazole Sodium 40 mg 05/20/24 09:00 05/21/24 09:23 Pantoprazole Sodium Iv 40 Mg Vial IV PUSH 40 mg QAM [facility] Administration Tramadol HCl 50 mg 05/19/24 20:51 05/21/24 09:35 Tramadol Hcl (*Crx) 50 Mg Tablet PO 50 mg Q6H PRN Administration PAIN RATED 4-6 Venlafaxine HCl 150 mg 05/20/24 09:00 05/21/24 09:23 Venlafaxine Hcl Xr 75 Mg Cap.Er.24h PO 150 mg DAILY [facility] Administration Labs Labs: Laboratory Results - last 24 hr 05/20/24 05/20/24 05/20/24 02:12 11:40 15:03 WBC RBC Hgb 8.2 L Hct 27.0 L MCV MCH MCHC RDW Plt Count MPV Immature Gran % (Auto) Neut % (Auto) Lymph % (Auto) [place] % (Auto) Eos % (Auto) Baso % (Auto) Lymph # (Auto) [place] # (Auto) Eos # (Auto) Baso # (Auto) Abs Immat Gran (auto) Absolute Neuts (auto) Absolute Nucleated RBC Nucleated RBC % Sodium Potassium Chloride Carbon Dioxide Anion Gap BUN Creatinine Estim Creat Clear Calc Estimated GFR Glucose POC Capillary Glucose 101 Calcium Magnesium % Saturation 20 Total Bilirubin AST ALT Alkaline Phosphatase Total Protein Albumin 05/20/24 05/20/24 05/21/24 16:20 19:40 05:26 WBC 5.3 RBC 3.28 L Hgb 8.4 L Hct 26.9 L MCV 82.0 MCH 25.6 L MCHC 31.2 L RDW 16.0 H Plt Count 162 MPV 10.1 Immature Gran % (Auto) 0.2 Neut % (Auto) 57.8 Lymph % (Auto) 27.6 [place] % (Auto) 9.8 H Eos % (Auto) 4.0 Baso % (Auto) 0.6 Lymph # (Auto) 1.46 [place] # (Auto) 0.5 Eos # (Auto) 0.2 Baso # (Auto) 0.0 Abs Immat Gran (auto) 0.01 Absolute Neuts (auto) 3.1 Absolute Nucleated RBC 0.000 Nucleated RBC % 0.0 Sodium 140 Potassium 3.5 Chloride 106 Carbon Dioxide 26 Anion Gap 8 BUN 35 H D Creatinine 1.74 H Estim Creat Clear Calc 24 Estimated GFR 28 L Glucose 56 L* POC Capillary Glucose 149 H 145 H Calcium 8.4 Magnesium 1.7 % Saturation Total Bilirubin < 0.1 L AST 22 ALT 12 Alkaline Phosphatase 64 Total Protein 6.0 L Albumin 3.0 L 05/21/24 05/21/24 06:21 07:59 WBC RBC Hgb Hct MCV MCH MCHC RDW Plt Count MPV Immature Gran % (Auto) Neut % (Auto) Lymph % (Auto) [place] % (Auto) Eos % (Auto) Baso % (Auto) Lymph # (Auto) [place] # (Auto) Eos # (Auto) Baso # (Auto) Abs Immat Gran (auto) Absolute Neuts (auto) Absolute Nucleated RBC Nucleated RBC % Sodium Potassium Chloride Carbon Dioxide Anion Gap BUN Creatinine Estim Creat Clear Calc Estimated GFR Glucose POC Capillary Glucose 160 H 104 Calcium Magnesium % Saturation Total Bilirubin AST ALT Alkaline Phosphatase Total Protein Albumin Quality VTE Prophylaxis VTE prophylaxis: mechanical ordered
--- NOTE | 2024-05-21 11:06 | WPDPN ---
Progress Note: A&P Assessment and Plan (1) BRBPR (bright red blood per rectum): Code(s): K62.5 - Hemorrhage of anus and rectum Status: Acute Assessment and Plan: No further evidence of active blood per rectum. Hemoglobin is stabilized of the past 2 days. She has not need a blood transfusion. Bleeding from Hemorrhoids are certainly a possibility for why she is chronically anemic. At this point I would monitor her and she can be evaluated the office if she continues to have anemia from lower GI blood loss from her hemorrhoids. Banding of the internal hemorrhoids versus THC procedure would likely be the best options on outpatient basis. Management as per hospitalist service and GI. Surgery will follow peripherally. (2) Anemia due to GI blood loss: Code(s): D50.0 - Iron deficiency anemia secondary to blood loss (chronic) Status: Acute Assessment and Plan: Certainly can be due to blood loss due to her hemorrhoids. She is going to be put back on her Plavix and will need to monitor and see if she continues to have worsening anemia. No need for surgical management of the hemorrhoids during this hospitalization outpatient management with an elective THC versus banding of internal hemorrhoids may be considered. Subjective Date/time seen: 05/21/24 11:06 Interval history: Patient resting comfortably this morning and sleeping. I woke her she has had her main complaint was hip pain. Did have some bowel was no blood noted the bowel movements. Hemoglobin is stable is actually up to 8.4 today from 8.2 yesterday. Plavix has been restarted. Exam GI: Other: Grade 2 to grade 3 internal hemorrhoids not currently bleeding. Not spontaneously prolapsing but will prolapse with Valsalva maneuver. Objective Data Vital Signs Vital Signs: Vital Signs - 24 hr 05/20/24 12:05 05/20/24 13:58 05/20/24 16:04 Temperature 35.7 C L Pulse Rate 70 72 81 Respiratory Rate 16 Blood Pressure 94/60 L Pulse Oximetry 100 Oxygen Delivery 05/20/24 20:00 05/20/24 21:14 05/20/24 22:04 Temperature 36.2 C L Pulse Rate 70 82 Respiratory Rate 16 Blood Pressure 128/74 Pulse Oximetry 95 Oxygen Delivery Room Air 05/21/24 00:00 05/21/24 04:46 05/21/24 06:00 Temperature 36.1 C L Pulse Rate 77 73 78 Respiratory Rate 18 Blood Pressure 120/66 Pulse Oximetry 97 Oxygen Delivery Intake/Output Intake/Output: Intake & Output 05/18/24 05/19/24 05/20/24 05/21/24 23:59 23:59 23:59 23:59 Intake Total 2150 3392.4 2030 Output Total 300 1750 1600 Balance 1850 1642.4 430 Meds/Results Medications: Active Medications Generic Name Dose Route Start Last Admin Trade Name Freq PRN Reason Stop Dose Admin Aspirin 81 mg 05/20/24 09:00 05/21/24 09:23 Aspirin 81 Mg Enteric Tablet PO 81 mg DAILY LANA Administration Atorvastatin Calcium 10 mg 05/19/24 21:15 05/20/24 17:12 Atorvastatin 10 Mg Tablet PO 10 mg QPM LANA Administration Carvedilol 3.125 mg 05/19/24 21:05 05/20/24 09:44 Carvedilol 3.125 Mg Tablet PO 3.125 mg Q12HR [facility]NA Administration Clopidogrel Bisulfate 75 mg 05/20/24 09:00 05/21/24 09:24 Clopidogrel Bisulfate 75 Mg Tablet PO 75 mg DAILY [facility]NA Administration Dextrose 12.5 gm 05/19/24 15:00 05/21/24 05:56 Dextrose 50% 25 Gm/50 Ml Syringe IV PUSH 12.5 gm PRN PRN Administration Hypoglycemia Protocol Furosemide 40 mg 05/20/24 09:00 05/20/24 08:36 Furosemide 40 Mg Tablet PO 40 mg DAILY [facility]NA Administration Glucagon 1 mg 05/19/24 15:00 Glucagon For Inj 1 Mg Vial IM PRN PRN Hypoglycemia Protocol Glucose 15 gm 05/19/24 15:00 Glucose Oral Gel 15 Gm Of Glucse In 37.5 Gm Tube PO PRN PRN Hypoglycemia Protocol Dextrose 1,000 mls @ 100 mls/hr 05/19/24 15:00 Dextrose 5% 1,000 Ml IVPB PRN PRN Hypoglycemia Protocol Ceftriaxone Sodium 1 gm in 50 mls @ 100 mls/hr 05/19/24 21:00 05/20/24 21:35 Rocephin 1 Gm/Ns 50 Ml IVPB Infused Q24H [facility] Infusion Insulin Aspart 6 units 05/20/24 17:00 05/20/24 17:13 Insulin Aspart (*Bkc) 100 Units/Ml SUB-Q Not Given DAILY@1700 [facility] Insulin Aspart 3 - 6 units 05/20/24 08:00 05/21/24 08:54 Insulin Aspart (*Bkc) 100 Units/Ml SUB-Q Not Given TIDWM [facility] Protocol Insulin Glargine 20 units 05/21/24 21:00 Insulin Glargine (*Bkc) 100 Units/Ml SUB-Q HS [facility] Levothyroxine Sodium 50 mcg 05/20/24 06:30 05/21/24 05:55 Levothyroxine Sodium 50 Mcg Tablet PO 50 mcg DAILY@0630 [facility] Administration Lisinopril 20 mg 05/20/24 09:00 05/20/24 08:37 Lisinopril 20 Mg Tablet PO 20 mg DAILY [facility] Administration Loperamide HCl 2 mg 05/19/24 14:26 Loperamide Hcl 2 Mg Capsule PO PRN PRN Diarrhea Magnesium Hydroxide 5 ml 05/19/24 20:51 Magnesium Hydroxide Susp 30 Ml Udc PO DAILY PRN constipation Metolazone 2.5 mg 05/20/24 09:00 05/20/24 08:36 Metolazone 2.5 Mg Tablet PO 2.5 mg DAILY [facility] Administration Multivitamins/Minerals 1 tab 05/20/24 09:00 05/21/24 09:23 Multivitamins /C Lutein (Centrum Silver) Tablet *Bkc PO 1 tab DAILY [facility] Administration Oxycodone HCl 5 mg 05/19/24 20:51 05/21/24 01:57 Oxycodone Hcl (*Crx) 5 Mg Tab Ir PO 5 mg Q6H PRN Administration PAIN RATED 7-10 Pantoprazole Sodium 40 mg 05/20/24 09:00 05/21/24 09:23 Pantoprazole Sodium Iv 40 Mg Vial IV PUSH 40 mg QAM [facility] Administration Tramadol HCl 50 mg 05/19/24 20:51 05/21/24 09:35 Tramadol Hcl (*Crx) 50 Mg Tablet PO 50 mg Q6H PRN Administration PAIN RATED 4-6 Venlafaxine HCl 150 mg 05/20/24 09:00 05/21/24 09:23 Venlafaxine Hcl Xr 75 Mg Cap.Er.24h PO 150 mg DAILY [facility]NA Administration Labs Labs: Laboratory Results - last 24 hr 05/20/24 05/20/24 05/20/24 11:40 15:03 16:20 WBC RBC Hgb 8.2 L Hct 27.0 L MCV MCH MCHC RDW Plt Count MPV Immature Gran % (Auto) Neut % (Auto) Lymph % (Auto) [place] % (Auto) Eos % (Auto) Baso % (Auto) Lymph # (Auto) [place] # (Auto) Eos # (Auto) Baso # (Auto) Abs Immat Gran (auto) Absolute Neuts (auto) Absolute Nucleated RBC Nucleated RBC % Sodium Potassium Chloride Carbon Dioxide Anion Gap BUN Creatinine Estim Creat Clear Calc Estimated GFR Glucose POC Capillary Glucose 101 149 H Calcium Magnesium Total Bilirubin AST ALT Alkaline Phosphatase Total Protein Albumin 05/20/24 05/21/24 05/21/24 19:40 05:26 06:21 WBC 5.3 RBC 3.28 L Hgb 8.4 L Hct 26.9 L MCV 82.0 MCH 25.6 L MCHC 31.2 L RDW 16.0 H Plt Count 162 MPV 10.1 Immature Gran % (Auto) 0.2 Neut % (Auto) 57.8 Lymph % (Auto) 27.6 [place] % (Auto) 9.8 H Eos % (Auto) 4.0 Baso % (Auto) 0.6 Lymph # (Auto) 1.46 [place] # (Auto) 0.5 Eos # (Auto) 0.2 Baso # (Auto) 0.0 Abs Immat Gran (auto) 0.01 Absolute Neuts (auto) 3.1 Absolute Nucleated RBC 0.000 Nucleated RBC % 0.0 Sodium 140 Potassium 3.5 Chloride 106 Carbon Dioxide 26 Anion Gap 8 BUN 35 H D Creatinine 1.74 H Estim Creat Clear Calc 24 Estimated GFR 28 L Glucose 56 L* POC Capillary Glucose 145 H 160 H Calcium 8.4 Magnesium 1.7 Total Bilirubin < 0.1 L AST 22 ALT 12 Alkaline Phosphatase 64 Total Protein 6.0 L Albumin 3.0 L 05/21/24 07:59 WBC RBC Hgb Hct MCV MCH MCHC RDW Plt Count MPV Immature Gran % (Auto) Neut % (Auto) Lymph % (Auto) [place] % (Auto) Eos % (Auto) Baso % (Auto) Lymph # (Auto) [place] # (Auto) Eos # (Auto) Baso # (Auto) Abs Immat Gran (auto) Absolute Neuts (auto) Absolute Nucleated RBC Nucleated RBC % Sodium Potassium Chloride Carbon Dioxide Anion Gap BUN Creatinine Estim Creat Clear Calc Estimated GFR Glucose POC Capillary Glucose 104 Calcium Magnesium Total Bilirubin AST ALT Alkaline Phosphatase Total Protein Albumin
[2024-05-21 11:42] LABS: Glucose Point of Care 121 mg/dl (65-105)
[2024-05-21 12:14] LABS: Iron 40 ug/dL (37-170)
[2024-05-21 12:24] LABS: Percent Iron Saturation 16 % (20-50)
[2024-05-21] MEDS: ATORVASTATIN 10 MG TABLET PO (16:56)
[2024-05-21 16:57] LABS: Glucose Point of Care 151 mg/dl (65-105)
[2024-05-21] MEDS: INSULIN GLARGINE (*BKC) 100 UNITS/ML 20 UNITS SUB-Q (21:38)
[2024-05-22] VITALS (7 sets, daily range): BP systolic 117–136; BP diastolic 67–69; PULSE 62–85; RESP 18–20; TEMP 36.2–36.8; O2SAT 98–99
[2024-05-22 05:46] LABS: Basophils Percent Auto 0.2 % (0.2-1.2); Eosinophils Absolute Auto 0.2 K/mm3 (0-0.3); Eosinophils Percent Auto 5.1 % (0-4.4); Hematocrit 28.6 % (37.0-47.0); Hemoglobin 8.6 g/dL (12.0-15.0); Immature Granulocyte Absolute 0.03 K/mm3 (0.00-0.031); Immature Granulocyte Percent A 0.6 % (0-0.5); Lymphocytes Absolute Auto 1.04 K/mm3 (0.9-3.2); Lymphocytes Percent Auto 22.2 % (18.3-44.2); Mean Corpuscular HGB Conc 30.1 g/dl (32-36); Mean Corpuscular Hemoglobin 25.3 pg (26-34); Mean Corpuscular Volume 84.1 fl (80-100); Mean Platelet Volume 10.2 fl (7.4-10.4); Monocytes Absolute Auto 0.5 K/mm3 (0.1-0.6); Neutrophils Absolute Auto 2.9 K/mm3 (1.3-6.7); Neutrophils Percent Auto 61.9 % (45.5-73.1); Platelet Count Result 156 k/mm3 (150-375); Red Cell Distribution Width 16.2 % (11.5-14.5); White Blood Count 4.7 K/mm3 (4.5-10.0)
[2024-05-22 06:06] LABS: Alanine Aminotransferase 14 U/L (6-35); Albumin Level 3.1 g/dL (3.5-5.1); Alkaline Phosphatase 64 U/L (38-126); Anion Gap 7 mmol/L (4-12); Aspartate Amino Transferase 26 U/L (14-36); Bilirubin,Total < 0.1 mg/dL (0.2-1.3); Blood Urea Nitrogen 27 mg/dL (7-17); Calcium 8.9 mg/dL (8.4-10.2); Carbon Dioxide 29 mmol/L (22-30); Chloride 104 mmol/L (98-107); Estimated CRCL calculation 26 ml/min; Estimated Glomerular Filt Rate 31; Glucose 75 mg/dL (65-110); Magnesium 1.6 mg/dL (1.6-2.3); Potassium 3.6 mmol/L (3.4-5.0); Sodium 140 mmol/L (137-145)
[2024-05-22 07:01] LABS: Glucose Point of Care 130 mg/dl (65-105)
[2024-05-22] MEDS: LEVOTHYROXINE SODIUM 50 MCG TABLET PO (07:05)
[2024-05-22] MEDS: ASPIRIN 81 MG ENTERIC TABLET PO (08:50)
[2024-05-22] MEDS: MULTIVITAMINS /C LUTEIN (CENTRUM SILVER) TABLET *BKC 1 TAB PO (08:50)
[2024-05-22] MEDS: CLOPIDOGREL BISULFATE 75 MG TABLET PO (08:50)
[2024-05-22] MEDS: VENLAFAXINE HCL XR 75 MG CAP.ER.24H 150 MG PO (08:50)
[2024-05-22] MEDS: PANTOPRAZOLE SODIUM IV 40 MG VIAL IV PUSH (08:50)
[2024-05-22 09:41] LABS: Glucose Point of Care 61 mg/dl (65-105)
[2024-05-22 09:41] LABS: Glucose Point of Care 90 mg/dl (65-105)
--- NOTE | 2024-05-22 10:21 | PCOTNOTE ---
Attempted OT evaluation. Per RN and PT evaluation pt. is at her baseline with ADL's and functional transfers. Pt. is discharging home today. No skilled OT evaluation is recommended.
[2024-05-22] MEDS: levoFLOXacin 500 MG/D5W 100 ML 500 MG/100 ML BAG 100 MG IVPB (11:20)
--- NOTE | 2024-05-22 11:25 | WPDPN ---
Progress Note: A&P Assessment and Plan (1) Anemia due to GI blood loss: Code(s): D50.0 - Iron deficiency anemia secondary to blood loss (chronic) Status: Acute Assessment and Plan: Likely due to her internal hemorrhoids. For now she has no bleeding. Recommend continue following her iron levels and blood counts. If she continues to have will drift downward of for hemoglobin then could consider THD procedure versus banding of internal hemorrhoids as an outpatient. (2) BRBPR (bright red blood per rectum): Code(s): K62.5 - Hemorrhage of anus and rectum Status: Acute Assessment and Plan: No further bleeding of her hemorrhoids. Plavix has been restarted. We will monitor. Patient can follow-up see me in the office in 2 to 3 weeks. Okay to discharge at discretion of hospitalist service. Subjective Date/time seen: 05/22/24 11:25 Interval history: Patient without complaints. Clinically stable. No further blood per rectum. Hemoglobin has been stable. Is 8.6 today and actually is slightly increased. She is getting iron infusion. No complaints of pain from hemorrhoids. Exam GI: Other: Grade 2 internal hemorrhoids. No active bleeding. No thrombosis. Objective Data Vital Signs Vital Signs: Vital Signs - 24 hr 05/21/24 12:00 05/21/24 13:47 05/21/24 16:00 Temperature 37.0 C Pulse Rate 77 59 L 71 Respiratory Rate 16 Blood Pressure 115/57 L Pulse Oximetry 100 Oxygen Delivery Fraction of Inspired Oxygen 05/21/24 16:04 05/21/24 21:34 05/21/24 21:55 Temperature 36.4 C Pulse Rate 71 71 Respiratory Rate 16 18 Blood Pressure 129/61 Pulse Oximetry 100 100 Oxygen Delivery Room Air Room Air Fraction of Inspired Oxygen 21 05/21/24 22:10 05/21/24 22:10 05/22/24 00:00 Temperature Pulse Rate 84 70 Respiratory Rate Blood Pressure Pulse Oximetry Oxygen Delivery Room Air Fraction of Inspired Oxygen 05/22/24 04:00 05/22/24 06:00 05/22/24 08:00 Temperature 36.8 C Pulse Rate 78 84 71 Respiratory Rate 18 18 Blood Pressure 136/67 Pulse Oximetry 99 98 Oxygen Delivery Room Air Fraction of Inspired Oxygen 05/22/24 08:00 Temperature Pulse Rate 71 Respiratory Rate Blood Pressure Pulse Oximetry Oxygen Delivery Fraction of Inspired Oxygen Intake/Output Intake/Output: Intake & Output 05/19/24 05/20/24 05/21/24 05/22/24 23:59 23:59 23:59 23:59 Intake Total 2150 3392.4 2860 400 Output Total 300 1750 3100 1200 Balance 1850 1642.4 -240 -800 Meds/Results Medications: Active Medications Generic Name Dose Route Start Last Admin Trade Name Freq PRN Reason Stop Dose Admin Aspirin 81 mg 05/20/24 09:00 05/22/24 08:50 Aspirin 81 Mg Enteric Tablet PO 81 mg DAILY LANA Administration Atorvastatin Calcium 10 mg 05/19/24 21:15 05/21/24 16:56 Atorvastatin 10 Mg Tablet PO 10 mg QPM LANA Administration Carvedilol 3.125 mg 05/19/24 21:05 05/20/24 09:44 Carvedilol 3.125 Mg Tablet PO 3.125 mg Q12HR LANA Administration Clopidogrel Bisulfate 75 mg 05/20/24 09:00 05/22/24 08:50 Clopidogrel Bisulfate 75 Mg Tablet PO 75 mg DAILY LANA Administration Dextrose 12.5 gm 05/19/24 15:00 05/21/24 05:56 Dextrose 50% 25 Gm/50 Ml Syringe IV PUSH 12.5 gm PRN PRN Administration Hypoglycemia Protocol Furosemide 40 mg 05/20/24 09:00 05/20/24 08:36 Furosemide 40 Mg Tablet PO 40 mg DAILY LANA Administration Glucagon 1 mg 05/19/24 15:00 Glucagon For Inj 1 Mg Vial IM PRN PRN Hypoglycemia Protocol Glucose 15 gm 05/19/24 15:00 Glucose Oral Gel 15 Gm Of Glucse In 37.5 Gm Tube PO PRN PRN Hypoglycemia Protocol Dextrose 1,000 mls @ 100 mls/hr 05/19/24 15:00 Dextrose 5% 1,000 Ml IVPB PRN PRN Hypoglycemia Protocol Ceftriaxone Sodium 1 gm in 50 mls @ 100 mls/hr 05/19/24 21:00 05/21/24 22:10 Rocephin 1 Gm/Ns 50 Ml IVPB Infused Q24H LANA Infusion Iron Sucrose 400 mg/ Iron 275 mls @ 78.571 mls/hr 05/22/24 10:00 Sucrose 100 mg/ Sodium IVPB 05/22/24 13:29 Chloride ONCE ONE Insulin Aspart 6 units 05/20/24 17:00 05/21/24 16:58 Insulin Aspart (*Bkc) 100 Units/Ml SUB-Q Not Given DAILY@1700 [facility] Insulin Aspart 3 - 6 units 05/20/24 08:00 05/22/24 09:28 Insulin Aspart (*Bkc) 100 Units/Ml SUB-Q Not Given TIDWM [facility] Protocol Insulin Glargine 20 units 05/21/24 21:00 05/21/24 21:38 Insulin Glargine (*Bkc) 100 Units/Ml SUB-Q 20 units HS [facility] Administration Levothyroxine Sodium 50 mcg 05/20/24 06:30 05/22/24 07:05 Levothyroxine Sodium 50 Mcg Tablet PO 50 mcg DAILY@0630 [facility] Administration Lisinopril 20 mg 05/20/24 09:00 05/20/24 08:37 Lisinopril 20 Mg Tablet PO 20 mg DAILY [facility] Administration Loperamide HCl 2 mg 05/19/24 14:26 Loperamide Hcl 2 Mg Capsule PO PRN PRN Diarrhea Magnesium Hydroxide 5 ml 05/19/24 20:51 Magnesium Hydroxide Susp 30 Ml Udc PO DAILY PRN constipation Metolazone 2.5 mg 05/20/24 09:00 05/20/24 08:36 Metolazone 2.5 Mg Tablet PO 2.5 mg DAILY [facility] Administration Multivitamins/Minerals 1 tab 05/20/24 09:00 05/22/24 08:50 Multivitamins /C Lutein (Centrum Silver) Tablet *Bkc PO 1 tab DAILY [facility] Administration Oxycodone HCl 5 mg 05/19/24 20:51 05/21/24 01:57 Oxycodone Hcl (*Crx) 5 Mg Tab Ir PO 5 mg Q6H PRN Administration PAIN RATED 7-10 Pantoprazole Sodium 40 mg 05/20/24 09:00 05/22/24 08:50 Pantoprazole Sodium Iv 40 Mg Vial IV PUSH 40 mg QAM [facility] Administration Tramadol HCl 50 mg 05/19/24 20:51 05/21/24 16:57 Tramadol Hcl (*Crx) 50 Mg Tablet PO 50 mg Q6H PRN Administration PAIN RATED 4-6 Venlafaxine HCl 150 mg 05/20/24 09:00 05/22/24 08:50 Venlafaxine Hcl Xr 75 Mg Cap.Er.24h PO 150 mg DAILY LANA Administration Labs Labs: Laboratory Results - last 24 hr 05/21/24 05/21/24 05/21/24 05:21 11:37 16:55 WBC RBC Hgb Hct MCV MCH MCHC RDW Plt Count MPV Immature Gran % (Auto) Neut % (Auto) Lymph % (Auto) [place] % (Auto) Eos % (Auto) Baso % (Auto) Lymph # (Auto) [place] # (Auto) Eos # (Auto) Baso # (Auto) Abs Immat Gran (auto) Absolute Neuts (auto) Absolute Nucleated RBC Nucleated RBC % Sodium Potassium Chloride Carbon Dioxide Anion Gap BUN Creatinine Estim Creat Clear Calc Estimated GFR Glucose POC Capillary Glucose 121 H 151 H Calcium Magnesium Iron 40 TIBC 253 L % Saturation 16 L Ferritin 40.90 Total Bilirubin AST ALT Alkaline Phosphatase Total Protein Albumin 05/21/24 05/22/24 05/22/24 21:33 05:32 09:00 WBC 4.7 RBC 3.40 L Hgb 8.6 L Hct 28.6 L MCV 84.1 MCH 25.3 L MCHC 30.1 L RDW 16.2 H Plt Count 156 MPV 10.2 Immature Gran % (Auto) 0.6 H Neut % (Auto) 61.9 Lymph % (Auto) 22.2 Davidson % (Auto) 10.0 H Eos % (Auto) 5.1 H Baso % (Auto) 0.2 Lymph # (Auto) 1.04 Davidson # (Auto) 0.5 Eos # (Auto) 0.2 Baso # (Auto) 0.0 Abs Immat Gran (auto) 0.03 Absolute Neuts (auto) 2.9 Absolute Nucleated RBC 0.000 Nucleated RBC % 0.0 Sodium 140 Potassium 3.6 Chloride 104 Carbon Dioxide 29 Anion Gap 7 BUN 27 H Creatinine 1.59 H Estim Creat Clear Calc 26 Estimated GFR 31 L Glucose 75 POC Capillary Glucose 130 H 61 L Calcium 8.9 Magnesium 1.6 Iron TIBC % Saturation Ferritin Total Bilirubin < 0.1 L AST 26 ALT 14 Alkaline Phosphatase 64 Total Protein 6.0 L Albumin 3.1 L 05/22/24 09:39 WBC RBC Hgb Hct MCV MCH MCHC RDW Plt Count MPV Immature Gran % (Auto) Neut % (Auto) Lymph % (Auto) [place] % (Auto) Eos % (Auto) Baso % (Auto) Lymph # (Auto) Davidson # (Auto) Eos # (Auto) Baso # (Auto) Abs Immat Gran (auto) Absolute Neuts (auto) Absolute Nucleated RBC Nucleated RBC % Sodium Potassium Chloride Carbon Dioxide Anion Gap BUN Creatinine Estim Creat Clear Calc Estimated GFR Glucose POC Capillary Glucose 90 Calcium Magnesium Iron TIBC % Saturation Ferritin Total Bilirubin AST ALT Alkaline Phosphatase Total Protein Albumin
[2024-05-22 11:37] LABS: Glucose Point of Care 156 mg/dl (65-105)
[2024-05-22] MEDS: IRON SUCROSE COMPLEX 400 MG, IRON SUCROSE COMPLEX 100 MG in SODIUM CHLORIDE 0.9% IV 250 ML 78.57 MG IVPB (12:57)
--- NOTE | 2024-05-22 13:38 | P.DS_ITS ---
DS: Admitting Diagnosis Discharge Date 05/22/2024 Admitting Diagnosis Rectal Bleeding DS: Summary Hospital Course Hospital Course: 84 y/o F with PMH of hypothyroidism, HLD, diabetes, hypertension, pacemaker, breast cancer IDC (right lumpectomy, in process of discussing chemo and radiation), and hemorrhoids presents here with rectal bleeding. The patient presents here from [facility] via EMS for further evaluation of rectal bleeding. HPI obtained through chart review, patient interview, and the patient's [id number]. She has had bleeding hemorrhoids since early March. She started using tucks pad and Preparation H, more so utilized the tucks pads. Last night, she began having a moderate amount of bright red blood per rectum. Her helped her to get cleaned up but she did not report the finding at that time. Facility staff then noted multiple saturated bloody washcloths this morning in her trash in the patient's room prompting them to call EMS. The patient is currently complaining of mild rectal pain. She had significant lower abdominal pain earlier this week, fatigue, and decreased appetite. She denies fever, chills, body aches. [id number] also reports they have noticed she has lost weight - 03/29 186 lbs and 04/27 168 lbs. Denies night sweats. She is on Plavix, no other anti-platelet or anticoagulation. Patient has a history of chronic diarrhea that has varied in severity. Within the last year she has had to increase her once daily Imodium to twice daily. Initial VS at presentation: 97.4? F, HR 81, R 11, 99/53, and 100% on RA. ED workup showed: No leukocytosis, hemoglobin 9.6, normal coags, sodium 131, potassium 2.8, creatinine 2.94 and GFR 15 (no previous available for comparison). GI was consulted and he evaluated and noted that bleeding is hemorrhoidal and thus recommended GEn surgery mariela. gen surgery was consulted, evaluated patient and noted outpatinet follow up as patient did not have active bleeding while in the hospital Patient was placed on IVF and creatinine was improved from 2.94 to 1.59. hypokalemia resolved. Also managed for Iron deficiency as Isat was 16 and Hb 8.6. Patient was given 500mg IV iron and discharged on PO iron. Urine culture showed Morganella morganii and dsicharged on 6 days of Ciprofloxacin per sensitivity. F/u wiht PCP in 3-5 days and follow up with Surgery as instructed Time Spent with Patient Time attestation: Total time spent providing and/or coordinating discharge services: DS: Data Data Completed and Pending Labs on day of discharge: Labs from last 24 hours 05/22/24 05/22/24 05/22/24 11:35 09:39 09:00 WBC RBC Hgb Hct MCV MCH MCHC RDW Plt Count MPV Immature Gran % (Auto) Neut % (Auto) Lymph % (Auto) [place] % (Auto) Eos % (Auto) Baso % (Auto) Lymph # (Auto) [place] # (Auto) Eos # (Auto) Baso # (Auto) Abs Immat Gran (auto) Absolute Neuts (auto) Absolute Nucleated RBC Nucleated RBC % Sodium Potassium Chloride Carbon Dioxide Anion Gap BUN Creatinine Estim Creat Clear Calc Estimated GFR Glucose POC Capillary Glucose 156 H 90 61 L Calcium Magnesium Total Bilirubin AST ALT Alkaline Phosphatase Total Protein Albumin 05/22/24 05/21/24 05/21/24 05:32 21:33 16:55 WBC 4.7 RBC 3.40 L Hgb 8.6 L Hct 28.6 L MCV 84.1 MCH 25.3 L MCHC 30.1 L RDW 16.2 H Plt Count 156 MPV 10.2 Immature Gran % (Auto) 0.6 H Neut % (Auto) 61.9 Lymph % (Auto) 22.2 [place] % (Auto) 10.0 H Eos % (Auto) 5.1 H Baso % (Auto) 0.2 Lymph # (Auto) 1.04 [place] # (Auto) 0.5 Eos # (Auto) 0.2 Baso # (Auto) 0.0 Abs Immat Gran (auto) 0.03 Absolute Neuts (auto) 2.9 Absolute Nucleated RBC 0.000 Nucleated RBC % 0.0 Sodium 140 Potassium 3.6 Chloride 104 Carbon Dioxide 29 Anion Gap 7 BUN 27 H Creatinine 1.59 H Estim Creat Clear Calc 26 Estimated GFR 31 L Glucose 75 POC Capillary Glucose 130 H 151 H Calcium 8.9 Magnesium 1.6 Total Bilirubin < 0.1 L AST 26 ALT 14 Alkaline Phosphatase 64 Total Protein 6.0 L Albumin 3.1 L Discharge Plan Discharge Attending physician on discharge: Sukumar Schuster Consulting providers: Mohamud Anaya Discharging Clinician: Sukumar Schuster Anticipated Discharge Date/Time: 05/22/24 13:33 Patient Disposition: NH Shelter/Asst Living Activity: as tolerated Diet: as tolerated Discharge Instructions: Patient follow-up see Dr. Anaya in the office in 2 to 3 weeks. Patient Instructions: Antibiotic Form Patient Language: Urdu Stand Alone Forms: General Discharge Information Follow-up/Referrals: Juarez,José Faria MD [Primary Care Provider] - (F/u with PCP in 3-5 days) Mohamud Anaya MD [Physician] - (Patient may call [phone] for appointment to see me in the office in 2 to 3 weeks.) Discharge Medications: New ferrous sulfate 324 mg (65 mg iron) tablet,delayed release (DR/EC) 324 mg PO DAILY 30 Days Qty: 30 1RF ciprofloxacin HCl 250 mg tablet 250 mg PO Q12H 6 Days Qty: 12 0RF Continued furosemide 40 mg tablet 40 mg PO DAILY venlafaxine 150 mg capsule,extended release 24hr 150 mg PO DAILY clopidogrel 75 mg tablet 75 mg PO DAILY carvedilol 3.125 mg tablet 3.125 mg PO BID levothyroxine [Synthroid] 75 mcg tablet 50 mcg PO DAILY rosuvastatin 5 mg tablet 5 mg PO DAILY aspirin [Adult Aspirin Regimen] 81 mg tablet,delayed release (DR/EC) 81 mg PO DAILY atorvastatin 10 mg tablet 10 mg PO QPM biotin 10 mg tablet 5 mg PO DAILY insulin lispro [Humalog KwikPen Insulin] 100 unit/mL insulin pen 6 unit subcut .COMPLEX Rx Instructions: 6 units subcutaneously with dinner if blood glucose over 180; loperamide 2 mg capsule 2 mg PO BID magnesium hydroxide [Dulcolax (magnesium hydroxide)] 400 mg/5 mL suspension 5 ml PO DAILY PRN (Reason: constipation) oxycodone 5 mg tablet 5 mg PO Q6H PRN (Reason: pain) tramadol 50 mg tablet 50 mg PO Q6H PRN (Reason: pain) metolazone 2.5 mg tablet 2.5 mg PO DAILY A Thru Z Advanced Formula 18-400 mg-mcg tablet 1 tablet PO DAILY lisinopril 20 mg tablet 20 mg PO DAILY Changed insulin glargine [Lantus Solostar U-100 Insulin] 100 unit/mL (3 mL) insulin pen 20 unit SUBCUT HS 30 Days Qty: 15 1RF Date of admission: 05/20/24 09:27 Primary Care Provider: Larry,José Faria Admitting Provider: Jony Toussaint Attending physician on admission: Jony Toussaint Condition: Serious
[2024-05-22 18:08] LABS: Glucose Point of Care 108 mg/dl (65-105)
== END 2024-05-22 17:58 | DRG 394 ==
LOC: ANHED 11:17 → ANH3MED 11:55
PROVIDERS: Student in an Organized Health Care Education/Training Program; Admitting Provider Internal Medicine; Emergency Provider Emergency Medicine; PCP Internal Medicine; Visit Provider Internal Medicine
DX: K64.1 Second degree hemorrhoids (principal); N17.9 Acute kidney failure, unspecified; D50.0 Iron deficiency anemia secondary to blood loss (chronic); I12.9 Hypertensive chronic kidney disease with stage 1 through stage 4 chronic kidney disease, or unspecified chronic kidney disease; N18.30 Chronic kidney disease, stage 3 unspecified; E87.6 Hypokalemia; E03.9 Hypothyroidism, unspecified; E11.9 Type 2 diabetes mellitus without complications; K52.9 Noninfective gastroenteritis and colitis, unspecified; K57.30 Diverticulosis of large intestine without perforation or abscess without bleeding; F32.A Depression, unspecified; F41.9 Anxiety disorder, unspecified; Z79.02 Long term (current) use of antithrombotics/antiplatelets; Z79.4 Long term (current) use of insulin; Z79.82 Long term (current) use of aspirin; Z95.0 Presence of cardiac pacemaker; Z85.3 Personal history of malignant neoplasm of breast
CPT/HCPCS: 36415; 80048; 80053; 81001; 81050; 82550; 82570; 82728; 82948; 83540; 83550; 83735; 84156; 84300; 84540; 85014; 85018; 85025; 85610; 85730; 86850; 86900; 86901; 87086; 87186; 93005; 96361; 96365; 96366; 96367; 96375; 97161; 99212; 99285; A9270; G0378; G0463; J0696; J1756; J1815; J1956; J2470; J3480; J7030; J7040; J7050

== ENCOUNTER 2024-07-25 08:40 | Emergency (ER) | payer MEDICARE, SELFPAY ==
--- NOTE | ~2024-07-25 | XR_ITS ---
EXAMINATION: XR chest 2V DATE: 07/25/2024 10:29 INDICATION: Chest pain TECHNIQUE: frontal and lateral views of the chest were obtained. COMPARISON: None FINDINGS: Small lung volumes. Mild opacities in bilateral lower lung zones which could represent atelectasis, m ild pulmonary edema or pneumonia. No pleural effusion or pneumothorax. The cardiomediastinal silhouet te is normal. 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 Cholecystectomy clips in right upper quadrant. IMPRESSION: 1. Normal lung volumes with mild opacities in the lower lung zones which could represent atelectasis, mild pulmonary edema or pneumonia. Reviewed, dictated and finalized at location A.
--- NOTE | ~2024-07-25 | XR_ITS ---
EXAMINATION: XR tibia fibula RT 2V DATE: 07/25/2024 10:30 INDICATION: Right lower limb swelling and erythema TECHNIQUE: AP and lateral views of the right tibia and fibula were obtained. COMPARISON: None. FINDINGS: Bone alignment is normal. No fracture. Joint spaces appear relatively preserved with small marginal o ssified swelling the patella consistent with mild patellofemoral osteoarthritis. There is subcutaneou s edema predominantly along the lateral and distal aspects of the calf. Multiple small dystrophic chito cifications in the subcutaneous tissues at the medial aspect of the distal calf which could be seen a s sequela of chronic venous stasis. No ankle joint effusion. IMPRESSION: 1. Nonspecific soft tissue swelling with subcutaneous edema at the right calf with some dystrophic ca lcific lesions at the medial aspect of the distal calf typically seen as sequela of chronic venous st asis. 2. Mild patellofemoral osteoarthritis. No acute osseous abnormality. Reviewed, dictated and finalized at location A. IMPRESSION: 1. Nonspecific soft tissue swelling with subcutaneous edema at the right calf w ith some dystrophic calcific lesions at the medial aspect of the distal calf ty pically seen as sequela of chronic venous stasis. 2. Mild patellofemoral osteoarthritis. No acute osseous abnormality.
--- NOTE | ~2024-07-25 | XR_ITS ---
AP and lateral views of the left tibia/fibula Clinical History: Redness Findings: No acute fracture or dislocation is seen. Osseous alignment is anatomic. Joint spaces are p reserved without significant erosive or degenerative change. Soft tissues are unremarkable. Impression: Unremarkable left tib-fib radiographs. Reviewed, dictated and finalized at [facility]. Impression: Unremarkable left tib-fib radiographs.
[2024-07-25 08:45] VITALS: BP 132/65; PULSE 92; RESP 15; TEMP 36.6; O2SAT 100
--- NOTE | 2024-07-25 09:39 | ECG_ITS ---
Test Date: 2024-07-25 10:29:04 Measurements Intervals [place] Rate: 92 P: 43 AL: 203 QRS: 38 QRSD: 109 T: 26 QT: 413 QTc: 511 Interpretive Statements SINUS RHYTHM BORDERLINE AV CONDUCTION DELAY INCOMPLETE RIGHT BUNDLE BRANCH BLOCK MINIMAL Q WAVES- INFERIOR LEADS BASELINE ARTIFACT- I, II, III, AVR, AVL, AVF, V1 BORDERLINE ECG Compared to ECG 05/19/2024 08:21:41 NO SIGNIFICANT CHANGE Electronically Signed On 07-25-2024 10:38:42 CDT by Oh Arce D.O.
--- NOTE | 2024-07-25 09:42 | ED_ITS ---
HPI - Extremity Injury (Lower) General Chief Complaint: Extremity Injury, Lower Stated Complaint: bilateral lower ext swelling/redness Time Seen by Provider: 07/25/24 09:01 History of Present Illness HPI Narrative: Patient is an 84-year-old female presents to the ER with bilateral lower extremity redness swelling. She reports she got up this morning and 1 of the nursing aides noticed her legs were swollen, warm, and tight. Patient endorses pain in her bilateral lower legs and feet. She endorses history of diabetes and high blood pressure, but denies other history. Patient was asked if she is on a blood thinner in she reports ?I do not think so, although according to her chart she last had her Plavix filled at the end of June 2024. Her chart indicates she has a history of breast cancer, congestive heart failure, and high blood pressure. Patient reports ?my pacemaker is due to be changed in 11 months.She denies any chest pain, shortness of breath, new onset back pain, or urinary symptoms. Patient does endorse left hip pain and reports she broke her hip a couple months ago but they decided not to do surgery. Related Data Home Medications ?Medication ?Instructions ?Recorded ?Confirmed ?Last Taken ?Type carvedilol 3.125 mg tablet 3.125 mg PO BID 09/02/22 06/14/24 Unknown History clopidogrel 75 mg tablet 75 mg PO DAILY 09/02/22 06/14/24 09/04/22 History furosemide 40 mg tablet 40 mg PO DAILY 09/02/22 06/14/24 Unknown History levothyroxine 75 mcg tablet 50 mcg PO DAILY 09/02/22 06/14/24 Unknown History (Synthroid) rosuvastatin 5 mg tablet 5 mg PO DAILY 09/02/22 06/14/24 Unknown History venlafaxine 150 mg 150 mg PO DAILY 09/02/22 06/14/24 Unknown History capsule,extended release 24 hr aspirin 81 mg tablet,delayed 81 mg PO DAILY 05/19/24 06/14/24 Unknown History release (Adult Aspirin Regimen) biotin 10 mg tablet 5 mg PO DAILY 05/19/24 06/14/24 Unknown History insulin lispro 100 unit/mL 6 unit subcut .COMPLEX 05/19/24 06/14/24 Unknown History subcutaneous pen (Humalog KwikPen (U-100) Insulin) lisinopril 20 mg tablet 20 mg PO DAILY 05/19/24 06/14/24 Unknown History loperamide 2 mg capsule 2 mg PO BID 05/19/24 06/14/24 Unknown History magnesium hydroxide 400 mg/5 mL 5 ml PO DAILY PRN constipation 05/19/24 06/14/24 Unknown History oral suspension (Dulcolax (magnesium hydroxide)) metolazone 2.5 mg tablet 2.5 mg PO DAILY 05/19/24 06/14/24 Unknown History multivitamin-ferrous 1 tablet PO DAILY 05/19/24 06/14/24 Unknown History fumarate-folic acid 18 mg-400 mcg tablet (A Thru Z Advanced Formula) tramadol 50 mg tablet 50 mg PO Q6H PRN pain 05/19/24 06/14/24 Unknown History Allergies Allergy/AdvReac Type Severity Reaction Status Date / Time liraglutide Allergy Unknown Unknown Verified 06/14/24 09:46 metformin Allergy Unknown Unknown Verified 06/14/24 09:46 acetaminophen AdvReac Palpitation Verified 06/14/24 09:46 s Review of Systems 2 Review of Systems: All systems reviewed & are unremarkable except as noted in HPI and below PMFSH Past Medical History Medical History Breast cancer, right History of postoperative nausea and vomiting slow recovery Depression Anxiety Hypothyroidism Diabetes Hemorrhoids Pacemaker Chronic diarrhea HTN (hypertension) Surgical History Surgical History History of lumpectomy of right breast History of bilateral cataract extraction History of shoulder surgery History of cholecystectomy Social History Social History Smoking status: Never smoker Alcohol intake: never Substance use: never Substance use type: does not use Do You Feel Safe in your Home?: Yes Lack of Transportation: No Lack of Food: Never True Current Housing: I Have Housing Concerned About Future Housing: No Difficulty Paying Gas/Electric Bills: No Difficulty Paying for Meds: No Currently Unemployed: No Education: High School Diploma/GED Difficulty w/ Childcare or Family Care: No Living arrangements: other Additional living arrangements comments: With Occupation/Education: other Spiritual care concerns: No Exam 2 Narrative: GENERAL: Well appearing, well-nourished, non-toxic, in no acute distress. HEAD: Normocephalic, atraumatic. NECK: Supple. No adenopathy, no masses. RESPIRATORY: Airway patent, respirations nonlabored. Clear to auscultation bilaterally, no rales, rhonchi, wheezing. CARDIOVASCULAR: Regular rate and rhythm without murmurs, rubs, or gallops. Peripheral pulses 2+ and equal bilaterally. Pitting edema bilateral lower extremities. ABDOMINAL: Soft, nontender, nondistended, no hepatosplenomegaly. Normoactive BS. MUSCULOSKELETAL: Moves all extremities. Strength/ROM intact without gross deformities. SKIN: Warm, dry, normal color. No rashes. R breast is tender and red compared to L breast, although L breast has some yeast underneath. No noticeable drainage from R nipple. Palpable lump under place where pt reports her previous breast cancer from removed. RLE swollen, red, pitting edema. LLE swollen and red with pitting edema but not as swollen as RLE. Both LE warm to the touch. NEURO: A&O X3. Speech clear. Cranial nerves II-XII intact. No ataxic movements. PSYCHIATRIC: Appropriate mood and affect. Normal interaction. Course Vital Signs Vital signs: Vital Signs Temperature 36.6 C 07/25/24 08:45 Pulse Rate 92 07/25/24 08:45 Respiratory Rate 15 07/25/24 08:45 Blood Pressure 132/65 07/25/24 08:45 Pulse Oximetry 100 07/25/24 08:45 Oxygen Delivery Room Air 07/25/24 08:45 Temperature 36.6 C 07/25/24 08:45 Pulse Rate 83 07/25/24 11:13 Respiratory Rate 20 07/25/24 11:13 Blood Pressure 118/48 L 07/25/24 11:13 Pulse Oximetry 100 07/25/24 11:13 Oxygen Delivery Room Air 07/25/24 08:45 MDM - Extremity Injury (Lower) MDM Narrative Medical decision making narrative: Patient is an 84-year-old female presents to the ER with bilateral lower extremity redness swelling. She reports she got up this morning and 1 of the nursing aides noticed her legs were swollen, warm, and tight. Patient endorses pain in her bilateral lower legs and feet. She endorses history of diabetes and high blood pressure, but denies other history. Patient was asked if she is on a blood thinner in she reports ?I do not think so, although according to her chart she last had her Plavix filled at the end of June 2024. Her chart indicates she has a history of breast cancer, congestive heart failure, and high blood pressure. Patient reports ?my pacemaker is due to be changed in 11 months. She denies any chest pain, shortness of breath, new onset back pain, or urinary symptoms. Patient does endorse left hip pain and reports she broke her hip a couple months ago but they decided not to do surgery. Labs Ordered: CBC, CMP, lactic acid, UA PTT, INR, BNP, CRP Imaging Ordered: Right tib-fib x-ray, left tib-fib x-ray, chest x-ray Medications Ordered: Doxycycline p.o. Results: Patient's lactic acid is within normal limits. Her CRP is negative. Patient's white blood cell count is 5.2, which is within normal limits. Her other blood work results are consistent with previous results. Patient's right tib-fib x-ray indicates 1. Nonspecific soft tissue swelling with subcutaneous edema at the right calf with some dystrophic calcific lesions at the medial aspect of the distal calf typically seen as sequela of chronic venous stasis. 2. Mild patellofemoral osteoarthritis. No acute osseous abnormality. Patient's left tib-fib x-ray indicates Unremarkable left tib-fib radiographs. Diagnosis: Cellulitis Patient Education/Shared MDM: Results of lab work and imaging shared with patient. She will be given her 1st dose of oral antibiotics here in the ER. Patient strongly advised to maintain hydration status upon discharge and follow- up with their PCP as soon as possible. She will be discharged home with a prescription for doxycycline. Strict return precautions provided. Patient verbalized understanding and is in agreement with plan. Vital signs stable at time of discharge. All questions answered. Differential Diagnosis Differential diagnosis: Likely other (Cellulitis, sepsis, CHF exacerbation) Lab Data Attestation: I reviewed the patient's lab results. 07/25/24 09:52 07/25/24 09:52 Labs: Lab Results 07/25/24 07/25/24 07/25/24 Range/Units 09:52 09:52 10:38 WBC 5.2 (4.5-10.0) K/mm3 RBC 3.55 L (4.2-5.4) M/mm3 Hgb 9.7 L (12.0-15.0) g/dL Hct 32.0 L (37.0-47.0) % MCV 90.1 (80-100) fl MCH 27.3 (26-34) pg MCHC 30.3 L (32-36) g/dl RDW 15.9 H (11.5-14.5) % Plt Count 157 (150-375) k/mm3 MPV 10.4 (7.4-10.4) fl Immature Gran % (Auto) 0.4 (0-0.5) % Neut % (Auto) 74.2 H (45.5-73.1) % Lymph % (Auto) 12.6 L (18.3-44.2) % [place] % (Auto) 9.7 H (2.6-8.5) % Eos % (Auto) 2.3 (0-4.4) % Baso % (Auto) 0.8 (0.2-1.2) % Lymph # (Auto) 0.66 L (0.9-3.2) K/mm3 [place] # (Auto) 0.5 (0.1-0.6) K/mm3 Eos # (Auto) 0.1 (0-0.3) K/mm3 Baso # (Auto) 0.0 (0.0-0.1) K/mm3 Abs Immat Gran (auto) 0.02 (0.00-0.031) K/mm3 Absolute Neuts (auto) 3.9 (1.3-6.7) K/mm3 Absolute Nucleated RBC 0.000 (0.0-0.012) K/mm3 Nucleated RBC % 0.0 (0.0-0.2) % PT 14.2 (11.1-14.7) Seconds INR 1.1 APTT 25.3 (22.3-36.8) Seconds Sodium 140 (137-145) mmol/L Potassium 3.8 (3.4-5.0) mmol/L Chloride 107 (98-107) mmol/L Carbon Dioxide 25 (22-30) mmol/L Anion Gap 8 (4-12) mmol/L BUN 27 H (7-17) mg/dL Creatinine 1.42 H (0.7-1.0) mg/dL Estim Creat Clear Calc 27 ml/min Estimated GFR 35 L (59 - ) Glucose 126 H (65-110) mg/dL Lactic Acid 1.2 (0.7-2.0) mmol/L Calcium 9.7 (8.4-10.2) mg/dL Total Bilirubin 0.3 (0.2-1.3) mg/dL AST 25 (14-36) U/L ALT 15 (6-35) U/L Alkaline Phosphatase 54 (38-126) U/L C-Reactive Protein < 0.5 (<1.0) mg/dL NT-Pro-B Natriuret Pep 807 H Cancelled (19.9-100) pg/mL Total Protein 6.8 (6.3-8.2) g/dL Albumin 3.6 (3.5-5.1) g/dL Urine Color Yellow (Yellow) Urine Appearance Clear (Clear) Urine pH 5.5 (5.0-9.0) Ur Specific [place] 1.013 (1.001-1.035) Urine Protein Negative (Negative) mg/dL Urine Glucose (UA) Negative (Negative) mg/dL Urine Ketones Negative (Negative) mg/dL Ur Blood (Man) Negative (Negative) Urine Nitrate Negative (Negative) Urine Bilirubin Negative (Negative) Urine Urobilinogen 0.2 (<2.0) mg/dL Leukocyte Esterase Rfl Negative (Negative) EMELINA/UL Imaging Data Attestation: I personally reviewed and interpreted this imaging study as follows: Radiologist's impression: Impressions Tibia/Fibula X-Ray 07/25/24 10:51 Impression: Unremarkable left tib-fib radiographs. Chest X-Ray 07/25/24 11:12 IMPRESSION: 1. Normal lung volumes with mild opacities in the lower lung zones which could represent atelectasis, mild pulmonary edema or pneumonia. Tibia/Fibula X-Ray 07/25/24 11:24 IMPRESSION: 1. Nonspecific soft tissue swelling with subcutaneous edema at the right calf with some dystrophic calcific lesions at the medial aspect of the distal calf typically seen as sequela of chronic venous stasis. 2. Mild patellofemoral osteoarthritis. No acute osseous abnormality. Discharge Plan Discharge Clinical Impression: Cellulitis of leg without foot, right, Cellulitis of left leg without foot, Cellulitis of right breast Patient Disposition: [facility]As[facility] Living Condition: Stable Instructions: Antibiotic Form Additional Instructions: Please return to the ER with any worsening symptoms. Follow-up with primary care provider as soon as possible so your lower extremities and right breast can be monitored closely. Take all medications as prescribed, including regularly scheduled medications. Complete your full dose of antibiotics. Patient Language: Malagasy Prescriptions: New doxycycline monohydrate 100 mg capsule 100 mg PO BID Qty: 14 0RF No Action furosemide 40 mg tablet 40 mg PO DAILY venlafaxine 150 mg capsule,extended release 24hr 150 mg PO DAILY clopidogrel 75 mg tablet 75 mg PO DAILY carvedilol 3.125 mg tablet 3.125 mg PO BID levothyroxine [Synthroid] 75 mcg tablet 50 mcg PO DAILY rosuvastatin 5 mg tablet 5 mg PO DAILY aspirin [Adult Aspirin Regimen] 81 mg tablet,delayed release (DR/EC) 81 mg PO DAILY biotin 10 mg tablet 5 mg PO DAILY insulin lispro [Humalog KwikPen Insulin] 100 unit/mL insulin pen 6 unit subcut .COMPLEX Rx Instructions: 6 units subcutaneously with dinner if blood glucose over 180; loperamide 2 mg capsule 2 mg PO BID magnesium hydroxide [Dulcolax (magnesium hydroxide)] 400 mg/5 mL suspension 5 ml PO DAILY PRN (Reason: constipation) tramadol 50 mg tablet 50 mg PO Q6H PRN (Reason: pain) metolazone 2.5 mg tablet 2.5 mg PO DAILY A Thru Z Advanced Formula 18-400 mg-mcg tablet 1 tablet PO DAILY lisinopril 20 mg tablet 20 mg PO DAILY insulin glargine [Lantus Solostar U-100 Insulin] 100 unit/mL (3 mL) insulin pen 20 unit SUBCUT HS 30 Days Qty: 15 1RF ferrous sulfate 324 mg (65 mg iron) tablet,delayed release (DR/EC) 324 mg PO DAILY 30 Days Qty: 30 1RF Follow-up/Referrals: Larry,José Faria MD [Primary Care Provider] - Stand Alone Forms: Fpc Discharge Time of Disposition: 13:00
--- OUTSIDE RECORDS SUMMARY | 2024-07-25 09:49 | XMS_ITS ---
Author Organization [facility] Address [address] [place] [address] Care Team Providers Care Hoof Trimmer Name Role Phone José Juarez MD Primary Care Provider Hannah Alcazar MD PhD Unavailable [phone] Active Problems Problem Noted Date Diagnosed Date Diabetic ulcer of left great toe 07/13/2024 Assessment & Plan (07/13/2024 3:29 PM CDT): Newer problem. Seeing Dr Dugan (podiatry) re: L hallux tip ulcer. Had dopplers to check blood flow. Scab has been there since 03/29/24 breast surgery. Has f/u appt w/him again 08/02/24. Confusional state 05/17/2024 Allergic rhinitis 05/09/2024 Basilar artery syndrome 05/09/2024 Closed Colles' fracture 05/09/2024 Closed fracture of surgical neck of humerus 04/17 Fracture of humerus 05/09/2024 Postartificial menopausal syndrome 05/09/2024 Primary localized osteoarthritis of pelvic regio n and thigh 05/09/2024 Sleep apnea 05/09/2024 Edema of lower extremity 05/03/2024 Contusion of toe 04/05/2024 Diarrhea 03/21/2024 Pain of left hip joint 03/16/2024 Fracture of femur 02/23/2024 Malignant neoplasm of upper- inner quadrant of right breast in female, estrogen receptor positive 01/11/2024 Cancer Staging:Clinical:Stage IIA(cT2, cN0, cM0, G3, ER+, MO+, HER2-, Oncotype DX score: 39) - Signed by Hannah Alcazar MD PhD on 06/14/2024 Mass of right breast 12/03/2023 Other abnormal and inconclus johanna findings on diagnostic imaging of breast 11/17/2023 High serum creatinine 10/14/2023 Senile osteoporosis 10/14/2023 Carotid arterial disease 10/02/2023 Neuropathy 09/29/2022 Altered bowel function 08/06/2022 Unsteady gait when walking 08/06/2022 Unintentional weight loss 08/01/2022 Abdominal pain 07/21/2022 Class 1 obesity 06/02/2022 Otitis media 04/24/2022 Hypothyroidism 01/02/2022 Assessment & Plan (07/13/2024 2:44 PM CDT): Chronic problem. Clinically & biochemically euthyroid. Currently taking levothyroxine 75mcg daily. Will update labs. Does not mychart. Verified phone #/address to contact re: results. Assessment & Plan (03/09/2024 3:18 PM JACKET PREPARER): Chronic problem. Clinically & biochemically euthyroid. Currently [...] daily Assessment & Plan (01/02/2022 2:38 PM JACKET PREPARER): Will check TFT Adjust dose of LT4 [...] diabetes m ellitus 08/20/2017 Assessment & Plan (07/13/2024 2:43 PM CDT): Chronic problem. Currently taking rosuvastatin 5mg. Last lipid panel: 07/07/23 LDL=78, IE=149. Will update labs. Does not mychart. Verified phone #/address to contact re: results. Assessment & Plan (03/09/2024 3:15 PM JACKET PREPARER): Chronic problem. Currently taking rosuvastatin 5mg. Last lipid panel: 07/07/23 LDL=78, DR=210. Assessment & Plan (10/28/2023 1:33 PM CDT): Chronic problem. Currently taking rosuvastatin 5mg. Last lipid panel: 07/07/23 LDL=78, IJ=134. Assessment & Plan (07/07/2023 11:16 AM CDT): Chronic problem. Currently taking rosuvastatin 5mg. Last lipid panel: 06/18/21 LDL=75, TN=118. Will update labs today. Does not mychart. Verified phone #/address to contact re: results. Assessment & Plan (11/04/2022 4:20 PM CDT): Chronic, well-controlled Continue statin therapy with atorvastatin Assessment & Plan (01/02/2022 2:37 PM JACKET PREPARER): Chronic, well controlled Low fat Low cholesterol diet Exercise Continue statin therapy Assessment & Plan (07/04/2021 1:42 PM CDT): Chronic, well controlled Low fat Low cholesterol diet Exercise Continue statin therapy Assessment & Plan (01/24/2021 4:18 PM JACKET PREPARER): Lipids checked today LDL and non HDL cholesterol at goal Continue with simvastatin 20 mg daily Assessment & Plan (2020 3:12 PM JACKET PREPARER): Goal of treatment , LDL cholesterol less [...] profile Assessment & Plan (04/05/2019 2:52 PM JACKET PREPARER): Goal of treatment , LDL cholesterol less [...] therapy Assessment & Plan (04/06/2018 11:27 AM JACKET PREPARER): Goal of treatment , LDL cholesterol less [...] therapy Assessment & Plan (12/25/2017 1:08 PM JACKET PREPARER): At goal on current medications. Assessment & [...] use of insulin 09/09/2016 Assessment & Plan (07/13/2024 3:20 PM CDT): Chronic problem. A1c increased from 5.9% 03/09/24 to now 6.9%. Current medications: Lantus 40 units at bedtime Humalog 6 units with dinner if blood sugar over 180 UTD on DM eye exam (12/28/23 no DMR [facility] in [place]). Had appt 06/07/24. Letter sent to get copy of report. Will update labs. Does not mychart. Verified phone #/address to contact re: results. Discussed with Cathryn Harris: Strive for regular exercise (30min most days) and diet (get at least 4-5 servings of fruit and veggies daily, avoid processed foods, increase lean protein intake and decrease carb portions as well as fruit juices, regular soda & desserts). Watch carbs and simple sugars. Check the blood sugar: Freestyle evelio. Check the feet daily for skin breakdown and infection. Assessment & Plan (03/09/2024 3:12 PM JACKET PREPARER): Chronic problem. A1c improved from 7.2% 10/28/23 to now 5.9%. Current medications: Lantus 40 units at bedtime Humalog 6 units with dinner if blood sugar over 180 DM eye exam 01/2023 [facility] in [place]. Second request letter sent to get copy of report UTD on labs. Discussed with Cathryn Harris: Strive for regular exercise (30min most days) and diet (get at least 4-5 servings of fruit and veggies daily, avoid processed foods, increase lean protein intake and decrease carb portions as well as fruit juices, regular soda & desserts). Watch carbs and simple sugars. Check the blood sugar: Freestyle evelio. Check the feet daily for skin breakdown and infection. Assessment & Plan (10/28/2023 1:57 PM CDT): Chronic problem. A1c improved from 8.2% 07/07/23 to now 7.2%. Due to the lows overnight--decrease Lantus from 45 to now 40 units. Current medications: Lantus 40 units at bedtime Humalog 6 units with dinner if blood sugar over 180 DM eye exam 01/2023 [facility] in [place]. Second request letter sent to get copy of report UTD on labs. Discussed with Cathryn Harris: Strive for regular exercise (30min most days) and diet (get at least 4-5 servings of fruit and veggies daily, avoid processed foods, increase lean protein intake and decrease carb portions as well as fruit juices, regular soda & desserts). Watch carbs and simple sugars. Check the blood sugar: Freestyle evelio. Check the feet daily for skin breakdown and infection. Assessment & Plan (07/07/2023 11:50 AM CDT): Chronic problem. A1c pauline from 7.8% 10/2022 to now 8.2%. Will increase lantus from 40 units to 45 units qhs. Current medications: Lantus 45 units at bedtime Humalog 6 units with dinner if blood sugar over 180 DM eye exam 01/2023 [facility] in [place]. Will send letter to get copy of report Will update labs today. Does not mychart. Verified phone #/address to contact re: results. Discussed with Cathryn Harris: Strive for regular exercise (30min most days) and diet (get at least 4-5 servings of fruit and veggies daily, avoid processed foods, increase lean protein intake and decrease carb portions as well as fruit juices, regular soda & desserts). Watch carbs and simple sugars. Check the blood sugar: Freestyle evelio. Check the feet daily for skin breakdown [...] ) Assessment & Plan (01/02/2022 2:33 PM JACKET PREPARER): Lower Lantus to 35 units Take Humalog, [...] units. Assessment & Plan (01/24/2021 4:17 PM JACKET PREPARER): Hba1c was Lab Results Component Value Date [...] dinner. Assessment & Plan (2020 3:11 PM JACKET PREPARER): Hba1c was Lab Results Component Value Date [...] Lantus Assessment & Plan (04/05/2019 2:51 PM JACKET PREPARER): Hba1c was Lab Results Component Value Date [...] discussed. Assessment & Plan (04/06/2018 11:26 AM JACKET PREPARER): Hba1c was Lab Results Component Value Date HGBA1C 7.6 04/06/2018 today, indicating ... DM control 1800 calorie, consistent carb diet recommended 25-45 min daily exercise, combining both aerobic and resistance exercise recommended. The need to monitor blood glucose before meals and bedtime was discussed. Prevention and treatment of hyypoglcyemia discussed. Lower Glimepiride, 1 mg daily Assessment & Plan (12/25/2017 1:07 PM JACKET PREPARER): A1c 7.3. Reduce Lantus to 38 bid. [...] visit. Assessment & Plan (04/09/2017 2:50 PM JACKET PREPARER): Hba1c was 7.2 today, indicating DM Adequate control 1800 calorie, consistent carb diet recommended 30 min daily aerobic and resistance exercise recommended Prevention and treatment of hyypoglcyemia discussed. Blood glucose monitoring with fingers sticks 1-2 x day . Assessment & Plan (01/06/2017 2:48 PM JACKET PREPARER): Hba1c was 6.8 today, indicating adequate DM [...] associated with diabetes 09/09/2016 Assessment & Plan (07/13/2024 2:43 PM CDT): Chronic problem. Controlled on current carvedilol 3.125mg bid, lisinopril 20mg, lasix 40mg daily Will update labs. Does not mychart. Verified phone #/address to contact re: results. Assessment & Plan (03/09/2024 3:18 PM JACKET PREPARER): Chronic problem. Controlled on current carvedilol 3.125mg [...] meds Assessment & Plan (2020 3:11 PM JACKET PREPARER): Goal blood pressure is less than 140/85 [...] Lisinopril Assessment & Plan (04/05/2019 2:52 PM JACKET PREPARER): Goal blood pressure is less than 140/85 [...] ARB Assessment & Plan (04/06/2018 11:27 AM JACKET PREPARER): Goal blood pressure is less than 140/85 Low salt diet recommended Daily aerobic exercise Continue current meds, including LINDA-I or ARB Assessment & Plan (12/25/2017 1:07 PM JACKET PREPARER): Controlled on current medications. Assessment & Plan (08/20/2017 1:35 PM CDT): Goal blood pressure is less than 140/85 Low salt diet recommended Daily aerobic exercise Continue current meds, including LINDA-I or ARB Assessment & Plan (04/09/2017 2:49 PM JACKET PREPARER): Goal blood pressure is less than 140/85 Low salt diet recommended Daily aerobic exercise Continue current meds, including LINDA-I or ARB Assessment & Plan (01/06/2017 2:36 PM JACKET PREPARER): Goal blood pressure is less than 140/85 [...] advised. Assessment & Plan (04/09/2017 2:49 PM JACKET PREPARER): Goal of treatment , LDL cholesterol less [...] therapy Assessment & Plan (01/06/2017 2:36 PM JACKET PREPARER): Goal of treatment , LDL cholesterol less [...] diet, exercise advised. 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 No medications schedul ed. No medications scheduled. Past Treatment and Therapy Plans No past plan information found. Current Radiation Episodes * Radiation Oncology - Radiation Therapy - March 2024Overview* First Treatment Date Latest Treatment Date Treatment Site Technique Goal Episode Provider 06/22/2024 07/04/2024 Treatment Courses* Course [id number]/22/2024 - 07/04/2024 Treatment Period Fraction Dose Fractions Total Dose Plans Planned RT BRST [facility] 06/29/2024 - 07/04/2024 250 4 / 1,000 RT BREAST 06/22/2024 - 06/28/2024 520 5 / 2 ,600 Reference Points Delivered RT BREAST [facility] 06/29/2024 - 07/04/2024 1,000 [id number] 06/22/2024 - 06/28/2024 2,600 Resolved Problems Problem Noted Date Diagnosed Date Resolved Date Infiltrating ductal carcinoma of breast 12/17/2023 06/28/2024 Type 2 diabetes mellitus without complication 09/30/1907/13/2024 Diabetes mellitus 07/06/2015 07/13/2024
--- OUTSIDE RECORDS SUMMARY | 2024-07-25 09:49 | XMS_ITS | Encounter Summary ---
Author Organization [facility] Healthcare Address [address] [place] [address] Care Team Providers Care Animal Trainer Supervisor Name Role Phone José Juarez MD Primary Care Provider Reason for Visit * Diagnostic Imaging (Routine) - Pending Review Specialty Diagnoses / Procedures Referred By Dakotaac t Referred To Contact Procedures Breast Imaging Screening Outside Reference Transcribed Order, Provider Referral ID Status Reason Start Date Expiration Date V isits Requested Visits Authorized [id number] Pending Review 01/08/2024 02/06/2025 1 1 Encounter Details Date Type Department Care Team (Late st Contact Info) Description 08/25/2016 Hospital Encounter [facility] [address] [place] [id number] Social History Tobacco Use Types Packs/Day Years [...] feel afraid or unsafe? Denies 03/29/2024 Comments No Sex and Gender Information Value Date Recorded Sex Assigned at Not on file Legal Sex Female 12:21 AM SQL REPORT ANALYST Gender Identity Not on file Sexual Orientation [...] CDT) Impressions [facility] - 01/08/2024 3:58 PM SQL REPORT ANALYST These images are for Reference purposes only and have not been reviewed by [facility]. There will be no report generated by a [facility] Radiologist. Narrative [facility] - 01/08/2024 3:58 PM SQL REPORT ANALYST EXAMINATION: Images For Reference Purposes Only us Provider Transcribed Order IMG MAMMO PROCEDURES Final Result [facility] documented in this encounter Visit Diagnoses Not on filedocumented in this encounter Care Teams Animal Trainer Supervisor Relationship Specialty Start Date End Date José Juarez MD PCP - General 05/16/16 documented as of this encounter
--- OUTSIDE RECORDS SUMMARY | 2024-07-25 09:49 | XMS_ITS | CONTINUITY OF CARE DOCUMENT ---
Author Name cora shepherd Address Unknown Organization [facility] Address [address] [place] [address] Phone [phone] Care Team Providers Care Plastics Repairer Name Role Phone Isha ANTHONY, Sy Unavailable CLEOPATRA ANTHONY, ERICKSON Unavailable ERICKSON JUAREZ MD Unavailable [phone] PROBLEMS Condition Status Date Provider Notes Dual [...] active Sy Vieira MD Dizziness active Santino Lawrence SOB active Joss Peoples Unintentional weight loss active Sy marinelli MD Chest pain active Devon Cobos Carotid arterial disease active Devon shaw Breast cancer active Devon Cobos Leg edema, bilateral active Benito Sosa h ENCOUNTERS Date Type Provider Location Encounter Diag nosis - In-person encounter Office Visit Sy Vieira MD [place] [facility] Leg edema, bilateral - In-person encounter Office Visit Sy Vieira MD [facility] Breast cancer - In-person encounter Office Visit Sy Vieira MD [place] [facility] Chest painCarotid arterial disease - In-person encounter Office Visit Sy Vieira MD [place] [facility] - In-person encounter Office Visit Sy Vieira MD [facility] Unintentional weight loss - In-person encounter Office Visit Sy Vieira MD [facility] - In-person encounter Office Visit Sy Vieira MD [facility] - In-person encounter Office Visit Oswaldo Claros MD [facility] - In-person encounter Office Visit Sy Vieira MD [facility] SOB - In-person encounter Office Visit Sy Vieira MD [facility] - In-person encounter Office Visit Sy Vieira MD [place] [facility] Dizziness - In-person encounter Office Visit Sy Vieira MD [facility] Carotid bruit - In-person encounter Office Visit Sy Vieira MD [facility] symptoms involving cardiovascular systemDiabetes mellitusHypercholesterolemia - In-person encounter Office Visit Sy Vieira MD [facility] - In-person encounter Office Visit Sy Vieira MD [facility] HTN SystolicOcclusion and stenosis of vertebral artery, without mention of cerebral infarction - In-person encounter Office Visit Sy Vieira MD [facility] Syncope and collapseSick sinus syndrome VITAL SIGNS Date Observation Value Provider Body Mass Index (Ratio) 26.71 kg/m2 Mazin Francisco blood pressure, diastolic 69 mm[Hg] Diane luz Schneider blood pressure, systolic 112 mm[Hg] Yisel stone Schneider oxygen saturation, oximetry 96 % Brianna Schneider pulse rate 71 /min Brianna Schneider weight E&M 168 [lb_av] [facility] E&[facility] 12 /[facility] height E&M 66.5 [in_i] [facility] blood pressure, cuff size regular An natty Schneider Body Mass Index (Ratio) 29.41 kg/m2 Luís Vieira MD blood pressure, cuff size regular Ke antonioi Emir blood pressure, diastolic 84 mm[Hg] Ke rri Emir blood pressure, systolic 132 mm[Hg] Candace ri Emir oxygen saturation, oximetry 97 % Tracy Field pulse rate 92 /min Tracy Ernest[facility] weight E&M 185 [lb_av] Tracy Ernestina [facility] height E&M 66.5 [in_i] Tracy min respiratory rate E&M 12 /min Crissy Lanier height E&M 66.5 [in_i] Crissy Lanier Body Mass Index (Ratio) 30.52 kg/m2 Luís Vieira MD blood pressure, diastolic 96 mm[Hg] Madhavi acevedoLoglelo blood pressure, systolic 140 mm[Hg] Dina og pulse rate 85 /min Deshawn y blood pressure, cuff size regular Ja opal blood pressure, diastolic 96 mm[Hg] Ja blood pressure, systolic 140 mm[Hg] Meng cm respiratory rate E&M 12 /min Deshawn oxygen saturation, oximetry 98 % Deshawn weight E&M 192 [lb_av] Deshawn y height E&M 66.5 [in_i] Deshawn y Body Mass Index (Ratio) 30.01 kg/m2 Luís Vieira MD blood pressure, diastolic 94 mm[Hg] Madhavi Log blood pressure, systolic 136 mm[Hg] Dina [facility] blood pressure, diastolic 73 mm[Hg] Waleska Ricardo blood pressure, systolic 136 mm[Hg] [facility] shruthi Ricardo pulse rate 86 /min Val Ricardo oxygen saturation, oximetry 97 % Val Ricardo respiratory rate E&M 18 /min Val Ricardo blood pressure, cuff size regular billy Ricardo weight E&M 188.8 [lb_av] Val Ricardo height E&M 66.5 [in_i] Val Ricardo Body Mass Index (Ratio) 32.43 kg/m2 Devon Cobos blood pressure, diastolic 59 mm[Hg] Ri gordon Ector blood pressure, systolic 134 mm[Hg] Modesto helsoo Barney blood pressure, cuff size large Ri gordon Ector oxygen saturation, oximetry 98 % Trudy Barney respiratory rate E&M 16 /min Shira Barney pulse rate 81 /min Trudy Pepe son weight E&M 204 [lb_av] Trudy Pepe son height E&M 66.5 [in_i] Trudy Pepe son Body Mass Index (Ratio) 33.07 kg/m2 Luís Vieira MD blood pressure, cuff size large Ke rri Gruenenfelder blood pressure, diastolic 70 mm[Hg] Ke rri Gruenenfelder blood pressure, systolic 146 mm[Hg] Ker ri Gruenenfelder oxygen saturation, oximetry 96 % Tracy Raadnenfelder respiratory rate E&M 16 /min Tracy G urielenenfelder pulse rate 97 /min Tarcy Gruenenfe lder weight E&M 208 [lb_av] Tracy Gruenenfe lder height E&M 66.5 [in_i] Tracy Gruenenfe lder Body Mass Index (Ratio) 33.70 kg/m2 Barbara Claros MD blood pressure, cuff size regular Cy ntmarquez Earl blood pressure, diastolic 85 mm[Hg] Cy nthia Earl blood pressure, systolic 141 mm[Hg] Shannan karissa Earl oxygen saturation, oximetry 92 % Xena Earl respiratory rate E&M 16 /min Xena Earl pulse rate 97 /min Xena Campbel l weight E&M 212 [lb_av] Xena Campbel l height E&M 66.5 [in_i] Xena Campbel l Body Mass Index (Ratio) 33.86 kg/m2 Blanka Peoples blood pressure, diastolic 80 mm[Hg] Ki lltommie Rainey blood pressure, systolic 130 mm[Hg] Chantale thompson Rainey oxygen saturation, oximetry 98 % [place] Rainey respiratory rate E&M 16 /min [place] Rainey pulse rate 109 /min Heri Rainey weight E&M 213 [lb_av] Heri Rainey height E&M 66.5 [in_i] [place] Rainey Body Mass Index (Ratio) 34.66 kg/m2 Abhishek kapoor Melinda blood pressure, cuff size regular Cy luis a Earl blood pressure, diastolic 74 mm[Hg] Cy luis a Earl blood pressure, systolic 130 mm[Hg] Shannan karissa Earl oxygen saturation, oximetry 93 % Xena Earl respiratory rate E&M 16 /min Xenakarissa Earl pulse rate 110 /min Xena Rafaelbel l weight E&M 218 [lb_av] Xena Campbel l height E&M 66.5 [in_i] Xena Campbel l Body Mass Index (Ratio) 34.18 kg/m2 Abhishek kapoor Melinda blood pressure, diastolic 72 mm[Hg] Da agus Duran blood pressure, systolic 110 mm[Hg] Dac ia Duran oxygen saturation, oximetry 93 % Caitlin Duran respiratory rate E&M 16 /min Catilin V oss pulse rate 74 /min Caitlin Duran weight E&M 215 [lb_av] Caitlin Duran height E&M 66.5 [in_i] Caitlin Duran Body Mass Index (Ratio) 34.43 kg/m2 Luís Vieira MD blood pressure, resting Yes Stacey Roberson blood pressure, diastolic 75 mm[Hg] Hortensia Roberson blood pressure, systolic 139 mm[Hg] Margaret Roberson oxygen saturation, oximetry 96 % Callie Roberson respiratory rate E&M 18 /min Jay Roberson pulse rate 83 /min Callie davenport weight E&M 216.6 [lb_av] Callie byrd height E&M 66.5 [in_i] Callie davenport blood pressure, diastolic 64 mm[Hg] Hortensia Roberson blood pressure, systolic 136 mm[Hg] Margaret Roberson pulse rate 84 /min Callie davenport oxygen saturation, oximetry 96 % Callie Roberson respiratory rate E&M 16 /min Jay Roberson Body Mass Index (Ratio) 33.83 kg/m2 Stacey Roberson weight E&M 212.8 [lb_av] Callie byrd Body Mass Index (Ratio) 34.11 kg/m2 Idris Mccall blood pressure, diastolic 84 mm[Hg] Joshua lizama Stefany blood pressure, systolic 148 mm[Hg] Joshua bryce Stefany pulse rate 94 /min Joshuabryce Setfany oxygen saturation, oximetry 96 % Marlen Stefany respiratory rate E&M 20 /min Marlen Stefany weight E&M 214.6 [lb_av] Marlen Stefany Body Mass Index (Ratio) 33.54 kg/m2 Anea viji Josep blood pressure, diastolic 88 mm[Hg] An eatris Josep blood pressure, systolic 155 mm[Hg] Ane atris Josep pulse rate 78 /min Aneatris Josep oxygen saturation, oximetry 95 % Aneatris Josep respiratory rate E&M 18 /min Aneatri s Josep weight E&M 211 [lb_av] Ileanaatramanda Car Body Mass Index (Ratio) 34.02 kg/m2 Candice Lewis blood pressure, diastolic 76 mm[Hg] Honorio Lewis blood pressure, systolic 149 mm[Hg] Tahir Lewis pulse rate 91 /min Carley Lewis oxygen saturation, oximetry 96 % Carley Lewis respiratory rate E&M 17 /min Carley Lewis weight E&M 214 [lb_av] Carley Lewis height E&M 66.5 [in_i] Carley Lewis ALLERGIES Allergy Name Onset Date Reaction Criticality [...] by mouth at bedtime - 3 Tatiana Rushing carvedilol 3.125 mg tablet active Take 1 [...] Date Observation Value Provider drug use no Benito Sosa alcohol use no Benito [facility] smoking status Never smoker [facility]ito [facility] drug use no Devon Ahmedzai alcohol use no Devon Ahmedzai smoking status Never smoker Devon Ahmedzai drug use no Devon Ahmedzai alcohol use no Devon Ahmedzai smoking status Never smoker Devon Goldmedzai social history reviewed E&M revi ewed - no changes required Raquel Pineda NP social history E&M S moking History: Rosalia ramires has never smoked. 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 Vadim Yen social history reviewed E&M revi ewed - no changes required Vadim Yen smoking status Never smoker Tracy simpson social history E&M S moking History: Rosalia armires has never smoked. Dejuan Buitrago social history reviewed E&M revi ewed - no changes required Dejuan Buitrago smoking status Never smoker Xena Rosangela wild social history reviewed E&M revi ewed - no changes required Joss Peoples smoking status Never smoker Heri Escobar jeferson social history reviewed E&M revi ewed - no changes required Santino Lawrence social history E&M S moking History: P keyla has never smoked. Santino Lawrence smoking status Never smoker Xena Rosangela wild number of grandchildren Sy Lawrence social history reviewed E&M revi ewed - no changes required Santino Lawrence social history E&M S moking History: P keyla has never smoked. Santino Lawrence smoking status Never smoker Caitlin Duran social history reviewed E&M revi ewed - no changes required Deepti Wyatt smoking status Never smoker Callie Mukherjee social history E&M Smoking Histo ry: Rosalia ramires has never smoked. Sy Vieira MD social history reviewed E&M revi ewed - no changes required Sy Vieira MD smoking status Never smoker Callie Mukherjee smoking status Never smoker Sandrita Ordonez social history reviewed E&M revi ewed - no changes required Sandrita Ordonez social history reviewed E&M revi ewed - no changes required Sy Vieira MD pacemaker surgery, hx of yes Briana Vieira MD social history reviewed E&M revi ewed - no changes required Sy Vieira MD pacemaker surgery, hx of yes Briana Vieira MD smoking status Never smoker Carley Lewis FAMILY HISTORY Family Member Condition Father Family History of Di abetes: Mother Family History of Hy pertension: INSURANCE PROVIDERS Payer name Policy type / Coverage type [place] red constitution party ID [place] Medicare [id number] [facility] [id number] ADVANCE DIRECTIVES Name Date DISCUSSED - NO DECISION MADE TREATMENT PLAN Date Name Performer [id number],W,b ilateral bruit on both sided on exam present Raquel Arangoanca BEYER [id number],S, B P today: 140/96 P rior BP: [...] (Furosemide) ..... 1 tablet once a day Trinaadriana Arangoanca BEYER [id number],C, M anaged per PCP H er updated medication list for this problem includes: Lisinopril 20 Mg Tablet (Lisinopril) ..... Take 1 tablet by mouth once a day take 1 tablet daily Raquel Miriam BEYER [id number],C, TRI 156, HDL 47, LDL 88, TC 166 (09/29/2022) per PCP H er updated medication list for this problem includes: Rosuvastatin 5 Mg Tablet (Rosuvastatin) ..... Take 1 tablet by mouth at bedtime Raquel Pineda NP [id number],C, L ast device check 10/27/22: Normal device function Trinaadriana Arangoanca BEYER [id number],B, n o recurrence H er updated medication list for this problem includes: Carvedilol 3.125 Mg Tablet (Carvedilol) ..... Take 1 tablet by mouth twice a day take 1 tablet twice a day Lisinopril 20 Mg Tablet (Lisinopril) ..... Take 1 tablet by mouth once a day take 1 tablet daily Clopidogrel 75 Mg Tablet (Clopidogrel) ..... 1 tablet once a day Raquel Pineda [employer] [id number],B, S /P PPM. Normal device function H [...] (Clopidogrel) ..... 1 tablet once a day Raquel Pineda [employer] [id number],C,1 normal carotids Chelsey Chamberslenore BEYER [id number],C,see above Minoo Chamberslenore [employer] TRA[employer] [id number],C, D C PPM implanted 10/27/2013. normal device [...] 1 tablet once a day Chelsey Chamberslenore [employer] TRA[employer] [id number],C, B P today: 134/59 P rior BP: [...] ..... 1 tablet once a day Chelsey rGeco [employer] [id number],C, T he following medications were removed from the medication list: Simvastatin 20 Mg Tablet (Simvastatin) ..... 1 tablet every night Her updated medication list for this problem includes: Rosuvastatin 5 Mg Tablet (Rosuvastatin) ..... Take 1 tablet by mouth at bedtime will obtain yearly lab results from Dr. Juarez's office Chelsey Greco KAYLEEN [id number],C, C ONCLUSIONS: 1 . Mild plaque with less than 50% stenosis of the internal carotid arteries bilaterally. 2 . Vertebral flow is antegrade bilaterally. will recheck in 1 year Chelsey Greco KAYLEEN [id number],Cm ild CAMACHO unchanged echo: 11/2020 E F [...] 1 tablet once a day Chelsey Greco [employer] [id number],S, D OE on walking long distances. unchanged. Her updated medication list for this problem includes: Furosemide 40 Mg Tablet (Furosemide) ..... 1 tablet once a day Lisinopril 20 Mg Tablet (Lisinopril) ..... Take 1 tablet once a day Carvedilol 6.25 Mg Tablet (Carvedilol) ..... Take 1 tablet twice a day Vadim Yen [id number],S, D C PPM implanted 10/27/2013. normal device function. Her updated medication list for this problem includes: Clopidogrel 75 Mg Tablet (Clopidogrel) ..... 1 tablet once a day Lisinopril 20 Mg Tablet (Lisinopril) ..... Take 1 tablet once a day Carvedilol 6.25 Mg Tablet (Carvedilol) ..... Take 1 tablet twice a day Vadim Lawcole [id number],S, C heck carotid US. Vadim Yen [id number],S, B P today: 146/70 P rior BP: 141/85 (10/14/2019) Her updated medication list for this problem includes: Furosemide 40 Mg Tablet (Furosemide) ..... 1 tablet once a day Lisinopril 20 Mg Tablet (Lisinopril) ..... Take 1 tablet once a day Carvedilol 6.25 Mg Tablet (Carvedilol) ..... Take 1 tablet twice a day Vadim Farshad Electrophysiology: B P today: 112/69 P rior BP: 132/84 (01/01/2024) Her updated medication list for this problem includes: Furosemide 40 Mg Tablet (Furosemide) ..... 1 tablet every other day Carvedilol 3.125 Mg Tablet (Carvedilol) ..... Take 1 tablet by mouth twice a day take 1 tablet twice a day Lisinopril 20 Mg Tablet (Lisinopril) ..... Take 1 tablet by mouth once a day take 1 tablet daily .hg Benito Francisco Electrophysiology:2+ BLE edema; recommend to use compression stockings. Continue metalozone and lasix r/o DVT with BLE venous Benito Francisco Electrophysiology: H er updated medication list for this problem includes: Rosuvastatin 5 Mg Tablet (Rosuvastatin) ..... Take 1 tablet at bedtime Benito Francisco Electrophysiology:30 % RA 1 1month JAMEE indicator < 1% AF Benito Francisco Electrophysiology:fo llows with oncology; appears to be gone s/p partial mastectomy and radaition therapy Benito Francisco Electrophysiology:Rishi rodriguez: (10/28/2013) Dual chamber [place] [employer] at [facility] by MARYANN wraymal function from recent remote check Sy Vieira MD Electrophysiology:Ex tensive review of the pertinent previous and curent labs , EKGs, cardiac tesing and imaging data was done by Dr. Isha whittaker CP currently Her updated medication list for [...] daily Devon Cobos Electrophysiology Devon Cobos Electrophysiology Devon luis felipe Electrophysiology: n o CP currently Her updated [...] once a day take 1 tablet daily [facility] Electrophysiology: H er updated medication list for this problem includes: Lisinopril 20 Mg Tablet (Lisinopril) ..... Take 1 tablet by mouth once a day take 1 tablet daily [facility] Electrophysiology:no recurrence Her updated medication list for this problem includes: Carvedilol 3.125 Mg Tablet (Carvedilol) ..... Take 1 tablet by mouth twice a day take 1 tablet twice a day Lisinopril 20 Mg Tablet (Lisinopril) ..... Take 1 tablet by mouth once a day take 1 tablet daily Clopidogrel 75 Mg Tablet (Clopidogrel) ..... 1 tablet once a day [facility] Electrophysiology:no rmal function from recent remote check [facility] Electrophysiology: O rders: C arotid Duplex Bilateral (CPT-21860) [facility] Electrophysiology: P rior BP: 140/96 (11/14/2022) [...] (Furosemide) ..... 1 tablet once a day [facility] Electrophysiology:un clear culprit for atypical CP, will request ER records for review. will check echo. She has not had recurrence of her CP. O rders: C omplete Echo (58539) 1 5421 MOD 30-39min (CPT-95354) [facility] Electrophysiology: H er updated medication list for this problem includes: Lisinopril 20 Mg Tablet (Lisinopril) ..... Take 1 tablet by mouth once a day take 1 tablet daily Devontorin Garzoe Electrophysiology: H er updated medication list for this problem includes: Rosuvastatin 5 Mg Tablet (Rosuvastatin) ..... Take 1 tablet by mouth at bedtime [facility] Electrophysiology:ad vised her to stop lasix [...] pulmonary artery systolic pressure is 28.0 mmHg [facility] Elect[facility]:no rmal function, no significant events [facility]:bi lateral bruit on both sided on [...] 1 tablet by mouth at bedtime Sy Vieira MD Electrophysiology: L ast device check 10/27/22: Normal device function yS Vieira MD Electrophysiology: n o recurrence H [...] Vieira MD Electrophysiology: normal carotids Chelsey Greco [employer] Electrophysiology:see above Leyda Greco [employer] Electrophysiology: D C PPM implanted 10/27/2013. normal [...] ..... 1 tablet once a day Chelsey Angus BEYER Electrophysiology: B P today: 134/59 P rior [...] Take 1 tablet twice a day Vadim [facility] Electrophysiology: D C PPM implanted 10/27/2013. normal device function. Her updated medication list for this problem includes: Clopidogrel 75 Mg Tablet (Clopidogrel) ..... 1 tablet once a day Lisinopril 20 Mg Tablet (Lisinopril) ..... Take 1 tablet once a day Carvedilol 6.25 Mg Tablet (Carvedilol) ..... Take 1 tablet twice a day Vadim [facility] Electrophysiology: C heck carotid US. Vadim [facility] Electrophysiology: B P today: 146/70 P rior [...] 2 . Vertebral flow is antegrade bilaterally. [facility] cards follow up - se en by Dr. CLAROS : D OE on walking long distances. Reviewed PFTs. H er updated medication list for this problem includes: Carvedilol (ir) Tabs 3.125mg (Carvedilol) ..... Take 1 tablet twice a day Furosemide 40 Mg Oral Tablet (Furosemide) ..... 1 tab daily Lisinopril Tabs 20mg (Lisinopril) ..... Take 1 tablet daily [facility] cards follow up - se en by Dr. CLAROS : P CP following, last a1c is 7.5 per patient r efilled accucheck [facility] I[facility]har cards follow up - se en [...] (Lisinopril) ..... Take 1 tablet daily Dejuan Iftikhar cards follow up - se en by Dr. CLAROS : D C PPM implanted 10/27/2013. normal device function. Her updated medication list for this problem includes: Carvedilol (ir) Tabs 3.125mg (Carvedilol) ..... Take 1 tablet twice a day Clopidogrel Bisulfate 75 Mg Oral Tablet (Clopidogrel bisulfate) ..... 1 tab daily Lisinopril Tabs 20mg (Lisinopril) ..... Take 1 tablet daily Dejuan Iftikhar Electrophysiology: H er updated medication list for [...] llow up :Orders: 9 9213 LTD. Complex (CPT-42070) Her updated medication list for this problem [...] Electrophysiology fo llow up:Orders: C omplete Echo (CPT-76039) C arotid Duplex Bilateral (CPT-26149) 9 9213 LTD. Complex (CPT-14401) Her updated medication list for this problem [...] Cardiology faxed 07/17 :Orders: Carotid Duplex Bilateral (CPT-84169) Sy Vieira MD Cardiology faxed 07/17 :Her [...] Sy Vieira MD Cardiology faxed 07/27/15:S/P pac rosaline. Sy Vieira MD Cardiology faxed 07/27/15:S/P pac [...] Cardiology faxed 07/17 :Orders: Carotid Duplex Bilateral (CPT-62828) Sy Vieira MD F/U faxed 08/01/14 10 45: H er updated medication list for this problem includes: Furosemide 40 Mg Tabs (Furosemide) ..... 1 tab daily Clopidogrel Bisulfate 75 Mg Tabs (Clopidogrel bisulfate) ..... 1 tab daily Lisinopril 20 Mg Tabs (Lisinopril) ..... 1 tab daily Orders: C arotid Duplex Bilateral (CPT-63796) C omplete Echo (CPT-94582) A ortic Abdominal Ultrasound (CPT-47360) R enal Artery Duplex (CPT-65614) S chedule Followup (*) Sy Vieira MD F/U faxed 08/01/14 10 45: H er updated medication list for this problem includes: Clopidogrel Bisulfate 75 Mg Tabs (Clopidogrel bisulfate) ..... 1 tab daily Lisinopril 20 Mg Tabs (Lisinopril) ..... 1 tab daily Orders: C arotid Duplex Bilateral (CPT-30388) C omplete Echo (CPT-37293) A ortic Abdominal Ultrasound (CPT-78413) R enal Artery Duplex (CPT-37918) S chedule Followup (*) Sy Vieira MD F/U faxed 08/01/14 10 45: H er updated medication list for this problem includes: Clopidogrel Bisulfate 75 Mg Tabs (Clopidogrel bisulfate) ..... 1 tab daily Orders: C arotid Duplex Bilateral (CPT-37688) C omplete Echo (CPT-18156) A ortic Abdominal Ultrasound (CPT-59291) R enal Artery Duplex (CPT-90598) S chedule Followup (*) Sy Vieira MD F/U faxed 08/01/14 10 45: H er updated medication list for this problem includes: Furosemide 40 Mg Tabs (Furosemide) ..... 1 tab daily Lisinopril 20 Mg Tabs (Lisinopril) ..... 1 tab daily O rders: C arotid Duplex Bilateral (CPT-27086) C omplete Echo (CPT-66305) A ortic Abdominal Ultrasound (CPT-20207) R enal Artery Duplex (CPT-97401) S chedule Followup (*) Sy Vieira MD [...] ..... 1 tab daily Orders: E KG (CPT-50425) S chedule Followup (*) C arotid Duplex Bilateral (CPT-37427) Sy Veiira MD hos follow up:Pacema ker: (10/28/2013) Dual chamber [place] [employer] at [facility] by SK H er updated medication list for this problem includes: Clopidogrel Bisulfate 75 Mg Tabs (Clopidogrel bisulfate) ..... 1 tab daily Lisinopril 20 Mg Tabs (Lisinopril) ..... 1 tab daily Orders: E KG (CPT-56375) S chedule Followup (*) Sy Vieira MD hos follow up: H er updated medication list for this problem includes: Furosemide 40 Mg Tabs (Furosemide) ..... 1 tab daily Lisinopril 20 Mg Tabs (Lisinopril) ..... 1 tab daily Sy Vieira MD hfu,device check Sy patel MD hfu,device check:had pacemaker implantation 10/28/2013 at [facility] Her updated medication list for this problem [...] Followup (*) Sy Vieira MD Date Name TSH, 3RD GENERATION W/REFLEX TO FT4 Cortisol D-DIMER, QUANTITATIV E Partial Thromboplast in Time, Activated PROBNP, N TERMINAL Venous Doppler Bilat eral LE Carotid Duplex Bilat eral Complete Echo MAGNESIUM TSH, free T4, total T3 HEMOGLOBIN A1c LIPID PANEL CBC (INCLUDES DIFF/P LT) PROBNP, N TERMINAL COMPREHENSIVE METABO LIC PANEL, W/EGFR Carotid Duplex Bilat eral Complete Echo Aorta Duplex Ultraso und Carotid Duplex Bilat eral Aorta Duplex Ultraso und Carotid Duplex Bilat eral Complete Echo Carotid Duplex Bilat eral Complete Echo DLCO - 16798 FRC - 68771 FVC - 03355 Aorta Duplex Ultraso und (AAA) Carotid Duplex Bilat eral Carotid Duplex Bilat eral Complete Echo Aorta Duplex Ultraso und (AAA) Carotid Duplex Bilat eral Complete Echo Carotid Duplex Bilat eral Renal Artery Duplex Aortic Abdominal Ult rasound Complete Echo Carotid Duplex Bilat eral Carotid Duplex Bilat eral HISTORY OF PROCEDURES Procedure Date Procedure Name Provider Procedure Notes S tatus Complex e/m visit ad d on Sy Vieira MD completed Complex e/m visit ad d on Sy Vieira MD completed EKG Sy stratton MD completed Complex e/m visit ad d on Sy [...] stratton MD completed FVC / MVV - 15789 Sy curran MD completed BLOOD COUNT HEMOGLOBIN Sy hussein MD completed FRC - 34084 Sy stratton MD completed SpO2 w/o 6min walk/titration Sy Vieira MD completed DLCO - 20950 Sy stratton MD completed ICM Interrogation, Remote (Prof) Sy Vieira MD INTERROGATION EVAL REMOTE </30 D CV MNTR SYS completed Pacemaker Interrogation, Remote (Tech) Sy Vieira MD INTERROGATION REMOTE </90 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 REVIEW completed Pacemaker Interrogation, Remote (Prof) Sy Vieira MD INTERROGATION EVAL REMOTE </90 D 1/2/BLENDER HELPER LEAD P completed FVC / MVV - 75595 Sy curran MD completed BLOOD COUNT HEMOGLOBIN Sy hussein MD completed FRC - 65605 Sy stratton MD completed SpO2 w/o 6min walk/titration Sy Vieira MD completed DLCO - 43095 Sy stratton MD completed EKG Sy stratton MD completed ICM Interrogation, Remote (Prof) Sy Vieira MD INTERROGATION EVAL REMOTE </30 D CV MNTR SYS completed ICM Interrogation, Remote (Tech) yS Vieira MD INTERROGATION EVAL REMOTE </30 D [...] Sy Vieira MD INTERROGATION REMOTE </90 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 REVIEW completed Pacemaker Interrogation, Remote (Prof) Sy Vieira MD INTERROGATION EVAL REMOTE </90 D 1/2/BLENDER HELPER LEAD P completed ICM Interrogation, Remote (Prof) [...] Saulius Kalvaitis MD INTERROGATION REMOTE </90 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 REVIEW completed Pacemaker Interrogation, Remote (Prof) Saulius Kalvaitis MD INTERROGATION EVAL REMOTE </90 D 1/2/BLENDER HELPER LEAD P completed ICM Interrogation, Remote (Prof) [...] Saulius Kalvaitis MD INTERROGATION REMOTE </90 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 REVIEW completed Pacemaker Interrogation, Remote (Prof) Saulius Kalvaitis MD INTERROGATION EVAL REMOTE </90 D 1/2/BLENDER HELPER LEAD P completed ICM Interrogation, Remote (Prof) Saulius Kalvaitis MD INTERROGATION EVAL REMOTE </30 D CV MNTR SYS completed ICM Interrogation, Remote (Tech) Saulius Kalvaitis MD INTERROGATION EVAL REMOTE </30 D TECH REVIEW completed EKG ulius wKasi stratton MD completed Schedule Followup Sy curran MD in 1 yr completed EKG Sy stratton MD completed ICM Interrogation, Remote (Prof) Saulius Vieira MD INTERROGATION EVAL REMOTE </30 D CV MNTR SYS completed ICM Interrogation, Remote (Tech) Saulius Personitis MD INTERROGATION EVAL REMOTE </30 D TECH REVIEW completed ICM Interrogation, Remote (Prof) Saulius Personitis MD INTERROGATION EVAL REMOTE </30 D CV MNTR SYS completed Pacemaker Interrogation, Remote (Tech) Sarashmi Vieira MD INTERROGATION REMOTE </90 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 REVIEW completed Pacemaker Interrogation, Remote (Prof) Saulius Vieira MD INTERROGATION EVAL REMOTE </90 D 1/2/BLENDER HELPER LEAD P completed ICM Interrogation, Remote (Prof) Sy Vieira MD INTERROGATION EVAL REMOTE </30 D CV MNTR SYS completed ICM Interrogation, Remote (Tech) Saulius Vieira MD INTERROGATION EVAL REMOTE </30 D TECH REVIEW completed ICM Interrogation, Remote (Prof) Sarashmi Vieira MD INTERROGATION EVAL REMOTE </30 D CV MNTR SYS completed ICM Interrogation, Remote (Tech) Sarashmi Vieira MD INTERROGATION EVAL REMOTE </30 D TECH REVIEW completed ICM Interrogation, Remote (Prof) Saulius Vieira MD INTERROGATION EVAL REMOTE </30 D CV MNTR SYS completed Pacemaker Interrogation, Remote (Tech) Saulius iLntonvaitis MD INTERROGATION REMOTE </90 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 REVIEW completed Pacemaker Interrogation, Remote (Prof) Saulius Royervaitis MD INTERROGATION EVAL REMOTE </90 D 1/2/BLENDER HELPER LEAD P completed ICM Interrogation, Remote (Prof) Saulius Lintonvaitis MD INTERROGATION EVAL REMOTE </30 D CV [...] Saulius Kalvaitis MD INTERROGATION REMOTE </90 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 REVIEW completed Pacemaker Interrogation, Remote (Prof) Saulius Kalvaitis MD INTERROGATION EVAL REMOTE </90 D 1/2/BLENDER HELPER LEAD P completed ICM Interrogation, Remote (Prof) [...] TECH REVIEW completed ICM Interrogation, Remote (Prof) Sarashmi Vieira MD INTERROGATION EVAL REMOTE </30 D CV MNTR SYS completed Pacemaker Interrogation, Remote (Tech) Saulius Personitis MD INTERROGATION REMOTE </90 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 REVIEW completed Pacemaker Interrogation, Remote (Prof) Saulius Kalvaitis MD INTERROGATION EVAL REMOTE </90 D 1/2/BLENDER HELPER LEAD P completed EKG Sy stratton MD completed SNOMED-CT: [id number] Current Medications Documented Sy Vieira MD completed [...] Saulius Kalvaitis MD INTERROGATION REMOTE </90 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 REVIEW completed Pacemaker Interrogation, Remote (Prof) Saulius Kalvaitis MD INTERROGATION EVAL REMOTE </90 D 1/2/BLENDER HELPER LEAD P completed ICM Interrogation, Remote (Prof) [...] Saulius Kalvaitis MD INTERROGATION REMOTE </90 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 REVIEW completed Pacemaker Interrogation, Remote (Prof) Saulius Kalvaitis MD INTERROGATION EVAL REMOTE </90 D 1/2/BLENDER HELPER LEAD P completed ICM Interrogation, Remote (Prof) Saulius Kalvaitis MD INTERROGATION EVAL REMOTE </30 D CV MNTR SYS completed ICM Interrogation, Remote (Tech) Saulius Kalvaitis MD INTERROGATION EVAL REMOTE </30 D TECH REVIEW completed ICM Interrogation, Remote (Prof) Saulius Royervaitis MD INTERROGATION EVAL REMOTE </30 D CV MNTR SYS completed ICM Interrogation, Remote (Tech) Saulius Royervaitis MD INTERROGATION EVAL REMOTE </30 D TECH REVIEW completed ICM Interrogation, Remote (Prof) Saulius Royervaitis MD INTERROGATION EVAL REMOTE </30 D CV MNTR SYS completed ICM Interrogation, Remote (Tech) Saulius Razaitis MD INTERROGATION EVAL REMOTE </30 D TECH REVIEW completed Pacemaker Interrogation, Remote (Tech) Sy Vieira MD INTERROGATION REMOTE </90 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 REVIEW completed Pacemaker Interrogation, Remote (Prof) Sy Vieira MD INTERROGATION EVAL REMOTE </90 D 1/2/BLENDER HELPER LEAD P completed ICM Interrogation, Remote (Prof) Sy Personitis MD INTERROGATION EVAL REMOTE </30 D CV MNTR SYS completed ICM Interrogation, Remote (Tech) Sarashmi Personitis INTERROGATION EVAL REMOTE </30 D TECH REVIEW completed ICM Interrogation, Remote (Prof) Sarashmi Vieira MD INTERROGATION EVAL REMOTE </30 D CV MNTR SYS completed ICM Interrogation, Remote (Tech) Sy Personitis INTERROGATION EVAL REMOTE </30 D TECH REVIEW completed ICM Interrogation, Remote (Prof) Sarashmi Vieira MD INTERROGATION EVAL REMOTE </30 D CV MNTR SYS completed AICD Interrogation, Remote (Tech) Sy Personitis INTERROGATION REMOTE </90 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 REVIEW completed AICD Interrogation, Remote (Prof) Saulius Isha ANTHONY INTERROGATION EVAL REMOTE </90 D 1/2/> LD CVDFB completed Schedule Followup Sy curran MD 1 year completed SNOMED-CT: [id number] Physical Exam, Performed: Pulse Exam of Foot Sy Vieira MD completed EKG Sy stratton MD completed SNOMED-CT: [id number] Current Medications Documented Sy Vieira MD completed [...] Sy Vieira MD INTERROGATION REMOTE </90 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 REVIEW completed Pacemaker Interrogation, Remote (Prof) Sy Vieira MD INTERROGATION EVAL REMOTE </90 D 1/2/BLENDER HELPER LEAD P completed ICM Interrogation, Remote (Prof) Sy Vieira MD INTERROGATION EVAL REMOTE </30 D CV MNTR SYS completed ICM Interrogation, Remote (Tech) Sy Vieira MD INTERROGATION EVAL REMOTE </30 D TECH REVIEW completed ICM Interrogation, Remote (Prof) Sy Vieira MD INTERROGATION EVAL REMOTE </30 D CV MNTR SYS completed Pacemaker Interrogation, Remote (Tech) Sy Vieira MD INTERROGATION REMOTE </90 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 REVIEW completed Pacemaker Interrogation, Remote (Prof) Sy Vieira MD INTERROGATION EVAL REMOTE </90 D 1/2/BLENDER HELPER LEAD P completed ICM Interrogation, Remote (Prof) [...] Saulius Royervaitis MD INTERROGATION REMOTE </90 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 REVIEW completed Pacemaker Interrogation, Remote (Prof) Saulius Kalvaitis MD INTERROGATION EVAL REMOTE </90 D 1/2/BLENDER HELPER LEAD P completed ICM Interrogation, Remote (Prof) [...] Saulius Kalvaitis MD INTERROGATION REMOTE </90 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 REVIEW completed Pacemaker Interrogation, Remote (Prof) Saulius Kalvaitis MD INTERROGATION EVAL REMOTE </90 D 1/2/BLENDER HELPER LEAD P completed ICM Interrogation, Remote (Prof) Saulius Kalvaitis MD INTERROGATION EVAL REMOTE </30 D CV MNTR SYS completed ICM Interrogation, Remote (Tech) Saulius Personitis MD INTERROGATION EVAL REMOTE </30 D TECH REVIEW completed ICM Interrogation, Remote (Prof) Saulius Royervaitis MD INTERROGATION EVAL REMOTE </30 D CV MNTR SYS completed ICM Interrogation, Remote (Tech) Saulius Razaitis MD INTERROGATION EVAL REMOTE </30 D TECH REVIEW completed ICM Interrogation, Remote (Prof) Saulius Razaitis MD INTERROGATION EVAL REMOTE </30 D CV MNTR SYS completed Pacemaker Interrogation, Remote (Tech) Saulius Razaitis MD INTERROGATION REMOTE </90 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 REVIEW completed Pacemaker Interrogation, Remote (Prof) Saulius Personitis MD INTERROGATION EVAL REMOTE </90 D 1/2/BLENDER HELPER LEAD P completed ICM Interrogation, Remote (Prof) Sy Vieira MD INTERROGATION EVAL REMOTE </30 D CV MNTR SYS completed ICM Interrogation, Remote (Tech) Saulius Razaitis MD INTERROGATION EVAL REMOTE </30 D TECH REVIEW completed ICM Interrogation, Remote (Prof) Saulius Vieira MD INTERROGATION EVAL REMOTE </30 D CV MNTR SYS completed ICM Interrogation, Remote (Tech) Sy Vieira MD INTERROGATION EVAL REMOTE </30 D TECH REVIEW completed Schedule Followup Sy curran MD completed EKG Sy stratton MD completed Schedule Followup Sy curran MD fu in 1 month completed EKG Sy stratton MD completed
--- OUTSIDE RECORDS SUMMARY | 2024-07-25 09:49 | XMS_ITS | Encounter Summary ---
Author Organization [facility] Healthcare Address [address] [place] [address] Care Team Providers Care Phlebotomist Supervisor/Instructor Name Role Phone José Juarez MD Primary Care Provider Hannah Alcazar MD PhD Unavailable [phone] Encounter Details Date Type Department Care Team (Latest Contact Info) Description 07/14/2024 Results Follow-Up [facility] Medical Group Diabetes and Endocrinology [address] [place] [id number] Cate Espitia, CLOTH INSPECTOR [id number] [facility] [address] [place] [address] Comprehensive metabolic panel, Lipid panel, TSH, Additional followed-up results: 2 Social History Tobacco Use Types Packs/Day Years [...] on file 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 Your labs are stable at this time. Your TSH is mildly elevated. Are they giving you your levothyroxine 30-60 minutes before any other medications or food/drink? Please see below for lab result explanations. Please review below recommendations to help improve any abnormal readings. GFR (kidney filtration rate, normal is over 90): 36 (SHOWING CHRONIC KIDNEY DISEASE, WAS 39). NOT SURE HOW LOW IT WENT WHEN YOU WERE ADMITTED TO [facility]. THIS MAY BE AN IMPROVEMENT. Keep the blood pressure and blood sugar under good control. Avoid NSAIDs (advil, Aleve, motrin, naproxen, ibuprofen). Stay well hydrated. Your lipid panel explanation below: -total cholesterol should be below 200; you are 150 (NORMAL, WAS 162). Please watch fried, fast, fatty, high-calorie foods and red meats to help lower. Also increase physical activity. -HDL (healthy cholesterol) should be 45-60; the higher this number the better. You are 49 (NORMAL, IMPROVED FROM 48). Increased activity helps increase this reading. HDL helps pull out LDL from circulating in your blood. -LDL (lousy cholesterol) should be less than 100; you are 71 (NORMAL, IMPROVED FROM 78). An elevated HDL helps negate any elevated LDL. Please watch fried, fast, fatty, high-calorie foods and red meats to lower LDL. LDL is what causes blockages in arteries. -triglycerides should be less than 150. You are 177 (MILDLY ELEVATED, IMPROVED FROM 181). This is the carbohydrate/sugar component of the lipid panel. CMP (electrolytes, kidney & liver functions): Creatinine elevated at 1.46. I'm not sure how high you got when you were admitted to [facility] a few weeks ago. Please make sure you're staying hydrated (drinking enough water). TSH (0.3-4.20): 4.65 (MILDLY ELEVATED, WAS 3.74) T4 (0.90-1.70: 1.02 (NORMAL, IMPROVED FROM 0.84). Please call or send a [employer] message if any questions. Thank you, Cate Espitia, CLINICAL RESEARCH MANAGER-c documented in this encounter Plan of Treatment Not on file documented as of this encounter Visit Diagnoses Not on filedocumented in this encounter Care Teams Phlebotomist Supervisor/Instructor Relationship Specialty Start Date End Date José Juarez MD PCP - General 05/16/16 Hannah Alcazar MD PhD [address] [facility] [address] [place] [address] Radiation Oncologist Radiation Oncology 05/19/24 documented as of this encounter
--- OUTSIDE RECORDS SUMMARY | 2024-07-25 09:49 | XMS_ITS | Encounter Summary ---
Author Organization [facility] Healthcare Address [address] [place] [address] Care Team Providers Care Concrete Puddler Name Role Phone José Juarez MD Primary Care Provider Reason for Visit * Diagnostic Imaging (Routine) - Pending Review Specialty Diagnoses / Procedures Referred By Ashley galvan Referred To Contact Procedures Breast Imaging Screening Outside Reference Transcribed Order, Provider Referral ID Status Reason Start Date Expiration Date V isits Requested Visits Authorized [id number] Pending Review 01/08/2024 02/06/2025 1 1 Encounter Details Date Type Department Care Team (Late st Contact Info) Description 11/09/2017 Hospital Encounter [facility] [address] [place] [id number] Social History Tobacco Use Types Packs/Day Years [...] on file 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 Never 03/03/2024 3:15 PM Samantha Godoy RN Q2: How many drinks containing alcohol do [...] CDT) Impressions [facility] - 01/08/2024 3:58 PM ASPHALT PAVER OPERATOR These images are for Reference purposes only and have not been reviewed by [facility]iology. There will be no report generated by a [facility] Radiologist. Narrative [facility] - 01/08/2024 3:58 PM ASPHALT PAVER OPERATOR EXAMINATION: Images For Reference Purposes Only us Provider Transcribed Order IMG MAMMO PROCEDURES Final Result [facility] documented in this encounter Visit Diagnoses Not on filedocumented in this encounter Care Teams Concrete Puddler Relationship Specialty Start Date End Date José Juarez MD PCP - General 05/16/16 documented as of this encounter
--- OUTSIDE RECORDS SUMMARY | 2024-07-25 09:49 | XMS_ITS | Encounter Summary ---
Author Organization [facility] Healthcare Address [address] [place] [address] Care Team Providers Care Felling Machine Operator Name Role Phone José Juarez MD Primary Care Provider Reason for Visit * Diagnostic Imaging (Routine) - Pending Review Specialty Diagnoses / Procedures Referred By Ashley t Referred To Contact Procedures Breast Imaging Screening Outside Reference Transcribed Order, Provider Referral ID Status Reason Start Date Expiration Date V isits Requested Visits Authorized [id number] Pending Review 01/08/2024 02/06/2025 1 1 Encounter Details Date Type Department Care Team (Late st Contact Info) Description 06/13/2015 Hospital Encounter 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 There will be no report generated by a [facility] Radiologist. Narrative [facility] - 01/08/2024 3:58 PM CONTRACTING ENGINEER EXAMINATION: Images For Reference Purposes Only us Provider Transcribed Order IMG MAMMO PROCEDURES Final Result [facility] documented in this encounter Visit Diagnoses Not on filedocumented in this encounter Care Teams Felling Machine Operator Relationship Specialty Start Date End Date José Juarez MD PCP - General 11/29/13 05/15/16 documented as of this encounter
--- OUTSIDE RECORDS SUMMARY | 2024-07-25 09:49 | XMS_ITS | Encounter Summary ---
Author Organization 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 Gender Identity Not on file Sexual Orientation Not on file documented as of this encounter Plan of Treatment Not on file documented as of this encounter Procedures Procedure Name Priority Date/Time Associated Diagnosis Comments SCAN - PATHOLOGY 03/29/2024 documented in this encounter Results * SCAN - PATHOLOGY (03/29/2024) us Provider Scanning Final Result documented in this encounter Visit Diagnoses Not on filedocumented in this encounter Care Teams Chemical Research Technician Relationship Specialty Start Date End Date José Juarez MD PCP - General 05/16/16 Hannah Alcazar MD PhD [address] [facility] [address] [place] [address] Radiation Oncologist Radiation Oncology 05/19/24 documented as of this encounter
--- OUTSIDE RECORDS SUMMARY | 2024-07-25 09:50 | XMS_ITS | Referral Summary ---
Author Organization [facility] Address [address] [place] [address] Care Team Providers Care [employer]r [employer] Name Role Phone José Juarez MD Primary Care Provider Hannah Alcazar MD PhD Unavailable Encounters Date Type Department Care Team Description 07/21/2024 Telephone [facility] Surgery [address] [place] [address] [address] [place] [address] Tadeo Talbert 07/21/2024 Telephone [facility] Surgery [address] [place] [address] Floor [address] [place] [address] Kiara Jason CMA 07/20/2024 Orders Only [facility] Orthopaedic Surgery [address] [facility] Medical Office Building [address] [place] [address] Tr Whitaker MD Left hip pain (Primary Dx) 07/14/2024 Results Follow-Up [facility] Diabetes and Endocrinology [address] [place] [phone] Cate Espitia, KAYLEEN Comprehensive metabolic panel, Lipid panel, TSH, Additional followed-up results: 2 07/13/2024 3:36 PM CDT - 07/13/2024 11:59 PM CDT Hospital Encounter [facility] [place] [id number] [place] [address] Type 2 diabetes mellitus with hyperglycemia, with long-term current use of insulin (HCC); Hypertension associated with diabetes (HCC); Hyperlipidemia associated with type 2 diabetes mellitus (HCC); Acquired hypothyroidism Discharge Disposition: Discharge to home or self care 07/13/2024 3:45 PM CDT Lab [facility] Outpatient Lab at [address] [address] 07/13/2024 2:30 PM CDT Office Visit 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) 07/12/2024 Orders Only [facility] Oncology [address] [place] [address] Kim Blum, MARIA ALEJANDRA 07/12/2024 Orders Only [facility] Oncology [facility] [place] [address] Kim Blum, RN Senile osteoporosis (Primary Dx); Malignant neoplasm of upper-inner quadrant of right breast in female, estrogen receptor positive (HCC) 07/04/2024 Completion of Therapy [facility] Radiation Oncology [address] [place] [address] Yolie Baeza PA 07/04/2024 OTV [facility] Radiation Oncology [address] [place] [address] Hannah Alcazar MD PhD 07/04/2024 Orders Only RAD ONC TREATMENTS Miscellaneous, Not In File 07/04/2024 1:40 PM CDT - 07/04/2024 11:59 PM CDT Hospital Encounter [facility] Radiation Oncology [address] [place] [address] Hannah Alcazar MD PhD Discharge Disposition: Discharge to home or self care 07/01/2024 Orders Only RAD ONC TREATMENTS Miscellaneous, Not In File 07/01/2024 1:00 PM CDT - 07/01/2024 11:59 PM CDT Hospital Encounter [facility] Radiation Oncology [address] [place] [address] Hannah Alcazar MD PhD Discharge Disposition: Discharge to home or self care 06/30/2024 Orders Only RAD ONC TREATMENTS Miscellaneous, Not In File 06/30/2024 12:53 PM CDT - 06/30/2024 11:59 PM CDT Hospital Encounter [facility] Radiation Oncology [address] [place] [address] Hannah Alcazar MD PhD Discharge Disposition: Discharge to home or self care 06/29/2024 Orders Only RAD ONC TREATMENTS Miscellaneous, Not In File 06/29/2024 1:30 PM CDT - 06/29/2024 11:59 PM CDT Hospital Encounter [facility] Radiation Oncology [address] [place] [address] Hannah Alcazar MD PhD Discharge Disposition: Discharge to home or self care 06/28/2024 Orders Only RAD ONC TREATMENTS Miscellaneous, Not In File 06/28/2024 1:52 PM CDT - 06/28/2024 11:59 PM CDT Hospital Encounter [facility] Radiation Oncology [address] [place] [address] Hannah Alcazar MD PhD Discharge Disposition: Discharge to home or self care 06/27/2024 OTV [facility] Radiation Oncology [address] [place] [address] Hannah Alcazar MD PhD Malignant neoplasm of upper-inner quadrant of right breast in female, estrogen receptor positive (HCC) (Primary Dx) 06/27/2024 Orders Only RAD ONC TREATMENTS Miscellaneous, Not In File 06/27/2024 2:10 PM CDT - 06/27/2024 11:59 PM CDT Hospital Encounter [facility] Radiation Oncology [address] [place] [address] Hannah Alcazar MD PhD Discharge Disposition: Discharge to home or self care 06/24/2024 Orders Only RAD ONC TREATMENTS Miscellaneous, Not In File 06/24/2024 1:51 PM CDT - 06/24/2024 11:59 PM CDT Hospital Encounter [facility] Radiation Oncology [address] [place] [address] Hannah Alcazar MD PhD Discharge Disposition: Discharge to home or self care 06/23/2024 Orders Only RAD ONC TREATMENTS Miscellaneous, Not In File 06/23/2024 1:18 PM CDT - 06/23/2024 11:59 PM CDT Hospital Encounter [facility] Radiation Oncology [address] [place] [address] Hannah Alcazar MD PhD Discharge Disposition: Discharge to home or self care 06/22/2024 Orders Only RAD ONC TREATMENTS Miscellaneous, Not In File 06/22/2024 1:50 PM CDT - 06/22/2024 11:59 PM CDT Hospital Encounter [facility] Radiation Oncology [address] [place] [address] Hannah Alcazar MD PhD Discharge Disposition: Discharge to home or self care 06/21/2024 Telephone [facility] Radiation Oncology [address] [place] [address] Diann Menon RN 06/20/2024 5:55 PM CDT - 06/20/2024 11:59 PM CDT Hospital Encounter [facility] Radiation Oncology [address] [place] [address] Hannah Alcazar MD PhD Discharge Disposition: Discharge to home or self care 06/20/2024 4:20 PM CDT Lab [facility] [address] [place] [address] Left hip pain; Displaced fracture of base of neck of left femur, subsequent encounter for closed fracture with routine healing 06/20/2024 1:40 PM CDT Office Visit [facility] Orthopaedic Surgery [address] [facility] Office Building [address] [place] [phone] Tr Whitaker MD Left hip pain (Primary Dx); Displaced fracture of base of neck of left femur, subsequent encounter for closed fracture with routine healing 06/15/2024 Orders Only [facility] Diabetes and Endocrinology [address] [place] [phone] Cate Espitia NP Type 2 diabetes mellitus with hyperglycemia, with long-term current use of insulin (HCC) (Primary Dx) 06/14/2024 Orders Only [facility] Oncology [address] [place] [address] Kim Blum, RN 06/13/2024 2:00 PM CDT - 06/13/2024 11:59 PM CDT Hospital Encounter [facility] Radiation Oncology [address] [facility] [place] [address] Hannah Alcazar MD PhD Discharge Disposition: Discharge to home or self care 05/30/2024 Orders Only [facility] Orthopaedic Surgery [address] [place] [address] Tr Whitaker MD 05/30/2024 Telephone [facility] Oncology [address] [place] [address] Kim Blum, RN care planning 05/24/2024 Orders Only [facility] Orthopaedic Surgery [address] [place] [address] Office [facility] [address] [place] [phone] Tr Whitaker MD Left hip pain (Primary Dx) 05/24/2024 Telephone [facility] Orthopaedic Surgery [address] [facility] Medical Office Building [address] [place] [address] Lori Andrea, RN 05/24/2024 Telephone [facility] Radiation Oncology [address] [place] [address] Diann Menon RN 05/23/2024 1:00 PM CDT Consult [facility] Radiation Oncology [address] [place] [address] Hannah Alcazar MD PhD Malignant neoplasm of upper-inner quadrant of right breast in female, estrogen receptor positive (HCC); 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, right (HCC); Malignant neoplasm of female breast, unspecified estrogen receptor status, unspecified laterality, unspecified site of breast (HCC) 05/18/2024 1:00 PM CDT Office Visit [facility] Oncology [address] [place] [address] [address] [place] [address] Roni Cat MD Malignant neoplasm of upper-inner quadrant of right breast in female, estrogen receptor positive (HCC); 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, right (HCC); Malignant neoplasm of female breast, unspecified estrogen receptor status, unspecified laterality, unspecified site of breast (HCC); Sick sinus syndrome (HCC) 05/09/2024 8:20 AM CDT - 05/09/2024 11:59 PM CDT Hospital Encounter [facility] [address] [place] [address] [address] [place] [phone] Left hip pain Discharge Disposition: Discharge to home or self care 05/09/2024 8:50 AM CDT Office Visit [facility] Orthopaedic Surgery [address] [place] [address] Medical Office Building [address] [place] [address] Tr Whitaker MD Left hip pain (Primary Dx); Displaced fracture of base of neck of left femur, subsequent encounter for closed fracture with routine healing 05/06/2024 Orders Only [facility] Scanning, Provider 05/03/2024 Results Follow-Up [facility] Surgery [address] [place] [address] [address] [place] [address] Patrica Durham CMA Surgical pathology 05/03/2024 Telephone [facility] Diabetes and Endocrinology [facility] [place] [address] Cate Espitia NP Freestyle Sj Order 04/28/2024 Documentation [facility] Oncology [address] [facility] Floor [address] [place] [address] Che Morillo CMA from Last 3 Months Allergies Active Allergy [...] day 0 0 08/16/19 14 Active lisinopril (PRINIVIL,ZEST RIL) 20 mg tablet take 1 tablet by oral route every day 0 0 05/03/19 15 Active biotin 10,000 mcg tablet,disinte grating take 1 a day 0 0 03/13/19 16 Active carvedilol (COREG) 3.125 mg tablet take 1 tablet by oral route 2 times every day with food 0 0 08/21/19 16 Active venlafaxine XR (EFFEXOR-XR) 150 mg 24 hr capsule take 1 capsule by oral route every day 0 0 08/21/19 16 Active MULTIVITAMIN/I WILLIAN/FOLIC ACID (CENTRUM WOMEN ORAL) Take by mouth Active lancets (ACCU-CHEK MULTICLIX LANCET) muscogee Check blood sugar four times a day or as directed 1 each 08/21/19 18 Active BD ULTRA-FINE MINI PEN NEEDLE 31 gauge x 3/16 needle Use to inject insulin 5 times a day 450 each 1 11/09/19 19 Active Accu-Chek SmartView Test Strip stripIndicatio ns:Type 2 diabetes mellitus with hyperglycemia, with long-term current use of insulin (HCC) TEST TWICE A DAY 200 each 1 08/11/19 20 Active rosuvastatin (CRESTOR) 5 mg tablet Take 1 tablet (5 mg total) by mouth daily 90 tablet 3 01/03/20 22 Active insulin lispro (HumaLOG) 100 unit/mL pen for injection Inject 6 Units under the skin daily before dinner 15 mL 3 11/05/19 23 Active flash glucose sensor (FreeStyle Sj 2 Sensor) kitIndications :Type 2 diabetes mellitus with hyperglycemia, with long-term current use of insulin (HCC) 1 each every 14 (fourteen) days 6 kit 3 07/23/19 24 Active magnesium hydroxide (MILK OF MAGNESIA) suspension 400 mg/5 mLIndications: constipation Take 30 mL by mouth daily as needed (constipation) Active loperamide (Imodium A-D) 2 mg tablet take one tablet with breakfast and one tablet with dinner 03/22/19 25 Active metOLazone (ZAROXOLYN) 2.5 mg tablet 05/04/19 25 Active levothyroxine (SYNTHROID) 50 mcg tablet 04/19/19 25 Active pedi multivit no.17 w-fluoride (Multi-Vitamin With Fluoride) 0.25 mg tablet,chewabl e 04/17/19 25 Active ferrous sulfate ER 324 mg (65 mg iron) EC tablet 05/23/19 25 Active anastrozole (ARIMIDEX) 1 mg tablet Take 1 tablet (1 mg total) by mouth daily 90 tablet 3 06/15/19 25 026 Active insulin glargine (LANTUS) 100 unit/mL (3 mL) pen for injectionIndic ations:Type 2 diabetes mellitus with hyperglycemia, with long-term current use of insulin (HCC) Inject 40 Units under the skin daily 45 mL 2 06/16/19 25 026 Active hydrocortisone 1 % creamIndicatio ns:Malignant neoplasm of upper-inner quadrant of right breast in female, estrogen receptor positive (HCC) Apply 1 Application topically nightly Apply to right chest/breast at bedtime. 56 g 2 06/28/19 25 Active amoxicillin 500 mg capsule TAKE 4 CAPSULES BY MOUTH 1 HOUR PRIOR TO DENTAL APPOINTMENT 07/07/19 25 Active hydrocortisone (ANUSOL-HC) 1 % cream with perineal applicator APPLY TO RIGHT CHEST/BREAST AT BEDTIME. 06/28/19 25 Active traMADoL (ULTRAM) 50 mg tabletIndicati ons:Pain Take 1 tablet (50 mg total) by mouth every 6 (six) hours as needed for pain 0 02/15/20 24 025 Discontinued oxyCODONE (ROXICODONE) 5 mg immediate release tabletIndicati ons:Pain Take 1 tablet (5 mg total) by mouth every 6 (six) hours as needed for pain for pain 5 tablet 03/29/19 025 Discontinued Active Problems Problem Noted Date Diagnosed Date [...] Cancer Staging:Clinical:Stage IIA(cT2, cN0, cM0, G3, ER+, VA+, HER2-, Oncotype DX score: 39) - Signed [...] results. Assessment & Plan (03/09/2024 3:18 PM CONDUCTOR FREIGHT): Chronic problem. Clinically & biochemically euthyroid. Currently [...] daily Assessment & Plan (01/02/2022 2:38 PM CONDUCTOR FREIGHT): Will check TFT Adjust dose of LT4 [...] 10/02/2017 Hyperlipidemia associated with type 2 diabetes jeferson ervin 08/20/2017 Assessment & Plan (07/13/2024 2:43 PM CDT): Chronic problem. Currently taking rosuvastatin 5mg. Last lipid panel: 07/07/23 LDL=78, UU=617. Will update labs. Does not mychart. Verified phone #/address to contact re: results. Assessment & Plan (03/09/2024 3:15 PM CONDUCTOR FREIGHT): Chronic problem. Currently taking rosuvastatin 5mg. Last lipid panel: 07/07/23 LDL=78, DA=428. Assessment & Plan (10/28/2023 1:33 PM CDT): Chronic problem. Currently taking rosuvastatin 5mg. Last lipid panel: 07/07/23 LDL=78, KL=093. Assessment & Plan (07/07/2023 11:16 AM CDT): Chronic problem. Currently taking rosuvastatin 5mg. Last lipid panel: 06/18/21 LDL=75, UY=792. Will update labs today. Does not mychart. Verified phone #/address to contact re: results. Assessment & Plan (11/04/2022 4:20 PM CDT): Chronic, well-controlled Continue statin therapy with atorvastatin Assessment & Plan (01/02/2022 2:37 PM CONDUCTOR FREIGHT): Chronic, well controlled Low fat Low cholesterol diet Exercise Continue statin therapy Assessment & Plan (07/04/2021 1:42 PM CDT): Chronic, well controlled Low fat Low cholesterol diet Exercise Continue statin therapy Assessment & Plan (01/24/2021 4:18 PM CONDUCTOR FREIGHT): Lipids checked today LDL and non HDL cholesterol at goal Continue with simvastatin 20 mg daily Assessment & Plan (2020 3:12 PM CONDUCTOR FREIGHT): Goal of treatment , LDL cholesterol less [...] profile Assessment & Plan (04/05/2019 2:52 PM CONDUCTOR FREIGHT): Goal of treatment , LDL cholesterol less [...] therapy Assessment & Plan (04/06/2018 11:27 AM CONDUCTOR FREIGHT): Goal of treatment , LDL cholesterol less [...] therapy Assessment & Plan (12/25/2017 1:08 PM CONDUCTOR FREIGHT): At goal on current medications. Assessment & [...] over 180 UTD on DM eye exam (02/12/23 no [facility] in [place]). Had appt 06/07/24. Letter sent to get [...] infection. Assessment & Plan (03/09/2024 3:12 PM CONDUCTOR FREIGHT): Chronic problem. A1c improved from 7.2% 10/28/23 to now 5.9%. Current medications: Lantus 40 units at bedtime Humalog 6 units with dinner if blood sugar over 180 DM eye exam 01/2023 [facility] in [place]. Second request letter sent to get copy [...] sugar over 180 DM eye exam 01/2023 [facility] in [place]. Second request letter sent to get copy [...] sugar over 180 DM eye exam 01/2023 [facility] in [place]. Will send letter to get copy of [...] ) Assessment & Plan (01/02/2022 2:33 PM CONDUCTOR FREIGHT): Lower Lantus to 35 units Take Humalog, [...] units. Assessment & Plan (01/24/2021 4:17 PM CONDUCTOR FREIGHT): Hba1c was Lab Results Component Value Date [...] dinner. Assessment & Plan (2020 3:11 PM CONDUCTOR FREIGHT): Hba1c was Lab Results Component Value Date [...] Lantus Assessment & Plan (04/05/2019 2:51 PM CONDUCTOR FREIGHT): Hba1c was Lab Results Component Value Date [...] discussed. Assessment & Plan (04/06/2018 11:26 AM CONDUCTOR FREIGHT): Hba1c was Lab Results Component Value Date HGBA1C 7.6 04/06/2018 today, indicating ... DM control 1800 calorie, consistent carb diet recommended 25-45 min daily exercise, combining both aerobic and resistance exercise recommended. The need to monitor blood glucose before meals and bedtime was discussed. Prevention and treatment of hyypoglcyemia discussed. Lower Glimepiride, 1 mg daily Assessment & Plan (12/25/2017 1:07 PM CONDUCTOR FREIGHT): A1c 7.3. Reduce Lantus to 38 bid. [...] visit. Assessment & Plan (04/09/2017 2:50 PM CONDUCTOR FREIGHT): Hba1c was 7.2 today, indicating DM Adequate control 1800 calorie, consistent carb diet recommended 30 min daily aerobic and resistance exercise recommended Prevention and treatment of hyypoglcyemia discussed. Blood glucose monitoring with fingers sticks 1-2 x day . Assessment & Plan (01/06/2017 2:48 PM CONDUCTOR FREIGHT): Hba1c was 6.8 today, indicating adequate DM [...] results. Assessment & Plan (03/09/2024 3:18 PM CONDUCTOR FREIGHT): Chronic problem. Controlled on current carvedilol 3.125mg [...] meds Assessment & Plan (2020 3:11 PM CONDUCTOR FREIGHT): Goal blood pressure is less than 140/85 [...] Lisinopril Assessment & Plan (04/05/2019 2:52 PM CONDUCTOR FREIGHT): Goal blood pressure is less than 140/85 [...] ARB Assessment & Plan (04/06/2018 11:27 AM CONDUCTOR FREIGHT): Goal blood pressure is less than 140/85 Low salt diet recommended Daily aerobic exercise Continue current meds, including LINDA-I or ARB Assessment & Plan (12/25/2017 1:07 PM CONDUCTOR FREIGHT): Controlled on current medications. Assessment & Plan (08/20/2017 1:35 PM CDT): Goal blood pressure is less than 140/85 Low salt diet recommended Daily aerobic exercise Continue current meds, including LINDA-I or ARB Assessment & Plan (04/09/2017 2:49 PM CONDUCTOR FREIGHT): Goal blood pressure is less than 140/85 Low salt diet recommended Daily aerobic exercise Continue current meds, including LINDA-I or ARB Assessment & Plan (01/06/2017 2:36 PM CONDUCTOR FREIGHT): Goal blood pressure is less than 140/85 [...] advised. Assessment & Plan (04/09/2017 2:49 PM CONDUCTOR FREIGHT): Goal of treatment , LDL cholesterol less [...] therapy Assessment & Plan (01/06/2017 2:36 PM CONDUCTOR FREIGHT): Goal of treatment , LDL cholesterol less [...] fracture of second cervical vicky tebra 09/28/2011 Resolved Problems Problem Noted Date Diagnosed Date Resolved Date Infiltrating ductal carcinoma of breast 12/17/2023 06/28/2024 Type 2 diabetes mellitus without complication 09/30/1907/13/2024 Diabetes mellitus 07/06/2015 07/13/2024 Immunizations Immunization Administration Dates Next Due Influenza, [...] on file Legal Sex Female 12:21 AM CONDUCTOR FREIGHT Gender Identity Not on file Sexual Orientation Not on file Last Filed Vital Signs Vital Sign Reading Time Taken Comments Blood Pressure 100/62 07/13/2024 2:42 PM CDT Pulse 82 07/13/2024 2:42 PM CDT Temperature 36.7 C (98.1 F) 05/23/2024 12:56 PM CDT Respiratory Rate 14 07/13/2024 2:42 PM CDT Oxygen Saturation 94% 05/23/2024 12:56 PM CDT Inhaled Oxygen Concentration - - Weight 77.6 kg (171 lb) 07/13/2024 2:42 PM CDT Height 165.1 cm (5' 5) 07/13/2024 2:42 PM CDT Body Mass Index 28.46 07/13/2024 2:42 PM CDT Plan of Treatment Not on file Medical Devices Implanted Type Area Social Secretary Device Identifier Shelf Expiration Date Model / Serial / Lot Pacemaker Implanted:Qty: 1 Pacemaker Left: Chest InfraSearch Marker Tissue Needle Delivery Spiral Capped Seed Radiopaque Custodial Stainless Steel Low Nickel Sentimag [id number] - [id number] Implanted:Qty: 1 on 03/29/2024 at [facility] [id number] / / Procedures Procedure Name Priority Date/Time Associated Diagnosis Comments EGFR Routine 07/13/2024 3:36 PM CDT Type 2 diabetes mellitus with hyperglycemia, with long-term current use of insulin (HCC) Hypertension associated with diabetes (HCC) T4, FREE Routine 07/13/2024 3:36 PM CDT Acquired hypothyroidism TSH Routine 07/13/2024 3:36 PM CDT Acquired hypothyroidism LIPID PANEL Routine 07/13/2024 3:36 PM CDT Type 2 diabetes mellitus with hyperglycemia, with long-term current use of insulin (HCC) Hyperlipidemia associated with type 2 diabetes mellitus (HCC) COMPREHENSIVE METABOLIC PANEL Routine 07/13/2024 3:36 PM CDT Type 2 diabetes mellitus with hyperglycemia, with long-term current use of insulin (HCC) Hypertension associated with diabetes (HCC) POCT HEMOGLOBIN A1C Routine 07/13/2024 2 :49 PM CDT Type 2 diabetes mellitus with hyperglycemia, with long-term current use of insulin (HCC) POCT GLUCOSE Routine 07/13/2024 2:49 PM CDT Type 2 diabetes mellitus with hyperglycemia, with long-term current use of insulin (HCC) RAD ONC ARIA SESSION SUMMARY 07/04/2024 1:59 PM CDT RAD ONC ARIA SESSION SUMMARY 07/01/2024 2:42 PM CDT RAD ONC ARIA SESSION SUMMARY 06/30/2024 1:46 PM CDT RAD ONC ARIA SESSION SUMMARY 06/29/2024 2:50 PM CDT RAD ONC ARIA SESSION SUMMARY 06/28/2024 2:20 PM CDT RAD ONC ARIA SESSION SUMMARY 06/27/2024 3:19 PM CDT RAD ONC ARIA SESSION SUMMARY 06/24/2024 2:34 PM CDT RAD ONC ARIA SESSION SUMMARY 06/23/2024 2:04 PM CDT RAD ONC ARIA SESSION SUMMARY 06/22/2024 2:31 PM CDT CRP (ACUTE PHASE) Routine 06/20/2024 4:3 1 PM CDT Left hip pain Displaced fracture of base of neck of left femur, subsequent encounter for closed fracture with routine healing ERYTHROCYTE SEDIMENTATION RATE Routine 06/20/2024 4:31 PM CDT Left hip pain Displaced fracture of base of neck of left femur, subsequent encounter for closed fracture with routine healing CRP (ACUTE PHASE) Routine 05/24/2024 12:23 PM CDT Left hip pain Displaced fracture of base of neck of left femur, subsequent encounter for closed fracture with routine healing XR HIP LEFT W PELVIS 2 OR 3 VIEWS Schedule Routine, Read Routine (OP Routine) 05/09/2024 8:36 AM CDT Left hip pain SCAN - PATHOLOGY 05/06/2024 9:18 AM CDT ALBUMIN CREATININE RATIO, URINE Routine 07/07/2023 11:54 AM CDT Type 2 diabetes mellitus with hyperglycemia, with long-term current use of insulin (HCC) DIABETES EYE EXAM Routine 02/12/2023 8:11 AM CONDUCTOR FREIGHT from Last 3 Months or Most Recently Relevant to Health Maintenance Results * (ABNORMAL) eGFR (07/13/2024 3:36 PM CDT) eGFR 36(L) >=60 mL/min/1. 73 m2 Comment: Interpretive Data [...] interpretive data was last reviewed 2020. Blood 07/13/2024 3:36 PM CDT 07/13/2024 7:52 PM CDT us Cateerick Espitia AUTOMATION ENGINEERING MANAGER LAB BLOOD ORDERABLES Va l Result Performing Organization Address [facility] [employer] de Phone Number MERLIN REYES [phone] [facility] [place] [address] * (ABNORMAL) TSH (07/13/2024 3:36 PM CDT) Thyroid Stimulating Hormone 4.65(H) 0.30 - 4.20 mcIUnit/mL Blood 07/13/2024 3:36 PM CDT 07/13/2024 7:50 PM CDT us Cate Liz Espitia NP LAB BLOOD ORDERABLES Va l Result Performing Organization Address [facility] [employer] Phone Number MERLIN AMY [phone] [address] [facility] [place] [address] * T4, free (07/13/2024 3:36 PM CDT) Free T4 1.02 0.90 - 1.70 ng/dL Blood 07/13/2024 3:36 PM CDT 07/13/2024 7:50 PM CDT us Cate Espitia AUTOMATION ENGINEERING MANAGER LAB BLOOD ORDERABLES Va l Result Performing Organization Address [facility] Co de Phone Number ZENIABRANT REYES [phone] [place] [address] * (ABNORMAL) Lipid panel (07/13/2024 3:36 PM CDT) Cholesterol 150 30 - 199 mg/dL Comment: Interpretive Data [...] Data was last revised on 2017. Triglycerides 177(H) <=149 mg/dL MERLIN REYES Comment: Interpretive Data [...] Data was last revised on 2017. HDL 49 >=40 mg/dL MERLIN REYES Comment: Interpretive Data [...] was last revised on 2017. LDL, calculated 71 <=129 mg/dL MERLIN REYES Comment: Interpretive Data Ages < or = 19 years Acceptable: <110 mg/dL Borderline high: 110-129 mg/dL High: >or= 130 mg/dL Ages > or = 20 years Optimal: <100 mg/dL Near optimal: 100-129 mg/dL Borderline high: 130-159 mg/dL High: >160 mg/dL Calculated using the Robert LDL-C estimating equation. This equation was implemented on 2023. Prior to this date LDL-C was estimated using the Friedewald equation. Literature References: 1. Expert Panel on Integrated Guidelines for Cardiovascular Health and Risk Reduction in Children and Adolescents. Pediatrics 2011;128:S213 2. NCEP Expert Panel. Circulation 2004;110:227 3. Robert Noe et al. SANDRA Cardiol. 2020 June 16;5(5):540-548. doi: 10.1001/jamacardio.2020.0013 Current Interpretive Data was last revised on 2023. Non-HDL Cholesterol 101 mg/dL MERLIN REYES Comment: Interpretive Data Ages [...] 2017. Chol/HDL ratio 3 MERLIN REYES Blood 07/13/2024 3:36 PM CDT 07/13/2024 7:50 PM CDT us Cate Espitia NP LAB BLOOD ORDERABLES Va l Result MERLIN REYES [id number] [place] [address] * (ABNORMAL) Comprehensive metabolic panel (07/13/2024 3:36 PM CDT) Sodium 141 135 - 145 mmol/L Potassium, pl 3.7 3.3 - 4.9 mmol/L [facility] Chloride 105 97 - 110 mmol/L [facility] CO2 27 22 - 32 mmol/L [facility] Anion gap 9 2 - 15 mmol/L [facility] BUN 23 6 - 25 mg/dL [facility] Creatinine 1.46(H) 0.60 - 1.10 mg/dL [facility] Glucose 102 70 - 199 mg/dL [facility] Comment: Interpretive Data Fasting glucose >/= 126 mg/dl is diagnostic for diabetes. Fasting is defined as no caloric intake for at least 8 hours. Fasting glucose between 100 mg/dl to 125 mg/dl is diagnostic of prediabetes. In a patient with classic symptoms of hyperglycemia or hyperglycemic crisis, a random glucose >/= 200 mg/dl is diagnostic for diabetes. In the absence of unequivocal hyperglycemia, results should be confirmed by repeat testing. The classification and Diagnosis of Diabetes Diabetes Care 2021; 46: S19-S40. Current interpretive data was last revised 2022. Calcium 10.1 8.5 - 10.3 mg/dL [facility] Bilirubin, total <0.2 0.1 - 1.2 mg/dL [facility] Protein, pl 6.7 6.5 - 8.5 g/dL [facility] Albumin 3.6 3.5 - 5.0 g/dL [facility] Alk phos 66 40 - 130 Units/L [facility] ALT 10 7 - 45 Units/L [facility] AST 23 10 - 45 Units/L [facility] Blood 07/13/2024 3:36 PM CDT 07/13/2024 7:50 PM CDT Cate Espitia AUTOMATION ENGINEERING MANAGER LAB BLOOD ORDERABLES Va l Result [facility] [id number] Department [place] [address] * (ABNORMAL) POCT hemoglobin A1c (07/13/2024 2:49 PM CDT) Hemoglobin A1C, POC 6.9(A) 4.0 - 5.6 % Blood 07/13/2024 2:49 PM CDT us Cateerick Espitia AUTOMATION ENGINEERING MANAGER POINT OF CARE TEST ORDERA BLES Final Result * (ABNORMAL) POCT glucose (07/13/2024 2:49 PM CDT) Glucose Blood, POC 121 Normal Fasting 70 - 100, Random <200 mg/dL Blood 07/13/2024 2:49 PM CDT us Cate Espitia AUTOMATION ENGINEERING MANAGER POINT OF CARE TEST ORDERA BLES Final Result * RAD ONC ARIA SESSION SUMMARY (07/04/2024 1:59 PM CDT) Course Name [email or web address] ARIA Course Plan Date 06/13/2024 3:05 PM ARIA Elapsed Days 12 ARIA Treatment Start Date 06/22/2024 ARIA Treatment Site RT BREAST BST ARIA Dose Given To Date (cGy) 1,000 ARIA Session Dosage Given (cGy) 250 ARIA Plan ID RT BRST BST ARIA Fractions Treated 4 ARIA Prescribed Dose Per Fraction (cGy) 250 ARIA Prescribed Total Dose (cGy) 1,000 ARIA 07/04/2024 1:59 PM CDT us Not In File Miscellaneous RADIATION ONCOLOGY ORD ERABLES Final Result ARIA * RAD ONC ARIA SESSION SUMMARY (07/01/2024 2:42 PM CDT) Course Name C1_R_Breast ARIA Course Plan Date 06/13/2024 3:05 PM ARIA Elapsed Days 9 ARIA Treatment Start Date 06/22/2024 ARIA Treatment Site RT BREAST BST ARIA Dose Given To Date (cGy) 750 ARIA Session Dosage Given (cGy) 250 ARIA Plan ID RT BRST BST ARIA Fractions Treated 3 ARIA Prescribed Dose Per Fraction (cGy) 250 ARIA Prescribed Total Dose (cGy) 1,000 ARIA 07/01/2024 2:42 PM CDT us Not In File Miscellaneous RADIATION ONCOLOGY ORD ERABLES Final Result ISAIAH * RAD ONC ARIA SESSION SUMMARY (06/30/2024 1:46 PM CDT) Course Name C1_R_Breast ARIA Course Plan Date 06/13/2024 3:05 PM ARIA Elapsed Days 8 ARIA Treatment Start Date 06/22/2024 ARIA Treatment Site RT BREAST BST ARIA Dose Given To Date (cGy) 500 ARIA Session Dosage Given (cGy) 250 ARIA Plan ID RT BRST BST ARIA Fractions Treated 2 ARIA Prescribed Dose Per Fraction (cGy) 250 ARIA Prescribed Total Dose (cGy) 1,000 ARIA 06/30/2024 1:46 PM CDT us Not In File Miscellaneous RADIATION ONCOLOGY ORD ERABLES Final Result Performing Organization Address [facility] Co de Phone Number ISAIAH * RAD ONC ARIA SESSION SUMMARY (06/29/2024 2:50 PM CDT) Course Name C1_R_Breast ARIA Course Plan Date 06/13/2024 3:05 PM ARIA Elapsed Days 7 ARIA Treatment Start Date 06/22/2024 ARIA Treatment Site RT BREAST BST ARIA Dose Given To Date (cGy) 250 ARIA Session Dosage Given (cGy) 250 ARIA Plan ID RT BRST BST ARIA Fractions Treated 1 ARIA Prescribed Dose Per Fraction (cGy) 250 ARIA Prescribed Total Dose (cGy) 1,000 ARIA 06/29/2024 2:50 PM CDT us Not In File Miscellaneous RADIATION ONCOLOGY ORD ERABLES Final Result Performing Organization Address City/[facility] Co de Phone Number TREMAYNEA * RAD ONC ARIA SESSION SUMMARY (06/28/2024 2:20 PM CDT) Course Name C1_R_Breast ARIA Course Plan Date 06/13/2024 3:05 PM ARIA Elapsed Days 6 ARIA Treatment Start Date 06/22/2024 ARIA Treatment Site PTV_R_BRST ARIA Dose Given To Date (cGy) 2,600 ARIA Session Dosage Given (cGy) 520 ARIA Plan ID RT BREAST ARIA Fractions Treated 5 ARIA Prescribed Dose Per Fraction (cGy) 520 ARIA Prescribed Total Dose (cGy) 2,600 ARIA 06/28/2024 2:20 PM CDT us Not In File Miscellaneous RADIATION ONCOLOGY ORD ERABLES Final Result ISAIAH * RAD ONC ARIA SESSION SUMMARY (06/27/2024 3:19 PM CDT) Course Name C1_R_Breast _2024 ARIA Course Plan Date 06/13/2024 3:05 PM ARIA Elapsed Days 5 ARIA Treatment Start Date 06/22/2024 ARIA Treatment Site PTV_R_BRST ARIA Dose Given To Date (cGy) 2,080 ARIA Session Dosage Given (cGy) 520 ARIA Plan ID RT BREAST ARIA Fractions Treated 4 ARIA Prescribed Dose Per Fraction (cGy) 520 ARIA Prescribed Total Dose (cGy) 2,600 ARIA 06/27/2024 3:19 PM CDT us Not In File Miscellaneous RADIATION ONCOLOGY ORD ERABLES Final Result ARIA * RAD ONC ARIA SESSION SUMMARY (06/24/2024 2:34 PM CDT) Course Name C1_R_Breast _2024 ARIA Course Plan Date 06/13/2024 3:05 PM ARIA Elapsed Days 2 ARIA Treatment Start Date 06/22/2024 ARIA Treatment Site PTV_R_BRST ARIA Dose Given To Date (cGy) 1,560 ARIA Session Dosage Given (cGy) 520 ARIA Plan ID RT BREAST ARIA Fractions Treated 3 ARIA Prescribed Dose Per Fraction (cGy) 520 ARIA Prescribed Total Dose (cGy) 2,600 ARIA 06/24/2024 2:34 PM CDT us Not In File Miscellaneous RADIATION ONCOLOGY ORD ERABLES Final Result Performing Organization Address City/[facility] Co de Phone Number ISAIAH * RAD ONC ARIA SESSION SUMMARY (06/23/2024 2:04 PM CDT) Course Name C1_R_Breast _2024 ARIA Course Plan Date 06/13/2024 3:05 PM ARIA Elapsed Days 1 ARIA Treatment Start Date 06/22/2024 ARIA Treatment Site PTV_R_BRST ARIA Dose Given To Date (cGy) 1,040 ARIA Session Dosage Given (cGy) 520 ARIA Plan ID RT BREAST ARIA Fractions Treated 2 ARIA Prescribed Dose Per Fraction (cGy) 520 ARIA Prescribed Total Dose (cGy) 2,600 ARIA 06/23/2024 2:04 PM CDT us Not In File Miscellaneous RADIATION ONCOLOGY ORD ERABLES Final Result Performing Organization Address [facility] de Phone Number ARIGallo * RAD ONC ARIA SESSION SUMMARY (06/22/2024 2:31 PM CDT) Course Name C1_R_Breast ARIA Course Plan Date 06/13/2024 3:05 PM ARIA Elapsed Days 0 ARIA Treatment Start Date 06/22/2024 ARIA Treatment Site PTV_R_BRST ARIA Dose Given To Date (cGy) 520 ARIA Session Dosage Given (cGy) 520 ARIA Plan ID RT BREAST ARIA Fractions Treated 1 ARIA Prescribed Dose Per Fraction (cGy) 520 ARIA Prescribed Total Dose (cGy) 2,600 ARIA 06/22/2024 2:31 PM CDT us Not In File Miscellaneous RADIATION ONCOLOGY ORD ERABLES Final Result Performing Organization Address City/[facility]/ZIP Co de Phone Number ISAIAH * (ABNORMAL) Erythrocyte sedimentation rate (06/20/2024 4:31 PM CDT) Erythrocyte sedimentation rate 47(H) 1 - 30 mm/hr Blood 06/20/2024 4:31 PM CDT 06/20/2024 4:44 PM CDT Tr Whitaker MD LAB BLOOD ORDERABLES Final Re sult Performing Organization Address [facility] de Phone Number MERLIN HERBERTWCH [address] [facility] [place] [address] * CRP (acute phase) (06/20/2024 4:31 PM CDT) Pathologist [facility] CRP <3.0 <=10.0 mg/L Blood 06/20/2024 4:31 PM CDT 06/20/2024 4:44 PM CDT Tr Whitaker MD LAB BLOOD ORDERABLES Final Re sult Performing Organization Address [facility] de Phone Number MERLIN BJWCH [address] [facility] [email or web address] [address] * CRP (acute phase) (05/24/2024 12:23 PM CDT) Blood Tr Whitaker MD LAB BLOOD ORDERABLES Final Re sult Performing Organization Address [facility] de Phone Number EXTERNAL LAB * XR Hip Left 2 or 3 [...] AM CDT) Provider Scanning Final Result * Albumin Creatinine Ratio, Urine (07/07/2023 11:54 AM CDT) Albumin Ur 31.7 mg/L Comment: Interpretive Data No reference range established. Current interpretive data was last revised 2018. Creatinine Ur 113.2 mg/dL [facility] Comment: Interpretive Data No reference range established. Current interpretive data was last revised 2018. Albumin Creatinine Ratio, Ur 28 1 - 29 mg/g [facility] Urine 07/07/2023 11:5 4 AM CDT 07/07/2023 7:02 PM CDT Cate Espitia NP LAB URINE ORDERABLES Va l Result MERLIN [id number] [place] [address] * DIABETES EYE EXAM (02/12/2023 8:11 AM CONDUCTOR FREIGHT) Historical Provider HEALTH MAINTENANCE Edited Result - Final from Last 3 Months or Most Recently Relevant to Health Maintenance Insurance MEDICARE MEDICARE [facility] MEDICARE SUPPLEMENT MEDICARE [facility] MEDICARE SUPPLEMENT Advance Directives For more information, please contact: [phone] * Full Code (Latest Code Status on File) Date Activated Date Inactivated Comments 03/29/2024 8:49 PM 03/30/2024 5:59 PM Care Teams [employer] Relationship Specialty Start Date End Date José Juarez MD PCP - General 05/16/16 Hannah Alcazar MD PhD [id number] [facility] # LL LL [address] [place] [address] Radiation Oncologist Radiation Oncology 05/19/24
--- OUTSIDE RECORDS SUMMARY | 2024-07-25 09:50 | XMS_ITS | Clinical Summary ---
Author Organization [facility] Address [address] [place] [address] Care Team Providers Care Curing Machine Operator Name Role Phone José Juarez MD Primary Care Provider Hannah Alcazar MD PhD Unavailable [phone] Allergies Active Allergy Reactions Criticality Noted Date [...] by mouth Active lancets (ACCU-CHEK MULTICLIX LANCET) [facility] [place] Check blood sugar four times a day or as directed 1 each 08/21/19 18 Active BD ULTRA-FINE MINI PEN NEEDLE 31 gauge x 3/16 needle Use to inject insulin 5 times a day 450 each 1 11/09/19 19 Active Accu-Chek SmartView Test Strip stripIndicatio ns:Type 2 diabetes mellitus with hyperglycemia, with long-term current use of insulin ([facility]) TEST TWICE A DAY 200 each 1 [...] hyperglycemia, with long-term current use of insulin ([facility]) 1 each every 14 (fourteen) days 6 [...] hyperglycemia, with long-term current use of insulin ([facility]) Inject 40 Units under the skin daily [...] pain for pain 5 tablet 03/29/19 25 025 Discontinued Active Problems Problem Noted Date [...] Cancer Staging:Clinical:Stage IIA(cT2, cN0, cM0, G3, ER+, WI+, HER2-, Oncotype DX score: 39) - Signed [...] results. Assessment & Plan (03/09/2024 3:18 PM FILAMENT SHAPER): Chronic problem. Clinically & biochemically euthyroid. Currently [...] daily Assessment & Plan (01/02/2022 2:38 PM FILAMENT SHAPER): Will check TFT Adjust dose of LT4 [...] diabetes m aziza 08/20/2017 Assessment & Plan (07/13/2024 2:43 PM CDT): Chronic problem. Currently taking rosuvastatin 5mg. Last lipid panel: 07/07/23 LDL=78, CQ=416. Will update labs. Does not mychart. Verified phone #/address to contact re: results. Assessment & Plan (03/09/2024 3:15 PM FILAMENT SHAPER): Chronic problem. Currently taking rosuvastatin 5mg. Last lipid panel: 07/07/23 LDL=78, ZL=559. Assessment & Plan (10/28/2023 1:33 PM CDT): Chronic problem. Currently taking rosuvastatin 5mg. Last lipid panel: 07/07/23 LDL=78, AG=951. Assessment & Plan (07/07/2023 11:16 AM CDT): Chronic problem. Currently taking rosuvastatin 5mg. Last lipid panel: 06/18/21 LDL=75, XQ=797. Will update labs today. Does not mychart. Verified phone #/address to contact re: results. Assessment & Plan (11/04/2022 4:20 PM CDT): Chronic, well-controlled Continue statin therapy with atorvastatin Assessment & Plan (01/02/2022 2:37 PM FILAMENT SHAPER): Chronic, well controlled Low fat Low cholesterol diet Exercise Continue statin therapy Assessment & Plan (07/04/2021 1:42 PM CDT): Chronic, well controlled Low fat Low cholesterol diet Exercise Continue statin therapy Assessment & Plan (01/24/2021 4:18 PM FILAMENT SHAPER): Lipids checked today LDL and non HDL cholesterol at goal Continue with simvastatin 20 mg daily Assessment & Plan (2020 3:12 PM FILAMENT SHAPER): Goal of treatment , LDL cholesterol less [...] profile Assessment & Plan (04/05/2019 2:52 PM FILAMENT SHAPER): Goal of treatment , LDL cholesterol less [...] therapy Assessment & Plan (04/06/2018 11:27 AM FILAMENT SHAPER): Goal of treatment , LDL cholesterol less [...] therapy Assessment & Plan (12/25/2017 1:08 PM FILAMENT SHAPER): At goal on current medications. Assessment & [...] UTD on DM eye exam (02/12/23 no [facility] in [place]). Had appt 06/07/24. Letter sent to get [...] infection. Assessment & Plan (03/09/2024 3:12 PM FILAMENT SHAPER): Chronic problem. A1c improved from 7.2% 10/28/23 to now 5.9%. Current medications: Lantus 40 units at bedtime Humalog 6 units with dinner if blood sugar over 180 DM eye exam 01/2023 [facility]. Second request letter sent to get copy [...] sugar over 180 DM eye exam 01/2023 [facility] in [place]. Second request letter sent to get copy [...] sugar over 180 DM eye exam 01/2023 [facility] [place]. Will send letter to get copy of [...] ) Assessment & Plan (01/02/2022 2:33 PM FILAMENT SHAPER): Lower Lantus to 35 units Take Humalog, [...] units. Assessment & Plan (01/24/2021 4:17 PM FILAMENT SHAPER): Hba1c was Lab Results Component Value Date [...] dinner. Assessment & Plan (2020 3:11 PM FILAMENT SHAPER): Hba1c was Lab Results Component Value Date [...] Lantus Assessment & Plan (04/05/2019 2:51 PM FILAMENT SHAPER): Hba1c was Lab Results Component Value Date [...] discussed. Assessment & Plan (04/06/2018 11:26 AM FILAMENT SHAPER): Hba1c was Lab Results Component Value Date HGBA1C 7.6 04/06/2018 today, indicating ... DM control 1800 calorie, consistent carb diet recommended 25-45 min daily exercise, combining both aerobic and resistance exercise recommended. The need to monitor blood glucose before meals and bedtime was discussed. Prevention and treatment of hyypoglcyemia discussed. Lower Glimepiride, 1 mg daily Assessment & Plan (12/25/2017 1:07 PM FILAMENT SHAPER): A1c 7.3. Reduce Lantus to 38 bid. [...] visit. Assessment & Plan (04/09/2017 2:50 PM FILAMENT SHAPER): Hba1c was 7.2 today, indicating DM Adequate control 1800 calorie, consistent carb diet recommended 30 min daily aerobic and resistance exercise recommended Prevention and treatment of hyypoglcyemia discussed. Blood glucose monitoring with fingers sticks 1-2 x day . Assessment & Plan (01/06/2017 2:48 PM FILAMENT SHAPER): Hba1c was 6.8 today, indicating adequate DM [...] results. Assessment & Plan (03/09/2024 3:18 PM FILAMENT SHAPER): Chronic problem. Controlled on current carvedilol 3.125mg [...] meds Assessment & Plan (2020 3:11 PM FILAMENT SHAPER): Goal blood pressure is less than 140/85 [...] Lisinopril Assessment & Plan (04/05/2019 2:52 PM FILAMENT SHAPER): Goal blood pressure is less than 140/85 [...] ARB Assessment & Plan (04/06/2018 11:27 AM FILAMENT SHAPER): Goal blood pressure is less than 140/85 Low salt diet recommended Daily aerobic exercise Continue current meds, including LINDA-I or ARB Assessment & Plan (12/25/2017 1:07 PM FILAMENT SHAPER): Controlled on current medications. Assessment & Plan (08/20/2017 1:35 PM CDT): Goal blood pressure is less than 140/85 Low salt diet recommended Daily aerobic exercise Continue current meds, including LINDA-I or ARB Assessment & Plan (04/09/2017 2:49 PM FILAMENT SHAPER): Goal blood pressure is less than 140/85 Low salt diet recommended Daily aerobic exercise Continue current meds, including LINDA-I or ARB Assessment & Plan (01/06/2017 2:36 PM FILAMENT SHAPER): Goal blood pressure is less than 140/85 [...] advised. Assessment & Plan (04/09/2017 2:49 PM FILAMENT SHAPER): Goal of treatment , LDL cholesterol less [...] therapy Assessment & Plan (01/06/2017 2:36 PM FILAMENT SHAPER): Goal of treatment , LDL cholesterol less [...] without complication 09/30/1907/13/2024 Diabetes mellitus 07/06/2015 07/13/2024 Encounters Date Type Department Care Team Description 07/21/2024 Telephone [facility] Floor [address] [place] [address] Tadeo Talbert 07/21/2024 Telephone [facility] Surgery [address] [facility] Floor [address] [place] [address] Kiara Jason CMA 07/20/2024 Orders Only [facility] Orthopaedic Surgery [address] [facility] Medical Office Building [address] [place] [address] Tr Whitaker MD Left hip pain (Primary Dx) 07/14/2024 Results Follow-Up [facility] Diabetes and Endocrinology [address] [place] [phone] Cate Espitia NP Comprehensive metabolic panel, Lipid panel, TSH, Additional followed-up results: 2 07/13/2024 3:45 PM CDT Lab [facility] Outpatient Lab at [address] [phone] 07/13/2024 3:36 PM CDT - 07/13/2024 11:59 PM CDT Hospital Encounter [facility] [address] [place] [address] Type 2 diabetes mellitus with hyperglycemia, with long-term current use of insulin (HCC); Hypertension associated with diabetes (HCC); Hyperlipidemia associated with type 2 diabetes mellitus (HCC); Acquired hypothyroidism Discharge Disposition: Discharge to home or self care 07/13/2024 2:30 PM CDT Office Visit [facility] Diabetes and Endocrinology [address] [place] [phone] Cate Espitia NP Type 2 diabetes mellitus with hyperglycemia, with long-term current use of insulin (HCC) (Primary Dx); Hypertension associated with diabetes (HCC); Hyperlipidemia associated with type 2 diabetes mellitus (HCC); Acquired hypothyroidism; 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) 07/12/2024 Orders Only [facility] Oncology [address] [place] [address] Kim Blmu, RN 07/12/2024 Orders Only [facility] Oncology [address] [place] [address] Kim Blum, RN Senile osteoporosis (Primary Dx); Malignant neoplasm of upper-inner quadrant of right breast in female, estrogen receptor positive (HCC) 07/04/2024 1:40 PM CDT - 07/04/2024 11:59 PM CDT Hospital Encounter [facility] Radiation Oncology [address] [place] [address] Hannah Alcazar MD PhD Discharge Disposition: Discharge to home or self care 07/04/2024 Completion of Therapy [facility] Radiation Oncology [address] [place] [address] Yolie Baeza PA 07/04/2024 OTV [facility] Radiation Oncology [address] [place] [address] Hannah Alcazar MD PhD 07/04/2024 Orders Only RAD ONC TREATMENTS Miscellaneous, Not In File 07/01/2024 1:00 PM CDT - 07/01/2024 11:59 PM CDT Hospital Encounter [facility] Radiation Oncology [address] [place] [address] Hannah Alcazar MD PhD Discharge Disposition: Discharge to home or self care 07/01/2024 Orders Only RAD ONC TREATMENTS Miscellaneous, Not In File 06/30/2024 12:53 PM CDT - 06/30/2024 11:59 PM CDT Hospital Encounter [facility] Radiation Oncology [address] [place] [address] Hannah Alcazar MD PhD Discharge Disposition: Discharge to home or self care 06/30/2024 Orders Only RAD ONC TREATMENTS Miscellaneous, Not In File 06/29/2024 1:30 PM CDT - 06/29/2024 11:59 PM CDT Hospital Encounter [facility] Radiation Oncology [address] [place] [address] Hannah Alcazar MD PhD Discharge Disposition: Discharge to home or self care 06/29/2024 Orders Only RAD ONC TREATMENTS Miscellaneous, Not In File 06/28/2024 1:52 PM CDT - 06/28/2024 11:59 PM CDT Hospital Encounter [facility] Radiation Oncology [address] [place] [address] Hannah Alcazar MD PhD Discharge Disposition: Discharge to home or self care 06/28/2024 Orders Only RAD ONC TREATMENTS Miscellaneous, Not In File 06/27/2024 2:10 PM CDT - 06/27/2024 11:59 PM CDT Hospital Encounter [facility] Radiation Oncology [address] [place] [address] Hannah Alcazar MD PhD Discharge Disposition: Discharge to home or self care 06/27/2024 OTV [facility] Radiation Oncology [address] [place] [address] Hannah Alcazar MD PhD Malignant neoplasm of upper-inner quadrant of right breast in female, estrogen receptor positive (HCC) (Primary Dx) 06/27/2024 Orders Only RAD ONC TREATMENTS Miscellaneous, Not In File 06/24/2024 1:51 PM CDT - 06/24/2024 11:59 PM CDT Hospital Encounter [facility] Radiation Oncology [address] [place] [address] Hannah Alcazar MD PhD Discharge Disposition: Discharge to home or self care 06/24/2024 Orders Only RAD ONC TREATMENTS Miscellaneous, Not In File 06/23/2024 1:18 PM CDT - 06/23/2024 11:59 PM CDT Hospital Encounter [facility] Radiation Oncology [address] [place] [address] Hannah Alcazar MD PhD Discharge Disposition: Discharge to home or self care 06/23/2024 Orders Only RAD ONC TREATMENTS Miscellaneous, Not In File 06/22/2024 1:50 PM CDT - 06/22/2024 11:59 PM CDT Hospital Encounter [facility] Radiation Oncology [address] [place] [address] Hannah lAcazar MD PhD Discharge Disposition: Discharge to home or self care 06/22/2024 Orders Only RAD ONC TREATMENTS Miscellaneous, Not In File 06/21/2024 Telephone [facility] Radiation Oncology [address] [place] [address] Diann Menon RN 06/20/2024 5:55 PM CDT - 06/20/2024 11:59 PM CDT Hospital Encounter [facility] Radiation Oncology [address] [place] [address] Hannah Alcazar MD PhD Discharge Disposition: Discharge to home or self care 06/20/2024 4:20 PM CDT Lab [facility] [address] [place] [address] Left hip pain; Displaced fracture of base of neck of left femur, subsequent encounter for closed fracture with routine healing 06/20/2024 1:40 PM CDT Office Visit [facility] Orthopaedic Surgery [address] [facility] Medical Office Building [address] [place] [phone] Tr Whitaker MD Left hip pain (Primary Dx); Displaced fracture of base of neck of left femur, subsequent encounter for closed fracture with routine healing 06/15/2024 Orders Only [facility] Diabetes and Endocrinology [address] [place] [phone] Cate Espitia, KAYLEEN Type 2 diabetes mellitus with hyperglycemia, with long-term current use of insulin (HCC) (Primary Dx) 06/14/2024 Orders Only [facility] Oncology [address] [place] [address] Kim Blum RN 06/13/2024 2:00 PM CDT - 06/13/2024 11:59 PM CDT Hospital Encounter [facility] Radiation Oncology [address] [place] [address] Hannah Alcazar MD PhD Discharge Disposition: Discharge to home or self care 05/30/2024 Orders Only [facility] Orthopaedic Surgery [address] [place] [address] Tr Whitaker MD 05/30/2024 Telephone [facility] Oncology [facility] [place] [address] Kim Blum, MARIA ALEJANDRA care planning 05/24/2024 Orders Only [facility] Orthopaedic Surgery [address] [facility] Office Building [address] [place] [phone] Tr Whitaker MD Left hip pain (Primary Dx) 05/24/2024 Telephone [facility] Orthopaedic Surgery [address] [facility] Office Building [address] [place] [phone] Lori Andrea, MARIA ALEJANDRA 05/24/2024 Telephone [facility] Radiation Oncology [address] [place] [address] Diann Menon RN 05/23/2024 1:00 PM CDT Consult [facility] Radiation Oncology [address] [place] [address] Hannah Alcazar, PhD Malignant neoplasm of upper-inner quadrant of right breast in female, estrogen receptor positive (HCC); 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, right (HCC); Malignant neoplasm of female breast, unspecified estrogen receptor status, unspecified laterality, unspecified site of breast (HCC); Sick sinus syndrome (HCC) 05/09/2024 8:50 AM CDT Office Visit [facility] Orthopaedic Surgery [address] [facility] Medical Office Building [address] [place] [address] Tr Whitaker MD Left hip pain (Primary Dx); Displaced fracture of base of neck of left femur, subsequent encounter for closed fracture with routine healing 05/09/2024 8:20 AM CDT - 05/09/2024 11:59 PM CDT Hospital Encounter [facility] [address] [facility] [address] [place] [phone] Left hip pain Discharge Disposition: Discharge to home or self care 05/06/2024 Orders Only [facility] Scanning, Provider 05/03/2024 Results Follow-Up [facility] Floor [address] [place] [address] Patrica Durham CMA Surgical pathology 05/03/2024 Telephone [facility] Diabetes and Endocrinology [address] [place] [phone] Cate Espitia NP [employer]estyle Sj Order 04/28/2024 Documentation [facility] Oncology [facility] Floor [address] [place] [address] Che Morillo CMA from Last 3 Months Immunizations Immunization Administration [...] 02/16/2024 Left fracture; place moisés and screws MASTECTOMY, PARTIAL 03/29/2024 Right Medical History Medical History Date Comments Hx Other Medical hyerlipidemia; Comments: [facility] 08/15/2013 - Diabetes mellitus (HCC) Diabetes mellitus; Comments: [facility] 08/15/2013 - Hx Other Medical diabetic neurop athy; Comments: [facility] 08/15/2013 - Hx Other Medical fractured neck; Comments: [facility] 08/15/2013 - Hx Other Medical ganglion; Comme nts: [facility] 08/15/2013 - Hx Other Medical heel spur; Comm ents: [facility] 08/15/2013 - Hx Other Medical gallbladder; Co mments: [facility] 08/15/2013 - Hx Other Medical R rotator cuff; Comments: [facility] 08/15/2013 - Hx Other Medical shingels; Comme nts: [facility] 08/15/2013 - Hx Other Medical Not Claustropho bic; Comments: [facility] 11/29/2013 - Headache Thyroid disease Arthritis Heart disease pacemaker Breast cancer (HCC) Family History Medical History Relation Name Comments Breast cancer Daughter Lucy Jay Diabetes Father Diabetes mellit us; Hypertension Mother Hypertension; Relation Name Status Comments Daughter Lucy Jay Alive Father Mother Social History Tobacco Use Types [...] on file Legal Sex Female 12:21 AM FILAMENT SHAPER Gender Identity Not on file Sexual Orientation [...] 07/13/2024 2:42 PM CDT Plan of Treatment Health Maintenance Due Date Last Done Comments DTaP/Tdap/Td Vaccine (1 - Tdap) 1951 Hepatitis B Screening 04[birth year]27/1958 Zoster Vaccine (1 of 2) 1960 Well Visit 65+ 2006 Covid-19 Vaccine (3 - Pfizer risk series) 07/04/2020 06/06/2020, 05/17/2020 Depression Screening 07/04/2022 07/04/2021, 08/28/2020, 2020, Additional history exists Albumin Creatinine Ratio, Urine 07/06/2024 07/07/2023, 12/14/2019, 11/23/2018, Additional history exists Influenza Vaccine (Season Ended) 2024 12/30/2022, 01/27/2022, 12/10/2020, Additional history exists Hemoglobin A1C 01/13/2025 07/13/2024, 02/17, 10/28/2023, Additional history exists Dilated Eye Exam 02/12/2025 02/12/2023, 09/2019, 08/02/2018, Additional history exists Fall Risk Assessment 05/23/2025 05/23/2024, 03/30/19 25 Foot Exam 07/13/2025 07/13/2024, 06/17, 2020, Additional history exists Lipid Panel 07/13/2025 07/13/2024, 06/17, 06/18/2021, Additional history exists eGFR 07/13/2025 07/13/2024, 06/17, 12/14/2019 Osteoporosis Screening-Bone Density Scan 11/16/2025 11/17/2023 Pneumococcal vaccine 65+ Completed 015, 02/16/2014, 12/17/2006 Medical Devices Implanted Type Area Sheet Mill Supervisor Device Identifier Shelf Expiration Date Model / Serial / Lot Pacemaker Implanted:Qty: 1 Pacemaker Left: Chest [employer] Marker Tissue Needle Delivery Spiral Capped Seed Radiopaque Shank Boner Stainless Steel Low Nickel [employer] [id number] - [id number] Implanted:Qty: 1 on 03/29/2024 at [facility] [employer] [id number] / / Procedures Procedure Name Priority [...] DIABETES EYE EXAM Routine 02/12/2023 8:11 AM FILAMENT SHAPER from Last 3 Months or Most Recently [...] PM CDT 07/13/2024 7:52 PM CDT us Cate Espitia NP LAB BLOOD ORDERABLES Va l Result MERLIN [address] [place] [address] * (ABNORMAL) TSH (07/13/2024 3:36 PM CDT) Thyroid Stimulating Hormone 4.65(H) 0.30 - 4.20 mcIUnit/mL Blood 07/13/2024 3:36 PM CDT 07/13/2024 7:50 PM CDT us Cate Espitia VOCATIONAL AUTO BODY INSTRUCTOR LAB BLOOD ORDERABLES Va l Result [facility]LIN REYES [phone] [address] [facility] [place] [address] * T4, free (07/13/2024 3:36 PM CDT) Free T4 1.02 0.90 - 1.70 ng/dL Blood 07/13/2024 3:36 PM CDT 07/13/2024 7:50 PM CDT us Cate Espitia VOCATIONAL AUTO BODY INSTRUCTOR LAB BLOOD ORDERABLES Va l Result Performing Organization Address [facility] Co de Phone Number ZENIABRANT [phone] [address] [facility] [place] [address] * (ABNORMAL) Lipid panel (07/13/2024 3:36 PM [...] last revised on 2017. Chol/HDL ratio 3 CERNER CH Blood 07/13/2024 3:36 PM CDT 07/13/2024 7:50 PM CDT us Cate Espitia NP LAB BLOOD ORDERABLES Va l Result CERNER [address] [place] [address] * (ABNORMAL) Comprehensive metabolic panel [...] classification and Diagnosis of Diabetes Diabetes Care 202; 46: S19-S40. Current interpretive data was last [...] CDT 07/13/2024 7:50 PM CDT Cate Espitia NP LAB BLOOD ORDERABLES Va l Result [place]LIN REYES [phone] [place] [address] * (ABNORMAL) POCT hemoglobin A1c (07/13/2024 2:49 PM CDT) Pathologist [facility] Hemoglobin A1C, POC 6.9(A) 4.0 - 5.6 % Blood 07/13/2024 2:49 PM CDT Cate Espitia NP POINT OF CARE TEST ORDERA BLES Final Result * (ABNORMAL) POCT glucose (07/13/2024 2:49 PM CDT) Pathologist [facility] Glucose Blood, POC 121 Normal Fasting 70 - 100, Random <200 mg/dL Blood 07/13/2024 2:49 PM CDT Cate Espitia NP POINT OF CARE TEST ORDERA BLES Final Result * RAD ONC ARIA SESSION SUMMARY (07/04/2024 1:59 PM CDT) Pathologist [facility] Course Name C1_R_Breast _2024 ARIA Course Plan [...] Miscellaneous RADIATION ONCOLOGY ORD ERABLES Final Result TREMAYNEA * RAD ONC ARIA SESSION SUMMARY (07/01/2024 [...] ARIA * RAD ONC ARIA SESSION SUMMARY (06/30/2024 [...] ARIA * RAD ONC ARIA SESSION SUMMARY (06/29/2024 [...] ORD ERABLES Final Result Performing Organization Address [facility] Co de Phone Number TREMAYNEA * RAD [...] ARIA * RAD ONC ARIA SESSION SUMMARY (06/27/2024 3:19 PM CDT) Course Name C1_R_Breast ARIA Course [...] ISAIAH * RAD ONC ARIA SESSION SUMMARY (06/24/2024 [...] ORD ERABLES Final Result Performing Organization Address [facility] Co de Phone Number ISAIAH * RAD [...] Prescribed Total Dose (cGy) 2,600 ARIA 06/23/2024 2:0 4 PM CDT us Not In File Miscellaneous RADIATION ONCOLOGY ORD ERABLES Final Result ISAIAH * RAD ONC ARIA SESSION SUMMARY (06/22/2024 2:31 PM CDT) Course Name C1_R_Breast _2024 ARIA [...] ORD ERABLES Final Result Performing Organization Address [facility] de Phone Number ISAIAH * (ABNORMAL) Erythrocyte sedimentation rate (06/20/2024 4:31 PM CDT) Erythrocyte sedimentation rate 47(H) 1 - 30 mm/hr Blood 06/20/2024 4:31 PM CDT 06/20/2024 4:44 PM CDT us Tr Whitaker MD LAB BLOOD ORDERABLES Final Re sult Performing Organization Address [facility] de Phone Number MERLIN [facility] [phone] [facility] [place] [address] * CRP (acute phase) (06/20/2024 4:31 PM CDT) CRP <3.0 <=10.0 mg/L Blood 06/20/2024 4:31 PM CDT 06/20/2024 4:44 PM CDT us Tr Whitaker MD LAB BLOOD ORDERABLES Final Re sult Performing Organization Address [facility] Co de Phone Number [id number] [facility]. [place] [address] * CRP (acute phase) (05/24/2024 12:23 PM CDT) Blood Tr Whitaker MD LAB BLOOD ORDERABLES Final Re sult Performing Organization Address City/[facility] Co de Phone Number EXTERNAL LAB * XR [...] last revised 2018. Creatinine Ur 113.2 mg/dL [facility] Comment: Interpretive Data No reference range established. Current interpretive data was last revised 2018. Albumin Creatinine Ratio, Ur 28 1 - 29 mg/g [facility] Urine 07/07/2023 11:5 4 AM CDT 07/07/2023 7:02 PM CDT Cate Espitia [employer] INSTRUCTOR LAB URINE ORDERABLES Va l Result [facility] [id number] [address] Department of Laboratories [place] [id number] * DIABETES EYE EXAM (02/12/2023 8:11 AM [employer]ER) Historical Provider HEALTH MAINTENANCE Edited Result - Final from Last 3 Months or Most Recently Relevant to Health Maintenance Insurance MEDICARE [facility] Address: [address] [address] [employer] MEDICARE SUPPLEMENT MEDICARE [facility] MEDICARE SUPPLEMENT Advance Directives For more information, please contact: [phone] * Full Code (Latest Code Status on File) Date Activated Date Inactivated Comments 03/29/2024 8:49 PM 03/30/2024 5:59 PM Care Teams Curing Machine Operator Relationship Specialty Start Date End Date José Juarez MD PCP - General 05/16/16 Hannah Alcazar MD PhD [id number] [facility] [address] [facility] [address] [place] [address] Radiation Oncologist Radiation Oncology 05/19/24
--- OUTSIDE RECORDS SUMMARY | 2024-07-25 09:50 | XMS_ITS | Data Portability ---
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 Recreational Sports Director variances may occur. Despite proofreading, typographical errors may occur. Occasional wrong-word or 'ggapw-v-fuzs' substitutions may have occurred due to the inherent limitations of voice recording. Read the chart carefully and recognize, using context, where substitutions have occurred. [email or web address] Not available 04/06/2024 16:52:08 Plan of Treatment Reminders Order Date Submit Date Provider Last Modified By Organization Details Last Modified Time Details Appointments Establish ed Patient 15 2024 02:30P Hasmukh Dugan DPM Not available Not available Not available Lab HbA1c (hemoglob in A1c), blood 2024 025 [email or web address] [facility], [address] [place] [address], [address], 05/04/2024 10:05:38 microalbu min, urine 2024 025 [email or web address] [facility], [address] [place], [address], 05/04/2024 10:05:39 CBC w/ auto diff 2024 025 [facility], [address] [place] [address], [address], 05/04/2024 10:05:38 CMP, serum or plasma 2024 025 [email or web address] [facility], [address] [place], [address], 05/04/2024 10:05:38 lipid panel, serum 2024 025 [facility], [address] [place] [address], [address], 05/04/2024 10:05:38 TSH, serum or plasma 2024 025 [email or web address] [facility], [address] [place], [address], 05/04/2024 10:05:38 T4, free, serum 2024 025 [email or web address] [facility] - Outpatient Lab, [address] [place], [address], 05/04/2024 10:05:38 Referral vascular surgeon referral - please call Landy (daughter in law) to schedule appointme nt. 2024 025 [email or web address] [facility], [address] [facility], [address], [place], [address], 05/09/2024 15:52:35 orthopedi c surgeon referral - Please contact pt to schedule apt. Thanks 2024 025 PAXTON Whitaker, [address] [facility], [address] [facility], [place], [address], 05/10/2024 20:54:42 Procedures None recorded. Surgeries None recorded. Imaging US, duplex, arterial, lower extremity 2024 025 [email or web address] [facility] (Outpatient Orders), [address] [place], [address], 04/12/2024 15:58:47 XR, femur, 2 or more view 2024 025 PAXTON [facility], [address] [facility], [place], [address], 03/21/2024 14:37:57 Medication Orders None recorded. Patient TargetsNo targets recorded. Patient Instructions Encounter Date Encounter Id Patient Instructions Last Modified By Organization Details Last Modified Time 04/06/2024 [id number] (ADOLFO) ankle brachial index* Not available 04/06/2024 17:46:25 04/27/2024 [id number] Follow-up hypertension, hyperlipidemia, type 2 diabetes, malignant [...] with voice recognition software. Occasional wrong-word or sztik-o-fmxk substitutions may have occurred due to the inherent limitations of voice recognition software. Read the chart carefully and recognize, using context, where substitutions may have occurred. Created: Erickson Juarez M.D. 04.27.2024 04:40 PM [email or web address] Not available 04/27/2024 17:41:02 05/24/2024 [id number] Follow-up hypertension, hyperlipidemia, hypothyroidism, carcinoma of the breast, type 2 diabetes and recent fractured hip all clinically stable. Has had blood work performed recently. He is currently undergoing physical therapy. No interval complaints any additional problems. Will continue on current medications already has a follow-up appointment on July 27, 2024. Keep Appointment: Thu 02:00 PM Meade Portions of record are template driven. When necessary additional context will be provided. Additionally some portions have been created with voice recognition software. Occasional wrong-word or xltiq-s-feng substitutions may have occurred due to the inherent limitations of voice recognition software. Read the chart carefully and recognize, using context, where substitutions may have occurred. Created: Erickson Juarez M.D. 05.24.2024 10:23 AM [email or web address] Not available 05/24/2024 11:23:31 07/06/2024 [id number] Follow-up essent ial hypertension, hyperlipidemia, hypothyroidism and infiltrating ductal carcinoma of the breast all clinically stable at this time. Will recheck back in four months. The patient does need a wheelchair as outlined above. Will continue on current Rx and follow-up in four months Additional Orders - Directives - Recommendations 1. Needs a prescription for a light-weight wheelchair Follow Up: 4 Months Approximate Date: 11/03/2024 Portions of record are template driven. When necessary additional context will be provided. Additionally some portions have been created with voice recognition software. Occasional wrong-word or hydeg-p-gpdi substitutions may have occurred due to the inherent limitations of voice recognition software. Read the chart carefully and recognize, using context, where substitutions may have occurred. Created: Erickson Juarez M.D. 07.06.2024 04:12 PM [email or web address] Not available 07/06/2024 17:12:58 Reason for Referral Orthopedic Surgeon Referral for Fracture of femur L hip Please contact pt to schedule apt. Thanks Referring Physician: Benito Irving, Orthopedic Surgery, Encounter Date: 03/21/2024 Vascular Surgeon Referral fo r Peripheral vascular disease please call Landy (daughter in law) to schedule appointment. [phone] Referring Physician: Vadim Dugan, Podiatric Surgery, Encounter Date: 04/06/2024 Results Created Date Observation Date Name Description Value Unit Range Abnormal Flag Note LastModifiedBy Organization Detail LastModifiedTime 06/25/1906/24/2024 URINA LYSIS COMPL ETE/I RIS W/RFX color LIGHT- YELLOW Not Available [facility] (Lab) [address] [place], [address], 06/24/2024 13:27:31 06/25/19 25 06/24/2024 URINA LYSIS COMPL ETE/I RIS W/RFX appear TURBID abnormal Not Available [facility] (Lab) [address] [place], [address], 06/24/2024 13:27:31 06/25/19 25 06/24/2024 URINA LYSIS COMPL ETE/I RIS W/RFX specific gravity 1.010 1.001- 1.030 Not Available [facility] (Lab) [address] [place], [address], 06/24/2024 13:27:31 06/25/19 25 06/24/2024 URINA LYSIS COMPL ETE/I RIS W/RFX pH 5.5 pH_un its 5.0-9. 0 Not Available [facility] (Lab) [address] [place], [address], 06/24/2024 13:27:31 06/25/19 25 06/24/2024 URINA LYSIS COMPL ETE/I RIS W/RFX leukocytes NEGATI VE fanny/u L negati ve- Not Available [facility] (Lab) [address] [place], [address], 06/24/2024 13:27:31 06/25/19 25 06/24/2024 URINA LYSIS COMPL ETE/I RIS W/RFX nitrite NEGATI VE negati ve- Not Available [facility] (Lab) [address] [place], [address], 06/24/2024 13:27:31 06/25/19 25 06/24/2024 URINA LYSIS COMPL ETE/I RIS W/RFX protein NEGATI VE mg/dL negati ve- Not Available [facility] (Lab) [address] [place], [address], 06/24/2024 13:27:31 06/25/19 25 06/24/2024 URINA LYSIS COMPL ETE/I RIS W/RFX glucose NORMAL mg/dL normal - Not Available [facility] (Lab) [address] [place], [address], 06/24/2024 13:27:31 06/25/19 25 06/24/2024 URINA LYSIS COMPL ETE/I RIS W/RFX ketones NEGATI VE mg/dL negati ve- Not Available [facility] (Lab) [address] [place], [address], 06/24/2024 13:27:31 06/25/19 25 06/24/2024 URINA LYSIS COMPL ETE/I RIS W/RFX urobilinogen NORMAL mg/dL normal - Not Available [facility] (Lab) [address] [place], [address], 06/24/2024 13:27:31 06/25/19 25 06/24/2024 URINA LYSIS COMPL ETE/I RIS W/RFX bilirubin NEGATI VE mg/dL negati ve- Not Available [facility] (Lab) [address] [place], [address], 06/24/2024 13:27:31 06/25/19 25 06/24/2024 URINA LYSIS COMPL ETE/I RIS W/RFX blood NEGATI VE mg/dL negati ve- Not Available [facility] (Lab) [address] [place], [address], 06/24/2024 13:27:31 06/25/19 25 06/24/2024 URINA LYSIS COMPL ETE/I RIS W/RFX white blood cells 0-8 /i??h pfi?? 0-8 Not Available [facility] (Lab) [address] [place], [address], 06/24/2024 13:27:31 06/25/19 25 06/24/2024 URINA LYSIS COMPL ETE/I RIS W/RFX red blood cells 0-4 /i??h pfi?? 0-4 Not Available [facility] (Lab) [address] [place], [address], 06/24/2024 13:27:31 06/25/19 25 06/24/2024 URINA LYSIS COMPL ETE/I RIS W/RFX bacteria OCCASI ONAL none seen- abnormal Not Available [facility] (Lab) [address] [place], [address], 06/24/2024 13:27:31 06/25/19 25 06/24/2024 URINA LYSIS COMPL ETE/I RIS W/RFX mucous OCCASI ONAL /i??l pfi?? none seen- abnormal Not Available [facility] (Lab) [address] [place], [address], 06/24/2024 13:27:31 06/25/19 25 06/24/2024 URINA LYSIS COMPL ETE/I RIS W/RFX squamous epithelial PACKED FIELD /i??l pfi?? abnormal Not Available [facility] (Lab) [address] [place], [address], 06/24/2024 13:27:31 06/25/19 25 06/24/2024 URINA LYSIS COMPL ETE/I RIS W/RFX hyaline cast FEW /i??l pfi?? none seen- abnormal Not Available [facility] (Lab) [address] [place], [address], 06/24/2024 13:27:31 02/23/19 25 XR, femur No observ ation record ed. [email or web address] [facility] [address] [facility] [address], [place], [address], 02/24/2024 15:22:14 03/19/19 25 03/18/2024 XR, hip + pelvi s, unila teral , 2 or 3 view No observ ation record ed. [email or web address] Not Available 2024 15:24:34 03/21/19 XR, femur , 2 or more view No observ ation record ed. [facility] [address] [facility], [place], [address], 03/21/2024 11:45:01 04/29/19 25 04/28/2024 (ADOLFO) ankle brach ial index * No observ ation record ed. [email or web address] [facility] (Outpatient Orders) [address] [place], [address], 04/28/2024 18:18:01 04/29/19 25 04/28/2024 US, duple x, arter ial, lower extre mity No observ ation record ed. [email or web address] [facility] (Outpatient Orders) [address] [place], [address], 04/28/2024 18:18:01 06/25/19 25 06/24/2024 US, knee [facility] [address] [place] [address] [phone] Patijocelyne t Name: AVERY HARRIS Access ion #: [id number] Sex: F : 1940 6 Locati on: RAD Attend ing Physic javon: LENORA JUAREZ CE Orderi ng Physic javon: LENORA JUAREZ CE Exam Date: 06/25/19 9:11 AM Exam Name: US KNEE LT LIMITE D Admitt ing Diagno sis(es ): RADIOL OGY REPORT - FINAL EXAM: US KNEE LT LIMITE D HISTOR Y: Synovi al cyst 84-yea r-old female with left knee palpab le abnorm ality 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 COMPAR LEONEL: None availa ble. TECHNI QUE: Ultras ound examin ation of the left knee poplit eal fossa was perfor med. FINDIN GS: See below. 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 Create d and electr onical ly signed by: Benito serna MD Signed Date: 06/25/19 3:11 PM (CT) Dictat ed by: Benito serna MD (CT) (CT) Page [address] (Imaging) [address] [place], [address], 06/25/2024 08:15:41 Result Notes None recorded. Problems Name Problem SNOMED Code Status Onset Date Resolution Date Notes Provider Name and Address Organization Details Recorded Time Otitis media 56857586 Active 2022 Not Available [facility] 3 09:54:12 Obese class I 01468217605 4107 Active 2022 Not Available [facility] 3 09:54:12 Abdominal pain 90266703 Active 2022 Not Available [facility] 3 09:54:11 Altered bowel function 46858485 Active 2022 Not Available [facility] 3 09:54:12 Unsteady when walking 32596113 Active 2022 Not Available [facility] 3 09:54:11 Disorder of shoulder 233184397 Active Not Available [facility] 3 09:54:11 Plantar fasciitis of right foot 47822007240 170277 Completed 202002/22/2021 Not Available [facility] 3 03:06:12 Hyperchol esterolem ia 91542054 Active Not Available [facility] 3 09:54:11 Localized , primary osteoarth ritis of the pelvic region and thigh 044849099 Active Not Available [facility] 3 09:54:11 Pneumonia 492561861 Active 2019 Not Available [facility] 3 09:54:11 Headache 88966103 Active 2019 Not Available [facility] 3 09:54:11 Shoulder joint pain 028565910 Active Not Available [facility] 3 09:54:11 Closed Colles' fracture 098042662 Active Not Available [facility] 3 09:54:11 Skin problem 259529155 Active 2019 Not Available [facility] 3 09:54:11 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 Active Not Available [facility] 3 09:54:11 Depressiv e disorder 57305496 Active 2019 Not Available [facility] 3 09:54:11 Arthritis 5883122 Active 2019 Not Available [facility] 3 09:54:11 Hypertens johanna disorder 21702485 Completed 201901/21/2021 Not Available [facility] 3 03:06:13 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 Not Available [facility] 3 09:54:11 Osteoarth ritis 748614853 Active Not Available [facility] 3 09:54:11 Tinea cruris 761416240 Active 2021 Not Available [facility] 3 09:54:11 Onychomyc osis of toenails 266181068 Completed 201902/22/2021 Not Available [facility] 3 03:06:13 Dizziness 151074957 Active 2019 Not Available [facility] 3 09:54:11 Hypothyro idism 72779356 Active Not Available [facility] 3 09:54:11 Type 2 diabetes mellitus 25530029 Active Not Available [facility] 3 09:54:12 Onychogry phosis 76528009 Completed 201902/22/2021 Not Available [facility] 3 03:06:13 Hyperlipi demia 03071734 Completed BERNARDO [facility] 3 15:20:53 Essential hypertens ion 25035866 Active Not Available [facility] 3 09:54:12 Allergic rhinitis 08196030 Active Not Available [facility] 3 09:54:12 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 Not Available [facility] 3 09:54:12 Fracture of humerus 35915669 Active Not Available [facility] 3 09:54:12 Diabetes mellitus 37729786 Active 2021 Not Available [facility] 3 09:54:12 Diabetes mellitus 89162960 Completed 201901/21/2021 Not Available [facility] 3 03:06:14 Closed fracture of surgical neck of humerus 73146233 Active Not Available [facility] 3 09:54:12 Sleep apnea 84968787 Active Not Available [facility] 3 09:54:12 Dystrophi a unguium 39654281 Active 2020 Not Available [facility] 3 09:54:12 Neuropath y 523675351 Active 2022 Not Available [facility] 3 09:54:11 Type 2 diabetes mellitus without complicat ion 855750429 Active 2022 Not Available [facility] 3 09:54:11 Hyperlipi demia 69566886 Active 2022 Not Available [facility] 3 09:54:12 Serum creatinin e above reference range 571939340 Active 2023 Erickson Juarez MD [address] [facility], [facility] [address], [place], [address] , 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 4 15:38:49 Mammograp hy abnormal 070439076 Active 2023 Georgiana Cat CMA null, [place] [facility] 4 17:03:24 Mass of right breast 19877786158 874073 Active 2023 Georgiana Cat CMA null, [place] [facility] 4 15:32:32 Infiltrat ing duct carcinoma of breast 507524777 Active 2023 Cordell fajardo MD [address], [facility] [address], [place], [address] , [facility] - [facility] 4 14:46:42 Fracture of femur 50097305 Active 2024 Roxy Salas null, [place] [facility] 5 15:21:50 Pain of left hip joint 02976518957 9100 Active 2024 Georgiana Cat CMA null, [place] [facility] 5 16:40:13 Diarrhea 77268569 Active 2024 PAULA Bradford, [place] [facility] 5 17:30:35 Periphera l vascular disease 587245809 Active 2024 Vadim Dugan DPM [address] [facility], [address] [address], [place], [address] , [place] [facility] 5 16:52:12 Contusion of toe 55519977 Active 2024 Vadim Dugan DPM [address] [facility], [address] [address], [place], [address] , [place] [facility] 5 16:53:03 Malignant tumor of breast 545272906 Active 2024 Erickson Juarez MD [address] [facility] [address], [place], [address] , [place] [facility] 5 17:36:23 Malignant tumor of breast 020169026 Active 2024 Erickson Juarez MD [address] [facility], [address] [place] [address], [place], [address] , [place] [facility] 5 17:40:39 Edema of lower extremity 214727752 Active 2024 PAULA Bradford, [place] [facility] 5 12:59:23 Confusion al state 281726678 Active 2024 PAULA Bradford, [place] [facility] 5 16:16:39 Urgent desire to urinate 36477008 Active 2024 PAULA Bradford, [place] [facility] 5 12:08:28 Synovial popliteal cyst of left knee Active 2024 PAULA Bradford, [place] [facility] 5 16:06:53 Notes:allergies, neck proble ms, ear problems, head trauma or injury, use of blood thinners Some problems listed in Documents: #[id number], #[id number] could not be added to this patient's chart. Please review these documents and add these problems to the patient's chart manually as needed. Problem Notes None recorded. Procedures Surgical History Date Name Laterality Status Provider Name and Address Organization Details Recorded Time 5 Nail Debridement completed Vadim Dugan DPM [address], [address], [place], [address], [email or web address] 04/06/2024 17:11:02 4 Blank Procedure Note completed Cordell blair MD [address], [address], [place], [address], [email or web address] 12/10/2023 12:59:38 4 Nail Debridement completed Vadim Dugan DPM [address], [address], [place], [address], [email or web address] 11/11/2023 12:35:09 4 Medicare Wellness CPT Code, subsequent completed Gabriella Mooney RN [email or web address] 10/14/2023 15:09:09 4 Nail Debridement completed Vadim Dugan DPM [address], [address], [place], [address], [email or web address] 08/13/2023 14:51:23 4 Nail Debridement completed Vadim Dugan DPM [address], [address], [place], [address], [email or web address] 04/22/2023 09:38:32 3 Nail Debridement completed Vadim Dugan DPM [address], [address], [place], [address], [email or web address] 12/23/2022 17:24:04 3 Nail Debridement completed Vadim Dugan DPM [address], [address], [place], [address], [email or web address] 09/23/2022 17:02:11 3 Nail Debridement completed Vadim Dugan DPM [address], [address], [place], [address], [email or web address] 06/19/2022 15:22:45 3 Medicare Wellness CPT Code, subsequent completed Gabriella Mooney RN [place] [facility] [employer] [facility] 06/02/2022 14:37:23 Imaging Results None recorded. Procedure Notes None recorded. Medical Equipment None Reported. Allergies Allergen ID Allergen Name Allergen Category Reaction Reaction Severity Criticality Documentation Date Start Date Code Code System Note Provider Name and Address Organization Details Recorded Time 5413 Tylenol medicatio n Not available Not available Not available 04/16/2022 3 RxNorm inter rupts heart rhyth m Not Available [facility] 3 03:12:36 5414 Pravachol medicatio n other Not available Not available 04/16/2022 3 RxNorm depre ssion Not Available [facility] 3 03:12:36 5415 Glucophag e medicatio n other Not available Not available 04/16/2022 13836 7 RxNorm loss of taste Not Available [facility] 3 03:12:36 5416 acetamino phen medicatio n Not available Not available Not available 04/16/2022 161 RxNorm Not Available [facility] 3 03:12:36 Medications Name Sig Start Date [...] completed Not Available Not Available Not Available anastrozole 1 mg tablet Take 1 tablet every day by oral route. active Not Available Not Available No t Available venlafaxine ER 75 mg capsule,ext ended [...] Not Available Not Available No t Available ciprofloxac in 250 mg tablet TAKE 1 TABLET BY MOUTH EVERY 12 HOURS FOR 6 DAYS active Not Available Not Available No t [...] tablet with breakfast and one tablet with dinnerP LEASE DISCONTIN UE THIS MEDICATIO N 2024 active Not Available Not Available Not Avai lable Humalog U-100 Insulin 100 unit/mL subcutaneou s solution Inject 10 units every day by subcutane ous route. 08/09 /2021 completed Not Available Not Available Not Available [...] Not Available Not Available Not Avai lable ferrous sulfate 325 mg (65 mg iron) tablet Take 1 tablet every day by [...] completed Not Available Not Available Not Available hydrocortis one 1 % topical cream with perineal applicator APPLY TO RIGHT CHEST/SHAHANA AST AT BEDTIME. active Not Available Not Available No t Available Vitamin D3 25 mcg (1,000 unit) [...] active Not Available Not Available Not Available ferrous sulfate 324 mg (65 mg iron) tablet,modesto yed release 324 MG ORALLY DAILY FOR 30 DAYS active Not Available Not Available No t Available Lantus Solostar U-100 Insulin 100 unit/mL (3 mL) subcutaneou s pen Inject 20 units every day by subcutane ous route [...] Not Available Not Available FreeStyle Sj [address] [place] active Not Available Not Available Not Available Adult Multivitami n Gummies 120 mcg chewable tablet Take 1 tablet every day by oral route. active Not Available Not Available No t Available Vitals Date Recorded Body height Provider Name an d Address Organization Details Last Updated DateTime 03/21/2024 165.1 cm Nica Basilio Gallo [facility] [employer] [place] [facility] 03/21/2024 11:40:17 Date Recorded Body height Body temperature Oxygen saturation Oxygen saturation in Arterial blood by Pulse oximetry Respiratory rate Heart rate Systolic blood pressure Diastolic blood pressure Provider Name and Address Organization Details Last Updated DateTime 5 165.1 cm 97.8 [degF] 97 % 97 % 15 /min 98 /min 142 mm[Hg] 71 mm[Hg] Cate Rmarity [email or web address] [facility] [employer] 5 16:38:23 Date Recorded Body height Body mass index (BMI) Body weight Heart rate Body temperature Oxygen saturation Oxygen saturation in Arterial blood by Pulse oximetry Systolic blood pressure Diastolic blood pressure Provider Name and Address Organization Details Last Updated DateTime 5 165.1 cm 28 kg/m2 89455.5 2 g 77 /min 97 [degF] 98 % 98 % 132 mm[Hg] 74 mm[Hg] Marixajohnie Corbin [employer] [facility] [employer] 5 17:25:35 Date Recorded Heart rate Oxygen saturation Oxygen saturation in Arterial blood by Pulse oximetry Systolic blood pressure Diastolic blood pressure Provider Name and Address Organization Details Last Updated DateTime 5 78 /min 95 % 95 % 122 mm[Hg] 64 mm[Hg] [facility] [employer] [facility] [employer] 5 11:07:24 Date Recorded Body height Body mass index (BMI) Body weight Heart rate Body temperature Oxygen saturation Oxygen saturation in Arterial blood by Pulse oximetry Systolic blood pressure Diastolic blood pressure Provider Name and Address Organization Details Last Updated DateTime 5 165.1 cm 28 kg/m2 41528.5 2 g 78 /min 97 [degF] 99 % 99 % 120 mm[Hg] 62 mm[Hg] Marixa Solveronicaa [employer] [facility] [employer] 5 16:51:50 Social History Question Answer Notes LastModified by Organizat ion Details LastModified Time Tobacco Smoking Status Never Smoker Not Available [employer] 04/16/2022 03:01:12 Do You Have An Advance Directive? No MIGRATION.414369 2568 Information not available 04/16/2022 Are You Blind Or Do You Have Difficulty Seeing? No MIGRATION.499670 7752 Information not available 04/16/2022 Are You Deaf Or Do You Have Serious Difficulty Hearing? Yes MIGRATION.302953 5032 Information not available 04/16/2022 What Type Of Diet Are You Following? REGULAR MIGRATION.810545 9971 Information not available 04/16/2022 Have There Been Any Changes To Your Family Or Social Situation? No MIGRATION.729037 3859 Information not available 04/16/2022 What Is The Fluoride Status Of Your Home? Unknown [email or web address] Information not available 06/02/2022 Are There Any Guns Present In Your Home? Yes MIGRATION.284138 8551 Information not available 04/16/2022 Do You Use Insect Repellent Routinely? Yes MIGRATION.801335 8310 Information not available 04/16/2022 Where Do You Live? [place] MIGRATION.802543 6177 Information not available 04/16/2022 Guns Present In The Home? Yes [email or web address] Information not available 06/02/2022 Are You Able To Care For Yourself? No [email or web address] Information not available 06/02/2022 Are You Blind Or Do Yo Have Difficulty Seeing? No [email or web address] Information not available 06/02/2022 Are You Deaf Or Do You Have Serious Difficulty Hearing? Yes [email or web address] Information not available 06/02/2022 Live Alone Of With Others? With Others [email or web address] Information not available 06/02/2022 Do You Have A Medical Power Of Load Planner? No MIGRATION.695325 3168 Information not available 04/16/2022 What Was The Date Of Your Most Recent Tobacco Screening? 10/14/2023 [email or web address] Information not available 10/14/2023 Do You Have Any Pets? No MIGRATION.226480 4095 Information not available 04/16/2022 What Is Your Relationship Status? MIGRATION.475071 0421 Information not available 04/16/2022 Do You Use Your Seat Belt Or Car Seat Routinely? Yes MIGRATION.401054 2204 Information not available 04/16/2022 Do You Have Smoke And Carbon Monoxide Detectors In Your Home? Yes MIGRATION.548578 8408 Information not available 04/16/2022 Are You Passively Exposed To Smoke? No MIGRATION.544691 1876 Information not available 04/16/2022 Are There Any Smokers In Your House? No MIGRATION.488024 7678 Information not available 04/16/2022 Do You Use Sunscreen Routinely? Yes MIGRATION.317633 7249 Information not available 04/16/2022 Have You Recently Traveled Abroad? No MIGRATION.424231 9172 Information not available 04/16/2022 Do You Have Difficulty Walking Or Climbing Stairs? Yes MIGRATION.784853 7528 Information not available 04/16/2022 Do You Have Any Dietary Restrictions? No MIGRATION.980817 2048 Information not available 04/16/2022 Sex: Unknown Functional Status Question Answer Note LastModified by Organizat ion Details LastModified Time Do you or have you ever used any other forms of tobacco or nicotine? No MIGRATION.212454 1235 Information not available 04/16/2022 What is your level of alcohol consumption? None MIGRATION.666385 1855 Information not available 04/16/2022 Do you have transportation difficulties? No MIGRATION.576602 7201 Information not available 04/16/2022 Are you able to walk? YESASSIST uses walker [email or web address] Information not available 10/14/2023 Do you have difficulty doing errands alone? Yes MIGRATION.717948 2933 Information not available 04/16/2022 Are you able to care for yourself? No MIGRATION.754851 7913 Information not available 04/16/2022 Do you have difficulty dressing or bathing? No MIGRATION.003480 6475 Information not available 04/16/2022 What is your exercise level? None MIGRATION.791695 6957 Information not available 04/16/2022 Mental Status Question Answer Note LastModified by Organizat ion Details LastModified Time Do you have difficulty concentrating, remembering or making decisions? No MIGRATION.731114979 6 Information not available 04/16/2022 Family History [...] EAR OR HEARING PROBLEMS N MUMPS N DEPRESSION (INCLUDING POST ) Y BOWEL PROBLEMS N STROKE/TIA Y ULCERS N BENIGN PROSTATIC HYPERPLASIA N MEASLES N MYOCARDIAL INFARCTION N OBESITY N GERD/NAUSEA N ANEURYSM N URINARY/BLADDER/KIDNEY PROBLEMS N CORONARY ARTERY DISEASE (CAD) N ADDICTION CONCERNS N Impotence N ENDOMETRIOSIS N USE OF BLOOD THINNERS Y SKIN [...] APNEA Y CHICKENPOX N INFECTIOUS DISEASE N PROSTATE N HEART ARRHYTHMIA N INSOMNIA N HIGH CHOLESTEROL / HYPERLIPIDEMIA Y EYE PROBLEMS N HYPERTHYROIDISM N NEUROLOGICAL PROBLEMS N EDEMA N CHRONIC PAIN SYNDROME N HYPOTHYROIDISM Y CAROTID BLOCKAGE N CONSTIPATION N BACK / NECK PROBLEMS N HAVE YOU BEEN HOSPITALIZED OR SEEN IN [facility] IN THE PAST YEAR ? N ATHEROSCLEROSIS N BREAST PROBLEMS N DIALYSIS N ECZEMA N OSTEOPOROSIS Y ARTHRITIS Y NO SIGNIFICANT PAST MEDICAL HISTORY N APPENDICITIS N DIABETES, TYPE Y BAD TEETH N ENT N HEARTBURN / REFLUX N AUTISM SPECTRUM DISORDER (ASD) N HEPATITIS / LIVER DISEASE N GOUT N SLEEP DISORDER N ALZHEIMER'S DISEASE N Brain Problems N DEMENTIA N HERPES N SEIZURES/EPILEPSY N HEADACHES/MIGRAINES N VASCULAR DISEASE N PACEMAKER Y Blood Disorder N DIZZINESS N HEART DISEASE/HEART PROBLEMS N KIDNEY DISEASE Y MULTIPLE SCLEROSIS N CANCER: SPECIFY Y CARDIAC ARRHYTHMIA N ATRIAL FIBRILLATION N Gall Stones N PULMONARY EMBOLISM N AUTOIMMUNE DISEASE N Gynecological HistoryNo gynecological history recorded. Obstetrics History GPAL:G 0 P 0 0 0 0 Immunizations Vaccine Type Date Status Note Provider Nam e and Address Organization Details Recorded Time COVID-19 Non-US Vaccine, Product Unknown 1 completed Not Available [facility] 07/24/2022 18:27:31 COVID-19 Non-US Vaccine, Product Unknown 1 completed Not Available [facility] 07/24/2022 18:27:31 Pneumococcal conjugate PCV 13 5 completed Not Available [facility] 07/24/2022 18:27:31 Pneumococcal conjugate PCV 13 5 completed Not Available [facility] 07/24/2022 18:27:31 Influenza, split virus, trivalent, preservative 4 completed Not Available [facility] 07/24/2022 18:27:31 Influenza, split virus, trivalent, preservative 3 completed Not Available [facility] 07/24/2022 18:27:31 pneumococcal polysaccharide PPV23 7 completed Not Available [facility] 07/24/2022 18:27:31 Influenza, high-dose, quadrivalent, PF 1 completed Not Available [facility] 07/24/2022 18:27:31 Influenza, high-dose, quadrivalent, PF 2 completed Not Available [facility] 07/24/2022 18:27:31 Influenza, high-dose, quadrivalent, PF 0 completed Not Available [facility] 07/24/2022 18:27:31 Influenza, high-dose, trivalent, PF 8 completed Not Available [facility] 07/24/2022 18:27:31 Influenza, high-dose, trivalent, PF 7 completed Not Available [facility] 07/24/2022 18:27:31 Influenza, split virus, quadrivalent, preservative 5 completed Not Available [facility] 07/24/2022 18:27:31 Influenza, split virus, quadrivalent, PF 6 completed Not Available [facility] 07/24/2022 18:27:31 Influenza, high-dose, quadrivalent, PF 3 completed BERNARDO Henson [facility] 12/30/2022 15:34:03 Past Encounters Encounter ID Performer Location Encounter Start Date Encounter Closed Date Diagnosis/Indication Diagnosis SNOMED-CT Code Diagnosis ICD10 Code Diagnosis Note [id number] Vadim Dugan DPM [facility] [place] [address] [facility] [address] [place] [address] 05/24/2020 00:00:00 05/24/2020 15:47:45 [id number] Erickson Juarez MD [facility] Internal [facility] [place] [address] [address] 05/28/2020 00:00:00 05/28/2020 14:43:48 [id number] Vadim Dugan DPM [facility] [place] [address] [address] 08/23/2020 00:00:00 09/03/2020 08:47:22 [id number] Erickson Juarez MD [facility] [place] [address] [address] 09/24/2020 00:00:00 09/24/2020 15:14:00 [id number] [facility] [address] [address] 11/22/2020 00:00:00 12/14/2020 16:08:55 [id number] Erickson Juarez MD [facility] [place] [address] [address] 01/21/2021 00:00:00 01/21/2021 16:00:31 [id number] [facility] [address] [address] 02/21/2021 00:00:00 02/22/2021 11:33:07 [id number] Erickson Juarez MD [facility] Internal [facility] [place] [address] [address] 05/20/2021 00:00:00 05/20/2021 15:38:15 [id number] [facility] [address] [address] 07/11/2021 00:00:00 07/11/2021 15:18:13 [id number] Erickson Juarez MD [facility] [place] [address] [address] 09/23/2021 00:00:00 09/23/2021 12:15:27 [id number] Vadim Dugan DPM [facility] [place] [address] [place] [address] 10/03/2021 00:00:00 10/03/2021 14:50:24 [id number] Erickson Juarez MD [facility] Internal Med [facility] [address] [address] 01/27/2022 00:00:00 01/27/2022 12:06:19 [id number] Vadim Dugan DPM [facility] [place] [address] [place] [address] 02/20/2022 00:00:00 02/23/2022 21:39:09 [id number] Erickson Juarez MD [facility] Internal Med [facility] [address] [address] 06/02/2022 14:25:33 06/02/2022 15:04:14 Adult health examination 324276844 Z00.00 Screening for disorder 142090616 Z13.9 Essential hypertension 55080120 I10 Hypercholesterolemia 136 05331 E78.00 Hypothyroidism 51817661 E03.9 Type 2 amy betes mellitus 93208765 E11.9 Obese class I 7404769421 35205 E66.9 [id number] Vadim Dugan DPM [facility] [place] [address] [place] [address] 06/19/2022 15:03:48 06/19/2022 15:41:08 Diabetes mellitus 18644198 E11.9 Continue medication s per PCPCheck feet dailyFollo w-up in 3 months Dystrophia unguium 98902 009 L60.3 Nails 1 through 10 were debrided with sharp mechanical debridemen t without incident. Nails were debrided and greater than 50% length and thickness where needed. [id number] MD CARROLL Wright_[facility] Internal Med [facility] [address] [address] 07/21/2022 16:15:48 07/21/2022 16:44:30 Essential hypertension 28110592 I10 Hypercholesterolemia 136 20822 E78.00 Hypothyroidism 56272730 E03.9 Type 2 amy betes mellitus 85374405 E11.9 Abdominal pain 60804187 R10.9 [id number] Erickson Juarez MD [facility] Internal Med [facility] [address] [address] 08/06/2022 16:00:08 08/06/2022 16:46:55 Diabetes mellitus 91068000 E11.9 Essential hypertension 49324146 I10 Hypercholesterolemia 136 42005 E78.00 Hypothyroidism 29968948 E03.9 Altered toni wel function 57298592 R19.4 [id number] Vadim Dugan DPM [facility] [address] [place] [address] 09/23/2022 15:53:08 09/23/2022 17:09:22 Diabetes mellitus 29345564 E11.9 Continue medication s per PCPCheck feet dailyFollo w-up in 3 months Dystrophia unguium 23169 009 L60.3 Nails 1 through 10 were debrided with sharp mechanical debridemen t without incident. Nails were debrided and greater than 50% length and thickness where needed. 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 Check blood work in the form of CBC, CMP, lipid, thyroid, hemoglobin A1c and microalbum in. Continue on current medication s follow-up four months [id number] Vadim Dugan DPM [facility] [place] [address] [place] [address] 12/23/2022 15:53:57 12/23/2022 17:25:09 Diabetes mellitus 64304818 E11.9 Continue medication s per PCPCheck feet dailyFollo w-up in 3 months Dystrophia unguium 47618 009 L60.3 Nails 1 through 10 were debrided with sharp mechanical debridemen t without incident. Nails were debrided and greater than 50% length and thickness where needed. [id number] Erickson Juarez MD [facility] Internal [facility] [address] [place] [address] 02/04/2023 14:38:16 02/04/2023 15:13:24 Essential hypertension 42255967 I10 Follow-up type 2 diabetes -hyperlipi demia-hypo thyroidism -basilar artery syndrome -neuropath y -essential hypertensi on all stable. Check blood work in the form of CBC, CMP, lipid, thyroid, hemoglobin A1c and microalbum in. Continue on current medication s follow-up four months Hypercholesterolemia 136 72884 E78.00 Mild neuro cognitive disorder 542162963 G31.84 Type 2 amy betes mellitus 67780499 E11.9 Obese class I 0009100323 25134 E66.9 [id number] Vadim Dugan DPM [facility] [place] [place] [address] [place] [address] 04/21/2023 15:51:30 04/22/2023 09:55:05 Diabetes mellitus 17758086 E11.9 Continue medication s per PCPCheck feet dailyFollo w-up in 3 months Dystrophia unguium 96755 009 L60.3 Nails 1 through 10 were debrided with sharp mechanical debridemen t without incident. Nails were debrided and greater than 50% length and thickness where needed. [id number] Erickson Juarez MD [facility] Internal [facility] [address] [address] 06/10/2023 14:31:48 06/10/2023 15:33:38 Essential hypertension 47684657 I10 Hypercholesterolemia 136 45392 E78.00 Hypothyroidism 60203315 E03.9 Type 2 amy betes mellitus without complication 896678107 E11.9 [id number] Vadim Dugan DPM [facility] [place] [address] [place] [address] 07/21/2023 16:17:21 08/13/2023 15:16:16 Diabetes mellitus 92544012 E11.9 Continue medication s per PCPCheck feet dailyFollo w-up in 3 months Dystrophia unguium 03685 009 L60.3 Nails 1 through 10 were debrided with sharp mechanical debridemen t without incident. Nails were debrided and greater than 50% length and thickness where needed. [id number] Erickson Juarez MD [facility] Internal Med [facility] [address] [place] [address] 10/14/2023 14:41:10 10/14/2023 15:30:38 Adult health examination 518579530 Z00.00 Screening for disorder 653760521 Z13.9 Essential hypertension 85471403 I10 Hypercholesterolemia 136 56067 E78.00 Type 2 amy betes mellitus without complication 227312020 E11.9 Hypothyroidism 82411278 E03.9 Serum crea tinine above reference range 693020603 R79.89 [id number] Vadim Dugan DPM [facility] [place] [address] [address] 10/22/2023 15:30:26 11/11/2023 15:07:43 Diabetes mellitus 86031549 E11.9 Continue medication s per PCPCheck feet dailyFollo w-up in 3 months Dystrophia unguium 55886 009 L60.3 Nails 1 through 10 were debrided with sharp mechanical debridemen t without incident. Nails were debrided and greater than 50% length and thickness where needed. 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 [place] [address] 02/24/2024 14:46:53 02/24/2024 16:14:13 Postoperative visit 377828905 Z48.89 Fracture of femur 327196 00 S72.042D [id number] Benito Irving MD [facility] [address] [place] [address] 03/21/2024 10:49:59 03/21/2024 12:29:50 Fracture of femur 67656198 S72.042D [id number] Vadim Dugan DPM [facility] [address] [place] [address] 04/06/2024 16:06:05 04/06/2024 17:35:24 Peripheral vascular disease 960320493 I73.9 Dystrophia unguium 76598 009 L60.3 Nails 1 through 10 were debrided with sharp mechanical debridemen t without incident. Nails were debrided and greater than 50% length and thickness where needed. Contusion of toe 0101918 0 S90.122A left great toe [id number] Erickson Juarez MD [facility] Internal Med [place] [address] [facility], [facility] [address] [place] [address] 04/27/2024 17:12:08 04/27/2024 18:08:33 Essential hypertension 42499824 I10 Hypercholesterolemia 136 78700 E78.00 Type 2 amy betes mellitus without complication 497855276 E11.9 Malignant tumor of breast 236260002 C50.685 [id number] Erickson Juarez MD [facility] Primary Care [facility] [address] [facility] [address] [place] [address] 05/24/2024 10:49:17 05/24/2024 11:32:34 Essential hypertension 97221213 I10 Hypercholesterolemia 136 95130 E78.00 Hypothyroidism 13950883 E03.9 Infiltrati ng duct carcinoma of breast 680384140 C50.919 Type 2 amy betes mellitus 74159780 E11.9 [id number] Erickson Juarez MD [facility] Internal Med [facility] [address] [facility] [address] [place] [address] 07/06/2024 16:28:21 07/06/2024 17:13:58 Essential hypertension 41561561 I10 Hypercholesterolemia 136 39322 E78.00 Hypothyroidism 62846901 E03.9 Infiltrati ng duct carcinoma of breast 270106147 C50.919 Health Concerns Section Related Observation LastModified by Organization Detai ls LastModified Time None Recorded Concern Status LastModified by Organization Details LastModified Time None Recorded Advance Directives Directive N: Payers Encounter Date Sequence Insurance Name Policy Number Policy Gan Covered Member ID Gan Member ID Guarantor Name 03/21/2024 1 [place] Aevry R Poiter [id number] Avery R Poiter 03/21/2024 2 [place] [id number] Avery R Poiter [id number] Avery R Poiter 04/06/2024 1 [place] Avery R Poiter [id number] Avery R Poiter 04/06/2024 2 [place] [id number] Avery R Poiter [id number] Avery R Poiter 04/27/2024 1 [place] Avery R Poiter [id number] Avery R Poiter 04/27/2024 2 [place] [id number] Avery R Poiter [id number] Avery R Poiter 05/24/2024 1 [place] Avery R Poiter [id number] Avery R Poiter 05/24/2024 2 [facility] (PPO) [id number] Avery Harris [id number] Avery Harris 07/06/2024 1 [place] Avery Harris [id number] Avery Harris 07/06/2024 2 [facility] (PPO) [id number] Avery Harris [id number] Avery Harris Notes Date Note Type Note Provider Name and Address Organization Details Recorded Time 04/06/19 25 text/htm l . Patient is an 83-year-old female diabetic [...] Patient denies any recent wounds. Vadim Dugan, DPHasmukh [address] [facility], [facility] [address], [place], [address], [facility] [employer] [facility] 04/06/2024 17:15:34 04/28/19 25 text/htm l Patient Name: Avery HarrisDate Of Service: Thursday ( 04.27.2024 ): 1940 [...] Systemic Symptoms:none Medication Reconciliation: from medication list. Evtjlpadgum16/08/2023: CT scan of the abdomen pelvis without [...] (TABLET - ORAL) One DailyMultivitamin Gummie DailyBiotin 04138 UNITS DailyCoreg 3.125 MG (TABLET - ORAL) 1 Tablets Twice A DayRosuvastatin 5 MG (TABLET - ORAL) One DailyHumalog 100 IU/ML INJECTION, SOLUTION Slidinig ScaleOs-chito D Soft Chew Twice A Day Adverse Drug Reactions ReviewedGlucophage Loss Of TastePravachol Depression Vaccination and Immunization( ) 2006- PNEUMOVAX(X) 2022- INFLUENZA(X) 2014-02 PREVNAR 13 GC PREVNAR 20 Needed(X) 2020- COVID [employer] Surgical Fcbbmto1460-69 Rt. Partial Dxkqfarlol9362-95 Zvpwebple2728-52 Rt. Foot Kaxrwff7041-04 Rt. Foot Voycomx7075-49 Lt. Hand Surgery Preventative Testing( ) 04/01/2024 [...] A1C Date: 06/10/2023 Erickson Juarez MD [address] [facility] [address], [place], [address], [facility] [employer] 04/27/2024 17:44:55 05/25/19 25 text/htm l Patient Name: Avery HarrisDate Of Service: Thursday ( 05.24.2024 ): 1940 Age: 84 Vital Signs:Blood Pressure: Sitting Rt. Arm 122/64Pulse: Sitting 78 /min and RegularRespiratory Rate: 16DCCT HAIC: 7.4 Calculated MB mg% Chief Complaint: Addressed in HPI Problems or conditions discussed in the HPI were the only ones reviewed during the encounter.Only social and family history addressed in the HPI were reviewed during this encounter. Attendant(s): and cbxfnkes-gd-ojrVrlgzlyvpprxok and Systemic Symptoms:none Medication Reconciliation: from medication list. Ufwsqvwiaju85/08/2023: CT scan of the abdomen pelvis without [...] reviewed regarding management of hypertension and includes Coreg, Lasix and Lisinopril. #2. Type II Hypercholesterolaemia: Currently taking medication and tolerating well. No interval complaints of any muscle pain or arthralgia. No significant liver changes with medications. Last lipid panel: fair control. Therapy reviewed regarding treatment of cholesterol management and include diet and Rosuvastatin. #3. Hx of hypothyroidism currently stable. Heat intolerance: no Fatigue: no Weight gain: no Difficulty concentrating: no Muscle Symptoms: none Skin Texture: normal Skin Color: normal Currently taking synthroid. #4. Type II Diabetes: Has had no polyuria polyphagia or polydipsia. Has had no hypoglycemic like responses. No new history of any numbness, tingling, weakness or visual problems. No nausea, anorexia or other constitutional symptoms. There has been no foot problems or non healing lesions. The last HAIC was DCCT HAIC: 7.4 Calculated MB mg%. CGM: No. Average blood sugars 125-150 mg%. Checking sugars : several times a week. Medication Types Include: Insulin Secondary complications include none. Macro-vascular complications include none. Therapy reviewed regarding diabetic management and include Humalog and Lantus Solostar Pen Compliance: fair Renal Protection: LINDA inhibitors Lipid management: statins Urinary microalbumin: A1 . Ophthalmological: has seen eye doctor within the last year. Control: Intermediate Control 7.1 - 8.0 #5. Hx of Ca of the right breast(s). [...] (TABLET - ORAL) One DailyMultivitamin Gummie DailyBiotin 75410 UNITS DailyCoreg 3.125 MG (TABLET - ORAL) 1 Tablets Twice A DayFerrous Sulfate 325 MG TABLET Once DailyRosuvastatin 5 MG (TABLET - ORAL) One DailyHumalog 100 IU/ML INJECTION, SOLUTION Slidinig ScaleOs-chito D Soft Chew Twice A Day Adverse Drug Reactions ReviewedGlucophage Loss Of TastePravachol Depression Vaccination and Immunization( ) 2006-12 PNEUMOVAX(X) 2022-12 INFLUENZA(X) 2014-02 PREVNAR 13 GC PREVNAR 20 Needed(X) 2020-05 COVID [employer] Surgical [id number] Rt. Partial Kkskdbvxtl9483-88 Crhsgehef3495-50 Rt. Foot Mlvvcnf6685-54 Rt. Foot Kgyxcvk5140-75 Lt. Hand Surgery Preventative Testing( ) 05/04/2024 HAIC 7.4( ) 04/01/2024 Albumin 3.3 G/DL( ) 11/18/2023 Mammogram Diagnostic( ) 11/17/2023 DEXA Scan 11/16/2025( ) 02/12/2023 Optometry( ) 09/29/2022 Micro Albumin 8.7 MG/L N( ) 09/10/2022 Colonoscopy Social HistoryDoes not smoke cigarettes. 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 Arm 120/62Pulse: Sitting 78 /min and RegularRespiratory Rate: 16Height 65 in or 1.7 mWeight 168 lb or 76.2 kgBMI 28.0Temperature: 97 F or 36.1 CPulse Oximetry: 97 % at rest on no oxygen Chief Complaint: Addressed in HPI Problems or conditions discussed in the HPI were the only ones reviewed during the encounter.Only social and family history addressed in the HPI were reviewed during this encounter. Attendant(s): NoneConstitutional and Systemic Symptoms:none Medication Reconciliation: from medication list. Rzxykhqbvzm70/08/2023: CT scan of the abdomen pelvis without [...] noted in these areas suggestive possible stenosis 06-24-2024: Ultrasound of the left popliteal fossa shows no evidence any cysts or other sonographic abnormalities. History of Present Illness #1. Essential Hypertension: [...] liver changes with medications. Last lipid panel: excellent control. Therapy reviewed regarding treatment of cholesterol management and include diet and Rosuvastatin. #3. Hx of hypothyroidism currently stable. Heat intolerance: no Fatigue: no Weight gain: no Difficulty concentrating: no Muscle Symptoms: none Skin Texture: normal Skin Color: normal Currently taking synthroid. #4. Hx of Ca of both breast(s). Sub classification: ER positive. Metastasis: None Current Medications: Anastrozole.. #5. Presents today for face to face encounter with the beneficiary for possible wheelchair. Has a a number of chronic medical conditions further outlined below in the note and physical examination. Has mobility limitation that significantly impairs his/her ability to participate in one or mobility-related activities of daily living. Such as toileting - feeding - dressing - grooming and bathing in customary locations in the home. Mobility limitation cannot be sufficiently resolved by use of an appropriately fitted cane or walker. Use of manual wheelchair will significantly improve the beneficiary's ability to participate in MRADLs and because of her compromised muscular strength will need the light weigh yaa. [Weight?, Weight and/or height (if need to support the necessity for item) Active Medication ListLasix 40 MG (TABLET - ORAL) One Every Day For Bp & SwellingSynthroid 50 UG TABLET One Daily For ThyroidLisinopril 20 MG (TABLET - ORAL) One Daily For Blood PressureLantus Solostar Pen 40 UNITS DailyEffexor Xr 150 MG (CAPSULE, EXTENDED RELEASE - ORAL) One DailyPlavix 75 MG (TABLET - ORAL) One DailyMultivitamin Gummie DailyBiotin 56404 UNITS DailyCoreg 3.125 MG (TABLET - ORAL) 1 Tablets Twice A DayFerrous Sulfate 325 MG TABLET Once DailyMetolazone 2.5 MG TABLET Once DailyRosuvastatin 5 MG (TABLET - ORAL) One DailyHumalog 100 IU/ML INJECTION, SOLUTION Slidinig ScaleAnastrozole 1 MG TABLET Once DailyOs-chito D Soft Chew Twice A Day Adverse Drug Reactions ReviewedGlucophage Loss Of TastePravachol Depression Vaccination and ImmunizationImmunizations and Vaccinations Discussed and Implemented if feasible In the Office. Else referred to pharmacies. ( ) 2006- PNEUMOVAX(X) 2022- INFLUENZA(X) 2014- PREVNAR 13 GC PREVNAR 20 Needed(X) 2020- [employer] Tubvecq9156-41 Rt. Partial Kjxfvjnwir1683-30 Jhjywucyy6616-98 Rt. Foot Jmsiqwc3468-30 Rt. Foot Cmnmebo3894-09 Lt. Hand Surgery Preventative TestingPreventative Testing Discussed and Scheduled if Acceptable to Patient ( ) 05/04/2024 HAIC 7.4( ) 04/01/2024 Albumin 3.3 G/DL( ) 11/18/2023 Mammogram Diagnostic( ) 11/17/2023 DEXA Scan 11/16/2025( ) 02/12/2023 Optometry( ) 09/29/2022 Micro Albumin [...] MG/DLBUN 15 8-19 MG/DLCREATININE 1.00 0.66-1.25 MG/DLGFR 53ALKALINE PHOSPHATASE 112 38-126 U/LALANINE AMINOTRANSFERASE 19 0-35 U/LASPARTATE AMINOTRANSFERASE 25 15-37 U/LBILIRUBIN, TOTAL 0.60 0.20-1.30 MG/DL Erickson Juarez MD [address] [facility] [facility] [address], [place], [address], [place] [employer] [facility] 07/06/2024 17:13:16 OBGyn Episode No OBEpisode recorded.
--- OUTSIDE RECORDS SUMMARY | 2024-07-25 09:50 | XMS_ITS | Clinical Summary ---
Author Organization [facility] Address [address] 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 This disclosure is being madepursuant to the Care Everywhere program and may not contain all information available regarding this patient. 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
[2024-07-25 10:09] LABS: Basophils Percent Auto 0.8 % (0.2-1.2); Eosinophils Absolute Auto 0.1 K/mm3 (0-0.3); Eosinophils Percent Auto 2.3 % (0-4.4); Hemoglobin 9.7 g/dL (12.0-15.0); Immature Granulocyte Absolute 0.02 K/mm3 (0.00-0.031); Immature Granulocyte Percent A 0.4 % (0-0.5); Lymphocytes Absolute Auto 0.66 K/mm3 (0.9-3.2); Lymphocytes Percent Auto 12.6 % (18.3-44.2); Mean Corpuscular HGB Conc 30.3 g/dl (32-36); Mean Corpuscular Hemoglobin 27.3 pg (26-34); Mean Corpuscular Volume 90.1 fl (80-100); Mean Platelet Volume 10.4 fl (7.4-10.4); Monocytes Absolute Auto 0.5 K/mm3 (0.1-0.6); Monocytes Percent Auto 9.7 % (2.6-8.5); Neutrophils Absolute Auto 3.9 K/mm3 (1.3-6.7); Neutrophils Percent Auto 74.2 % (45.5-73.1); Platelet Count Result 157 k/mm3 (150-375); Red Blood Count 3.55 M/mm3 (4.2-5.4); Red Cell Distribution Width 15.9 % (11.5-14.5); White Blood Count 5.2 K/mm3 (4.5-10.0)
[2024-07-25 10:19] LABS: Alanine Aminotransferase 15 U/L (6-35); Albumin Level 3.6 g/dL (3.5-5.1); Alkaline Phosphatase 54 U/L (38-126); Anion Gap 8 mmol/L (4-12); Aspartate Amino Transferase 25 U/L (14-36); Bilirubin,Total 0.3 mg/dL (0.2-1.3); Blood Urea Nitrogen 27 mg/dL (7-17); Calcium 9.7 mg/dL (8.4-10.2); Carbon Dioxide 25 mmol/L (22-30); Chloride 107 mmol/L (98-107); Estimated CRCL calculation 27 ml/min; Estimated Glomerular Filt Rate 35; Glucose 126 mg/dL (65-110); Lactic Acid Reflex 1.2 mmol/L (0.7-2.0); Potassium 3.8 mmol/L (3.4-5.0); Sodium 140 mmol/L (137-145); Total Protein 6.8 g/dL (6.3-8.2)
[2024-07-25 10:24] LABS: INR 1.1; Prothrombin Time 14.2 Seconds (11.1-14.7)
[2024-07-25 10:25] LABS: Partial Thromboplastin Time 25.3 Seconds (22.3-36.8)
[2024-07-25 10:28] LABS: NT Pro B Type Natriuretic Pept 807 pg/mL (19.9-100)
[2024-07-25 11:02] LABS: Add Urine Microscopic? NO; Appearance Urine Clear (Clear); Bilirubin Urine Negative (Negative); Blood Urine Negative (Negative); Color Urine Yellow (Yellow); Glucose Urine UA Negative (Negative); Ketones Urine Negative (Negative); Leukocyte Esterase Ur Negative LEU/UL (Negative); Nitrate Urine Negative (Negative); Protein Urine Negative (Negative); Specific Grav Ur 1.013 (1.001-1.035); Urobilinogen Urine 0.2 mg/dL (<2.0); pH Urine 5.5 (5.0-9.0)
[2024-07-25 11:13] VITALS: BP 118/48; PULSE 83; RESP 20; O2SAT 100
[2024-07-25 11:19] LABS: CRP < 0.5 mg/dL (<1.0)
[2024-07-25 12:52] VITALS: BP 120/66; PULSE 94; RESP 22; O2SAT 100
[2024-07-25] MEDS: DOXYCYCLINE HYCLATE 100 MG TABLET PO (12:52)
== END 2024-07-25 13:29 ==
PROVIDERS: Emergency Provider Registered Nurse; PCP Internal Medicine
DX: L03.116 Cellulitis of left lower limb (principal); L03.115 Cellulitis of right lower limb; N61.0 Mastitis without abscess; I50.9 Heart failure, unspecified; I11.0 Hypertensive heart disease with heart failure; F32.A Depression, unspecified; E03.9 Hypothyroidism, unspecified; E11.9 Type 2 diabetes mellitus without complications; F41.9 Anxiety disorder, unspecified; Z95.0 Presence of cardiac pacemaker; Z85.3 Personal history of malignant neoplasm of breast; Z98.42 Cataract extraction status, left eye; Z98.41 Cataract extraction status, right eye; Z90.49 Acquired absence of other specified parts of digestive tract; Z79.82 Long term (current) use of aspirin; Z79.4 Long term (current) use of insulin; Z79.02 Long term (current) use of antithrombotics/antiplatelets; Z79.899 Other long term (current) drug therapy; M17.11 Unilateral primary osteoarthritis, right knee; I45.10 Unspecified right bundle-branch block; R94.31 Abnormal electrocardiogram [ECG] [EKG]
CPT/HCPCS: 36415; 71046; 73590; 80053; 81003; 83605; 83880; 85025; 85610; 85730; 86140; 93005; 99284; A9270